=== PATIENT | female | born 1955 | race Caucasian/White ===

== ENCOUNTER 2016-03-06 04:24 | Emergency (ER) | payer MEDICARE, OTHER ==
[~2016-03-06] VITALS: Ht 154.9 cm; Wt 84.8 kg
[~2016-03-06 04:24] MED LIST: ALBU17AE23 IH; ASP81TEC PO; ATEN-155 PO; ATEN25TA PO; CHOL100011 PO; CYCL10TA9 PO; DICL75TA2 PO; FLT05NA16 NS; GABA300T PO; IBUP-15 PO; ISM30TCR PO; LISI1TAB10 PO; LOVA20TA2 PO; METF-380 PO; MNTL10T PO; RANI300T4 PO; TRM50T PO
[2016-03-06] MEDS ORDERED: METO-270 PO (04:52)
[2016-03-06] MEDS ORDERED: OMEP20CA12 PO (04:52)
[2016-03-06] MEDS ORDERED: CETI10TA17 PO (04:52)
--- NOTE | 2016-03-06 04:56 | ED Cardiac General ---
History of Present Illness General Chief Complaint: Cardiac/General Problems Stated Complaint: HIGH BLOOD PRESSURE Nursing Triage Note: Pt reports blood pressure running high throughout the night. Pt states she initially took BP after feeling sick to stomach around 2300 and BP was 164/84. Pt then took 1/2 of 25mg metoprolol ER and BP dropped to 155/71. 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 Pt denies KAMARA, dizziness, or CP. 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 AND WAS 176/84, SO CAME TO ER COMPLETELY ASYMPTOMATIC--NAUSEA GONE NO CHEST PAIN NO SHORTNESS OF BREATH NO PALPITATIONS NO DIZZINESS Allergies and Home Medications Allergies Coded Allergies: acetaminophen (Unverified Allergy, Mild, 05/05/09) codeine (Unverified Allergy, Mild, 05/05/09) propoxyphene (Unverified Allergy, Mild, 05/05/09) tramadol (Unverified Allergy, Mild, 05/12/09) Home Medications Albuterol 17 Gm Aerosol 1 GM IH 5 x DAILY (Reported) Aspirin 81 Mg Tabec 81 MG PO DAILY (Reported) Cetirizine HCl 10 Mg Tablet 10 MG PO DAILY (Reported) Fluticasone Propionate 16 Gm [place] 2 SPRAYS NS BID (Reported) Gabapentin 300 Mg Tablet 300 MG PO TID (Reported) Lisinopril/Hydrochlorothiazide 1 Each Tablet 0.5 TAB PO DAILY (Reported) Lovastatin 20 Mg Tablet 20 MG PO DAILY (Reported) Metformin Hcl 1,000 Mg Tablet 1,000 MG PO BID WITH MEALS (Reported) Metoprolol Succinate 25 Mg Tab.er.24h 25 MG PO DAILY (Reported) Omeprazole 20 Mg Capsule.dr 20 MG PO BID (Reported) Review of Systems Constitutional: no symptoms reported Respiratory: No Symptoms Reported Cardiovascular: See HPIDenies Chest Pain, Denies Edema, Denies Lightheadedness , Denies Palpitations, Denies Syncope Gastrointestinal: See HPIDenies Abdominal Pain, NauseaDenies Vomiting Genitourinary: No Symptoms Reported Musculoskeletal: no symptoms reported Skin: no symptoms reported Psychiatric/Neurological: Anxiety Past Icofivi-Auqtvf-Zmldep Hx Patient Social History Alcohol Use: Denies Use Recreational Drug Use: No Smoking Status: Never a Smoker Recent Foreign Travel: No Contact w/Someone Who Travel: No Recent Infectious Disease Expo: No Recent Hopitalizations: No Physical Abuse Screen: No Sexual Abuse: No Immunizations Up To Date Date of Pneumonia Vaccine: Feb 20, 2011 Date of Influenza Vaccine: Nov 15, 2011 Seasonal Allergies Seasonal Allergies: No Surgeries HX Surgeries: Yes (D&C; CARDIAC CATH--NO INTERVENTION) Surgeries: Cardiac, Orthopedic Respiratory Hx Respiratory Disorders: Yes (wears 2L @ night) Respiratory Disorders: Asthma Cardiovascular Hx Cardiac Disorders: Yes ("blood clot in heart" ) Cardiac Disorders: Chronic Edema/Swelling, Coronary Artery Disease, Deep Vein Thrombosis, High Cholesterol, Hypertension Neurological Hx Neurological Disorders: Yes (spina bifida) Neurological Disorders: Neuropathy Reproductive System Hx Reproductive Disorders: No DIRECTOR SUPPLY History: Menopausal Genitourinary Hx Genitourinary Disorders: No Gastrointestinal Hx Gastrointestinal Disorders: Yes Gastrointestinal Disorders: Gastroesophageal Reflux Musculoskeletal Hx Musculoskeletal Disorders: Yes (SPINA BIFIDA) Musculoskeletal Disorders: Arthritis, Fibromyalgia, Chronic Back Pain Endocrine Hx Endocrine Disorders: Yes Endocrine Disorders: Diabetes, Non-Insulin dep HEENT HX ENT Disorders: No Cancer Hx Cancer: No Psychosocial Hx Psychiatric Problems: No Physical Exam Vital Signs Vital Sign - Last 12Hours 03/06/16 04:39 Temp 96.6 Pulse 117 Resp 18 B/P 190/96 Pulse Ox 96 O2 Delivery Room Air Capillary Refill : Less Than 3 Seconds General Appearance: No Apparent Distress WD/WN Anxious Neck: Full Range of Motion Normal Inspection Non Tender SuppleNo Carotid Bruit , No JVD Respiratory: Normal Breath Sounds No Accessory Muscle Use No Respiratory Distress Cardiovascular: Regular Rate, Rhythm No JVD No Murmur Normal Peripheral Pulses Gastrointestinal: Normal Bowel Sounds No Organomegaly No Pulsatile Mass Non Tender Soft Extremity: Normal Capillary Refill Normal Inspection Normal Range of Motion Non Tender No Calf Tenderness Pedal Edema (TRACE BILATERALLY) Neurologic/Psychiatric: Alert Oriented x3 No Motor/Sensory Deficits 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 II- XII Norm as Tested Other (ANXIOUS) Skin: Normal Color Warm/Dry Progress/Results/Core Measures Results/Orders My Orders Orders-ELIEZER KELLEY DO Metoprolol Succinate (Xl) Tab (Toprol Xl (03/06/16 05:15) Medications Given in ED Current Medications Medications Dose Ordered Sig/Toney Route Start Time Stop Time Status Last Admin Dose Admin Metoprolol Succinate 25 mg ONCE ONCE PO 03/06/16 05:15 03/06/16 05:16 DC 03/06/16 05:15 25 MG Vital Signs/I&O Vital Sign - Last 12Hours 03/06/16 04:39 Temp 96.6 Pulse 117 Resp 18 B/P 190/96 Pulse Ox 96 O2 Delivery Room Air Blood Pressure Mean: 127 Progress Note : Progress Note BP DOWN TO 135/80 AT DISMISSAL AND PT STATES SHE FEELS GREAT AND HAS NO COMPLAINTS Departure Impression Impression: Primary Impression: HTN (hypertension) Additional Impression: Anxiety Disposition: 01 HOME, SELF-CARE Condition: Stable Departure-Patient Inst. Referrals: CAIO MARC DO (PCP) Primary Care Physician CLEMENTE CHASE (Family) Primary Care Physician Patient Instructions: Heart Disease in Diabetics (DC), Heart Healthy Diet, High Blood Pressure (DC) Add. Discharge Instructions: TAKE YOUR BLOOD PRESSURE MEDICATIONS PRESCRIBED FOLLOW UP WITH YOUR DR NEXT WEEK FOR FURTHER CARE All discharge instructions reviewed with patient and/or family. Voiced understanding. ELIEZER KELLEY DO Mar 06, 2016 04:55
[2016-03-06 05:54] VITALS: BP 135/80
== END 2016-03-06 05:54 | disposition home or self-care (01) ==
LOC: EDUNIT# 04:24 → ER 04:28
DX: I10 Essential (primary) hypertension (principal); F41.9 Anxiety disorder, unspecified; I25.10 Atherosclerotic heart disease of native coronary artery without angina pectoris; E11.9 Type 2 diabetes mellitus without complications; Z79.82 Long term (current) use of aspirin; Z79.899 Other long term (current) drug therapy; Z79.84 Long term (current) use of oral hypoglycemic drugs

== ENCOUNTER 2016-04-20 10:21 | Emergency (ER) | payer MEDICARE, OTHER ==
[~2016-04-20] VITALS: Ht 154.9 cm; Wt 83.9 kg
[~2016-04-20 10:21] MED LIST changes: +CETI10TA17 PO; +METO-270 PO; +OMEP20CA12 PO
--- NOTE | 2016-04-20 10:49 | ED Lower Extremity ---
General Stated Complaint: LEFT LEG PAIN Source: patient Exam Limitations: no limitations History of Present Illness Time seen by provider: 10:48 Initial Comments To ER with left leg pain for about a week. Chronic swelling in the left leg and the right leg but she states the left leg is a bit worse than usual. History of DVT in the left leg. No known injury. She feels as though the knee is swollen. Pain begins at the knee and is an "shooting pain" down to the ankle. Onset: just prior to arrival Severity: moderate Pain/Injury Location: left leg, left knee Method of Injury: unknown Modifying Factors: Improves With Movement Allergies and Home Medications Allergies Coded Allergies: acetaminophen (Unverified Allergy, Mild, 05/05/09) codeine (Unverified Allergy, Mild, 05/05/09) propoxyphene (Unverified Allergy, Mild, 05/05/09) tramadol (Unverified Allergy, Mild, 05/12/09) Home Medications Albuterol 17 Gm Aerosol 1 GM IH 5 x DAILY (Reported) Aspirin 81 Mg Tabec 81 MG PO DAILY (Reported) Cetirizine HCl 10 Mg Tablet 10 MG PO DAILY (Reported) Fluticasone Propionate 16 Gm [place] 2 SPRAYS NS BID (Reported) Gabapentin 300 Mg Tablet 300 MG PO TID (Reported) Lisinopril/Hydrochlorothiazide 1 Each Tablet 0.5 TAB PO DAILY (Reported) Lovastatin 20 Mg Tablet 20 MG PO DAILY (Reported) Meloxicam 7.5 Mg Tablet #30 7.5 MG PO BID Prescribed by: NEGRO HAAS on 04/20/16 1122 Metformin Hcl 1,000 Mg Tablet 1,000 MG PO BID WITH MEALS (Reported) Omeprazole 20 Mg Capsule.dr 20 MG PO BID (Reported) Pantoprazole Sodium 40 Mg Tablet.dr #20 40 MG PO DAILY Prescribed by: NEGRO HAAS on 04/20/16 1122 Constitutional: see HPI EENTM: see HPI Respiratory: no symptoms reported Cardiovascular: no symptoms reported Genitourinary: no symptoms reported Musculoskeletal: see HPI Skin: no symptoms reported Psychiatric/Neurological: No Symptoms Reported Past Trymumh-Dkrldb-Onnmud Hx Patient Social History Recent Foreign Travel: No Contact w/Someone Who Travel: No Recent Hopitalizations: No Immunizations Up To Date Date of Pneumonia Vaccine: Feb 20, 2011 Date of Influenza Vaccine: Nov 15, 2011 Seasonal Allergies Seasonal Allergies: No Surgeries HX Surgeries: Yes (D&C; CARDIAC CATH--NO INTERVENTION) Surgeries: Cardiac, Orthopedic Respiratory Hx Respiratory Disorders: Yes (wears 2L @ night) Respiratory Disorders: Asthma Cardiovascular Hx Cardiac Disorders: Yes ("blood clot in heart" ) Cardiac Disorders: Chronic Edema/Swelling, Coronary Artery Disease, Deep Vein Thrombosis, High Cholesterol, Hypertension Neurological Hx Neurological Disorders: Yes (spina bifida) Neurological Disorders: Neuropathy Reproductive System Hx Reproductive Disorders: No 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 Genitourinary Hx Genitourinary Disorders: No Gastrointestinal Hx Gastrointestinal Disorders: Yes Gastrointestinal Disorders: Gastroesophageal Reflux Musculoskeletal Hx Musculoskeletal Disorders: Yes (SPINA BIFIDA) Musculoskeletal Disorders: Arthritis, Fibromyalgia, Chronic Back Pain Endocrine Hx Endocrine Disorders: Yes Endocrine Disorders: Diabetes, Non-Insulin dep HEENT HX ENT Disorders: No Cancer Hx Cancer: No Psychosocial Hx Psychiatric Problems: No Physical Exam Vital Signs Vital Sign - Last 12Hours 04/20/16 10:45 Temp 98.0 Pulse 92 Resp 18 B/P 147/95 Pulse Ox 98 O2 Delivery Room Air Capillary Refill : General Appearance: WD/WN no apparent distress HEENT: PERRL/EOMI normal ENT inspection Neck: non-tender full range of motion Respiratory: no respiratory distress no accessory muscle use Gastrointestinal: non tender soft Hips: bilateral hip non-tender, bilateral hip normal inspection, bilateral hip normal range of motion Legs: bilateral leg non-tender, bilateral leg normal inspection, bilateral leg normal range of motion Knees: left knee pain, left knee soft tissue tenderness, left knee swelling Ankles: bilateral ankle non-tender, bilateral ankle normal inspection, bilateral ankle normal range of motion Feet: bilateral foot non-tender, bilateral foot normal inspection, bilateral foot normal range of motion Neurologic/Psychiatric: alert normal mood/affect oriented x 3 Skin: normal color warm/dry Progress/Results/Core Measures Results/Orders My Orders Orders-NEGRO HAAS APRN Knee, Left, 3 Views (04/20/16 10:48) Us Venous Lower Ext Lt (04/20/16 10:48) Vital Signs/I&O Vital Sign - Last 12Hours 04/20/16 10:45 Temp 98.0 Pulse 92 Resp 18 B/P 147/95 Pulse Ox 98 O2 Delivery Room Air Departure Impression Impression: Primary Impression: Arthritis of knee, left Disposition: 01 HOME, SELF-CARE Condition: Stable Departure-Patient Inst. Decision time for Depature: 11:20 Referrals: MARY KATE HERMOSILLO MD [place] - [facility] (PCP) Primary Care Physician TAMRA TUCKER MD,JORGE GIRALDO,CRISTÓBAL PURDY,DALJIT GRANGER,ELA Cee MD Patient Instructions: Knee Pain Add. Discharge Instructions: 1. Anti-inflammatories as directed 2. Follow-up with an orthopedic surgeon of your choosing 3. Return to ER for any concerns Scripts Pantoprazole Sodium (Protonix)40 Mg Tablet.dr40 Mg PO DAILY #20 TAB Prov:NEGRO HAAS HEMATOLOGY TECHNICIAN 04/20/16 Meloxicam 7.5 Mg Tablet7.5 Mg PO BID #30 TAB Prov:NEGRO HAAS HEMATOLOGY TECHNICIAN 04/20/16 NEGRO HAAS HEMATOLOGY TECHNICIAN Apr 20, 2016 10:49
--- NOTE | 2016-04-20 11:18 | Diagnostic Imaging Report ---
INDICATION: Pain and swelling to the left knee radiating down the leg, no known trauma. COMPARISON STUDY: Left knee dated 06/19/14. FINDINGS: 3 views of the left knee demonstrates stable small osteophytes in the patellofemoral joint space. No fracture is present. A small suprapatellar joint effusion has developed. IMPRESSION: Stable mild degenerative changes of patellofemoral joint with interval development of a small joint effusion. Dictated by: Dictated on workstation # [id number]
[2016-04-20] MEDS ORDERED: PANT40TA2 PO (11:22)
[2016-04-20] MEDS ORDERED: MELO7.5T46 PO (11:22)
[2016-04-20 11:31] VITALS: BP 147/95
--- NOTE | 2016-04-20 11:33 | Diagnostic Imaging Report ---
PROCEDURE: US left lower extremity venous. TECHNIQUE: Multiple real-time grayscale images were obtained over the left lower extremity in various projections. Additional duplex Doppler and color Doppler images were also obtained. INDICATION: Left leg pain and swelling. COMPARISON: 02/14/2012. TECHNIQUE: The left lower extremity deep venous system was interrogated from the common femoral vein through the popliteal vein. These images were assessed for grayscale appearance, color and spectral Doppler blood flow, compression, and augmentation. FINDINGS: There is no evidence of intraluminal filling defect. Normal compression and augmentation is noted throughout. Soft tissues are unremarkable. IMPRESSION: 1. No sonographic evidence of deep venous thrombosis in the left lower extremity. Dictated by: Dictated on workstation # [id number]
== END 2016-04-20 11:32 | disposition home or self-care (01) ==
LOC: EDUNIT# 10:21 → ER 10:23
DX: M17.12 Unilateral primary osteoarthritis, left knee (principal); M25.462 Effusion, left knee; I10 Essential (primary) hypertension; E11.9 Type 2 diabetes mellitus without complications; I25.10 Atherosclerotic heart disease of native coronary artery without angina pectoris; Z79.82 Long term (current) use of aspirin; Z79.84 Long term (current) use of oral hypoglycemic drugs; Z79.899 Other long term (current) drug therapy; Z86.718 Personal history of other venous thrombosis and embolism
CPT/HCPCS: 73562; 99283

== ENCOUNTER → 2016-05-07 | Outpatient (CLI) | payer MEDICARE ==
[~2016-05-07] MED LIST changes: +MELO7.5T46 PO; +PANT40TA2 PO
--- NOTE | 2016-05-10 09:14 | Diagnostic Imaging Report ---
EXAMINATION: Magnetic resonance imaging of the left knee without intravenous contrast DATE: May 07, 2016. COMPARISON: Left knee radiographs April 20, 2016. June 19, 2014. INDICATION: 60-year-old female, left knee pain for 3-4 weeks. No known recent injury. TECHNIQUE: Multiplanar, multisequence non contrast enhanced MR imaging was accomplished. FINDINGS: MENISCI: The medial meniscus is intact. There is a complex tear involving the anterior horn, body, and posterior horn of the lateral meniscus. LIGAMENTS AND TENDONS: The anterior and posterior cruciate ligaments are intact. The medial collateral ligament is intact. The iliotibial band, mid third lateral capsular ligament, fibular collateral ligament, biceps femoris tendon and conjoined tendon are intact. The quadriceps tendon and patella ligament are intact. JOINT: There is approximately 25-50% thickness cartilage loss with superficial irregularity and pitting of the cartilage of the median patellar ridge and medial aspect of the lateral femoral trochlear cartilage. There is superficial irregularity of the cartilage of the femoral trochlea. The medial and lateral compartment cartilage is intact. There is a trace knee joint effusion. There is no identified intra-articular body or prominent synovitis. BONE: There are tubular areas of fluid like signal in the proximal tibia underlying the attachment site of the cruciate ligaments and posterior root attachment of the medial meniscus which likely relates to intraosseous ganglion cyst formation. There is no acute fracture, bone contusion, or evidence of osteonecrosis. BURSAE AND SOFT TISSUES: There is a very small slitlike Pitts's cyst. There is a multiloculated ganglion cyst subjacent to the posterior joint capsule which measures roughly 1.9 x 1.7 x 1.1 cm in size. IMPRESSION: 1. Extensive complex tear involving the anterior horn, body, and posterior horn of the lateral meniscus. 2. Intact medial meniscus. 3. Intact anterior and posterior cruciate ligaments. 4. Mild to moderate patellofemoral compartment osteoarthritis. Trace knee joint effusion without identified intra-articular body or prominent synovitis. 5. Very small slitlike Pitts's cyst. 6. No acute fracture or bone contusion. Dictated by: Dictated on workstation # [id number]
== END ==
LOC: RAD 11:32
PROVIDERS: ATTEND Orthopaedic Surgery
DX: M23.8X2 Other internal derangements of left knee (principal)
CPT/HCPCS: 73721

== ENCOUNTER → 2016-07-13 | Outpatient (CLI) | payer MEDICARE, OTHER | LOC: RAD 10:48 | PROVIDERS: ATTEND Internal Medicine Cardiovascular Disease | DX: I73.9 Peripheral vascular disease, unspecified (principal); E11.9 Type 2 diabetes mellitus without complications; E78.4 Other hyperlipidemia; I10 Essential (primary) hypertension; R06.02 Shortness of breath | CPT/HCPCS: 93923 ==

== ENCOUNTER 2016-09-12 09:39 | Emergency (ER) | payer MEDICARE, OTHER ==
[~2016-09-12] VITALS: Ht 167.6 cm; Wt 81.6 kg
[~2016-09-12 09:39] MED LIST changes: -METO-270 PO; +METO-387 PO
--- NOTE | 2016-09-12 10:05 | ED EENT ---
History of Present Illness General Stated Complaint: THROAT DISCOMFORT History of Present Illness Time seen by provider: 09:58 Initial Comments Patient presents to ER by private conveyance with chief complaint of this morning waking up with a little difficulty swallowing or medicine and feeling no sore throat but definitely a lump in her throat at the back of her throat. She took some salt water gargle and this helped a little bit. She is able to get her meds down. She has had no fevers chills or malaise nausea or diarrhea. She has no known sick contacts. She has no other symptoms such as facial asymmetry or numbness or tingling. She is diabetic. She says she knows some white streaks on her right tonsil this morning in the mirror. She feels that it is worse on the right than left. She remarks about 1-2 weeks ago she had a tooth pulled on the right side on the back lower jaw. She was put on antibiotics for a week. She is not having any dental pain or discharge. Allergies and Home Medications Allergies Coded Allergies: acetaminophen (Unverified Allergy, Mild, 05/05/09) codeine (Unverified Allergy, Mild, 05/05/09) propoxyphene (Unverified Allergy, Mild, 05/05/09) tramadol (Unverified Allergy, Mild, 05/12/09) Home Medications Albuterol 17 Gm Aerosol, 1 GM IH 5 x DAILY, (Reported) Aspirin 81 Mg Tabec, 81 MG PO DAILY, (Reported) Cetirizine HCl 10 Mg Tablet, 10 MG PO DAILY, (Reported) Fluticasone Propionate 16 Gm [place], 2 SPRAYS NS BID, (Reported) Gabapentin 300 Mg Tablet, 300 MG PO TID, (Reported) Lisinopril/Hydrochlorothiazide 1 Each Tablet, 0.5 TAB PO DAILY, (Reported) Lovastatin 20 Mg Tablet, 20 MG PO DAILY, (Reported) Meloxicam 7.5 Mg Tablet, 7.5 MG PO BID, #30 Prescribed by: NEGRO HAAS on 04/20/161121 Metformin Hcl 1,000 Mg Tablet, 1,000 MG PO BID WITH MEALS, (Reported) Omeprazole 20 Mg Capsule., 20 MG PO BID, (Reported) Pantoprazole Sodium 40 Mg Tablet.dr, 40 MG PO DAILY, #20 Prescribed by: NEGRO HAAS on 3/7/17 1122 Review of Systems Constitutional: No chills, No diaphoresis, No dizziness, No fever, No malaise, No weakness, No weight gain, No weight loss Eyes: Denies Drainage, Denies Pain Ears: Denies Dizziness, Denies Pain, Denies Tinnitus Nose: denies congestion, denies clear discharge, denies purulent discharge Mouth: denies loose teeth Throat: see HPI, denies discharge, denies neck stiffness, denies hoarse, denies aphonia, denies muffled, painful swallowing, denies difficulty with fluids Respiratory: No cough, No short of breath Cardiovascular: No chest pain, No palpitations Gastrointestinal: No constipation, No diarrhea, No nausea, No vomiting Past Asxrcix-Plffmd-Cklxax Hx Patient Social History Recent Foreign Travel: No Contact w/Someone Who Travel: No Recent Hopitalizations: No Immunizations Up To Date Date of Pneumonia Vaccine: Feb 20, 2011 Date of Influenza Vaccine: Nov 15, 2011 Seasonal Allergies Seasonal Allergies: No Surgeries HX Surgeries: Yes (D&C; CARDIAC CATH--NO INTERVENTION) Surgeries: Cardiac, Orthopedic Respiratory Hx Respiratory Disorders: Yes (wears 2L @ night) Respiratory Disorders: Asthma Cardiovascular Hx Cardiac Disorders: Yes ("blood clot in heart" ) Cardiac Disorders: Chronic Edema/Swelling, Coronary Artery Disease, Deep Vein Thrombosis, High Cholesterol, Hypertension Neurological Hx Neurological Disorders: Yes (spina bifida) Neurological Disorders: Neuropathy Reproductive System Hx Reproductive Disorders: No 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 Genitourinary Hx Genitourinary Disorders: No Gastrointestinal Hx Gastrointestinal Disorders: Yes Gastrointestinal Disorders: Gastroesophageal Reflux Musculoskeletal Hx Musculoskeletal Disorders: Yes (SPINA BIFIDA) Musculoskeletal Disorders: Arthritis, Fibromyalgia, Chronic Back Pain Endocrine Hx Endocrine Disorders: Yes Endocrine Disorders: Diabetes, Non-Insulin dep HEENT HX ENT Disorders: No Cancer Hx Cancer: No Psychosocial Hx Psychiatric Problems: No Physical Exam Vital Signs Vital Sign - Last 12Hours 09/12/16 10:04 Temp 97.5 Pulse 70 Resp 16 B/P (MAP) 173/105 Pulse Ox 98 O2 Delivery Room Air General Appearance: WD/WN, no apparent distress Eyes: bilateral eye EOMI, bilateral eye PERRL, bilateral eye normal inspection Ears: bilateral ear TM normal, bilateral ear auricle normal, bilateral ear canal normal Nose: normal inspection, No discharge Mouth/Throat: No dental tenderness, tonsillar swelling, other (white flecks on bilateral tonsils) Neck: non-tender, full range of motion, supple, normal inspection, lymphadenopathy (R) (shotty), lymphadenopathy (L) (shotty), No thyromegaly Cardiovascular: normal peripheral pulses, regular rate, rhythm Respiratory: lungs clear, normal breath sounds Gastrointestinal: non tender, soft Neurologic/Psychiatric: alert, oriented x 3 Skin: normal color, warm/dry Progress/Results/Core Measures Results/Orders Lab Results Laboratory Tests Test 09/12/16 10:00 Range/Units Group A Streptococcus Screen NEGATIVE NEGATIVE My Orders Orders - RYANN ARGUETA Rapid Strep A Screen (09/12/16 10:05) Vital Signs/I&O Vital Sign - Last 12Hours 09/12/16 10:04 Temp 97.5 Pulse 70 Resp 16 B/P (MAP) 173/105 Pulse Ox 98 O2 Delivery Room Air Departure Impression Impression: Primary Impression: Pharyngitis Qualified Codes: J02.9 - Acute pharyngitis, unspecified Disposition: HOME, SELF-CARE Condition: Stable Departure-Patient Inst. Referrals: [facility] (PCP/Family) Primary Care Physician Patient Instructions: Viral Pharyngitis (DC) Add. Discharge Instructions: Drink plenty of fluids and use salt water gargles as often as necessary to control your symptoms. If you're swelling gets worse the point that she cannot swallow liquids you can return to the ER. If you cannot breathe he should return to the ER. Otherwise follow up with your primary care physician as needed. Use Tylenol or ibuprofen to control the discomfort her pain you may feel. Warm broth or chicken noodle soup. Mentholatum or Vicks vapor rub applied to the neck and chest area as well as York's cough drops. Copy Copies To 1: CAIO MARC TITUS J Sep 12, 2016 10:04
[2016-09-12 10:37] VITALS: BP 162/90
== END 2016-09-12 10:37 | disposition home or self-care (01) ==
LOC: EDUNIT# 09:39 → ER 09:41
DX: J02.9 Acute pharyngitis, unspecified (principal); E11.40 Type 2 diabetes mellitus with diabetic neuropathy, unspecified; M47.9 Spondylosis, unspecified; K21.9 Gastro-esophageal reflux disease without esophagitis; R60.9 Edema, unspecified; I25.10 Atherosclerotic heart disease of native coronary artery without angina pectoris; E78.00 Pure hypercholesterolemia, unspecified; I10 Essential (primary) hypertension; J45.909 Unspecified asthma, uncomplicated; Z99.81 Dependence on supplemental oxygen; Z98.890 Other specified postprocedural states; Z79.84 Long term (current) use of oral hypoglycemic drugs; Z79.82 Long term (current) use of aspirin; Z86.718 Personal history of other venous thrombosis and embolism
CPT/HCPCS: 87430; 99282

== ENCOUNTER → 2016-09-22 | Outpatient (CLI) | payer MEDICARE, OTHER ==
[~2016-09-22] MED LIST changes: +METO-270 PO; -METO-387 PO
--- NOTE | 2016-09-22 12:31 | Diagnostic Imaging Report ---
PROCEDURE: US Thyroid. TECHNIQUE: Multiple Real-time grayscale images were obtained of the thyroid in various projections. INDICATION: Difficulty swallowing. FINDINGS: The right lobe is 4.5 x 1.5 x 1.5 cm. The left lobe is 3.8 x 1.2 x 1 cm. There is a dominant nodule measuring 2.5 x 1.4 x 1.9 cm seen along the thyroid isthmus. It has some extension into the right side. There is also another nodule within the right thyroid lobe, mid aspect, measuring 1.4 x 1.3 x 1.2 cm. No nodule is seen in the left lobe. IMPRESSION: Nonspecific thyroid solid nodules in the right lobe and isthmus which could be related to a multinodular goiter. An ultrasound-guided biopsy of the dominant lesion in the isthmus is recommended. Report faxed to Timbo Vivar APRN at 12:31 p.m. 09/22/2016/[place] Dictated by: Dictated on workstation # [id number]
== END ==
LOC: RAD 10:16
PROVIDERS: ATTEND Nurse Practitioner Family
DX: E04.2 Nontoxic multinodular goiter (principal)
CPT/HCPCS: 76536

== ENCOUNTER 2017-01-10 20:40 | Emergency (ER) | payer MEDICARE ==
[~2017-01-10] VITALS: Ht 154.9 cm; Wt 90.3 kg
[~2017-01-10 20:40] MED LIST changes: -METO-270 PO; +METO-387 PO
--- OUTSIDE RECORDS SUMMARY | 2017-01-10 20:45 | XMS REPORT ---
Author Author LON SALAZAR Organization [employer] Address Unknown Phone Unavailable Care Team Providers Care Dough Maker Name Role Phone LON SALAZAR Unavailable Allergies No Known Allergies Problems Problem Type Condition Code Onset Dates Condition Status Problem Generalized osteoarthrosis, involving multiple sites 715.09 Active Problem Coronary atherosclerosis of unspecified type of vessel, [place] or graft 414.00 Active Problem Abnormality of gait 781.2 Active Problem Diabetes type 2, controlled 250.00 Active Problem Enthesopathy of hip region 726.5 Active Problem Other and unspecified hyperlipidemia 272.4 Active Problem Pain in joint, lower leg 719.46 Active Problem Unspecified essential hypertension 401.9 Active Problem Pain in joint, pelvic region and thigh 719.45 Active Problem Atherosclerosis of [place] arteries of the extremities, unspecified 440.20 Active Medications Medication Code System Code Instructions Start Date End Date Status Dosage Metformin HCl [facility] [address]-12 1000 MG Orally Twice a day Oct 14, 2014 1 tablet with meals Fluticasone Propionate [facility] [address]-87 50 MCG/ACT Nasally 2 times a day Feb 15, 2015 1 spray in each nostril Lovastatin [facility] [address]-05 20 MG Orally Once a day Nov 30, 2013 take 1 Tablet Results No Known Results Summary Purpose [employer] Submission
--- OUTSIDE RECORDS SUMMARY | 2017-01-10 20:46 | XMS REPORT ---
Author Author BRII ESTRADA Organization [facility] Address [address] [place] [address] Care Team Providers Care Scientist Immunology Name Role Phone BRII ESTRADA Unavailable PROBLEMS Type Condition ICD9-CM Code [id number] Code Onset Dates Condition Status SNOMED Code Problem Abnormality of gait R26.9 Active 96846839 Problem Other chronic pain G89.29 Active 59622780 Problem Arthritis of knee, left M19.90 Active 897454243 Problem Osteoarthritis, unspecified osteoarthritis type, unspecified site M19.90 Active 668758639 Problem Type 2 diabetes mellitus without complication, without long-term current use of insulin E11.9 Active 069039637 Problem Thyroid nodule E04.1 Active 292833242 Problem Thyroid enlarged E01.0 Active 83186343 Problem Essential hypertension I10 Active 27881364 Problem Mixed hyperlipidemia E78.2 Active 635159192 Problem Atherosclerotic heart disease of [place] coronary artery without angina pectoris I25.10 Active 900527788434801 Problem Mild intermittent asthma without complication J45.20 Active 200055714 ALLERGIES Substance Reaction Event Type Date Status Ibuprofen swelling of feet and legs Drug Allergy Feb, Active Darvocet-N 100 nausea and vomiting Drug Allergy Feb, Active Codeine Sulfate nausea and vomiting Drug Allergy Feb, Active SOCIAL HISTORY Never Assessed PLAN OF CARE Activity Details Follow Up 2 - 3 Days Reason:BP check-nurse visit VITAL SIGNS Height 61 in 2016-03-08 Weight 186.4 lbs 2016-03-08 Temperature 98.3 degrees Fahrenheit 2016-03-08 Heart Rate 92 bpm 2016-03-08 Respiratory Rate 16 2016-03-08 BMI 35.22 kg/m2 2016-03-08 Blood pressure systolic 164 mmHg 2016-03-08 Blood pressure diastolic 74 mmHg 2016-03-08 MEDICATIONS Medication Instructions Dosage Frequency Start Date End Date Duration Status Fish Oil 1000 MG Orally Once a day 1 capsule 24h Active Gabapentin 300 MG Orally Three times a day 1 tablet 8h 17 Nov, 2013 0 Active Aspirin Adult Low Strength 81 MG Orally Once a day 1 tablet 24h Active Vitamin D 1000 UNIT Orally Once a day 1 tablet 24h Active Lovastatin 20 mg Orally Once a day take 1 Tablet 24h 0 Active Lisinopril-Hydrochlorothiazide 20-25 MG Orally Once a day 1 tablet 24h 27 Mar, 2014 0 Active Ventolin HFA 90 mcg/actuation inhalation every 4 hours as needed inhale 2 puff by Inhalation route as needed every 4 hours Use prn shortness of breath May, 0 Active Nitrostat 0.4 MG Active Knee Brace/Hinged/Large ... as directed Jan, Active Metformin HCl 1000 MG Orally Twice a day 1 tablet with meals 12h Sep, 0 Active Compressor Nebulizer & Tubing as directed Jul, Active Albuterol Sulfate (2.5 MG/3ML) 0.083% Inhalation Three times a day PRN dx R06.2 3 ml Jul, 0 days Active Cane Aug, Active Metoprolol Succinate 25 mg orally once daily take 1 tablet 24h Mar, Active Prilosec 20 mg Orally twice a day 1 capsule 12h Mar, 0 Active Fluticasone Propionate 50 MCG/ACT Nasally 2 times a day 1 spray in each nostril 12h Feb, 0 Active RESULTS No Results PROCEDURES Procedure Date Ordered Result Body Site [facility] VISIT ESTABLISHED PATIENT Mar 08, 2016 IMMUNIZATIONS No Known Immunizations MEDICAL (GENERAL) HISTORY Type Description Date Medical History type II diabetes Medical History hyperlipidemia Medical History hypertension Medical History hearing loss Medical History depression Medical History deep vein thrombosis 2002 Medical History Arthritis Medical History fibromyalgia Medical History right hip trochanteric bursitis and sacroiliac dysfunction Medical History Echo 07/2012-mild diastolic dysfunction Medical History MRI L-spine 2008 mild lower lumbar and lower thoracic disc degenerative changes Medical History PPV 23 09/2010 Medical History Generalized osteoarthrosis, involving multiple sites Medical History 05/07/[address] David, extensive complex tear involving ant horn body and posterior horn of lateral meniscus. Mild to Mod patellofemoral compartment osteoarthritis. Surgical History polypectomy-endocervical, benign pathology Surgical History bone spurs and cyst removed from bilat feet Hospitalization History normal heart cath 06/2011 Hospitalization History blood clot behind left knee 2002 Hospitalization History ER with tooth pain 7/4/17
--- OUTSIDE RECORDS SUMMARY | 2017-01-10 20:46 | XMS REPORT ---
Author Author MOIZ RUBIO Organization [employer] Address Unknown Phone Unavailable Care Team Providers Care Crossing Gateman Name Role Phone MOIZ RUBIO CP Unavailable Allergies No Known Allergies Problems Problem Type Condition ICD-9 Code Onset Dates Condition Status Problem Generalized osteoarthrosis, involving multiple sites 715.09 Active Problem Coronary atherosclerosis of unspecified type of vessel, [place] or graft 414.00 Active Problem Abnormality of gait 781.2 Active Problem Diabetes type 2, controlled 250.00 Active Problem Enthesopathy of hip region 726.5 Active Problem Other and unspecified hyperlipidemia 272.4 Active Problem Pain in joint, lower leg 719.46 Active Problem Unspecified essential hypertension 401.9 Active Problem Pain in joint, pelvic region and thigh 719.45 Active Problem Atherosclerosis of [place] arteries of the extremities, unspecified 440.20 Active Medications No Known Medications Results No Known Results Summary Purpose [employer] Submission
--- OUTSIDE RECORDS SUMMARY | 2017-01-10 20:46 | XMS REPORT ---
Author Author CLEMENTE PAUL Organization [employer] Address Unknown Phone Unavailable Care Team Providers Care Real Estate Intern Name Role Phone CLEMENTE PAUL CP Unavailable Allergies No Known Allergies Problems Problem Type Condition Code Onset Dates Condition Status Problem Abnormality of gait 781.2 Active Problem Unspecified essential hypertension 401.9 Active Problem Coronary atherosclerosis of unspecified type of vessel, [place] or graft 414.00 Active Problem Generalized osteoarthrosis, involving multiple sites 715.09 Active Problem Osteoarthritis, unspecified osteoarthritis type, unspecified site M19.90 Active Problem Abnormality of gait R26.9 Active Problem Type 2 diabetes mellitus without complication, without long-term current use of insulin E11.9 Active Problem Enthesopathy of hip region 726.5 Active Problem Atherosclerosis of [place] arteries of the extremities, unspecified 440.20 Active Problem Type 2 diabetes mellitus without complications E11.9 Active Problem Other and unspecified hyperlipidemia 272.4 Active Medications Medication Code System Code Instructions Start Date End Date Status Dosage Metoprolol Succinate NDC 0 25 mg orally once daily Mar 21, 2014 take 1 [place] [address]-32 20-25 MG Orally Once a day Apr 12, 2014 take 0.5 tablet Results No Known Results Summary Purpose [employer] Submission
--- OUTSIDE RECORDS SUMMARY | 2017-01-10 20:46 | XMS REPORT ---
Author Author CLEMENTE PAUL Organization [employer] Address Unknown Phone Unavailable Care Team Providers Care Bike Assembler Name Role Phone CLEMENTE PAUL CP Unavailable Allergies No Known Allergies Problems Problem Type Condition Code Onset Dates Condition Status Problem Abnormality of gait 781.2 Active Problem Unspecified essential hypertension 401.9 Active Problem Coronary atherosclerosis of unspecified type of vessel, [place] or graft 414.00 Active Problem Generalized osteoarthrosis, involving multiple sites 715.09 Active Problem Osteoarthritis, unspecified osteoarthritis type, unspecified site M19.90 Active Problem Abnormality of gait R26.9 Active Problem Type 2 diabetes mellitus without complication, without long-term current use of insulin E11.9 Active Problem Enthesopathy of hip region 726.5 Active Problem Atherosclerosis of [place] arteries of the extremities, unspecified 440.20 Active Problem Type 2 diabetes mellitus without complications E11.9 Active Problem Other and unspecified hyperlipidemia 272.4 Active Medications Medication Code System Code Instructions Start Date End Date Status Dosage Prilosec [facility] [address]-03 20 mg Orally twice a day Apr 12, 2014 1 capsule Results No Known Results Summary Purpose [employer] Submission
--- OUTSIDE RECORDS SUMMARY | 2017-01-10 20:46 | XMS REPORT ---
Author Author BRII ESTRADA Organization [facility] Address [address] [place] [address] Care Team Providers Care Hospital Staff Pharmacist Name Role Phone BRII ESTRADA Unavailable PROBLEMS Type Condition ICD9-CM Code [id number] Code Onset Dates Condition Status SNOMED Code Problem Abnormality of gait R26.9 Active 01731654 Problem Other chronic pain G89.29 Active 17234985 Problem Arthritis of knee, left M19.90 Active 674508799 Problem Osteoarthritis, unspecified osteoarthritis type, unspecified site M19.90 Active 928025729 Problem Type 2 diabetes mellitus without complication, without long-term current use of insulin E11.9 Active 702226616 Problem Thyroid nodule E04.1 Active 672720821 Problem Thyroid enlarged E01.0 Active 93868135 Problem Essential hypertension I10 Active 17604051 Problem Mixed hyperlipidemia E78.2 Active 159395298 Problem Atherosclerotic heart disease of [place] coronary artery without angina pectoris I25.10 Active 571830994538083 Problem Mild intermittent asthma without complication J45.20 Active 849470974 ALLERGIES Unknown Allergies SOCIAL HISTORY No smoking Hx information available PLAN OF CARE VITAL SIGNS MEDICATIONS Medication Instructions Dosage Frequency Start Date End Date Duration Status Fluticasone Propionate 50 MCG/ACT Nasally 2 times a day 1 spray in each nostril 12h Feb, 0 Active RESULTS No Results PROCEDURES No Known procedures IMMUNIZATIONS No Known Immunizations
--- OUTSIDE RECORDS SUMMARY | 2017-01-10 20:46 | XMS REPORT ---
Author Author LON SALAZAR Organization [employer] Address Unknown Phone Unavailable Care Team Providers Care Rn Night Name Role Phone LON SALAZAR CP Unavailable Allergies No Known Allergies Problems Problem Type Condition Code Onset Dates Condition Status Problem Generalized osteoarthrosis, involving multiple sites 715.09 Active Problem Coronary atherosclerosis of unspecified type of vessel, [place] or graft 414.00 Active Problem Abnormality of gait 781.2 Active Assessment Encounter for immunization Z23 Active Problem Diabetes type 2, controlled 250.00 Active Problem Enthesopathy of hip region 726.5 Active Problem Other and unspecified hyperlipidemia 272.4 Active Problem Pain in joint, lower leg 719.46 Active Problem Unspecified essential hypertension 401.9 Active Problem Pain in joint, pelvic region and thigh 719.45 Active Problem Atherosclerosis of [place] arteries of the extremities, unspecified 440.20 Active Medications No Known Medications Procedures Procedure Coding System Code Date CPT-4 10025 Dec 12, 2014 SINGLE IMMUNIZATION ADMIN CPT-4 15628 Dec 12, 2014 FLUARIX QUAD (3 & UP)-GSK-2014 CPT-4 39858 Dec 12, 2014 IMMUNIZATION ADMIN, EACH ADD (please include units) CPT-4 58351 Dec 12, 2014 Results No Known Results Immunizations Vaccine Administration Date FLUARIX QUAD (3 & UP)-GSK-2014Dec 12, 2014 PCV 13 Dec 12, 2014 Summary Purpose [employer] Submission
--- OUTSIDE RECORDS SUMMARY | 2017-01-10 20:47 | XMS REPORT ---
Author Author LON SALAZAR [facility] [employer] Address Unknown Phone Unavailable Care Team Providers Care Material Inspector Name Role Phone LON SALAZAR Unavailable Allergies No Known Allergies Problems Problem Type Condition Code Onset Dates Condition Status Problem Abnormality of gait 781.2 Active Problem Generalized osteoarthrosis, involving multiple sites 715.09 Active Problem Other and unspecified hyperlipidemia 272.4 Active Problem Diabetes type 2, controlled 250.00 Active Problem Type 2 diabetes mellitus without complications E11.9 Active Problem Unspecified essential hypertension 401.9 Active Problem Coronary atherosclerosis of unspecified type of vessel, [place] or graft 414.00 Active Problem Enthesopathy of hip region 726.5 Active Problem Atherosclerosis of [place] arteries of the extremities, unspecified 440.20 Active Medications Medication Code System Code Instructions Start Date End Date Status Dosage Gabapentin [facility] [address]-09 300 MG Orally Three times a day Nov 30, 2013 1 tablet Results No Known Results Summary Purpose [employer] Submission
--- OUTSIDE RECORDS SUMMARY | 2017-01-10 20:47 | XMS REPORT ---
Author PRAMOD Vela [facility] [employer] Address Unknown Phone Unavailable Care Team Providers Care Lactation Specialist Name Role Phone PRAMOD GIORDANO Unavailable Allergies, Adverse Reactions, Alerts Substance Reaction Event Type Ibuprofen swelling of feet and legs Drug Allergy Darvocet-N 100 Info Not Available Drug Allergy Codeine Sulfate Info Not Available Drug Allergy Problems Problem Type Condition Code Onset Dates Condition Status Assessment Pain in left finger(s) M79.645 Active Problem Abnormality of gait 781.2 Active Problem Generalized osteoarthrosis, involving multiple sites 715.09 Active Problem Other and unspecified hyperlipidemia 272.4 Active Problem Diabetes type 2, controlled 250.00 Active Problem Type 2 diabetes mellitus without complications E11.9 Active Problem Unspecified essential hypertension 401.9 Active Problem Coronary atherosclerosis of unspecified type of vessel, [place] or graft 414.00 Active Problem Enthesopathy of hip region 726.5 Active Problem Atherosclerosis of [place] arteries of the extremities, unspecified 440.20 Active Assessment Hand pain, right M79.641 Active Assessment Hand pain, left M79.642 Active Assessment Pain of finger of right hand M79.644 Active Medications Medication Code System Code Instructions Start Date End Date Status Dosage Singulair [facility] [address]-83 10 mg Orally Once a day Jan 16, 2014 1 tablet Fish Oil [facility] [address]-70 1000 MG Orally Once a day 1 capsule Lisinopril-Hydrochlorothiazide [facility] [address]-70 20-25 MG Orally Once a day Apr 12, 2014 take 0.5 tablet Compressor Nebulizer ND 0 & Tubing July 31, 2015 as directed Prilosec [facility] [address]-76 20 MG Orally twice a day Apr 12, 2014 1 capsule Nitrostat [facility] [address]-37 0.4 MG Sublingual not defined Metformin HCl [facility] [address]-16 1000 MG Orally Twice a day Oct 14, 2014 1 tablet with meals Lovastatin [facility] [address]-23 20 mg Orally Once a day take 1 Tablet Gabapentin [facility] [address]-58 300 MG Orally Three times a day Nov 30, 2013 1 tablet Fluticasone Propionate [facility] [address]-26 50 MCG/ACT Nasally 2 times a day Feb 15, 2015 1 spray in each nostril Ventolin HFA [facility] [address]-08 90 mcg/actuation May 28, 2013 inhale 2 puff by Inhalation route as needed every 4 hours Use prn shortness of breath Aspirin Adult Low Strength [facility] [address]-02 81 MG Orally Once a day 1 tablet Albuterol Sulfate [facility] [address]-16 (2.5 MG/3ML) 0.083% Inhalation Three times a day PRN July 31, 2015 3 ml Cane ND 0 September 09, 2011 not defined Mevacor [facility] 64741110853 20 MG TAKE ONE (1) TABLET BY MOUTH DAILY... Metoprolol Succinate [facility] 0 25 mg orally once daily Mar 21, 2014 take 1 tablet Procedures Procedure Coding System Code Date Office Visit, Est Pt., Level 3 CPT-4 01894 September 12, 2015 [facility] VISIT ESTABLISHED PATIENT CPT-4 G0467 September 12, 2015 Vital Signs Date/Time: September 12, 2015 Cardiac Monitoring Heart Rate 64 bpm Weight 183.2 lbs Height 61 in BMI 34.61 Index Blood Pressure Diastolic 76 mmHg Blood Pressure Systolic 128 mmHg Results No Known Results Summary Purpose [employer] Submission
--- OUTSIDE RECORDS SUMMARY | 2017-01-10 20:47 | XMS REPORT ---
Author Author BRII ESTRADA Organization [facility] Address [address] [place] [address] Care Team Providers Care Tap And Die Maker Technician Name Role Phone BRII ESTRADA Unavailable PROBLEMS Type Condition ICD9-CM Code [id number] Code Onset Dates Condition Status SNOMED Code Problem Type 2 diabetes mellitus without complication, without long-term current use of insulin E11.9 Active 311510540 Problem Mixed hyperlipidemia E78.2 Active 016160487 Problem Essential hypertension I10 Active 87138931 Problem Abnormality of gait R26.9 Active 80493268 Problem Osteoarthritis, unspecified osteoarthritis type, unspecified site M19.90 Active 485535483 Problem Thyroid nodule E04.1 Active 844353967 Problem Thyroid enlarged E01.0 Active 89229114 Problem Other chronic pain G89.29 Active 97537705 Problem Arthritis of knee, left M19.90 Active 785469761 Problem Atherosclerotic heart disease of [place] coronary artery without angina pectoris I25.10 Active 336761522863158 Problem Mild intermittent asthma without complication J45.20 Active 668575617 ALLERGIES Substance Reaction Event Type Date Status Ibuprofen swelling of feet and legs Drug Allergy Dec, Active Darvocet-N 100 nausea and vomiting Drug Allergy Dec, Active Codeine Sulfate nausea and vomiting Drug Allergy Dec, Active SOCIAL HISTORY No smoking Hx information available PLAN OF CARE Activity Details Follow Up 2 Months Reason:CHM DM VITAL SIGNS Height 61 in 2016-01-02 Weight 184.8 lbs 2016-01-02 Temperature 97.9 degrees Fahrenheit 2016-01-02 Heart Rate 72 bpm 2016-01-02 Respiratory Rate 18 2016-01-02 BMI 34.91 kg/m2 2016-01-02 Blood pressure systolic 120 mmHg 2016-01-02 Blood pressure diastolic 68 mmHg 2016-01-02 MEDICATIONS Medication Instructions Dosage Frequency Start Date End Date Duration Status Albuterol Sulfate (2.5 MG/3ML) 0.083% Inhalation Three times a day PRN 3 ml 16 Jul, 2015 Active Metoprolol Succinate 25 mg orally once daily take 1 tablet 24h Mar, Active Fluticasone Propionate 50 MCG/ACT Nasally 2 times a day 1 spray in each nostril 12h Feb, Active Aspirin Adult Low Strength 81 MG Orally Once a day 1 tablet 24h Active Lisinopril-Hydrochlorothiazide 20-25 MG Orally Once a day take 0.5 tablet 24h Mar, Active Lovastatin 20 mg Orally Once a day take 1 Tablet 24h Active Metformin HCl 1000 MG Orally Twice a day 1 tablet with meals 12h Sep, Active Gabapentin 300 MG Orally Three times a day 1 tablet 8h 17 Nov, 2013 Active Ventolin HFA 90 mcg/actuation inhale 2 puff by Inhalation route as needed every 4 hours Use prn shortness of breath May, Active Prilosec 20 mg Orally twice a day 1 capsule 12h Mar, Active Compressor Nebulizer & Tubing as directed Jul, Active Cane Aug, Active Singulair 10 mg Orally Once a day 1 tablet 24h Jan, Active RESULTS No Results PROCEDURES Procedure Date Ordered Related Diagnosis Body Site [facility] VISIT ESTABLISHED PATIENT Jan 02, 2016 Office Visit, Est Pt., Level 4 Jan 02, 2016 IMMUNIZATIONS No Known Immunizations
--- OUTSIDE RECORDS SUMMARY | 2017-01-10 20:47 | XMS REPORT ---
Author Author BRII PARRA Organization [employer] Address Unknown Phone Unavailable Care Team Providers Care Pipe Inspector Name Role Phone BRII PARRA CP Unavailable Allergies No Known Allergies Problems Problem Type Condition Code Onset Dates Condition Status Problem Abnormality of gait 781.2 Active Problem Unspecified essential hypertension 401.9 Active Problem Coronary atherosclerosis of unspecified type of vessel, [place] or graft 414.00 Active Problem Generalized osteoarthrosis, involving multiple sites 715.09 Active Problem Osteoarthritis, unspecified osteoarthritis type, unspecified site M19.90 Active Problem Abnormality of gait R26.9 Active Problem Type 2 diabetes mellitus without complication, without long-term current use of insulin E11.9 Active Problem Enthesopathy of hip region 726.5 Active Problem Atherosclerosis of [place] arteries of the extremities, unspecified 440.20 Active Problem Type 2 diabetes mellitus without complications E11.9 Active Problem Other and unspecified hyperlipidemia 272.4 Active Medications No Known Medications Results No Known Results Summary Purpose [employer] Submission
--- OUTSIDE RECORDS SUMMARY | 2017-01-10 20:47 | XMS REPORT ---
Author Author CLEMENTE PAUL [facility] eClinicalWorks Address Unknown Phone Unavailable Care Team Providers Care Equipment Engineer Name Role Phone CLEMENTE PAUL CP Unavailable Allergies, Adverse Reactions, Alerts Substance Reaction Event Type Ibuprofen swelling of feet and legs Drug Allergy Darvocet-N 100 Info Not Available Drug Allergy Codeine Sulfate Info Not Available Drug Allergy Problems Problem Type Condition Code Onset Dates Condition Status Assessment Well woman exam with routine gynecological exam Z01.419 Active Problem Abnormality of gait 781.2 Active Problem Generalized osteoarthrosis, involving multiple sites 715.09 Active Assessment Breast cancer screening Z12.39 Active Problem Other and unspecified hyperlipidemia 272.4 Active Problem Diabetes type 2, controlled 250.00 Active Problem Type 2 diabetes mellitus without complications E11.9 Active Problem Unspecified essential hypertension 401.9 Active Problem Coronary atherosclerosis of unspecified type of vessel, [place] or graft 414.00 Active Problem Enthesopathy of hip region 726.5 Active Problem Atherosclerosis of [place] arteries of the extremities, unspecified 440.20 Active Medications Medication Code System Code Instructions Start Date End Date Status Dosage Aspirin Adult Low Strength [facility] [address]-24 81 MG Orally Once a day 1 tablet Compressor Nebulizer ND 0 & Tubing July 31, 2015 as directed Cane [facility] 0 September 09, 2011 not defined Lisinopril-Hydrochlorothiazide [facility] [address]-72 20-25 MG Orally Once a day Apr 12, 2014 take 0.5 tablet Gabapentin [facility] [address]-80 300 MG Orally Three times a day Nov 30, 2013 1 tablet Prilosec [facility] [address]-15 20 MG Orally twice a day Apr 12, 2014 1 capsule Mevacor [facility] 77506450797 20 MG TAKE ONE (1) TABLET BY MOUTH DAILY... Fish Oil [facility] [address]-19 1000 MG Orally Once a day 1 capsule Lovastatin [facility] [address]-86 20 mg Orally Once a day take 1 Tablet Metformin HCl [facility] [address]-02 1000 MG Orally Twice a day Oct 14, 2014 1 tablet with meals Singulair [facility] [address]-34 10 mg Orally Once a day Jan 16, 2014 1 tablet Ventolin HFA [facility] [address]-79 90 mcg/actuation May 28, 2013 inhale 2 puff by Inhalation route as needed every 4 hours Use prn shortness of breath Nitrostat [facility] [address]-10 0.4 MG Sublingual not defined Fluticasone Propionate [facility] [address]-26 50 MCG/ACT Nasally 2 times a day Feb 15, 2015 1 spray in each nostril Metoprolol Succinate [facility] 0 25 mg orally once daily Mar 21, 2014 take 1 tablet Albuterol Sulfate [facility] [address]-16 (2.5 MG/3ML) 0.083% Inhalation Three times a day PRN July 31, 2015 3 ml Procedures Procedure Coding System Code Date Preventive Care Est Pt. Age 40-64 CPT-4 16578 Sep 26, 2015 [facility]-4 NOBLL Sep 26, 2015 SPECIMEN HANDLING CPT-4 26405 Sep 26, 2015 Vital Signs Date/Time: Sep 26, 2015 Cardiac Monitoring Heart Rate 65 bpm Weight 189.6 lbs Height 61 in BMI 35.82 Index Blood Pressure Diastolic 80 mmHg Blood Pressure Systolic 130 mmHg Results No Known Results Summary Purpose eClinicalWorks Submission
--- OUTSIDE RECORDS SUMMARY | 2017-01-10 20:47 | XMS REPORT ---
Author Author BRII ESTRADA Organization [facility] Address [address] [place] [address] Care Team Providers Care Senior Shipping Clerk Name Role Phone BRII ESTRADA Unavailable PROBLEMS Type Condition ICD9-CM Code [id number] Code Onset Dates Condition Status SNOMED Code Problem Abnormality of gait R26.9 Active 85234158 Problem Other chronic pain G89.29 Active 00258195 Problem Arthritis of knee, left M19.90 Active 134276287 Problem Osteoarthritis, unspecified osteoarthritis type, unspecified site M19.90 Active 351065978 Problem Type 2 diabetes mellitus without complication, without long-term current use of insulin E11.9 Active 955357546 Problem Thyroid nodule E04.1 Active 698760901 Problem Thyroid enlarged E01.0 Active 87069276 Problem Essential hypertension I10 Active 05647346 Problem Mixed hyperlipidemia E78.2 Active 058109826 Problem Atherosclerotic heart disease of [place] coronary artery without angina pectoris I25.10 Active 613116525993416 Problem Mild intermittent asthma without complication J45.20 Active 234463520 ALLERGIES Substance Reaction Event Type Date Status Ibuprofen swelling of feet and legs Drug Allergy Feb, Active Darvocet-N 100 nausea and vomiting Drug Allergy Feb, Active Codeine Sulfate nausea and vomiting Drug Allergy Feb, Active SOCIAL HISTORY No smoking Hx information available PLAN OF CARE Activity Details Follow Up 3 Months Reason:CHM DM VITAL SIGNS Height 61 in 2016-03-01 Weight 187.8 lbs 2016-03-01 Temperature 97.8 degrees Fahrenheit 2016-03-01 Heart Rate 68 bpm 2016-03-01 Respiratory Rate 16 2016-03-01 BMI 35.48 kg/m2 2016-03-01 Blood pressure systolic 128 mmHg 2016-03-01 Blood pressure diastolic 60 mmHg 2016-03-01 MEDICATIONS Medication Instructions Dosage Frequency Start Date End Date Duration Status Albuterol Sulfate (2.5 MG/3ML) 0.083% Inhalation Three times a day PRN dx R06.2 3 ml Jul, 0 days Active Lovastatin 20 mg Orally Once a day take 1 Tablet 24h 0 Active Cetirizine HCl 10 mg Orally Once a day 1 tablet 24h Feb, Feb, 0 days Active Aspirin Adult Low Strength 81 MG Orally Once a day 1 tablet 24h Active Lisinopril-Hydrochlorothiazide 20-25 MG Orally Once a day take 0.5 tablet 24h Mar, 0 Active Prilosec 20 mg Orally twice a day 1 capsule 12h Mar, 0 Active Ventolin HFA 90 mcg/actuation inhalation every 4 hours as needed inhale 2 puff by Inhalation route as needed every 4 hours Use prn shortness of breath May, 0 Active Knee Brace/Hinged/Large ... as directed Jan, Active Metformin HCl 1000 MG Orally Twice a day 1 tablet with meals 12h Sep, 0 Active Metoprolol Succinate 25 mg orally once daily take 1 tablet 24h Mar, 0 Active Fluticasone Propionate 50 MCG/ACT Nasally 2 times a day 1 spray in each nostril 12h Feb, 0 Active Cane Aug, Active Gabapentin 300 MG Orally Three times a day 1 tablet 8h Nov, 0 Active Compressor Nebulizer & Tubing as directed Jul, Active RESULTS Name Result Date Reference Range A1C (IN HOUSE) 2016-03-01 A1C IN HOUSE 7.2 4.3 - 5.6 % Previous A1c 7.0 Lot [id number] Exp date 12/01 PROCEDURES Procedure Date Ordered Related Diagnosis Body Site GLYCATED HEMOGLOBIN TEST Mar 01, 2016 [facility] ESTABL[facility] PATIENT Mar 01, 2016 Office Visit, Est Pt., Level 3 Mar 01, 2016 IMMUNIZATIONS No Known Immunizations
--- OUTSIDE RECORDS SUMMARY | 2017-01-10 20:47 | XMS REPORT ---
Author Author BRII ESTRADA Organization [facility] Address [address] [place] [address] Care Team Providers Care Project Safety Manager Name Role Phone BRII ESTRADA Unavailable PROBLEMS Type Condition ICD9-CM Code [id number] Code Onset Dates Condition Status SNOMED Code Problem Abnormality of gait R26.9 Active 08953843 Problem Other chronic pain G89.29 Active 26461029 Problem Arthritis of knee, left M19.90 Active 728253724 Problem Osteoarthritis, unspecified osteoarthritis type, unspecified site M19.90 Active 340210366 Problem Type 2 diabetes mellitus without complication, without long-term current use of insulin E11.9 Active 892489227 Problem Thyroid nodule E04.1 Active 497596327 Problem Thyroid enlarged E01.0 Active 28848926 Problem Essential hypertension I10 Active 96000508 Problem Mixed hyperlipidemia E78.2 Active 034493415 Problem Atherosclerotic heart disease of [place] coronary artery without angina pectoris I25.10 Active 911772075880460 Problem Mild intermittent asthma without complication J45.20 Active 834951888 ALLERGIES Substance Reaction Event Type Date Status Ibuprofen swelling of feet and legs Drug Allergy Feb, Active Darvocet-N 100 nausea and vomiting Drug Allergy Feb, Active Codeine Sulfate nausea and vomiting Drug Allergy Feb, Active SOCIAL HISTORY No smoking Hx information available PLAN OF CARE Activity Details Follow Up 1 Week Reason:if s/s worsen VITAL SIGNS Height 61 in 2016-02-16 Weight 185.2 lbs 2016-02-16 Temperature 97.9 degrees Fahrenheit 2016-02-16 Heart Rate 80 bpm 2016-02-16 Respiratory Rate 18 2016-02-16 Oximetry 99 % 2016-02-16 BMI 34.99 kg/m2 2016-02-16 Blood pressure systolic 122 mmHg 2016-02-16 Blood pressure diastolic 62 mmHg 2016-02-16 MEDICATIONS Medication Instructions Dosage Frequency Start Date End Date Duration Status Metformin HCl 1000 MG Orally Twice a day 1 tablet with meals 12h Sep, Active Lisinopril-Hydrochlorothiazide 20-25 MG Orally Once a day take 0.5 tablet 24h Mar, Active Ventolin HFA 90 mcg/actuation inhale 2 puff by Inhalation route as needed every 4 hours Use prn shortness of breath May, Active Aspirin Adult Low Strength 81 MG Orally Once a day 1 tablet 24h Active Lovastatin 20 mg Orally Once a day take 1 Tablet 24h Active Knee Brace/Hinged/Large ... as directed Jan, Active Metoprolol Succinate 25 mg orally once daily take 1 tablet 24h 05 Mar, 2014 Active Tessalon Perles 100 MG Orally Three times a day 1 capsule as needed 8h Feb, Feb, 10 days Active Compressor Nebulizer & Tubing as directed Jul, Active Singulair 10 mg Orally Once a day 1 tablet 24h Jan, Active Fluticasone Propionate 50 MCG/ACT Nasally 2 times a day 1 spray in each nostril 12h Feb, Active Albuterol Sulfate (2.5 MG/3ML) 0.083% Inhalation Three times a day PRN 3 ml Jul, Active Cane Aug, Active Prilosec 20 mg Orally twice a day 1 capsule 12h Mar, Active Gabapentin 300 MG Orally Three times a day 1 tablet 8h 17 Nov, 2013 Active PredniSONE 10 mg Orally Once a day 4 tablets per day for 3 days, 3 tablets per day for 3 days, 2 tabs per day for 3 days and 1 tab per day for 3 days 24h Feb, Feb, 12 days Active RESULTS No Results PROCEDURES Procedure Date Ordered Related Diagnosis Body Site MEASURE BLOOD OXYGEN LEVEL Feb 16, 2016 [facility] VISIT ESTABLISHED PATIENT Feb 16, 2016 Office Visit, Est Pt., Level 3 Feb 16, 2016 IMMUNIZATIONS No Known Immunizations
--- OUTSIDE RECORDS SUMMARY | 2017-01-10 20:47 | XMS REPORT ---
Author Author BRII ESTRADA Organization [facility] Address [address] [place] [address] Care Team Providers Care Superintendent Logging Name Role Phone BRII ESTRADA Unavailable PROBLEMS Type Condition ICD9-CM Code [id number] Code Onset Dates Condition Status SNOMED Code Problem Type 2 diabetes mellitus without complication, without long-term current use of insulin E11.9 Active 356632033 Problem Mixed hyperlipidemia E78.2 Active 345623818 Problem Essential hypertension I10 Active 38359379 Problem Abnormality of gait R26.9 Active 63296377 Problem Osteoarthritis, unspecified osteoarthritis type, unspecified site M19.90 Active 325112916 Problem Thyroid nodule E04.1 Active 132658074 Problem Thyroid enlarged E01.0 Active 67533506 Problem Other chronic pain G89.29 Active 36631970 Problem Arthritis of knee, left M19.90 Active 594045317 Problem Atherosclerotic heart disease of [place] coronary artery without angina pectoris I25.10 Active 673357718897223 Problem Mild intermittent asthma without complication J45.20 Active 463324824 ALLERGIES Unknown Allergies SOCIAL HISTORY No smoking Hx information available PLAN OF CARE VITAL SIGNS MEDICATIONS Unknown Medications RESULTS No Results PROCEDURES No Known procedures IMMUNIZATIONS No Known Immunizations
--- OUTSIDE RECORDS SUMMARY | 2017-01-10 20:47 | XMS REPORT ---
Author Author LON SALAZAR Organization eClinicalWorks Address Unknown Phone Unavailable Care Team Providers Care Technical Services Rep Name Role Phone LON SALAZAR Unavailable Allergies No Known Allergies Problems Problem Type Condition Code Onset Dates Condition Status Problem Generalized osteoarthrosis, involving multiple sites 715.09 Active Problem Coronary atherosclerosis of unspecified type of vessel, [place] or graft 414.00 Active Problem Abnormality of gait 781.2 Active Problem Diabetes type 2, controlled 250.00 Active Problem Enthesopathy of hip region 726.5 Active Problem Other and unspecified hyperlipidemia 272.4 Active Problem Pain in joint, lower leg 719.46 Active Problem Unspecified essential hypertension 401.9 Active Problem Pain in joint, pelvic region and thigh 719.45 Active Problem Atherosclerosis of [place] arteries of the extremities, unspecified 440.20 Active Medications Medication Code System Code Instructions Start Date End Date Status Dosage Gabapentin [facility] [address]-65 300 MG Orally Three times a day Nov 30, 2013 1 tablet Singulair [facility] [address]-86 10 MG Orally Once a day Jan 16, 2014 1 tablet Results No Known Results Summary Purpose eClinicalWorks Submission
--- OUTSIDE RECORDS SUMMARY | 2017-01-10 20:48 | XMS REPORT ---
Author Author LON SALAZAR [facility] eClinicalWorks Address Unknown Phone Unavailable Care Team Providers Care Natural Resources Manager Name Role Phone LON SALAZAR CP Unavailable Allergies No Known Allergies Problems Problem Type Condition Code Onset Dates Condition Status Problem Generalized osteoarthrosis, involving multiple sites 715.09 Active Problem Diabetes type 2, controlled 250.00 Active Problem Enthesopathy of hip region 726.5 Active Problem Other and unspecified hyperlipidemia 272.4 Active Problem Coronary atherosclerosis of unspecified type of vessel, [place] or graft 414.00 Active Problem Abnormality of gait 781.2 Active Problem Atherosclerosis of [place] arteries of the extremities, unspecified 440.20 Active Problem Unspecified essential hypertension 401.9 Active Medications No Known Medications Results No Known Results Summary Purpose eClinicalWorks Submission
--- OUTSIDE RECORDS SUMMARY | 2017-01-10 20:48 | XMS REPORT ---
Author Author BRII ESTRADA Organization [facility] Address [address] [place] [address] Care Team Providers Care Segmental Paving Supervisor Name Role Phone BRII ESTRADA Unavailable PROBLEMS Type Condition ICD9-CM Code QPI12-LT Code Onset Dates Condition Status SNOMED Code Problem Abnormality of gait R26.9 Active 23963697 Problem Other chronic pain G89.29 Active 32501042 Problem Arthritis of knee, left M19.90 Active 019516373 Problem Osteoarthritis, unspecified osteoarthritis type, unspecified site M19.90 Active 263920416 Problem Type 2 diabetes mellitus without complication, without long-term current use of insulin E11.9 Active 897538820 Problem Thyroid nodule E04.1 Active 961047661 Problem Thyroid enlarged E01.0 Active 22850430 Problem Essential hypertension I10 Active 74179884 Problem Mixed hyperlipidemia E78.2 Active 300141017 Problem Atherosclerotic heart disease of [place] coronary artery without angina pectoris I25.10 Active 260009274148378 Problem Mild intermittent asthma without complication J45.20 Active 583640899 ALLERGIES Unknown Allergies SOCIAL HISTORY No smoking Hx information available PLAN OF CARE VITAL SIGNS MEDICATIONS Unknown Medications RESULTS Name Result Date Reference Range [facility] 2016-03-11 Glucose, Serum 105 65-99 BUN 8 6-24 Creatinine, Serum 0.59 0.57-1.00 eGFR If NonAfricn Am 101 >59 eGFR If Africn Am 116 >59 BUN/Creatinine Ratio 14 9-23 Sodium, Serum 139 134-144 Potassium, Serum 4.0 3.5-5.2 Chloride, Serum 95 96-106 Carbon Dioxide, Total 21 18-29 Calcium, Serum 10.0 8.7-10.2 PROCEDURES Procedure Date Ordered Related Diagnosis Body Site LAB NOT BILLED BY [facility] Mar 11, 2016 VENIPUNCT, ROUTINE* Mar 11, 2016 IMMUNIZATIONS No Known Immunizations
--- OUTSIDE RECORDS SUMMARY | 2017-01-10 20:48 | XMS REPORT ---
Author Author LON SALAZAR [facility] eClinicalWorks Address Unknown Phone Unavailable Care Team Providers Care Insurance Sales Supervisor Name Role Phone LON SALAZAR CP Unavailable Allergies, Adverse Reactions, Alerts Substance Reaction Event Type pain medications stomach upset Non Drug Allergy Problems Problem Type Condition Code Onset Dates Condition Status Assessment Right upper quadrant pain R10.11 Active Problem Generalized osteoarthrosis, involving multiple sites 715.09 Active Assessment Acute maxillary sinusitis, recurrence not specified J01.00 Active Problem Diabetes type 2, controlled 250.00 Active Problem Enthesopathy of hip region 726.5 Active Problem Other and unspecified hyperlipidemia 272.4 Active Problem Coronary atherosclerosis of unspecified type of vessel, [place] or graft 414.00 Active Problem Abnormality of gait 781.2 Active Problem Atherosclerosis of [place] arteries of the extremities, unspecified 440.20 Active Problem Unspecified essential hypertension 401.9 Active Medications Medication Code System Code Instructions Start Date End Date Status Dosage Singulair [facility] [address]-13 10 MG Orally Once a day Jan 16, 2014 1 tablet Metformin HCl [facility] [address]-51 1000 MG Orally Twice a day Oct 14, 2014 1 tablet with meals Ventolin HFA [facility] [address]-17 90 mcg/actuation May 28, 2013 inhale 2 puff by Inhalation route as needed every 4 hours Use prn shortness of breath Fish Oil [facility] [address]-63 1000 MG Orally Once a day 1 capsule [address]ap[address] [facility] [address]-96 300 MG Orally Three times a day Nov 30, 2013 1 tablet Lisinopril-Hydrochlorothiazide [facility] [address]-22 20-25 MG Orally Once a day Apr 12, 2014 take 0.5 tablet Doxycycline Hyclate [facility] [address]-55 100 MG Orally every 12 hrs Feb 24, 2015 Mar 03, 2015 1 capsule Aspirin Adult Low Strength [facility] [address]-93 81 MG Orally Once a day 1 tablet Metoprolol Succinate ND 0 25 mg orally once daily Mar 21, 2014 take 1 tablet Cane ND 0 September 09, 2011 not defined Prilosec [facility] [address]-98 20 MG Orally twice a day Apr 12, 2014 1 capsule Fluticasone Propionate [facility] [address]-87 50 MCG/ACT Nasally 2 times a day Feb 15, 2015 1 spray in each nostril Lovastatin [facility] [address]-71 20 MG Orally Once a day Nov 30, 2013 take 1 Tablet Vital Signs Date/Time: Feb 24, 2015 Temperature 98.0 F Weight 186.4 lbs Height 61 in BMI 35.22 Index Blood Pressure Diastolic 78 mmHg Blood Pressure Systolic 140 mmHg Cardiac Monitoring Heart Rate 76 bpm Results No Known Results Summary Purpose eClinicalWorks Submission
--- OUTSIDE RECORDS SUMMARY | 2017-01-10 20:48 | XMS REPORT ---
Author Author CLEMENTE PAUL Organization eClinicalWorks Address Unknown Phone Unavailable Care Team Providers Care Slurry Tank Operator Name Role Phone CLEMENTE PAUL CP Unavailable Allergies No Known Allergies Problems Problem Type Condition Code Onset Dates Condition Status Problem Abnormality of gait 781.2 Active Problem Unspecified essential hypertension 401.9 Active Problem Coronary atherosclerosis of unspecified type of vessel, [place] or graft 414.00 Active Problem Generalized osteoarthrosis, involving multiple sites 715.09 Active Problem Osteoarthritis, unspecified osteoarthritis type, unspecified site M19.90 Active Problem Abnormality of gait R26.9 Active Problem Type 2 diabetes mellitus without complication, without long-term current use of insulin E11.9 Active Problem Enthesopathy of hip region 726.5 Active Problem Atherosclerosis of [place] arteries of the extremities, unspecified 440.20 Active Problem Type 2 diabetes mellitus without complications E11.9 Active Problem Other and unspecified hyperlipidemia 272.4 Active Medications Medication Code System Code Instructions Start Date End Date Status Dosage Singulair [facility] [address]-36 10 mg Orally Once a day Jan 16, 2014 1 tablet Results No Known Results Summary Purpose eClinicalWorks Submission
--- OUTSIDE RECORDS SUMMARY | 2017-01-10 20:48 | XMS REPORT ---
Author Author BRII PARRA Organization [employer]Clinical[employer] Address Unknown Phone Unavailable Care Team Providers Care Merchandise Execution Leader Name Role Phone BRII PARRA CP Unavailable Allergies No Known Allergies Problems Problem Type Condition Code Onset Dates Condition Status Problem Abnormality of gait 781.2 Active Problem Unspecified essential hypertension 401.9 Active Problem Coronary atherosclerosis of unspecified type of vessel, [place] or graft 414.00 Active Problem Generalized osteoarthrosis, involving multiple sites 715.09 Active Problem Osteoarthritis, unspecified osteoarthritis type, unspecified site M19.90 Active Problem Abnormality of gait R26.9 Active Problem Type 2 diabetes mellitus without complication, without long-term current use of insulin E11.9 Active Problem Enthesopathy of hip region 726.5 Active Problem Atherosclerosis of [place] arteries of the extremities, unspecified 440.20 Active Problem Type 2 diabetes mellitus without complications E11.9 Active Problem Other and unspecified hyperlipidemia 272.4 Active Medications No Known Medications Results No Known Results Summary Purpose eClinicalWorks Submission
--- OUTSIDE RECORDS SUMMARY | 2017-01-10 20:48 | XMS REPORT ---
Author Author BRII ESTRADA Organization [facility] Address [address] [place] [address] Care Team Providers Care Registered Pharmacist Name Role Phone BRII ESTRADA Unavailable PROBLEMS Type Condition ICD9-CM Code EOZ64-CC Code Onset Dates Condition Status SNOMED Code Problem Abnormality of gait R26.9 Active 03474816 Problem Other chronic pain G89.29 Active 78264176 Problem Arthritis of knee, left M19.90 Active 327266066 Problem Osteoarthritis, unspecified osteoarthritis type, unspecified site M19.90 Active 438583795 Problem Type 2 diabetes mellitus without complication, without long-term current use of insulin E11.9 Active 312603800 Problem Thyroid nodule E04.1 Active 386222339 Problem Thyroid enlarged E01.0 Active 80404971 Problem Essential hypertension I10 Active 83668374 Problem Mixed hyperlipidemia E78.2 Active 343931617 Problem Atherosclerotic heart disease of [place] coronary artery without angina pectoris I25.10 Active 412960514835655 Problem Mild intermittent asthma without complication J45.20 Active 279588853 ALLERGIES Unknown Allergies SOCIAL HISTORY No smoking Hx information available PLAN OF CARE VITAL SIGNS MEDICATIONS Medication Instructions Dosage Frequency Start Date End Date Duration Status Albuterol Sulfate (2.5 MG/3ML) 0.083% Inhalation Three times a day PRN dx R06.2 3 ml Jul, 0 days Active RESULTS No Results PROCEDURES No Known procedures IMMUNIZATIONS No Known Immunizations
--- OUTSIDE RECORDS SUMMARY | 2017-01-10 20:48 | XMS REPORT ---
Author Author BRII ESTRADA Organization [facility] Address [address] [place] [address] Care Team Providers Care An/Syq 13 Nav/C2 Operator Name Role Phone BRII ESTRADA Unavailable PROBLEMS Type Condition ICD9-CM Code [id number] Code Onset Dates Condition Status SNOMED Code Problem Abnormality of gait R26.9 Active 62021878 Problem Other chronic pain G89.29 Active 09350206 Problem Arthritis of knee, left M19.90 Active 337140053 Problem Osteoarthritis, unspecified osteoarthritis type, unspecified site M19.90 Active 718921955 Problem Type 2 diabetes mellitus without complication, without long-term current use of insulin E11.9 Active 533767994 Problem Thyroid nodule E04.1 Active 451192354 Problem Thyroid enlarged E01.0 Active 72679332 Problem Essential hypertension I10 Active 03081689 Problem Mixed hyperlipidemia E78.2 Active 995248958 Problem Atherosclerotic heart disease of [place] coronary artery without angina pectoris I25.10 Active 128178006378081 Problem Mild intermittent asthma without complication J45.20 Active 586735538 ALLERGIES Unknown Allergies SOCIAL HISTORY No smoking Hx information available PLAN OF CARE VITAL SIGNS MEDICATIONS Unknown Medications RESULTS Name Result Date Reference Range Mammogram, Bilateral Screening PROCEDURES No Known procedures IMMUNIZATIONS No Known Immunizations
--- OUTSIDE RECORDS SUMMARY | 2017-01-10 20:48 | XMS REPORT ---
Author Author LON SALAZAR [facility] eClinicalWorks Address Unknown Phone Unavailable Care Team Providers Care Help Desk Engineer Name Role Phone LON SALAZAR Unavailable Allergies No Known Allergies Problems Problem Type Condition Code Onset Dates Condition Status Problem Generalized osteoarthrosis, involving multiple sites 715.09 Active Problem Diabetes type 2, controlled 250.00 Active Problem Enthesopathy of hip region 726.5 Active Problem Other and unspecified hyperlipidemia 272.4 Active Problem Coronary atherosclerosis of unspecified type of vessel, [place] or graft 414.00 Active Problem Abnormality of gait 781.2 Active Problem Atherosclerosis of [place] arteries of the extremities, unspecified 440.20 Active Problem Unspecified essential hypertension 401.9 Active Medications Medication Code System Code Instructions Start Date End Date Status Dosage Doxycycline Monohydrate [facility] [address]-90 100 MG Orally every 12 hrs FebMar 05, 2015 1 capsule Results No Known Results Summary Purpose eClinicalWorks Submission
--- OUTSIDE RECORDS SUMMARY | 2017-01-10 20:48 | XMS REPORT ---
Author Author BRII PARRA Organization [facility] Address [address] [place] [address] Care Team Providers Care Sql Bi Developer Name Role Phone BRII PARRA Unavailable PROBLEMS Type Condition ICD9-CM Code [id number] Code Onset Dates Condition Status SNOMED Code Problem Other and unspecified hyperlipidemia 272.4 Active 60203935 Problem Abnormality of gait R26.9 Active 64774075 Problem Type 2 diabetes mellitus without complications E11.9 Active 798945014 Problem Other chronic pain G89.29 Active 66616712 Problem Arthritis of knee, left M19.90 Active 272568695 Problem Type 2 diabetes mellitus without complication, without long-term current use of insulin E11.9 Active 024521711 Problem Osteoarthritis, unspecified osteoarthritis type, unspecified site M19.90 Active 265121894 Problem Mixed hyperlipidemia E78.2 Active 909331377 Problem Essential hypertension I10 Active 30017753 Problem Coronary atherosclerosis of unspecified type of vessel, [place] or graft 414.00 Active 01210464 Problem Unspecified essential hypertension 401.9 Active 92363287 Problem Generalized osteoarthrosis, involving multiple sites 715.09 Active 12878569 Problem Atherosclerosis of [place] arteries of the extremities, unspecified 440.20 Active 459425243813280 Problem Abnormality of gait 781.2 Active 95113597 Problem Enthesopathy of hip region 726.5 Active 65446856 ALLERGIES Unknown Allergies SOCIAL HISTORY No smoking Hx information available PLAN OF CARE VITAL SIGNS MEDICATIONS Medication Instructions Dosage Frequency Start Date End Date Duration Status Knee Brace/Hinged/Large ... as directed Jan, Active RESULTS No Results PROCEDURES No Known procedures IMMUNIZATIONS No Known Immunizations
--- OUTSIDE RECORDS SUMMARY | 2017-01-10 20:48 | XMS REPORT ---
Author Author LON SALAZAR [facility] eClinicalWorks Address Unknown Phone Unavailable Care Team Providers Care Mortarman Name Role Phone LON SALAZAR CP Unavailable Allergies No Known Allergies Problems Problem Type Condition Code Onset Dates Condition Status Problem Abnormality of gait 781.2 Active Problem Unspecified essential hypertension 401.9 Active Problem Coronary atherosclerosis of unspecified type of vessel, [place] or graft 414.00 Active Problem Generalized osteoarthrosis, involving multiple sites 715.09 Active Problem Osteoarthritis, unspecified osteoarthritis type, unspecified site M19.90 Active Problem Abnormality of gait R26.9 Active Problem Type 2 diabetes mellitus without complication, without long-term current use of insulin E11.9 Active Problem Enthesopathy of hip region 726.5 Active Problem Atherosclerosis of [place] arteries of the extremities, unspecified 440.20 Active Problem Type 2 diabetes mellitus without complications E11.9 Active Problem Other and unspecified hyperlipidemia 272.4 Active Medications No Known Medications Results No Known Results Summary Purpose eClinicalWorks Submission
--- OUTSIDE RECORDS SUMMARY | 2017-01-10 20:48 | XMS REPORT ---
Author Author MIO WYATT eClinicalWorks Address Unknown Phone Unavailable Care Team Providers Care Ring Conductor Name Role Phone MIO WYATT CP Unavailable Allergies, Adverse Reactions, Alerts Substance Reaction Event Type Darvocet-N 100 Info Not Available Drug Allergy Codeine Sulfate Info Not Available Drug Allergy pain medications stomach upset Non Drug Allergy Problems Problem Type Condition Code Onset Dates Condition Status Assessment Dental caries K02.9 Active Problem Abnormality of gait 781.2 Active Problem Generalized osteoarthrosis, involving multiple sites 715.09 Active Problem Other and unspecified hyperlipidemia 272.4 Active Problem Diabetes type 2, controlled 250.00 Active Problem Type 2 diabetes mellitus without complications E11.9 Active Problem Unspecified essential hypertension 401.9 Active Problem Coronary atherosclerosis of unspecified type of vessel, [place] or graft 414.00 Active Problem Enthesopathy of hip region 726.5 Active Problem Atherosclerosis of [place] arteries of the extremities, unspecified 440.20 Active Medications Medication Code System Code Instructions Start Date End Date Status Dosage Lisinopril-Hydrochlorothiazide [facility] [address]-88 20-25 MG Orally Once a day Apr 12, 2014 take 0.5 tablet Metformin HCl [facility] [address]-09 1000 MG Orally Twice a day Oct 14, 2014 1 tablet with meals Gabapentin [facility] [address]-44 300 MG Orally Three times a day Nov 30, 2013 1 tablet Singulair [facility] [address]-95 10 mg Orally Once a day Jan 16, 2014 1 tablet Prilosec [facility] [address]-24 20 MG Orally twice a day Apr 12, 2014 1 capsule Metoprolol Succinate [facility] 0 25 mg orally once daily Mar 21, 2014 take 1 tablet Lovastatin [facility] [address]-18 20 mg Orally Once a day take 1 Tablet Albuterol Sulfate [facility] [address]-71 (2.5 MG/3ML) 0.083% Inhalation Three times a day PRN July 31, 2015 3 ml Aspirin Adult Low Strength [facility] [address]-64 81 MG Orally Once a day 1 tablet Fluticasone Propionate [facility] [address]-52 50 MCG/ACT Nasally 2 times a day Feb 15, 2015 1 spray in each nostril Compressor Nebulizer NDC 0 & Tubing July 31, 2015 as directed Procedures Procedure Coding System Code Date EXTRAC ERUPTED TOOTH/EXPOSED ROOT CPT-4 D7140 September 11, 2015 Vital Signs Date/Time: September 11, 2015 Blood Pressure Diastolic 83 mmHg Blood Pressure Systolic 140 mmHg Results No Known Results Summary Purpose eClinicalWorks Submission
--- OUTSIDE RECORDS SUMMARY | 2017-01-10 20:48 | XMS REPORT ---
Author Author BRII ESTRADA Organization [facility] Address [address] [place] [address] Care Team Providers Care Fire Boss Name Role Phone BRII ESTRADA Unavailable PROBLEMS Type Condition ICD9-CM Code [id number] Code Onset Dates Condition Status SNOMED Code Problem Abnormality of gait R26.9 Active 10766774 Problem Other chronic pain G89.29 Active 66700354 Problem Arthritis of knee, left M19.90 Active 275396719 Problem Osteoarthritis, unspecified osteoarthritis type, unspecified site M19.90 Active 324434374 Problem Type 2 diabetes mellitus without complication, without long-term current use of insulin E11.9 Active 129104919 Problem Thyroid nodule E04.1 Active 324345824 Problem Thyroid enlarged E01.0 Active 24101345 Problem Essential hypertension I10 Active 82214019 Problem Mixed hyperlipidemia E78.2 Active 494555000 Problem Atherosclerotic heart disease of [place] coronary artery without angina pectoris I25.10 Active 032417840805934 Problem Mild intermittent asthma without complication J45.20 Active 868998923 ALLERGIES Unknown Allergies SOCIAL HISTORY No smoking Hx information available PLAN OF CARE VITAL SIGNS MEDICATIONS Medication Instructions Dosage Frequency Start Date End Date Duration Status Singulair 10 mg Orally Once a day 1 tablet 24h Jan, 0 days Active RESULTS No Results PROCEDURES No Known procedures IMMUNIZATIONS No Known Immunizations
--- OUTSIDE RECORDS SUMMARY | 2017-01-10 20:48 | XMS REPORT ---
Author Author BRII ESTRADA Organization [facility] Address [address] [place] [address] Care Team Providers Care Filler Operator Name Role Phone BRII ESTRADA Unavailable PROBLEMS Type Condition ICD9-CM Code SXK43-SO Code Onset Dates Condition Status SNOMED Code Problem Type 2 diabetes mellitus without complication, without long-term current use of insulin E11.9 Active 409233717 Problem Mixed hyperlipidemia E78.2 Active 201906513 Problem Essential hypertension I10 Active 52281559 Problem Abnormality of gait R26.9 Active 94524711 Problem Osteoarthritis, unspecified osteoarthritis type, unspecified site M19.90 Active 390823143 Problem Thyroid nodule E04.1 Active 445158772 Problem Thyroid enlarged E01.0 Active 34688397 Problem Other chronic pain G89.29 Active 31993165 Problem Arthritis of knee, left M19.90 Active 205791188 Problem Atherosclerotic heart disease of [place] coronary artery without angina pectoris I25.10 Active 177008905418027 Problem Mild intermittent asthma without complication J45.20 Active 868669104 ALLERGIES Unknown Allergies SOCIAL HISTORY No smoking Hx information available PLAN OF CARE VITAL SIGNS MEDICATIONS Unknown Medications RESULTS No Results PROCEDURES No Known procedures IMMUNIZATIONS No Known Immunizations
--- OUTSIDE RECORDS SUMMARY | 2017-01-10 20:49 | XMS REPORT ---
Author Author LON SALAZAR [facility] eClinicalWorks Address Unknown Phone Unavailable Care Team Providers Care General Administrator Name Role Phone LON SALAZAR CP Unavailable Allergies, Adverse Reactions, Alerts Substance Reaction Event Type pain medications stomach upset Non Drug Allergy Problems Problem Type Condition ICD-9 Code Onset Dates Condition Status Problem Generalized osteoarthrosis, involving multiple sites 715.09 Active Problem Coronary atherosclerosis of unspecified type of vessel, [place] or graft 414.00 Active Problem Abnormality of gait 781.2 Active Problem Diabetes type 2, controlled 250.00 Active Problem Enthesopathy of hip region 726.5 Active Problem Other and unspecified hyperlipidemia 272.4 Active Problem Pain in joint, lower leg 719.46 Active Problem Unspecified essential hypertension 401.9 Active Problem Pain in joint, pelvic region and thigh 719.45 Active Problem Atherosclerosis of [place] arteries of the extremities, unspecified 440.20 Active Assessment Left knee pain 719.46 Active Assessment Lumbago 724.2 Active Assessment Diabetes type 2, controlled 250.00 Active Medications Medication Code System Code Instructions Start Date End Date Status Dosage metformin [facility] [address]-58 1,000 mg orally twice daily with morning and evening meals Mar 20, 2014 take 1 tablet Lovastatin [facility] [address]-70 20 MG Orally Once a day Nov 30, 2013 take 1 Tablet Aspirin Adult Low Strength [facility] [address]-71 81 MG Orally Once a day 1 tablet Nitrostat [facility] [address]-41 0.4 MG Sublingual not defined Singulair [facility] [address]-17 10 MG Orally Once a day Jan 16, 2014 1 tablet Metoprolol Succinate [facility] 0 25 mg orally once daily Mar 21, 2014 take 1 tablet Prilosec [facility] [address]-11 20 MG Orally twice a day Apr 12, 2014 1 capsule Lisinopril-Hydrochlorothiazide [facility] [address]-40 20-25 MG Orally Once a day Apr 12, 2014 take 0.5 tablet Cane NDC 0 September 09, 2011 not defined Ventolin HFA [facility] [address]-14 90 mcg/actuation May 28, 2013 inhale 2 puff by Inhalation route as needed every 4 hours Use prn shortness of breath fluticasone nasal NDC 0 50 mcg/actuation Jan 08, 2014 inhale 1 sprays by Nasal route 2 times per day Gabapentin [facility] [address]-07 300 MG Orally Three times a day Nov 30, 2013 1 tablet Procedures Procedure Coding System Code Date [facility] VISIT ESTABLISHED PATIENT CPT-4 G0467 Oct 03, 2014 Office Visit, Est Pt., Level 3 CPT-4 96382 Oct 03, 2014 GLYCATED HEMOGLOBIN TEST CPT-4 23473 Oct 03, 2014 Vital Signs Date/Time: Oct 03, 2014 Temperature 98.9 F Weight 189.8 lbs Height 61 in BMI 35.86 Index Blood Pressure Diastolic 70 mmHg Blood Pressure Systolic 140 mmHg Cardiac Monitoring Heart Rate 80 bpm Results Name Result Date Reference Range Unit Abnormality Flag A1C (IN HOUSE) Xray : Spine, Lumbar 2-3 views Summary Purpose eClinicalWorks Submission
--- OUTSIDE RECORDS SUMMARY | 2017-01-10 20:49 | XMS REPORT ---
Author Author BRII PARRA Organization [employer]Clinical[employer] Address Unknown Phone Unavailable Care Team Providers Care Door Frame Assembler Machine Name Role Phone BRII PARRA CP Unavailable Allergies, Adverse Reactions, Alerts Substance Reaction Event Type Ibuprofen swelling of feet and legs Drug Allergy Darvocet-N 100 Info Not Available Drug Allergy Codeine Sulfate Info Not Available Drug Allergy Problems Problem Type Condition Code Onset Dates Condition Status Problem Abnormality of gait 781.2 Active Problem Unspecified essential hypertension 401.9 Active Problem Coronary atherosclerosis of unspecified type of vessel, [place] or graft 414.00 Active Problem Osteoarthritis, unspecified osteoarthritis type, unspecified site M19.90 Active Problem Abnormality of gait R26.9 Active Problem Type 2 diabetes mellitus without complication, without long-term current use of insulin E11.9 Active Problem Enthesopathy of hip region 726.5 Active Problem Atherosclerosis of [place] arteries of the extremities, unspecified 440.20 Active Problem Type 2 diabetes mellitus without complications E11.9 Active Problem Other and unspecified hyperlipidemia 272.4 Active Assessment History of abdominal pain Z87.898 Active Assessment History of fever Z87.898 Active Assessment Type 2 diabetes mellitus without complication, without long-term current use of insulin E11.9 Active Problem Generalized osteoarthrosis, involving multiple sites 715.09 Active Medications Medication Code System Code Instructions Start Date End Date Status Dosage Aspirin Adult Low Strength [facility] [address]-82 81 MG Orally Once a day [address] [facility] [address]-05 20 MG Orally twice a day Apr 12, [address] [facility] [address]-32 10 mg Orally Once a day Jan 16, 2014 1 tablet Lisinopril-Hydrochlorothiazide [facility] [address]-83 20-25 MG Orally Once a day Apr 12, 2014 take 0.5 tablet Vitamin D [facility] [address]-75 1000 UNIT Orally Once a day 1 tablet Compressor Nebulizer [facility] 0 & Tubing July 31, 2015 as directed Gabapentin [facility] [address]-60 300 MG Orally Three times a day Nov 30, 2013 1 tablet Albuterol Sulfate [facility] [address]-86 (2.5 MG/3ML) 0.083% Inhalation Three times a day PRN July 31, [address] [facility] [address]-84 20 mg Orally Once a day take 1 Tablet Fluticasone Propionate [facility] [address]-26 50 MCG/ACT Nasally 2 times a day Feb 15, 2015 1 spray in each nostril Fish Oil [facility] [address]-66 1000 MG Orally Once a day [address] [facility] 0 September 09, 2011 not defined Metformin HCl [facility] [address]-55 1000 MG Orally Twice a day Oct 14, 2014 1 tablet with meals Metoprolol Succinate [facility] 0 25 mg orally once daily Mar 21, 2014 take 1 tablet Ventolin HFA [facility] [address]-04 90 mcg/actuation May 28, 2013 inhale 2 puff by Inhalation route as needed every 4 hours Use prn shortness of breath Procedures Procedure Coding System Code Date Office Visit, Est Pt., Level 3 CPT-4 65448 Dec 12, 2015 [facility] VISIT ESTABLISHED PATIENT CPT-4 G0467 Dec 12, 2015 Vital Signs Date/Time: Dec 12, 2015 Cardiac Monitoring Heart Rate 64 bpm Weight 183 lbs Height 61 in BMI 34.57 Index Blood Pressure Diastolic 72 mmHg Blood Pressure Systolic 126 mmHg Results No Known Results Summary Purpose eClinicalWorks Submission
--- OUTSIDE RECORDS SUMMARY | 2017-01-10 20:49 | XMS REPORT ---
Author Author BRII ESTRADA Organization [facility] Address [address] [place] [address] Care Team Providers Care Rn Heart Name Role Phone BRII ESTRADA Unavailable PROBLEMS Type Condition ICD9-CM Code OQL06-UX Code Onset Dates Condition Status SNOMED Code Problem Type 2 diabetes mellitus without complication, without long-term current use of insulin E11.9 Active 002239607 Problem Mixed hyperlipidemia E78.2 Active 601839034 Problem Essential hypertension I10 Active 68251221 Problem Abnormality of gait R26.9 Active 74051797 Problem Osteoarthritis, unspecified osteoarthritis type, unspecified site M19.90 Active 735887389 Problem Thyroid nodule E04.1 Active 190332387 Problem Thyroid enlarged E01.0 Active 21998810 Problem Other chronic pain G89.29 Active 08820275 Problem Arthritis of knee, left M19.90 Active 963817941 Problem Atherosclerotic heart disease of [place] coronary artery without angina pectoris I25.10 Active 037149402412285 Problem Mild intermittent asthma without complication J45.20 Active 765332537 ALLERGIES Unknown Allergies SOCIAL HISTORY No smoking Hx information available PLAN OF CARE VITAL SIGNS MEDICATIONS Medication Instructions Dosage Frequency Start Date End Date Duration Status Metformin HCl 1000 MG Orally Twice a day 1 tablet with meals 12h Sep, Active Albuterol Sulfate (2.5 MG/3ML) 0.083% Inhalation Three times a day PRN 3 ml Jul, 0 days Active RESULTS No Results PROCEDURES No Known procedures IMMUNIZATIONS No Known Immunizations
--- OUTSIDE RECORDS SUMMARY | 2017-01-10 20:49 | XMS REPORT ---
Author Author CLEMENTE PAUL [facility] eClinicalWorks Address Unknown Phone Unavailable Care Team Providers Care Planner Chief Name Role Phone CLEMENTE PAUL CP Unavailable [...] [place] or graft 414.00 Active Problem Osteoarthritis, unspecified [...] Other and unspecified hyperlipidemia 272.4 Active Assessment Enthesopathy of hip region, unspecified laterality M76.899 Active Assessment Osteoarthritis, unspecified osteoarthritis type, unspecified site M19.90 Active Assessment Type 2 diabetes mellitus without complication, without long-term current use of insulin E11.9 Active Assessment Abnormality of gait R26.9 Active Problem Generalized osteoarthrosis, involving multiple sites 715.09 Active Medications Medication Code System Code Instructions Start Date End Date Status Dosage Metoprolol Succinate NDC 0 25 mg orally once daily Mar 21, 2014 take 1 tablet Compressor Nebulizer NDC 0 & Tubing July 31, 2015 as directed Gabapentin [facility] [address]-13 300 MG Orally Three times a day Nov 30, 2013 1 tablet Lovastatin [facility] [address]-66 20 mg Orally Once a day take 1 Tablet Cane NDC 0 September 09, 2011 not defined Metformin HCl [facility] [address]-81 1000 MG Orally Twice a day Oct 14, 2014 1 tablet with meals Singulair [facility] [address]-04 10 mg Orally Once a day Jan 16, 2014 1 tablet Vitamin D [facility] [address]-15 1000 UNIT Orally Once a day 1 tablet Ventolin HFA [facility] [address]-73 90 mcg/actuation May 28, 2013 inhale 2 puff by Inhalation route as needed every 4 hours Use prn shortness of breath Fish Oil [facility] [address]-78 1000 MG Orally Once a day 1 capsule Fluticasone Propionate [facility] [address]-38 50 MCG/ACT Nasally 2 times a day Feb 15, 2015 1 spray in each nostril Albuterol Sulfate [facility] [address]-49 (2.5 MG/3ML) 0.083% Inhalation Three times a day PRN July 31, 2015 3 ml Nitrostat [facility] [address]-26 0.4 MG Sublingual not defined Prilosec [facility] [address]-25 20 MG Orally twice a day Apr 12, 2014 1 capsule Aspirin Adult Low Strength [facility] [address]-82 81 MG Orally Once a day 1 tablet Lisinopril-Hydrochlorothiazide [facility] [address]-47 20-25 MG Orally Once a day Apr 12, 2014 take 0.5 tablet Procedures Procedure Coding System Code Date Office Visit, Est Pt., Level 3 CPT-4 30592 Nov 26, 2015 [facility] Nov 26, 2015 [facility] VISIT ESTABLISHED PATIENT CPT-4 G0467 Nov 26, 2015 VENIPUNCT, ROUTINE* CPT-4 05799 Nov 26, 2015 GLYCATED HEMOGLOBIN TEST CPT-4 55107 Nov 26, 2015 Vital Signs Date/Time: Nov 26, 2015 Cardiac Monitoring Heart Rate 81 bpm Weight 186 lbs Height 61 in BMI 35.14 Index Blood Pressure Diastolic 70 mmHg Blood Pressure Systolic 120 mmHg Results Name Result Date Reference Range Unit Abnormality Flag CMP ----Calcium, Serum 9.8 [id number] 8.7-10.2 mg/dL ----Carbon Dioxide, Total 29 20151126 18-29 mmol/L ----ALT (SGPT) 16 [id number] 0-32 IU/L ----Creatinine, Serum 0.61 20151126 0.57-1.00 mg/dL ----AST (SGOT) 18 [id number] 0-40 IU/L ----eGFR If NonAfricn Am 100 [id number] >59 mL/min/1.73 ----Alkaline Phosphatase, S 73 [id number] 39-117 IU/L ----eGFR If Africn Am 115 [id number] >59 mL/min/1.73 ----Bilirubin, Total 0.3 45777907 0.0-1.2 mg/dL ----BUN/Creatinine Ratio 20 [id number] 9-23 ----A/G Ratio 1.6 [id number] 1.1-2.5 ----Sodium, Serum 142 86898469 134-144 mmol/L ----Globulin, Total 2.8 88013688 1.5-4.5 g/dL ----Potassium, Serum 4.3 30417238 3.5-5.2 mmol/L ----Glucose, Serum 102 77301362 65-99 mg/dL H ----Chloride, Serum 99 55862327 97-108 mmol/L ----Albumin, Serum 4.5 57396988 3.5-5.5 g/dL ----BUN 12 [id number] 6-24 mg/dL ----Protein, Total, Serum 7.3 49662575 6.0-8.5 g/dL TSH ----TSH 1.580 [id number] 0.450-4.500 uIU/mL LIPID PANEL ----VLDL Cholesterol Marcus 18 [id number] 5-40 mg/dL ----LDL Cholesterol Calc 90 [id number] 0-99 mg/dL ----Triglycerides 88 29484812 0-149 mg/dL ----HDL Cholesterol 77 43039828 >39 mg/dL ----Cholesterol, Total 185 58422392 100-199 mg/dL Summary Purpose eClinicalWorks Submission
--- OUTSIDE RECORDS SUMMARY | 2017-01-10 20:49 | XMS REPORT ---
Author Author LON SALAZAR Organization [employer] Address Unknown Phone Unavailable Care Team Providers Care Jai Alai Player Name Role Phone LON SALAZAR Unavailable Allergies No Known Allergies Problems Problem Type Condition Code Onset Dates Condition Status Problem Generalized osteoarthrosis, involving multiple sites 715.09 Active Assessment Abnormal gallbladder ultrasound R93.2 Active Problem Diabetes type 2, controlled 250.00 Active Problem Enthesopathy of hip region 726.5 Active Problem Other and unspecified hyperlipidemia 272.4 Active Problem Coronary atherosclerosis of unspecified type of vessel, [place] or graft 414.00 Active Problem Abnormality of gait 781.2 Active Problem Atherosclerosis of [place] arteries of the extremities, unspecified 440.20 Active Problem Unspecified essential hypertension 401.9 Active Medications No Known Medications Results No Known Results Summary Purpose [employer] Submission
--- OUTSIDE RECORDS SUMMARY | 2017-01-10 20:49 | XMS REPORT ---
Author Author LON SALAZAR Organization [employer] Address Unknown Phone Unavailable Care Team Providers Care Industrial Specialist Name Role Phone LON SALAZAR Unavailable Allergies No Known Allergies Problems Problem Type Condition ICD-9 Code Onset Dates Condition Status Problem Generalized osteoarthrosis, involving multiple sites 715.09 Active Problem Coronary atherosclerosis of unspecified type of vessel, [place] or graft 414.00 Active Problem Abnormality of gait 781.2 Active Problem Diabetes type 2, controlled 250.00 Active Problem Enthesopathy of hip region 726.5 Active Problem Other and unspecified hyperlipidemia 272.4 Active Problem Pain in joint, lower leg 719.46 Active Problem Unspecified essential hypertension 401.9 Active Problem Pain in joint, pelvic region and thigh 719.45 Active Problem Atherosclerosis of [place] arteries of the extremities, unspecified 440.20 Active Medications Medication Code System Code Instructions Start Date End Date Status Dosage Metformin HCl [facility] [place] [address]-26 1000 MG Orally Twice a day Oct 14, 2014 1 tablet with meals Results No Known Results Summary Purpose [employer] Submission
--- OUTSIDE RECORDS SUMMARY | 2017-01-10 20:49 | XMS REPORT ---
Author Author LON SALAZAR Organization [employer] Address Unknown Phone Unavailable Care Team Providers Care Phlebotomist Supervisor/Instructor Name Role Phone LON SALAZAR Unavailable Allergies No Known Allergies Problems Problem Type Condition Code Onset Dates Condition Status Problem Generalized osteoarthrosis, involving multiple sites 715.09 Active Problem Coronary atherosclerosis of unspecified type of vessel, [place] or graft 414.00 Active Problem Abnormality of gait 781.2 Active Problem Diabetes type 2, controlled 250.00 Active Problem Enthesopathy of hip region 726.5 Active Problem Other and unspecified hyperlipidemia 272.4 Active Problem Pain in joint, lower leg 719.46 Active Problem Unspecified essential hypertension 401.9 Active Problem Pain in joint, pelvic region and thigh 719.45 Active Problem Atherosclerosis of [place] arteries of the extremities, unspecified 440.20 Active Medications Medication Code System Code Instructions Start Date End Date Status Dosage Lisinopril-Hydrochlorothiazide [facility] [address]-50 20-25 MG Orally Once a day Apr 12, 2014 take 0.5 tablet Prilosec [facility] [address]-02 20 MG Orally twice a day Apr 12, 2014 1 capsule Metoprolol Succinate [facility] 0 25 mg orally once daily Mar 21, 2014 take 1 tablet Results No Known Results Summary Purpose [employer] Submission
[2017-01-10] MEDS ORDERED: meTOprolol TARTRATE 25 MG (LOPRESSOR) TABLET PO ONE ×2 (21:00)
--- NOTE | 2017-01-10 21:06 | ED Lower Extremity ---
General Chief Complaint: Lower Extremity Stated Complaint: L KNEE PAIN Nursing Triage Note: PT TO ED 10 W/ C/O LT KNEE PAIN, CHRONIC, WORSE OVER PAST 2-3 DAYS. REPORTS WAS SUPPOSED TO HAVE KNEE REPAIR BUT FOUND A THYROID NODULE AND SURGERY WAS POSTPONED. Nursing Sepsis Screen: No Definite Risk Source: patient Exam Limitations: no limitations History of Present Illness Time seen by provider: 21:04 Initial Comments To ER with left knee pain for the past 2-3 days. Unknown injury. She reports that she has a history of arthritis of the knee and is supposed to have his knee replacement but she has thyroid nodules so the orthopedic surgeon won't operate, she states. She has a history of DVT this leg in the past. She has taken Tylenol at home without relief. She cannot take ibuprofen. She cannot take any pain medication she states. Onset: just prior to arrival Severity: moderate Pain/Injury Location: left knee Method of Injury: twisted Modifying Factors: Worse With Movement Allergies and Home Medications Allergies Coded Allergies: acetaminophen (Unverified Allergy, Mild, 05/05/09) codeine (Unverified Allergy, Mild, 05/05/09) propoxyphene (Unverified Allergy, Mild, 05/05/09) tramadol (Unverified Allergy, Mild, 05/12/09) Home Medications Albuterol 17 Gm Aerosol, 1 GM IH 5 x DAILY, (Reported) Aspirin 81 Mg Tabec, 81 MG PO DAILY, (Reported) Cetirizine HCl 10 Mg Tablet, 10 MG PO DAILY, (Reported) Fluticasone Propionate 16 Gm [place], 2 SPRAYS NS BID, (Reported) Gabapentin 300 Mg Tablet, 300 MG PO TID, (Reported) Lisinopril/Hydrochlorothiazide 1 Each Tablet, 0.5 TAB PO DAILY, (Reported) Lovastatin 20 Mg Tablet, 20 MG PO DAILY, (Reported) Meloxicam 7.5 Mg Tablet, 7.5 MG PO BID, #30 Prescribed by: NEGRO HAAS on 04/20/161121 Metformin Hcl 1,000 Mg Tablet, 1,000 MG PO BID WITH MEALS, (Reported) Omeprazole 20 Mg Capsule.dr, 20 MG PO BID, (Reported) Pantoprazole Sodium 40 Mg Tablet.dr, 40 MG PO DAILY, #20 Prescribed by: NEGRO HAAS on 04/20/161121 Constitutional: see HPI EENTM: see HPI Respiratory: no symptoms reported Cardiovascular: no symptoms reported Genitourinary: no symptoms reported Musculoskeletal: see HPI, joint pain Skin: no symptoms reported Psychiatric/Neurological: No Symptoms Reported Past Stzgidb-Npycow-Kuzbln Hx Patient Social History Alcohol Use: Denies Use Recreational Drug Use: No Smoking Status: Never a Smoker Recent Foreign Travel: No Contact w/Someone Who Travel: No Recent Infectious Disease Expo: No Recent Hopitalizations: No Physical Abuse: No Sexual Abuse: No Mistreated: No Fear: No Immunizations Up To Date Date of Pneumonia Vaccine: Feb 20, 2011 Date of Influenza Vaccine: Nov 15, 2011 Seasonal Allergies Seasonal Allergies: No Surgeries History of Surgeries: Yes (D&C; CARDIAC CATH--NO INTERVENTION) Surgeries: Cardiac, Orthopedic Respiratory History of Respiratory Disorde: Yes (wears 2L @ night) Respiratory Disorders: Asthma Cardiovascular History of Cardiac Disorders: Yes ("blood clot in heart" ) Cardiac Disorders: Chronic Edema/Swelling, Coronary Artery Disease, Deep Vein Thrombosis, High Cholesterol, Hypertension Neurological History of Neurological Disord: Yes (spina bifida) Neurological Disorders: Neuropathy Reproductive System Hx 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 Gastrointestinal History of Gastrointestinal Di: Yes Gastrointestinal Disorders: Gastroesophageal Reflux Musculoskeletal History of Musculoskeletal Dis: Yes (SPINA BIFIDA) Musculoskeletal Disorders: Arthritis, Fibromyalgia, Chronic Back Pain Endocrine History of Endocrine Disorders: Yes Endocrine Disorders: Diabetes, Non-Insulin dep Cancer History of Cancer: No Psychosocial History of Psychiatric Problem: No Suicide Risk Score: 0 Physical Exam Vital Signs Vital Sign - Last 12Hours 01/10/17 20:48 Temp 97.4 Pulse 97 Resp 20 B/P (MAP) 211/125 Pulse Ox 98 O2 Delivery Room Air Capillary Refill : Less Than 3 Seconds General Appearance: WD/WN, no apparent distress HEENT: PERRL/EOMI, normal ENT inspection Neck: non-tender, full range of motion Respiratory: no respiratory distress, no accessory muscle use Gastrointestinal: non tender, soft Hips: bilateral hip non-tender, bilateral hip normal inspection, bilateral hip normal range of motion Legs: bilateral leg non-tender, bilateral leg normal inspection, bilateral leg normal range of motion Knees: bilateral knee non-tender, bilateral knee normal inspection, bilateral knee normal range of motion Ankles: bilateral ankle non-tender, bilateral ankle normal inspection, bilateral ankle normal range of motion Feet: bilateral foot non-tender, bilateral foot normal inspection, bilateral foot normal range of motion Neurologic/Psychiatric: alert, normal mood/affect, oriented x 3 Skin: normal color, warm/dry Progress/Results/Core Measures Results/Orders My Orders Orders - NEGRO HAAS APRN Metoprolol Tartrate (Ir) Tab (Lopressor (01/10/17 21:00) Knee, Left, 3 Views (01/10/17 20:57) Us Venous Lower Ext Lt (01/10/17 20:57) Metoprolol Tartrate (Ir) Tab (Lopressor (01/10/17 21:00) Medications Given in ED Current Medications Medications Dose Ordered Sig/Toney Route Start Time Stop Time Status Last Admin Dose Admin Metoprolol Tartrate 50 mg ONCE ONCE PO 01/10/17 21:00 01/10/17 21:01 DC 01/10/17 21:05 50 MG Vital Signs/I&O Vital Sign - Last 12Hours 01/10/17 20:48 Temp 97.4 Pulse 97 Resp 20 B/P (MAP) 211/125 Pulse Ox 98 O2 Delivery Room Air Blood Pressure Mean: 153 Departure Communication (Admissions) Progress Notes 2210-BP 189/103 but asymptomatic. Impression Impression: Primary Impression: Arthritis of knee, left Additional Impression: HTN (hypertension) Disposition: HOME, SELF-CARE Condition: Stable Departure-Patient Inst. Decision time for Depature: 22:01 Referrals: [facility] (PCP/Family) Primary Care Physician Patient Instructions: NO INSTRUCTIONS GIVEN Add. Discharge Instructions: 1. Follow-up with your regular doctor this week in regards to your high blood pressure. This needs better controlled. Also, follow up with your orthopedic surgeon in regards to the knee pain. NEGRO HAAS APRN Jan 10, 2017 21:06
--- NOTE | 2017-01-10 21:56 | Diagnostic Imaging Report ---
INDICATION: Chronic left knee pain with recent exacerbation. COMPARISON: 04/20/2016. FINDINGS: Three views of the left knee joint demonstrate no acute fracture or dislocation. No focal osseous lesions are seen. There may be small suprapatellar joint effusion. The surrounding soft tissue structures are unremarkable. There are no radiopaque foreign bodies. IMPRESSION: 1. No acute fractures or dislocations of the left knee joint. 2. Possible small suprapatellar joint effusion. Dictated by: Dictated on workstation # [id number]
[2017-01-10] MEDS ORDERED: cloNIDine 0.1 MG (CATAPRES) TAB PO ONE (22:15)
[2017-01-10 22:16] VITALS: BP 189/103
--- NOTE | 2017-01-11 06:08 | Diagnostic Imaging Report ---
EXAM: US VENOUS LOWER EXT LT INDICATION: Left knee pain. COMPARISON: None. TECHNIQUE: Duplex, howard-scale and color-flow imaging of the left lower extremity venous system was performed FINDINGS: The left common femoral vein, superficial femoral vein, profunda femoris, and popliteal veins are normal. These vessels show normal compressibility, color flow, and Doppler augmentation. The deep calf veins demonstrate no distinct intraluminal thrombus where seen. IMPRESSION: Negative venous Doppler of the left lower extremity. Dictated by: Dictated on workstation # [id number]
== END 2017-01-10 22:16 | disposition home or self-care (01) ==
LOC: EDUNIT# 20:40 → ER 20:42
DX: M17.12 Unilateral primary osteoarthritis, left knee (principal); I10 Essential (primary) hypertension; K21.9 Gastro-esophageal reflux disease without esophagitis; E78.00 Pure hypercholesterolemia, unspecified; E11.40 Type 2 diabetes mellitus with diabetic neuropathy, unspecified; I25.10 Atherosclerotic heart disease of native coronary artery without angina pectoris; Z79.82 Long term (current) use of aspirin; Z79.84 Long term (current) use of oral hypoglycemic drugs; Z86.718 Personal history of other venous thrombosis and embolism
CPT/HCPCS: 73562; 99283

== ENCOUNTER 2017-03-13 03:20 | Emergency (ER) | payer MEDICARE ==
[~2017-03-13] VITALS: Ht 154.9 cm; Wt 90.4 kg
--- NOTE | 2017-03-13 03:42 | ED Cardiac General ---
History of Present Illness General Stated Complaint: ELEVATED BP Source: patient, old records Exam Limitations: no limitations History of Present Illness Date Seen by Provider: Mar 13, 2017 Time Seen by Provider: 03:33 Initial Comments Patient went to bed last night around midnight and was doing fine but woke up feeling heart palpitations and feeling a little bit short of breath and she figured her blood pressure must be elevated is what happened in the past so she went checked her blood pressure and on her right arm and was 240/113 in her left arm was similar blood pressure. She's not having chest pain just little shortness of breath no nausea, chills. She's got a wearable heart monitor placed by Dr. Winters, cardiology due to some history of syncope that he's working up with her. She has not passed out tonight. She is on metoprolol 25 mg twice a day as well as a daily aspirin, statin, gabapentin and metformin. She does not take insulin or any other blood pressure medicines. She says she been taking her medicines routinely as prescribed. She denies any cough, chills, fever, diarrhea or constipation. Allergies and Home Medications Allergies Coded Allergies: acetaminophen (Unverified Allergy, Mild, 05/05/09) codeine (Unverified Allergy, Mild, 05/05/09) propoxyphene (Unverified Allergy, Mild, 05/05/09) tramadol (Unverified Allergy, Mild, 05/12/09) Home Medications Albuterol 17 Gm Aerosol, 1 GM IH 5 x DAILY, (Reported) Aspirin 81 Mg Tabec, 81 MG PO DAILY, (Reported) Cetirizine HCl 10 Mg Tablet, 10 MG PO DAILY, (Reported) Fluticasone Propionate 16 Gm [place], 2 SPRAYS NS BID, (Reported) Gabapentin 300 Mg Tablet, 300 MG PO TID, (Reported) Lisinopril/Hydrochlorothiazide 1 Each Tablet, 0.5 TAB PO DAILY, (Reported) Lovastatin 20 Mg Tablet, 20 MG PO DAILY, (Reported) Meloxicam 7.5 Mg Tablet, 7.5 MG PO BID, #30 Prescribed by: NEGRO HAAS on 04/20/16 1122 Metformin Hcl 1,000 Mg Tablet, 1,000 MG PO BID WITH MEALS, (Reported) Omeprazole 20 Mg Capsule.dr, 20 MG PO BID, (Reported) Pantoprazole Sodium 40 Mg Tablet.dr, 40 MG PO DAILY, #20 Prescribed by: NEGRO HAAS on 04/20/16 1122 Review of Systems Constitutional: No chills, No diaphoresis EENTM: No Blurred Vision, No Double Vision Respiratory: Denies Cough, Shortness of Air Cardiovascular: Denies Chest Pain, Denies Edema, Palpitations, Denies Syncope Gastrointestinal: Denies Abdomen Distended, Denies Abdominal Pain Genitourinary: Denies Burning, Denies Discharge Past Gbussuw-Jtppff-Abeggw Hx Patient Social History Alcohol Use: Denies Use Recreational Drug Use: No Smoking Status: Never a Smoker 2nd Hand Smoke Exposure: Yes Recent Foreign Travel: No Contact w/Someone Who Travel: No Recent Hopitalizations: No Immunizations Up To Date Date of Pneumonia Vaccine: Feb 20, 2011 Date of Influenza Vaccine: Nov 15, 2011 Seasonal Allergies Seasonal Allergies: No Surgeries History of Surgeries: Yes (D&C; CARDIAC CATH--NO INTERVENTION) Surgeries: Cardiac, Orthopedic Respiratory History of Respiratory Disorde: Yes (wears 2L @ night) Respiratory Disorders: Asthma Cardiovascular History of Cardiac Disorders: Yes ("blood clot in heart" ) Cardiac Disorders: Chronic Edema/Swelling, Coronary Artery Disease, Deep Vein Thrombosis, High Cholesterol, Hypertension Neurological History of Neurological Disord: Yes (spina bifida) Neurological Disorders: Neuropathy Reproductive System Hx Reproductive Disorders: 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 Gastrointestinal History of Gastrointestinal Di: Yes Gastrointestinal Disorders: Gastroesophageal Reflux Musculoskeletal History of Musculoskeletal Dis: Yes (SPINA BIFIDA) Musculoskeletal Disorders: Arthritis, Fibromyalgia, Chronic Back Pain Endocrine History of Endocrine Disorders: Yes Endocrine Disorders: Diabetes, Non-Insulin dep Cancer History of Cancer: No Psychosocial History of Psychiatric Problem: No Physical Exam Vital Signs Vital Sign - Last 12Hours 03/13/17 03:30 Temp 98.2 Pulse 121 Resp 19 B/P (MAP) 229/133 (165) Pulse Ox 97 O2 Delivery Room Air Capillary Refill : General Appearance: No Apparent Distress, WD/WN HEENT: PERRL/EOMI, Normal ENT Inspection, Pharynx Normal Neck: Full Range of Motion, Normal Inspection, Non Tender, Supple Respiratory: Chest Non Tender, Lungs Clear, Normal Breath Sounds, No Accessory Muscle Use, No Respiratory Distress Cardiovascular: Regular Rate, Rhythm, No Edema, Tachycardia (130) Gastrointestinal: Non Tender, Soft Extremity: Normal Capillary Refill, No Pedal Edema Neurologic/Psychiatric: Alert, Oriented x3, No Motor/Sensory Deficits, Normal 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/Affect, 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 Norm as Tested Skin: Normal Color, Warm/Dry Progress/Results/Core Measures Results/Orders Lab Results Laboratory Tests Test 03/13/17 04:07 Range/Units White Blood Count 7.8 4.3-11.0 10^3/uL Red Blood Count 4.11 L 4.35-5.85 10^6/uL Hemoglobin 11.3 L 11.5-16.0 G/DL Hematocrit 34 L 35-52 % Mean Corpuscular Volume 84 80-99 FL Mean Corpuscular Hemoglobin 28 25-34 PG Mean Corpuscular Hemoglobin Concent 33 32-36 G/DL Red Cell Distribution Width 13.8 10.0-14.5 % Platelet Count 327 130-400 10^3/uL Mean Platelet Volume 11.1 H 7.4-10.4 FL Neutrophils (%) (Auto) 53 42-75 % Lymphocytes (%) (Auto) 37 12-44 % Monocytes (%) (Auto) 8 0-12 % Eosinophils (%) (Auto) 3 0-10 % Basophils (%) (Auto) 0 0-10 % Neutrophils # (Auto) 4.1 1.8-7.8 X 10^3 Lymphocytes # (Auto) 2.8 1.0-4.0 X 10^3 Monocytes # (Auto) 0.6 0.0-1.0 X 10^3 Eosinophils # (Auto) 0.2 0.0-0.3 10^3/uL Basophils # (Auto) 0.0 0.0-0.1 10^3/uL Sodium Level 141 135-145 MMOL/L Potassium Level 3.8 3.6-5.0 MMOL/L Chloride Level 102 98-107 MMOL/L Carbon Dioxide Level 22 21-32 MMOL/L Anion Gap 17 H 5-14 MMOL/L Blood Urea Nitrogen 10 7-18 MG/DL Creatinine 0.68 0.60-1.30 MG/DL Estimat Glomerular Filtration Rate > 60 BUN/Creatinine Ratio 15 Glucose Level 122 H 70-105 MG/DL Calcium Level 9.9 8.5-10.1 MG/DL Total Bilirubin 0.2 0.1-1.0 MG/DL Aspartate Amino Transf (AST/SGOT) 17 5-34 U/L Alanine Aminotransferase (ALT/SGPT) 24 0-55 U/L Alkaline Phosphatase 65 40-136 U/L Troponin I < 0.30 <0.30 NG/ML Total Protein 7.3 6.4-8.2 GM/DL Albumin 4.1 3.2-4.5 GM/DL My Orders Orders - RYANN ARGUETA Troponin I (03/13/17 03:35) Chest 1 View, Ap/Pa Only (03/13/17 03:35) Ekg Tracing (03/13/17 03:35) Saline Lock/Iv-Start (03/13/17 03:35) Monitor-Rhythm Ecg Trace Only (03/13/17 03:35) Cbc With Automated Diff (03/13/17 03:35) Comprehensive Metabolic Panel (03/13/17 03:35) Labetalol Injection (Normodyne Injection (03/13/17 04:00) Medications Given in ED Current Medications Medications Dose Ordered Sig/Toney Route Start Time Stop Time Status Last Admin Dose Admin Labetalol HCl 20 mg ONCE ONCE IV 03/13/17 04:00 03/13/17 04:01 DC 03/13/17 03:58 20 MG Vital Signs/I&O Vital Sign - Last 12Hours 03/13/17 03:30 Temp 98.2 Pulse 121 Resp 19 B/P (MAP) 229/133 (165) Pulse Ox 97 O2 Delivery Room Air Progress Note #1: Time: 03:[address] Winters echocardiography 2013: Normal global systolic function with an EF of 60%. No valvular regurgitation or stenosis seen. Mild diastolic dysfunction of left ventricle. Progress Note #2: Time: 04:26 Progress Note With just rest her blood pressure came down to 190/106 which is still above a reasonable goal so we gave her 20 mg of labetalol and her blood pressure down to 178/91 with a heart rate 79. ECG Initial ECG Impression Date: Mar 13, 2017 Initial ECG Impression Time: 03:38 Initial ECG Rate: 116 Initial ECG Rhythm: S.Tach Initial ECG Intervals: QT (467) Initial ECG Impression: Normal, Nonspecific Changes (sinus tachycardia) Initial ECG Comparisson: Changed (No more AV block.), Unchanged Comment Sinus tachycardia with no T-wave elevation or depression. Diagnostic Imaging Diagonstic Imaging: Xray Plain Films/CT/US/NM/MRI: chest (1v) Comments No acute cardiopulmonary processes noted. Reviewed: Reviewed by Me Consults Consults : Consulting Physician: Inge VEGA MD Consults Notes Discussed case EKG and findings and since the patient seems to be asymptomatic except for some mild breathlessness with hypertensive urgency we will try labetalol 20 mg and if we can get her under control and her labs are otherwise unremarkable possible she could follow up outpatient with Dr. Winters Tuesday. He would definitely increase her metoprolol at least 50 mg twice a day but if we need to keep her for observation is okay with that too. Departure Impression Impression: Primary Impression: Asymptomatic hypertensive urgency Disposition: HOME, SELF-CARE Condition: Improved Departure-Patient Inst. Decision time for Depature: 04:51 Referrals: [facility] (PCP/Family) Primary Care Physician Patient Instructions: High Blood Pressure Emergencies Add. Discharge Instructions: Get some rest. Go ahead and double your metoprolol to 50 mg twice a day until you talk to your primary doctor or heart doctor Tuesday. Return to the ER if you experience chest pain, shortness of breath or other worrisome symptoms. Take your blood pressure cuff into the next doctor's appointment to have it checked against their wall blood pressure cuffs. Every other day when you first get up in the morning check a blood pressure before you've done anything and write this down in a blood pressure log and take this with you to your next appointment. Copy Copies To 1: CAIO MARC DO Copies To 2: PEDRO WINTERS MD FACP FAC CCDS RYANN ARGUETA Mar 13, 2017 03:42
[2017-03-13] MEDS ORDERED: LABETALOL HCL 20 MG/4 ML VIAL IV ONE (04:00)
[2017-03-13 04:12] LABS: BASOPHILS % (AUTO) 0 % (0-10); EOSINOPHILS # (AUTO) 0.2 10^3/uL (0.0-0.3); EOSINOPHILS % (AUTO) 3 % (0-10); HEMATOCRIT 34 % (35-52); HEMOGLOBIN 11.3 G/DL (11.5-16.0); LYMPHOCYTES # (AUTO) 2.8 X 10^3 (1.0-4.0); LYMPHOCYTES % (AUTO) 37 % (12-44); MEAN CORPUSCULAR HEMOGLOBIN 28 PG (25-34); MEAN CORPUSCULAR HGB CONC 33 G/DL (32-36); MEAN CORPUSCULAR VOLUME 84 FL (80-99); MEAN PLATELET VOLUME 11.1 FL (7.4-10.4); MONOCYTES # (AUTO) 0.6 X 10^3 (0.0-1.0); MONOCYTES % (AUTO) 8 % (0-12); NEUTROPHILS # (AUTO) 4.1 X 10^3 (1.8-7.8); NEUTROPHILS % (AUTO) 53 % (42-75); PLATELET COUNT 327 10^3/uL (130-400); RED BLOOD COUNT 4.11 10^6/uL (4.35-5.85); RED CELL DISTRIBUTION WIDTH 13.8 % (10.0-14.5); WHITE BLOOD COUNT 7.8 10^3/uL (4.3-11.0)
[2017-03-13 04:38] LABS: ALANINE AMINOTRANSFERASE 24 U/L (0-55); ALBUMIN 4.1 GM/DL (3.2-4.5); ALKALINE PHOSPHATASE 65 U/L (40-136); BILIRUBIN,TOTAL 0.2 MG/DL (0.1-1.0); BUN/CREATININE RATIO 15; CALCIUM 9.9 MG/DL (8.5-10.1); CARBON DIOXIDE 22 MMOL/L (21-32); CHLORIDE 102 MMOL/L (98-107); CREATININE SERUM 0.68 MG/DL (0.60-1.30); GFR ESTIMATED > 60; GLUCOSE 122 MG/DL (70-105); POTASSIUM 3.8 MMOL/L (3.6-5.0); SODIUM 141 MMOL/L (135-145); TOTAL PROTEIN 7.3 GM/DL (6.4-8.2)
[2017-03-13 05:02] VITALS: BP 189/88
--- NOTE | 2017-03-13 06:45 | Diagnostic Imaging Report ---
Clinical indication: Patient with elevated blood pressure. Exam: Portable chest x-ray upright view. Comparisons: Chest x-ray dated 06/21/2011. Findings: Lungs/pleura: Lungs are clear. There is no pneumothorax. There is no pleural effusion. Mediastinum: Unremarkable. Pulmonary vasculature: Unremarkable. Heart: Heart size is within normal limits. There is interval placement of an electronic device seen overlying the left chest. Bones/extrathoracic soft tissue: There are hypertrophic degenerative spurs involving the thoracic spine. Impression: There is no radiographic evidence of acute cardiopulmonary process. Dictated by: Dictated on workstation # [id number]
--- OUTSIDE RECORDS SUMMARY | 2017-03-13 11:44 | XMS REPORT | Continuity of Care Document ---
Author Author [facility] Address Unknown Phone Unavailable Allergies Active Description Code Type Severity Reaction Onset Reported/Identified Relationship to Patient Clinical Status Yes codeine Drug Allergy N/A N/A 03/06/2008 Yes Percocet Drug Allergy N/A N/A 03/06/2008 Yes Ultracet Drug Allergy N/A N/A 03/06/2008 Yes codeine Drug Allergy 03/06/2008 Yes Percocet Drug Allergy 03/06/2008 Yes Ultracet Drug Allergy 03/06/2008 Yes acetaminophen [id number] Drug Allergy Mild N/A 05/05/2009 Yes codeine [id number] Drug Allergy Mild N/A 05/05/2009 Yes propoxyphene [id number] Drug Allergy Mild N/A 05/05/2009 Yes tramadol [id number] Drug Allergy Mild N/A 05/12/2009 Medications There is no data. Problems Date Dx Coded Attending Type Code Diagnosis Diagnosed By 08/24/2007 YOVANI MONTERO MD 278.01 OBESITY MORBID BMI >40 08/24/2007 YOVANI MONTERO MD 356.9 UNSPECIFIED IDIOPATHIC PERIPHERAL NEUROPATHY 08/24/2007 YOVANI MONTERO MD 401.1 HYPERTENSION, BENIGN ESSENTIAL 08/24/2007 YOVANI MONTERO MD 477.9 RHINITIS ALLERGIC 08/24/2007 YOVANI MONTERO MD 530.81 GERD 08/24/2007 278.01 OBESITY MORBID BMI >40 08/24/2007 356.9 UNSPECIFIED IDIOPATHIC PERIPHERAL NEUROPATHY 08/24/2007 401.1 HYPERTENSION, BENIGN ESSENTIAL 08/24/2007 477.9 RHINITIS ALLERGIC 08/24/2007 530.81 GERD 08/24/2007 YOVANI MONTERO MD 278.01 OBESITY MORBID BMI >40 08/24/2007 YOVANI MONTERO MD 356.9 UNSPECIFIED IDIOPATHIC PERIPHERAL NEUROPATHY 08/24/2007 YOVANI MONTERO MD 401.1 HYPERTENSION, BENIGN ESSENTIAL 08/24/2007 YOVANI MONTERO MD 477.9 RHINITIS ALLERGIC 08/24/2007 YOVANI MONTERO MD 530.81 GERD 08/24/2007 YOVANI MONTERO MD 278.01 OBESITY MORBID BMI >40 08/24/2007 YOVANI MONTERO MD 356.9 UNSPECIFIED IDIOPATHIC PERIPHERAL NEUROPATHY 08/24/2007 YOVANI MONTERO MD 401.1 HYPERTENSION, BENIGN ESSENTIAL 08/24/2007 YOVANI MONTERO MD 477.9 RHINITIS ALLERGIC 08/24/2007 YOVANI MONTERO MD 530.81 GERD 08/24/2007 YOVANI MNOTERO MD 278.01 OBESITY MORBID BMI >40 08/24/2007 YOVANI MONTERO MD 356.9 UNSPECIFIED IDIOPATHIC PERIPHERAL NEUROPATHY 08/24/2007 YOVANI MONTERO MD 401.1 HYPERTENSION, BENIGN ESSENTIAL 08/24/2007 YOVANI MONTERO MD 477.9 RHINITIS ALLERGIC 08/24/2007 YOVANI MONTERO MD 530.81 GERD 08/24/2007 278.01 OBESITY MORBID BMI >40 08/24/2007 356.9 UNSPECIFIED IDIOPATHIC PERIPHERAL NEUROPATHY 08/24/2007 401.1 HYPERTENSION, BENIGN ESSENTIAL 08/24/2007 477.9 RHINITIS ALLERGIC 08/24/2007 530.81 GERD 08/24/2007 YOVANI MONTERO MD 278.01 OBESITY MORBID BMI >40 08/24/2007 YOVANI MONTERO MD 356.9 UNSPECIFIED IDIOPATHIC PERIPHERAL NEUROPATHY 08/24/2007 YOVANI MONTERO MD 401.1 HYPERTENSION, BENIGN ESSENTIAL 08/24/2007 YOVANI MONTERO MD 477.9 RHINITIS ALLERGIC 08/24/2007 YOVANI MONTERO MD 530.81 GERD 08/24/2007 278.01 OBESITY MORBID BMI >40 08/24/2007 356.9 UNSPECIFIED IDIOPATHIC PERIPHERAL NEUROPATHY 08/24/2007 401.1 HYPERTENSION, BENIGN ESSENTIAL 08/24/2007 477.9 RHINITIS ALLERGIC 08/24/2007 530.81 GERD 08/24/2007 278.01 OBESITY MORBID BMI >40 08/24/2007 356.9 UNSPECIFIED IDIOPATHIC PERIPHERAL NEUROPATHY 08/24/2007 401.1 HYPERTENSION, BENIGN ESSENTIAL 08/24/2007 477.9 RHINITIS ALLERGIC 08/24/2007 530.81 GERD 08/24/2007 278.01 OBESITY MORBID BMI >40 08/24/2007 356.9 UNSPECIFIED IDIOPATHIC PERIPHERAL NEUROPATHY 08/24/2007 401.1 HYPERTENSION, BENIGN ESSENTIAL 08/24/2007 477.9 RHINITIS ALLERGIC 08/24/2007 530.81 GERD 08/24/2007 278.01 OBESITY MORBID BMI >40 08/24/2007 356.9 UNSPECIFIED IDIOPATHIC PERIPHERAL NEUROPATHY 08/24/2007 401.1 HYPERTENSION, BENIGN ESSENTIAL 08/24/2007 477.9 RHINITIS ALLERGIC 08/24/2007 530.81 GERD 08/24/2007 278.01 OBESITY MORBID BMI >40 08/24/2007 356.9 UNSPECIFIED IDIOPATHIC PERIPHERAL NEUROPATHY 08/24/2007 401.1 HYPERTENSION, BENIGN ESSENTIAL 08/24/2007 477.9 RHINITIS ALLERGIC 08/24/2007 530.81 GERD 08/24/2007 MARC DO, CAIO K 278.01 OBESITY MORBID BMI >40 08/24/2007 MARC DO, CAIO K 356.9 UNSPECIFIED IDIOPATHIC PERIPHERAL NEUROPATHY 08/24/2007 MARC DO, CAIO K 401.1 HYPERTENSION, BENIGN ESSENTIAL 08/24/2007 MARC DO, CAIO K 477.9 RHINITIS ALLERGIC 08/24/2007 MARC DO, CAIO K 530.81 GERD 08/24/2007 WHITE DDS, DONTE J 278.01 OBESITY MORBID BMI >40 08/24/2007 WHITE DDS, DONTE J 356.9 UNSPECIFIED IDIOPATHIC PERIPHERAL NEUROPATHY 08/24/2007 WHITE DDS, DONTE J 401.1 HYPERTENSION, BENIGN ESSENTIAL 08/24/2007 WHITE DDS, DONTE J 477.9 RHINITIS ALLERGIC 08/24/2007 WHITE DDS, DONTE J 530.81 GERD 08/24/2007 MARC DO, CAIO K 278.01 OBESITY MORBID BMI >40 08/24/2007 MARC DO, CAIO K 356.9 UNSPECIFIED IDIOPATHIC PERIPHERAL NEUROPATHY 08/24/2007 MARC DO, CAIO K 401.1 HYPERTENSION, BENIGN ESSENTIAL 08/24/2007 MARC DO, CAIO K 477.9 RHINITIS ALLERGIC 08/24/2007 MARC DO, CAIO K 530.81 GERD 08/24/2007 MARC DO, CAIO K 278.01 OBESITY MORBID BMI >40 08/24/2007 MARC DO, CAIO K 356.9 UNSPECIFIED IDIOPATHIC PERIPHERAL NEUROPATHY 08/24/2007 MARC DO, CAIO K 401.1 HYPERTENSION, BENIGN ESSENTIAL 08/24/2007 MARC DO, CAIO K 477.9 RHINITIS ALLERGIC 08/24/2007 MARC DO, CAIO K 530.81 GERD 08/24/2007 MARC DO, CAIO K 278.01 OBESITY MORBID BMI >40 08/24/2007 MARC DO, CAIO K 356.9 UNSPECIFIED IDIOPATHIC PERIPHERAL NEUROPATHY 08/24/2007 MARC DO, CAIO K 401.1 HYPERTENSION, BENIGN ESSENTIAL 08/24/2007 MARC DO, CAIO K 477.9 RHINITIS ALLERGIC 08/24/2007 MARC DO, CAIO K 530.81 GERD 08/24/2007 MARC DO, CAIO K 278.01 OBESITY MORBID BMI >40 08/24/2007 MARC DO, CAIO K 356.9 UNSPECIFIED IDIOPATHIC PERIPHERAL NEUROPATHY 08/24/2007 MARC DO, CAIO K 401.1 HYPERTENSION, BENIGN ESSENTIAL 08/24/2007 MARC DO, CAIO K 477.9 RHINITIS ALLERGIC 08/24/2007 MARC DO, CAIO K 530.81 GERD 08/24/2007 MARC DO, CAIO K 278.01 OBESITY MORBID BMI >40 08/24/2007 MARC DO, CAIO K 356.9 UNSPECIFIED IDIOPATHIC PERIPHERAL NEUROPATHY 08/24/2007 MARC DO, CAIO K 401.1 HYPERTENSION, BENIGN ESSENTIAL 08/24/2007 MARC DO, CAIO K 477.9 RHINITIS ALLERGIC 08/24/2007 MARC DO, CAIO K 530.81 GERD 08/24/2007 HELLWIG TOWBOAT OPERATOR, LON E 278.01 OBESITY MORBID BMI >40 08/24/2007 HELLWIG TOWBOAT OPERATOR, LON E 356.9 UNSPECIFIED IDIOPATHIC PERIPHERAL NEUROPATHY 08/24/2007 HELLWIG TOWBOAT OPERATOR, LON E 401.1 HYPERTENSION, BENIGN ESSENTIAL 08/24/2007 HELLWIG TOWBOAT OPERATOR, LON E 477.9 RHINITIS ALLERGIC 08/24/2007 HELLWIG TOWBOAT OPERATOR, LON E 530.81 GERD 08/24/2007 MARC DO, CAIO K 278.01 OBESITY MORBID BMI >40 08/24/2007 MARC DO, CAIO K 356.9 UNSPECIFIED IDIOPATHIC PERIPHERAL NEUROPATHY 08/24/2007 MARC DO, CAIO K 401.1 HYPERTENSION, BENIGN ESSENTIAL 08/24/2007 MARC DO, CAIO K 477.9 RHINITIS ALLERGIC 08/24/2007 MARC DO, CAIO K 530.81 GERD 08/24/2007 HELLWIG TOWBOAT OPERATOR, LON E 278.01 OBESITY MORBID BMI >40 08/24/2007 HELLWIG TOWBOAT OPERATOR, LON E 356.9 UNSPECIFIED IDIOPATHIC PERIPHERAL NEUROPATHY 08/24/2007 HELLWIG TOWBOAT OPERATOR, LON E 401.1 HYPERTENSION, BENIGN ESSENTIAL 08/24/2007 HELLWIG TOWBOAT OPERATOR, LON E 477.9 RHINITIS ALLERGIC 08/24/2007 HELLWIG TOWBOAT OPERATOR, LON E 530.81 GERD 08/24/2007 MARC DO, CAIO K 278.01 OBESITY MORBID BMI >40 08/24/2007 MARC DO, CAIO K 356.9 UNSPECIFIED IDIOPATHIC PERIPHERAL NEUROPATHY 08/24/2007 MARC DO, CAIO K 401.1 HYPERTENSION, BENIGN ESSENTIAL 08/24/2007 MARC DO, CAIO K 477.9 RHINITIS ALLERGIC 08/24/2007 MARC DO, CAIO K 530.81 GERD 08/24/2007 MARC DO, CAIO K 278.01 OBESITY MORBID BMI >40 08/24/2007 MARC DO, CAIO K 356.9 UNSPECIFIED IDIOPATHIC PERIPHERAL NEUROPATHY 08/24/2007 MARC DO, CAIO K 401.1 HYPERTENSION, BENIGN ESSENTIAL 08/24/2007 MARC DO, CAIO K 477.9 RHINITIS ALLERGIC 08/24/2007 MARC DO, CAIO K 530.81 GERD 08/24/2007 MARC DO, CAIO K 278.01 OBESITY MORBID BMI >40 08/24/2007 MARC DO, CAIO K 356.9 UNSPECIFIED IDIOPATHIC PERIPHERAL NEUROPATHY 08/24/2007 MARC DO, CAIO K 401.1 HYPERTENSION, BENIGN ESSENTIAL 08/24/2007 MARC DO, CAIO K 477.9 RHINITIS ALLERGIC 08/24/2007 MARC DO, CAIO K 530.81 GERD 08/24/2007 MARC DO, CAIO K 278.01 OBESITY MORBID BMI >40 08/24/2007 MARC DO, CAIO K 356.9 UNSPECIFIED IDIOPATHIC PERIPHERAL NEUROPATHY 08/24/2007 MARC DO, CAIO K 401.1 HYPERTENSION, BENIGN ESSENTIAL 08/24/2007 MARC DO, CAIO K 477.9 RHINITIS ALLERGIC 08/24/2007 MARC DO, CAIO K 530.81 GERD 08/24/2007 HELLWIG TOWBOAT OPERATOR, LON E 278.01 OBESITY MORBID BMI >40 08/24/2007 HELLWIG TOWBOAT OPERATOR, LON E 356.9 UNSPECIFIED IDIOPATHIC PERIPHERAL NEUROPATHY 08/24/2007 HELLWIG TOWBOAT OPERATOR, LON E 401.1 HYPERTENSION, BENIGN ESSENTIAL 08/24/2007 HELLWIG TOWBOAT OPERATOR, LON E 477.9 RHINITIS ALLERGIC 08/24/2007 HELLWIG TOWBOAT OPERATOR, LON E 530.81 GERD 08/24/2007 MARC DO, CAIO K 278.01 OBESITY MORBID BMI >40 08/24/2007 MARC DO, CAIO K 356.9 UNSPECIFIED IDIOPATHIC PERIPHERAL NEUROPATHY 08/24/2007 MARC DO, CAIO K 401.1 HYPERTENSION, BENIGN ESSENTIAL 08/24/2007 MARC DO, CAIO K 477.9 RHINITIS ALLERGIC 08/24/2007 MARC DO, CAIO K 530.81 GERD 08/24/2007 MARC DO, CAIO K 278.01 OBESITY MORBID BMI >40 08/24/2007 MARC DO, CAIO K 356.9 UNSPECIFIED IDIOPATHIC PERIPHERAL NEUROPATHY 08/24/2007 MARC DO, CAIO K 401.1 HYPERTENSION, BENIGN ESSENTIAL 08/24/2007 MARC DO, CAIO K 477.9 RHINITIS ALLERGIC 08/24/2007 MARC DO, CAIO K 530.81 GERD 08/24/2007 HELLWIG TOWBOAT OPERATOR LON E 278.01 OBESITY MORBID BMI >40 08/24/2007 HELLWIG TOWBOAT OPERATOR LON E 356.9 UNSPECIFIED IDIOPATHIC PERIPHERAL NEUROPATHY 08/24/2007 HELLWIG TOWBOAT OPERATOR LON E 401.1 HYPERTENSION, BENIGN ESSENTIAL 08/24/2007 HELLWIG TOWBOAT OPERATOR LON E 477.9 RHINITIS ALLERGIC 08/24/2007 HELLWIG TOWBOAT OPERATOR LON E 530.81 GERD 08/24/2007 MARC DO, CAIO K 278.01 OBESITY MORBID BMI >40 08/24/2007 MARC DO, CAIO K 356.9 UNSPECIFIED IDIOPATHIC PERIPHERAL NEUROPATHY 08/24/2007 MARC DO, CAIO K 401.1 HYPERTENSION, BENIGN ESSENTIAL 08/24/2007 MARC DO, CAIO K 477.9 RHINITIS ALLERGIC 08/24/2007 MARC DO, CAIO K 530.81 GERD 08/24/2007 MARC DO, CAIO K 278.01 OBESITY MORBID BMI >40 08/24/2007 MARC DO, CAIO K 356.9 UNSPECIFIED IDIOPATHIC PERIPHERAL NEUROPATHY 08/24/2007 MARC DO, CAIO K 401.1 HYPERTENSION, BENIGN ESSENTIAL 08/24/2007 MARC DO, CAIO K 477.9 RHINITIS ALLERGIC 08/24/2007 MARC DO, CAIO K 530.81 GERD 08/24/2007 HELLWIG TOWBOAT OPERATOR, LON E 278.01 OBESITY MORBID BMI >40 08/24/2007 HELLWIG TOWBOAT OPERATOR LON E 356.9 UNSPECIFIED IDIOPATHIC PERIPHERAL NEUROPATHY 08/24/2007 LON SALAZAR APRN 401.1 HYPERTENSION, BENIGN ESSENTIAL 08/24/2007 LON SALAZAR APRN E 477.9 RHINITIS ALLERGIC 08/24/2007 LON SALAZAR APRN E 530.81 GERD 11/24/2007 YOVANI MONTERO MD 357.9 POLYNEUROPATHY INFLAMMATORY 11/24/2007 357.9 POLYNEUROPATHY INFLAMMATORY 11/24/2007 YVOANI MONTERO MD 357.9 POLYNEUROPATHY INFLAMMATORY 11/24/2007 YOVANI MONTERO MD 357.9 POLYNEUROPATHY INFLAMMATORY 11/24/2007 YOVANI MONTERO MD 357.9 POLYNEUROPATHY INFLAMMATORY 11/24/2007 357.9 POLYNEUROPATHY INFLAMMATORY 11/24/2007 YOVANI MONTERO MD 357.9 POLYNEUROPATHY INFLAMMATORY 11/24/2007 357.9 POLYNEUROPATHY INFLAMMATORY 11/24/2007 357.9 POLYNEUROPATHY INFLAMMATORY 11/24/2007 357.9 POLYNEUROPATHY INFLAMMATORY 11/24/2007 357.9 POLYNEUROPATHY INFLAMMATORY 11/24/2007 357.9 POLYNEUROPATHY INFLAMMATORY 11/24/2007 MARC DO, CAIO K 357.9 POLYNEUROPATHY INFLAMMATORY 11/24/2007 DONTE SHELL DDS 357.9 POLYNEUROPATHY INFLAMMATORY 11/24/2007 MARC DO, CAIO K 357.9 POLYNEUROPATHY INFLAMMATORY 11/24/2007 MARC DO, CAIO K 357.9 POLYNEUROPATHY INFLAMMATORY 11/24/2007 MARC DO, CAIO K 357.9 POLYNEUROPATHY INFLAMMATORY 11/24/2007 MARC DO, CAIO K 357.9 POLYNEUROPATHY INFLAMMATORY 11/24/2007 MARC DO, CAIO K 357.9 POLYNEUROPATHY INFLAMMATORY 11/24/2007 LON SALAZAR APRN E 357.9 POLYNEUROPATHY INFLAMMATORY 11/24/2007 MARC DO, CAIO K 357.9 POLYNEUROPATHY INFLAMMATORY 11/24/2007 LON SALAZAR APRN E 357.9 POLYNEUROPATHY INFLAMMATORY 11/24/2007 MARC DO, CAIO K 357.9 POLYNEUROPATHY INFLAMMATORY 11/24/2007 MARC DO, CAIO K 357.9 POLYNEUROPATHY INFLAMMATORY 11/24/2007 MARC DO, CAIO K 357.9 POLYNEUROPATHY INFLAMMATORY 11/24/2007 MARC DO, CAIO K 357.9 POLYNEUROPATHY INFLAMMATORY 11/24/2007 LON SALAZAR APRN E 357.9 POLYNEUROPATHY INFLAMMATORY 11/24/2007 MARC DO, CAIO K 357.9 POLYNEUROPATHY INFLAMMATORY 11/24/2007 [facility] DO, CAIO K 357.9 POLYNEUROPATHY INFLAMMATORY 11/24/2007 LON SALAZAR APRN E 357.9 POLYNEUROPATHY INFLAMMATORY 11/24/2007 MARC DO CAIO K 357.9 POLYNEUROPATHY INFLAMMATORY 11/24/2007 MARC DO CAIO K 357.9 POLYNEUROPATHY INFLAMMATORY 11/24/2007 LON SALAZAR APRN E 357.9 POLYNEUROPATHY INFLAMMATORY 12/01/2007 YOVANI MONTERO MD 250.00 DIABETES MELLITUS TYPE 2 - UNCOMPLICATED, CONTROLLED 12/01/2007 250.00 DIABETES MELLITUS TYPE 2 - UNCOMPLICATED, CONTROLLED 12/01/2007 YOVANI MONTERO MD 250.00 DIABETES MELLITUS TYPE 2 - UNCOMPLICATED, CONTROLLED 12/01/2007 YOVANI MONTERO MD 250.00 DIABETES MELLITUS TYPE 2 - UNCOMPLICATED, CONTROLLED 12/01/2007 YOVANI MONTERO MD 250.00 DIABETES MELLITUS TYPE 2 - UNCOMPLICATED, CONTROLLED 12/01/2007 250.00 DIABETES MELLITUS TYPE 2 - UNCOMPLICATED, CONTROLLED 12/01/2007 YOVANI MONTERO MD 250.00 DIABETES MELLITUS TYPE 2 - UNCOMPLICATED, CONTROLLED 12/01/2007 250.00 DIABETES MELLITUS TYPE 2 - UNCOMPLICATED, CONTROLLED 12/01/2007 250.00 DIABETES MELLITUS TYPE 2 - UNCOMPLICATED, CONTROLLED 12/01/2007 250.00 DIABETES MELLITUS TYPE 2 - UNCOMPLICATED, CONTROLLED 12/01/2007 250.00 DIABETES MELLITUS TYPE 2 - UNCOMPLICATED, CONTROLLED 12/01/2007 250.00 DIABETES MELLITUS TYPE 2 - UNCOMPLICATED, CONTROLLED 12/01/2007 MONICO DO CAIO K 250.00 DIABETES MELLITUS TYPE 2 - UNCOMPLICATED, CONTROLLED 12/01/2007 SULEMAN FLOYDS, DONTE Fay 250.00 DIABETES MELLITUS TYPE 2 - UNCOMPLICATED, CONTROLLED 12/01/2007 MARC DO, CAIO K 250.00 DIABETES MELLITUS TYPE 2 - UNCOMPLICATED, CONTROLLED 12/01/2007 MARC DO CAIO K 250.00 DIABETES MELLITUS TYPE 2 - UNCOMPLICATED, CONTROLLED 12/01/2007 MARC DO, CAIO K 250.00 DIABETES MELLITUS TYPE 2 - UNCOMPLICATED, CONTROLLED 12/01/2007 MARC DO, CAIO K 250.00 DIABETES MELLITUS TYPE 2 - UNCOMPLICATED, CONTROLLED 12/01/2007 MARC DO, CAIO K 250.00 DIABETES MELLITUS TYPE 2 - UNCOMPLICATED, CONTROLLED 12/01/2007 RASHAUN SALAZAR APRNSIE E 250.00 DIABETES MELLITUS TYPE 2 - UNCOMPLICATED, CONTROLLED 12/01/2007 MARC DO, CAIO K 250.00 DIABETES MELLITUS TYPE 2 - UNCOMPLICATED, CONTROLLED 12/01/2007 JACLYNMARTIN REBOLLAR LON E 250.00 DIABETES MELLITUS TYPE 2 - UNCOMPLICATED, CONTROLLED 12/01/2007 MARC DO, CAIO K 250.00 DIABETES MELLITUS TYPE 2 - UNCOMPLICATED, CONTROLLED 12/01/2007 MARC DO, CAIO K 250.00 DIABETES MELLITUS TYPE 2 - UNCOMPLICATED, CONTROLLED 12/01/2007 MARC DO, CAIO K 250.00 DIABETES MELLITUS TYPE 2 - UNCOMPLICATED, CONTROLLED 12/01/2007 MARC DO, CAIO K 250.00 DIABETES MELLITUS TYPE 2 - UNCOMPLICATED, CONTROLLED 12/01/2007 MARIE REBOLLAR LON E 250.00 DIABETES MELLITUS TYPE 2 - UNCOMPLICATED, CONTROLLED 12/01/2007 MARC DO, CAIO K 250.00 DIABETES MELLITUS TYPE 2 - UNCOMPLICATED, CONTROLLED 12/01/2007 MARC DO, CAIO K 250.00 DIABETES MELLITUS TYPE 2 - UNCOMPLICATED, CONTROLLED 12/01/2007 RASHAUN SALAZAR APRNSIE E 250.00 DIABETES MELLITUS TYPE 2 - UNCOMPLICATED, CONTROLLED 12/01/2007 MARC DO, CAIO K 250.00 DIABETES MELLITUS TYPE 2 - UNCOMPLICATED, CONTROLLED 12/01/2007 MARC DO, CAIO K 250.00 DIABETES MELLITUS TYPE 2 - UNCOMPLICATED, CONTROLLED 12/01/2007 MARIE REBOLLAR LON E 250.00 DIABETES MELLITUS TYPE 2 - UNCOMPLICATED, CONTROLLED 01/03/2008 YOVANI MONTERO MD 250.02 DIABETES MELLITUS POORLY CONTROLLED 01/03/2008 YOVANI MONTERO MD 786.2 COUGH 01/03/2008 250.02 DIABETES MELLITUS POORLY CONTROLLED 01/03/2008 786.2 COUGH 01/03/2008 YOVANI MONTERO MD 250.02 DIABETES MELLITUS POORLY CONTROLLED 01/03/2008 YOVANI MONTERO MD 786.2 COUGH 01/03/2008 YOVANI MONTERO MD 250.02 DIABETES MELLITUS POORLY CONTROLLED 01/03/2008 YOVANI MONTERO MD 786.2 COUGH 01/03/2008 YOVANI MONTERO MD 250.02 DIABETES MELLITUS POORLY CONTROLLED 01/03/2008 YOVANI MONTERO MD 786.2 COUGH 01/03/2008 250.02 DIABETES MELLITUS POORLY CONTROLLED 01/03/2008 786.2 COUGH 01/03/2008 YOVANI MONTERO MD 250.02 DIABETES MELLITUS POORLY CONTROLLED 01/03/2008 YOVANI MONTERO MD 786.2 COUGH 01/03/2008 250.02 DIABETES MELLITUS POORLY CONTROLLED 01/03/2008 786.2 COUGH 01/03/2008 250.02 DIABETES MELLITUS POORLY CONTROLLED 01/03/2008 786.2 COUGH 01/03/2008 250.02 DIABETES MELLITUS POORLY CONTROLLED 01/03/2008 786.2 COUGH 01/03/2008 250.02 DIABETES MELLITUS POORLY CONTROLLED 01/03/2008 786.2 COUGH 01/03/2008 250.02 DIABETES MELLITUS POORLY CONTROLLED 01/03/2008 786.2 COUGH 01/03/2008 MARC DO, CAIO K 250.02 DIABETES MELLITUS POORLY CONTROLLED 01/03/2008 MARC DO, CAIO K 786.2 COUGH 01/03/2008 WHITE DDS, DONTE J 250.02 DIABETES MELLITUS POORLY CONTROLLED 01/03/2008 WHITE DDS, DONTE J 786.2 COUGH 01/03/2008 MARC DO, CAIO K 250.02 DIABETES MELLITUS POORLY CONTROLLED 01/03/2008 MARC DO, CAIO K 786.2 COUGH 01/03/2008 MARC DO, CAIO K 250.02 DIABETES MELLITUS POORLY CONTROLLED 01/03/2008 MARC DO, CAIO K 786.2 COUGH 01/03/2008 MARC DO, CAIO K 250.02 DIABETES MELLITUS POORLY CONTROLLED 01/03/2008 MARC DO, CAIO K 786.2 COUGH 01/03/2008 MARC DO, CAIO K 250.02 DIABETES MELLITUS POORLY CONTROLLED 01/03/2008 MARC DO, CAIO K 786.2 COUGH 01/03/2008 MARC DO, CAIO K 250.02 DIABETES MELLITUS POORLY CONTROLLED 01/03/2008 MARC DO, CAIO K 786.2 COUGH 01/03/2008 HELCARSON TOWBOAT OPERATOR, LON E 250.02 DIABETES MELLITUS POORLY CONTROLLED 01/03/2008 HELLMARTIN TOWBOAT OPERATOR, LON E 786.2 COUGH 01/03/2008 MARC DO, CAIO K 250.02 DIABETES MELLITUS POORLY CONTROLLED 01/03/2008 MARC DO, CAIO K 786.2 COUGH 01/03/2008 HELLMARTIN TOWBOAT OPERATOR, LON E 250.02 DIABETES MELLITUS POORLY CONTROLLED 01/03/2008 HELLMARTIN TOWBOAT OPERATOR, LON E 786.2 COUGH 01/03/2008 MARC DO, CAIO K 250.02 DIABETES MELLITUS POORLY CONTROLLED 01/03/2008 MARC DO, CAIO K 786.2 COUGH 01/03/2008 MARC DO, CAIO K 250.02 DIABETES MELLITUS POORLY CONTROLLED 01/03/2008 MARC DO, CAIO K 786.2 COUGH 01/03/2008 MARC DO, CAIO K 250.02 DIABETES MELLITUS POORLY CONTROLLED 01/03/2008 MARC DO, CAIO K 786.2 COUGH 01/03/2008 MARC DO, CAIO K 250.02 DIABETES MELLITUS POORLY CONTROLLED 01/03/2008 MARC DO, CAIO K 786.2 COUGH 01/03/2008 JACLYNLMARTIN REBOLLAR LON E 250.02 DIABETES MELLITUS POORLY CONTROLLED 01/03/2008 JACLYNLMARTIN REBOLLAR LON E 786.2 COUGH 01/03/2008 MARC DO, CAIO K 250.02 DIABETES MELLITUS POORLY CONTROLLED 01/03/2008 MARC DO, CAIO K 786.2 COUGH 01/03/2008 MARC DO, CAIO K 250.02 DIABETES MELLITUS POORLY CONTROLLED 01/03/2008 MARC DO, CAIO K 786.2 COUGH 01/03/2008 MARIE REBOLLAR LON E 250.02 DIABETES MELLITUS POORLY CONTROLLED 01/03/2008 JACLYNMARTIN TOWBOAT OPERATOR, LON E 786.2 COUGH 01/03/2008 MARC DO, CAIO K 250.02 DIABETES MELLITUS POORLY CONTROLLED 01/03/2008 MARC DO, CAIO K 786.2 COUGH 01/03/2008 MARC DO, CAIO K 250.02 DIABETES MELLITUS POORLY CONTROLLED 01/03/2008 MARC DO, CAIO K 786.2 COUGH 01/03/2008 MARIE REBOLLAR, LON E 250.02 DIABETES MELLITUS POORLY CONTROLLED 01/03/2008 [facility]BO[facility] LON E 786.2 COUGH 03/06/2008 YOVANI MONTERO MD 250.6 NEUROPATHY DIABETIC 03/06/2008 250.6 NEUROPATHY DIABETIC 03/06/2008 YOVANI MONTERO MD 250.6 NEUROPATHY DIABETIC 03/06/2008 YOVANI MONTERO MD 250.6 NEUROPATHY DIABETIC 03/06/2008 YOVANI MONTERO MD 250.6 NEUROPATHY DIABETIC 03/06/2008 250.6 NEUROPATHY DIABETIC 03/06/2008 YOVANI MONTERO MD 250.6 NEUROPATHY DIABETIC 03/06/2008 250.6 NEUROPATHY DIABETIC 03/06/2008 250.6 NEUROPATHY DIABETIC 03/06/2008 250.6 NEUROPATHY DIABETIC 03/06/2008 250.6 NEUROPATHY DIABETIC 03/06/2008 250.6 NEUROPATHY DIABETIC 03/06/2008 MARC DO, CAIO K 250.6 NEUROPATHY DIABETIC 03/06/2008 WHITE DDS, DONTE J 250.6 NEUROPATHY DIABETIC 03/06/2008 MARC DO, CAIO K 250.6 NEUROPATHY DIABETIC 03/06/2008 MARC DO, CAIO K 250.6 NEUROPATHY DIABETIC 03/06/2008 MARC DO, CAIO K 250.6 NEUROPATHY DIABETIC 03/06/2008 MARC DO, CAIO K 250.6 NEUROPATHY DIABETIC 03/06/2008 MARC DO, CAIO K 250.6 NEUROPATHY DIABETIC 03/06/2008 MARIE REBOLLAR LON E 250.6 NEUROPATHY DIABETIC 03/06/2008 MARC DO, CAIO K 250.6 NEUROPATHY DIABETIC 03/06/2008 MARIE REBOLLAR LON E 250.6 NEUROPATHY DIABETIC 03/06/2008 MARC DO, CAIO K 250.6 NEUROPATHY DIABETIC 03/06/2008 MARC DO, CAIO K 250.6 NEUROPATHY DIABETIC 03/06/2008 MARC DO, CAIO K 250.6 NEUROPATHY DIABETIC 03/06/2008 MARC DO, CAIO K 250.6 NEUROPATHY DIABETIC 03/06/2008 MARIE REBOLLAR LON E 250.6 NEUROPATHY DIABETIC 03/06/2008 MARC DO, CAIO K 250.6 NEUROPATHY DIABETIC 03/06/2008 MARC DO, CAIO K 250.6 NEUROPATHY DIABETIC 03/06/2008 MARIE REBOLLAR LON E 250.6 NEUROPATHY DIABETIC 03/06/2008 MARC DO, CAIO K 250.6 NEUROPATHY DIABETIC 03/06/2008 MARC DO, CAIO K 250.6 NEUROPATHY DIABETIC 03/06/2008 MARIE REBOLLAR LON E 250.6 NEUROPATHY DIABETIC 06/04/2008 YOVANI MONTERO MD 272.4 HYPERLIPIDEMIA HYPERLIPOPROTEINEMIAS (Old Classification) 06/04/2008 272.4 HYPERLIPIDEMIA HYPERLIPOPROTEINEMIAS (Old Classification) 06/04/2008 YOVANI MONTERO MD 272.4 HYPERLIPIDEMIA HYPERLIPOPROTEINEMIAS (Old Classification) 06/04/2008 YOVANI MONTERO MD 272.4 HYPERLIPIDEMIA HYPERLIPOPROTEINEMIAS (Old Classification) 06/04/2008 YOVANI MONTERO MD 272.4 HYPERLIPIDEMIA HYPERLIPOPROTEINEMIAS (Old Classification) 06/04/2008 272.4 HYPERLIPIDEMIA HYPERLIPOPROTEINEMIAS (Old Classification) 06/04/2008 YOVANI MONTERO MD 272.4 HYPERLIPIDEMIA HYPERLIPOPROTEINEMIAS (Old Classification) 06/04/2008 272.4 HYPERLIPIDEMIA HYPERLIPOPROTEINEMIAS (Old Classification) 06/04/2008 272.4 HYPERLIPIDEMIA HYPERLIPOPROTEINEMIAS (Old Classification) 06/04/2008 272.4 HYPERLIPIDEMIA HYPERLIPOPROTEINEMIAS (Old Classification) 06/04/2008 272.4 HYPERLIPIDEMIA HYPERLIPOPROTEINEMIAS (Old Classification) 06/04/2008 272.4 HYPERLIPIDEMIA HYPERLIPOPROTEINEMIAS (Old Classification) 06/04/2008 MARC DO, CAIO K 272.4 HYPERLIPIDEMIA HYPERLIPOPROTEINEMIAS (Old Classification) 06/04/2008 [place], DONTE Fay 272.4 HYPERLIPIDEMIA HYPERLIPOPROTEINEMIAS (Old Classification) 06/04/2008 MARC DO, CAIO K 272.4 HYPERLIPIDEMIA HYPERLIPOPROTEINEMIAS (Old Classification) 06/04/2008 MARC DO, CAIO K 272.4 HYPERLIPIDEMIA HYPERLIPOPROTEINEMIAS (Old Classification) 06/04/2008 MARC DO, CAIO K 272.4 HYPERLIPIDEMIA HYPERLIPOPROTEINEMIAS (Old Classification) 06/04/2008 MARC DO, CAIO K 272.4 HYPERLIPIDEMIA HYPERLIPOPROTEINEMIAS (Old Classification) 06/04/2008 MARC DO, CAIO K 272.4 HYPERLIPIDEMIA HYPERLIPOPROTEINEMIAS (Old Classification) 06/04/2008 RASHAUN SALAZAR APRNSIE E 272.4 HYPERLIPIDEMIA HYPERLIPOPROTEINEMIAS (Old Classification) 06/04/2008 MARC DO, CAIO K 272.4 HYPERLIPIDEMIA HYPERLIPOPROTEINEMIAS (Old Classification) 06/04/2008 MARIE REBOLLAR LON E 272.4 HYPERLIPIDEMIA HYPERLIPOPROTEINEMIAS (Old Classification) 06/04/2008 MARC DO, CAIO K 272.4 HYPERLIPIDEMIA HYPERLIPOPROTEINEMIAS (Old Classification) 06/04/2008 MARC DO, CAIO K 272.4 HYPERLIPIDEMIA HYPERLIPOPROTEINEMIAS (Old Classification) 06/04/2008 MARC DO, CAIO K 272.4 HYPERLIPIDEMIA HYPERLIPOPROTEINEMIAS (Old Classification) 06/04/2008 MARC DO, CAIO K 272.4 HYPERLIPIDEMIA HYPERLIPOPROTEINEMIAS (Old Classification) 06/04/2008 MARIE REBOLLAR LON E 272.4 HYPERLIPIDEMIA HYPERLIPOPROTEINEMIAS (Old Classification) 06/04/2008 MARC DO, CAIO K 272.4 HYPERLIPIDEMIA HYPERLIPOPROTEINEMIAS (Old Classification) 06/04/2008 MARC DO, CAIO K 272.4 HYPERLIPIDEMIA HYPERLIPOPROTEINEMIAS (Old Classification) 06/04/2008 LON SALAZAR APRN E 272.4 HYPERLIPIDEMIA HYPERLIPOPROTEINEMIAS (Old Classification) 06/04/2008 MARC DO, CAIO K 272.4 HYPERLIPIDEMIA HYPERLIPOPROTEINEMIAS (Old Classification) 06/04/2008 MARC DO, CAIO K 272.4 HYPERLIPIDEMIA HYPERLIPOPROTEINEMIAS (Old Classification) 06/04/2008 LON SALAZAR APRN E 272.4 HYPERLIPIDEMIA HYPERLIPOPROTEINEMIAS (Old Classification) 09/09/2008 KYLAH CALI, YOVANI 724.5 BACKACHE 09/09/2008 724.5 BACKACHE 09/09/2008 KYLAH CALI, YOVANI 724.5 BACKACHE 09/09/2008 KYLAH CALI, YOVANI 724.5 BACKACHE 09/09/2008 KYLAH CALI, YOVANI 724.5 BACKACHE 09/09/2008 724.5 BACKACHE 09/09/2008 KYLAH CALI, YOVANI 724.5 BACKACHE 09/09/2008 724.5 BACKACHE 09/09/2008 724.5 BACKACHE 09/09/2008 724.5 BACKACHE 09/09/2008 724.5 BACKACHE 09/09/2008 724.5 BACKACHE 09/09/2008 MARC DO, CAIO K 724.5 BACKACHE 09/09/2008 DONTE SHELL DDS 724.5 BACKACHE 09/09/2008 MARC DO, CAIO K 724.5 BACKACHE 09/09/2008 MARC DO, CAIO K 724.5 BACKACHE 09/09/2008 MARC DO, CAIO K 724.5 BACKACHE 09/09/2008 MARC DO, CAIO K 724.5 BACKACHE 09/09/2008 MARC DO, CAIO K 724.5 BACKACHE 09/09/2008 LON SALAZAR APRN E 724.5 BACKACHE 09/09/2008 MARC DO, CAIO K 724.5 BACKACHE 09/09/2008 LON SALAZAR APRN E 724.5 BACKACHE 09/09/2008 MARC DO, CAIO K 724.5 BACKACHE 09/09/2008 MARC DO, CAIO K 724.5 BACKACHE 09/09/2008 MARC DO, CAIO K 724.5 BACKACHE 09/09/2008 MARC DO, CAIO K 724.5 BACKACHE 09/09/2008 LON SALAZAR APRN E 724.5 BACKACHE 09/09/2008 MARC DO, CAIO K 724.5 BACKACHE 09/09/2008 MARC DO, CAIO K 724.5 BACKACHE 09/09/2008 LON SALAZAR APRN E 724.5 BACKACHE 09/09/2008 MARC DO, CAIO K 724.5 BACKACHE 09/09/2008 MARC DO, CAIO K 724.5 BACKACHE 09/09/2008 LON SALAZAR APRN 724.5 BACKACHE 10/04/2008 YOVANI MONTERO MD 840.4 ROTATOR CUFF (CAPSULE) SPRAIN 10/04/2008 840.4 ROTATOR CUFF ( CAPSULE) SPRAIN 10/04/2008 YOVANI MONTERO MD 840.4 ROTATOR CUFF (CAPSULE) SPRAIN 10/04/2008 YOVANI MONTERO MD 840.4 ROTATOR CUFF (CAPSULE) SPRAIN 10/04/2008 YOVANI MONTERO MD 840.4 ROTATOR CUFF (CAPSULE) SPRAIN 10/04/2008 840.4 ROTATOR CUFF ( CAPSULE) SPRAIN 10/04/2008 YOVANI MONTERO MD 840.4 ROTATOR CUFF (CAPSULE) SPRAIN 10/04/2008 840.4 ROTATOR CUFF ( CAPSULE) SPRAIN 10/04/2008 840.4 ROTATOR CUFF ( CAPSULE) SPRAIN 10/04/2008 840.4 ROTATOR CUFF ( CAPSULE) SPRAIN 10/04/2008 840.4 ROTATOR CUFF ( CAPSULE) SPRAIN 10/04/2008 840.4 ROTATOR CUFF ( CAPSULE) SPRAIN 10/04/2008 MARC DO, CAIO K 840.4 ROTATOR CUFF (CAPSULE) SPRAIN 10/04/2008 DONTE SHELL DDS 840.4 ROTATOR CUFF (CAPSULE) SPRAIN 10/04/2008 MARC DO, CAIO K 840.4 ROTATOR CUFF (CAPSULE) SPRAIN 10/04/2008 MARC DO, CAIO K 840.4 ROTATOR CUFF (CAPSULE) SPRAIN 10/04/2008 MARC DO, CAIO K 840.4 ROTATOR CUFF (CAPSULE) SPRAIN 10/04/2008 MARC DO, CAIO K 840.4 ROTATOR CUFF (CAPSULE) SPRAIN 10/04/2008 MARC DO, CAIO K 840.4 ROTATOR CUFF (CAPSULE) SPRAIN 10/04/2008 LON SALAZAR APRN E 840.4 ROTATOR CUFF (CAPSULE) SPRAIN 10/04/2008 MARC DO, CAIO K 840.4 ROTATOR CUFF (CAPSULE) SPRAIN 10/04/2008 LON SALAZAR APRN E 840.4 ROTATOR CUFF (CAPSULE) SPRAIN 10/04/2008 MARC DO, CAIO K 840.4 ROTATOR CUFF (CAPSULE) SPRAIN 10/04/2008 MARC DO, CAIO K 840.4 ROTATOR CUFF (CAPSULE) SPRAIN 10/04/2008 MARC DO, CAIO K 840.4 ROTATOR CUFF (CAPSULE) SPRAIN 10/04/2008 MARC DO, CAIO K 840.4 ROTATOR CUFF (CAPSULE) SPRAIN 10/04/2008 LON SALAZAR APRN E 840.4 ROTATOR CUFF (CAPSULE) SPRAIN 10/04/2008 MARC DO, CAIO K 840.4 ROTATOR CUFF (CAPSULE) SPRAIN 10/04/2008 MARC DO, CAIO K 840.4 ROTATOR CUFF (CAPSULE) SPRAIN 10/04/2008 LON SALAZAR APRN E 840.4 ROTATOR CUFF (CAPSULE) SPRAIN 10/04/2008 MARC DO, CAIO K 840.4 ROTATOR CUFF (CAPSULE) SPRAIN 10/04/2008 MARC DO, CAIO K 840.4 ROTATOR CUFF (CAPSULE) SPRAIN 10/04/2008 LON SALAZAR APRN E 840.4 ROTATOR CUFF (CAPSULE) SPRAIN 11/07/2008 YOVANI MONTERO MD 535.50 GASTRITIS UNSPEC 11/07/2008 YOVANI MONTERO MD 780.79 MALAISE AND FATIGUE 11/07/2008 YOVANI MONTERO MD 787.02 NAUSEA ALONE 11/07/2008 535.50 GASTRITIS UNSPEC 11/07/2008 780.79 MALAISE AND FATIGUE 11/07/2008 787.02 NAUSEA ALONE 11/07/2008 YOVANI MONTERO MD 535.50 GASTRITIS UNSPEC 11/07/2008 YOVANI MONTERO MD 780.79 MALAISE AND FATIGUE 11/07/2008 YOVANI MONTERO MD 787.02 NAUSEA ALONE 11/07/2008 YOVANI MONTERO MD 535.50 GASTRITIS UNSPEC 11/07/2008 YOVANI MONTERO MD 780.79 MALAISE AND FATIGUE 11/07/2008 YOVANI MONTERO MD 787.02 NAUSEA ALONE 11/07/2008 YOVANI MONTERO MD 535.50 GASTRITIS UNSPEC 11/07/2008 YOVANI MONTERO MD 780.79 MALAISE AND FATIGUE 11/07/2008 YOVANI MONTERO MD 787.02 NAUSEA ALONE 11/07/2008 535.50 GASTRITIS UNSPEC 11/07/2008 780.79 MALAISE AND FATIGUE 11/07/2008 787.02 NAUSEA ALONE 11/07/2008 YOVANI MONTERO MD 535.50 GASTRITIS UNSPEC 11/07/2008 YOVANI MONTERO MD 780.79 MALAISE AND FATIGUE 11/07/2008 YOVANI MONTERO MD 787.02 NAUSEA ALONE 11/07/2008 535.50 GASTRITIS UNSPEC 11/07/2008 780.79 MALAISE AND FATIGUE 11/07/2008 787.02 NAUSEA ALONE 11/07/2008 535.50 GASTRITIS UNSPEC 11/07/2008 780.79 MALAISE AND FATIGUE 11/07/2008 787.02 NAUSEA ALONE 11/07/2008 535.50 GASTRITIS UNSPEC 11/07/2008 780.79 MALAISE AND FATIGUE 11/07/2008 787.02 NAUSEA ALONE 11/07/2008 535.50 GASTRITIS UNSPEC 11/07/2008 780.79 MALAISE AND FATIGUE 11/07/2008 787.02 NAUSEA ALONE 11/07/2008 535.50 GASTRITIS UNSPEC 11/07/2008 780.79 MALAISE AND FATIGUE 11/07/2008 787.02 NAUSEA ALONE 11/07/2008 CAIO MARC DO 535.50 GASTRITIS UNSPEC 11/07/2008 CAIO MARC DO 780.79 MALAISE AND FATIGUE 11/07/2008 CAIO MARC DO 787.02 NAUSEA ALONE 11/07/2008 [place] 535.50 GASTRITIS UNSPEC 11/07/2008 WHITE MAR[place] 780.79 MALAISE AND FATIGUE 11/07/2008 [place] 787.02 NAUSEA ALONE 11/07/2008 RASHAUN MARC DOA Radha 535.50 GASTRITIS UNSPEC 11/07/2008 CAIO MARC DO 780.79 MALAISE AND FATIGUE 11/07/2008 MARC DO, CAIO K 787.02 NAUSEA ALONE 11/07/2008 MARC DO, CAIO K 535.50 GASTRITIS UNSPEC 11/07/2008 MARC DO, CAIO K 780.79 MALAISE AND FATIGUE 11/07/2008 MARC DO, CAIO K 787.02 NAUSEA ALONE 11/07/2008 MARC DO, CAIO K 535.50 GASTRITIS UNSPEC 11/07/2008 MARC DO, CAIO K 780.79 MALAISE AND FATIGUE 11/07/2008 MARC DO, CAIO K 787.02 NAUSEA ALONE 11/07/2008 MARC DO, CAIO K 535.50 GASTRITIS UNSPEC 11/07/2008 MARC DO, CAIO K 780.79 MALAISE AND FATIGUE 11/07/2008 MARC DO, CAIO K 787.02 NAUSEA ALONE 11/07/2008 MARC DO, CAIO K 535.50 GASTRITIS UNSPEC 11/07/2008 MARC DO, CAIO K 780.79 MALAISE AND FATIGUE 11/07/2008 MARC DO, CAIO K 787.02 NAUSEA ALONE 11/07/2008 LON SALAZAR APRN E 535.50 GASTRITIS UNSPEC 11/07/2008 JACLYNLMARTIN TOWBOAT OPERATORRASHAUN BarajasSIE E 780.79 MALAISE AND FATIGUE 11/07/2008 JACLYNLWIG TOWBOAT OPERATOR, LON E 787.02 NAUSEA ALONE 11/07/2008 MARC DO, CAIO K 535.50 GASTRITIS UNSPEC 11/07/2008 MARC DO, CAIO K 780.79 MALAISE AND FATIGUE 11/07/2008 MARC DO, CAIO K 787.02 NAUSEA ALONE 11/07/2008 JACLYNLRASHAUN SALAZAR APRNSIE E 535.50 GASTRITIS UNSPEC 11/07/2008 SWEETIE SALAZAR APRNE E 780.79 MALAISE AND FATIGUE 11/07/2008 JACLYNLRASHAUN SALAZAR APRNSIE E 787.02 NAUSEA ALONE 11/07/2008 MARC DO, CAIO K 535.50 GASTRITIS UNSPEC 11/07/2008 MARC DO, CAIO K 780.79 MALAISE AND FATIGUE 11/07/2008 MARC DO, CAIO K 787.02 NAUSEA ALONE 11/07/2008 MARC DO, CAIO K 535.50 GASTRITIS UNSPEC 11/07/2008 MARC DO, CAIO K 780.79 MALAISE AND FATIGUE 11/07/2008 MARC DO, CAIO K 787.02 NAUSEA ALONE 11/07/2008 MARC DO, CAIO K 535.50 GASTRITIS UNSPEC 11/07/2008 MARC DO, CAIO K 780.79 MALAISE AND FATIGUE 11/07/2008 MARC DO, CAIO K 787.02 NAUSEA ALONE 11/07/2008 MARC DO, CAIO K 535.50 GASTRITIS UNSPEC 11/07/2008 MARC DO, CAIO K 780.79 MALAISE AND FATIGUE 11/07/2008 MARC DO, CAIO K 787.02 NAUSEA ALONE 11/07/2008 HELLMARTIN TOWBOAT OPERATORLON Barajas E 535.50 GASTRITIS UNSPEC 11/07/2008 HELLWIG TOWBOAT OPERATORLON Barajas E 780.79 MALAISE AND FATIGUE 11/07/2008 JACLYNWIG LON REBOLLAR E 787.02 NAUSEA ALONE 11/07/2008 MARC DO, CAIO K 535.50 GASTRITIS UNSPEC 11/07/2008 MARC DO, CAIO K 780.79 MALAISE AND FATIGUE 11/07/2008 MARC DO, CAIO K 787.02 NAUSEA ALONE 11/07/2008 MARC DO, CAIO K 535.50 GASTRITIS UNSPEC 11/07/2008 MARC DO, CAIO K 780.79 MALAISE AND FATIGUE 11/07/2008 MARC DO, CAIO K 787.02 NAUSEA ALONE 11/07/2008 HELLLON SALAZAR APRN E 535.50 GASTRITIS UNSPEC 11/07/2008 JACLYNLON SALAZAR APRN E 780.79 MALAISE AND FATIGUE 11/07/2008 JACLYNLON SALAZAR APRN E 787.02 NAUSEA ALONE 11/07/2008 MARC DO, CAIO K 535.50 GASTRITIS UNSPEC 11/07/2008 MACR DO, CAIO K 780.79 MALAISE AND FATIGUE 11/07/2008 MARC DO, CAIO K 787.02 NAUSEA ALONE 11/07/2008 MARC DO, CAIO K 535.50 GASTRITIS UNSPEC 11/07/2008 MARC DO, CAIO K 780.79 MALAISE AND FATIGUE 11/07/2008 MARC DO, CAIO K 787.02 NAUSEA ALONE 11/07/2008 HELLLON SALAZAR APRN E 535.50 GASTRITIS UNSPEC 11/07/2008 JACLYNLMARTIN TOWBOAT OPERATORLON Barajas E 780.79 MALAISE AND FATIGUE 11/07/2008 JACLYNLLON SALAZAR APRN E 787.02 NAUSEA ALONE 12/12/2008 YOVANI MONTERO MD 721.90 SPONDYLOSIS 12/12/2008 YOVANI MONTERO MD 724.2 LUMBAGO 12/12/2008 721.90 SPONDYLOSIS 12/12/2008 724.2 LUMBAGO 12/12/2008 YOVANI MONTERO MD 721.90 SPONDYLOSIS 12/12/2008 YOVANI MONTERO MD 724.2 LUMBAGO 12/12/2008 YOVANI MONTERO MD 721.90 SPONDYLOSIS 12/12/2008 YOVANI MONTERO MD 724.2 LUMBAGO 12/12/2008 YOVANI MONTERO MD 721.90 SPONDYLOSIS 12/12/2008 YOVANI MONTERO MD 724.2 LUMBAGO 12/12/2008 721.90 SPONDYLOSIS 12/12/2008 724.2 LUMBAGO 12/12/2008 YOVANI MONTERO MD 721.90 SPONDYLOSIS 12/12/2008 YOVANI MONTERO MD 724.2 LUMBAGO 12/12/2008 721.90 SPONDYLOSIS 12/12/2008 724.2 LUMBAGO 12/12/2008 721.90 SPONDYLOSIS 12/12/2008 724.2 LUMBAGO 12/12/2008 721.90 SPONDYLOSIS 12/12/2008 724.2 LUMBAGO 12/12/2008 721.90 SPONDYLOSIS 12/12/2008 724.2 LUMBAGO 12/12/2008 721.90 SPONDYLOSIS 12/12/2008 724.2 LUMBAGO 12/12/2008 CAIO MARC DO K 721.90 SPONDYLOSIS 12/12/2008 RASAHUN MARC DOA K 724.2 LUMBAGO 12/12/2008 WHITE [place] 721.90 SPONDYLOSIS 12/12/2008 WHITE MARIELS, DONTE J 724.2 LUMBAGO 12/12/2008 MARC RASHAUN JIMA K 721.90 SPONDYLOSIS 12/12/2008 MARC RASHAUN JIMA K 724.2 LUMBAGO 12/12/2008 MARC RASHAUN JIMA K 721.90 SPONDYLOSIS 12/12/2008 MARC RASHAUN JIMA K 724.2 LUMBAGO 12/12/2008 MARC RASHAUN JIMA K 721.90 SPONDYLOSIS 12/12/2008 MARC DO, CAIO K 724.2 LUMBAGO 12/12/2008 MARC DO, CAIO K 721.90 SPONDYLOSIS 12/12/2008 MARC DO, CAIO K 724.2 LUMBAGO 12/12/2008 MARC DO, CAIO K 721.90 SPONDYLOSIS 12/12/2008 MARC DO, CAIO K 724.2 LUMBAGO 12/12/2008 [facility] REBOLLAR LON E 721.90 SPONDYLOSIS 12/12/2008 [facility]ART[facility] REBOLLAR LON E 724.2 LUMBAGO 12/12/2008 MARC DO, CAIO K 721.90 SPONDYLOSIS 12/12/2008 MARC DO, CAIO K 724.2 LUMBAGO 12/12/2008 [facility] REBOLLAR LON E 721.90 SPONDYLOSIS 12/12/2008 [facility]ARTIN REBOLLAR LON E 724.2 LUMBAGO 12/12/2008 MARC DO, CAIO K 721.90 SPONDYLOSIS 12/12/2008 MARC DO, CAIO K 724.2 LUMBAGO 12/12/2008 MARC DO, CAIO K 721.90 SPONDYLOSIS 12/12/2008 MARC DO, CAIO K 724.2 LUMBAGO 12/12/2008 MARC DO, CAIO K 721.90 SPONDYLOSIS 12/12/2008 MARC DO, CAIO K 724.2 LUMBAGO 12/12/2008 MARC DO, CAIO K 721.90 SPONDYLOSIS 12/12/2008 MARC DO, CAIO K 724.2 LUMBAGO 12/12/2008 [facility] REBOLLAR LON E 721.90 SPONDYLOSIS 12/12/2008 [facility] REBOLLAR LON E 724.2 LUMBAGO 12/12/2008 MARC DO, CAIO K 721.90 SPONDYLOSIS 12/12/2008 MARC DO, CAIO K 724.2 LUMBAGO 12/12/2008 MARC DO, CAIO K 721.90 SPONDYLOSIS 12/12/2008 MARC DO, CAIO K 724.2 LUMBAGO 12/12/2008 JACLYNMARTIN REBOLLAR LON E 721.90 SPONDYLOSIS 12/12/2008 [facility] REBOLLAR LON E 724.2 LUMBAGO 12/12/2008 MARC DO, CAIO K 721.90 SPONDYLOSIS 12/12/2008 MARC DO, CAIO K 724.2 LUMBAGO 12/12/2008 MARC DO, CAIO K 721.90 SPONDYLOSIS 12/12/2008 MARC DO, CAIO K 724.2 LUMBAGO 12/12/2008 [facility] MEDICINELON SALAZAR APRN 721.90 SPONDYLOSIS 12/12/2008 [facility] MEDICINELON SALAZAR APRN 724.2 LUMBAGO 03/18/2009 YOVANI MONTERO MD 278.02 Overweight 03/18/2009 YOVANI MONTERO MD 338.4 CHRONIC PAIN SYNDROME 03/18/2009 YOVANI MONTERO MD 716.90 ARTHROPATHY 03/18/2009 278.02 Overweight 03/18/2009 338.4 CHRONIC PAIN SYNDROME 03/18/2009 716.90 ARTHROPATHY 03/18/2009 YOVANI MONTERO MD 278.02 Overweight 03/18/2009 YOVANI MONTERO MD 338.4 CHRONIC PAIN SYNDROME 03/18/2009 YOVANI MONTERO MD 716.90 ARTHROPATHY 03/18/2009 YOVANI MONTERO MD 278.02 Overweight 03/18/2009 YOVANI MONTERO MD 338.4 CHRONIC PAIN SYNDROME 03/18/2009 YOVANI MONTERO MD 716.90 ARTHROPATHY 03/18/2009 YOVANI MONTERO MD 278.02 Overweight 03/18/2009 YOVANI MONTERO MD 338.4 CHRONIC PAIN SYNDROME 03/18/2009 YOVANI MONTERO MD 716.90 ARTHROPATHY 03/18/2009 278.02 Overweight 03/18/2009 338.4 CHRONIC PAIN SYNDROME 03/18/2009 716.90 ARTHROPATHY 03/18/2009 YOVANI MONTERO MD 278.02 Overweight 03/18/2009 YOVANI MONTERO MD 338.4 CHRONIC PAIN SYNDROME 03/18/2009 YOVANI MONTERO MD 716.90 ARTHROPATHY 03/18/2009 278.02 Overweight 03/18/2009 338.4 CHRONIC PAIN SYNDROME 03/18/2009 716.90 ARTHROPATHY 03/18/2009 278.02 Overweight 03/18/2009 338.4 CHRONIC PAIN SYNDROME 03/18/2009 716.90 ARTHROPATHY 03/18/2009 278.02 Overweight 03/18/2009 338.4 CHRONIC PAIN SYNDROME 03/18/2009 716.90 ARTHROPATHY 03/18/2009 278.02 Overweight 03/18/2009 338.4 CHRONIC PAIN SYNDROME 03/18/2009 716.90 ARTHROPATHY 03/18/2009 278.02 Overweight 03/18/2009 338.4 CHRONIC PAIN SYNDROME 03/18/2009 716.90 ARTHROPATHY 03/18/2009 MARC DO, CAIO K 278.02 Overweight 03/18/2009 MARC DO, CAIO K 338.4 CHRONIC PAIN SYNDROME 03/18/2009 MARC DO, CAIO K 716.90 ARTHROPATHY 03/18/2009 WHITE DDS, DONTE J 278.02 Overweight 03/18/2009 WHITE DDS, DONTE J 338.4 CHRONIC PAIN SYNDROME 03/18/2009 WHITE DDS, DONTE J 716.90 ARTHROPATHY 03/18/2009 MARC DO, CAIO K 278.02 Overweight 03/18/2009 MARC DO, CAIO K 338.4 CHRONIC PAIN SYNDROME 03/18/2009 MARC DO, CAIO K 716.90 ARTHROPATHY 03/18/2009 MARC DO, CAIO K 278.02 Overweight 03/18/2009 MARC DO, CAIO K 338.4 CHRONIC PAIN SYNDROME 03/18/2009 MARC DO, CAIO K 716.90 ARTHROPATHY 03/18/2009 MARC DO, CAIO K 278.02 Overweight 03/18/2009 MARC DO, CAIO K 338.4 CHRONIC PAIN SYNDROME 03/18/2009 MARC DO, CAIO K 716.90 ARTHROPATHY 03/18/2009 MARC DO, CAIO K 278.02 Overweight 03/18/2009 MARC DO, CAIO K 338.4 CHRONIC PAIN SYNDROME 03/18/2009 MARC DO, CAIO K 716.90 ARTHROPATHY 03/18/2009 MARC DO, CAIO K 278.02 Overweight 03/18/2009 MARC DO, CAIO K 338.4 CHRONIC PAIN SYNDROME 03/18/2009 MARC DO, CAIO K 716.90 ARTHROPATHY 03/18/2009 LON SALAZAR APRN E 278.02 Overweight 03/18/2009 LON SALAZAR APRN E 338.4 CHRONIC PAIN SYNDROME 03/18/2009 RASHAUN SALAZAR APRNSIE E 716.90 ARTHROPATHY 03/18/2009 MARC DO, CAIO K 278.02 Overweight 03/18/2009 MARC DO, CAIO K 338.4 CHRONIC PAIN SYNDROME 03/18/2009 MARC DO, CAIO K 716.90 ARTHROPATHY 03/18/2009 SWEETIE SALAZAR APRNE E 278.02 Overweight 03/18/2009 LON SALAZAR APRN E 338.4 CHRONIC PAIN SYNDROME 03/18/2009 RASHAUN SALAZAR APRNSIE E 716.90 ARTHROPATHY 03/18/2009 MARC DO, CAIO K 278.02 Overweight 03/18/2009 MARC DO, CAIO K 338.4 CHRONIC PAIN SYNDROME 03/18/2009 MARC DO, CAIO K 716.90 ARTHROPATHY 03/18/2009 MARC DO, CAIO K 278.02 Overweight 03/18/2009 MARC DO, CAIO K 338.4 CHRONIC PAIN SYNDROME 03/18/2009 MARC DO, CAIO K 716.90 ARTHROPATHY 03/18/2009 MARC DO, CAIO K 278.02 Overweight 03/18/2009 MARC DO, CAIO K 338.4 CHRONIC PAIN SYNDROME 03/18/2009 MARC DO, CAIO K 716.90 ARTHROPATHY 03/18/2009 MARC DO, CAIO K 278.02 Overweight 03/18/2009 MARC DO, CAIO K 338.4 CHRONIC PAIN SYNDROME 03/18/2009 MARC DO, CAIO K 716.90 ARTHROPATHY 03/18/2009 SWEETIE SALAZAR APRNE E 278.02 Overweight 03/18/2009 LON SALAZAR APRN E 338.4 CHRONIC PAIN SYNDROME 03/18/2009 SWEETIE SALAZAR APRNE E 716.90 ARTHROPATHY 03/18/2009 MARC DO, CAIO K 278.02 Overweight 03/18/2009 MARC DO, CAIO K 338.4 CHRONIC PAIN SYNDROME 03/18/2009 MARC DO, CAIO K 716.90 ARTHROPATHY 03/18/2009 MARC DO, CAIO K 278.02 Overweight 03/18/2009 MARC DO, CAIO K 338.4 CHRONIC PAIN SYNDROME 03/18/2009 MARC DO, CAIO K 716.90 ARTHROPATHY 03/18/2009 RASHAUN SALAZAR APRNSIE E 278.02 Overweight 03/18/2009 RASHAUN SALAZAR APRNSIE E 338.4 CHRONIC PAIN SYNDROME 03/18/2009 SWEETIE SALAZAR APRNE E 716.90 ARTHROPATHY 03/18/2009 MARC DO, CAIO K 278.02 Overweight 03/18/2009 MARC DO, CAIO K 338.4 CHRONIC PAIN SYNDROME 03/18/2009 MARC DO, CAIO K 716.90 ARTHROPATHY 03/18/2009 MARC DO, CAIO K 278.02 Overweight 03/18/2009 MARC DO, CAIO K 338.4 CHRONIC PAIN SYNDROME 03/18/2009 MARC DO, CAIO K 716.90 ARTHROPATHY 03/18/2009 [facility] MEDICINEMARTIN TOWBOAT OPERATORLON Barajas E 278.02 Overweight 03/18/2009 [facility] MEDICINEWIG TOWBOAT OPERATORLON E 338.4 CHRONIC PAIN SYNDROME 03/18/2009 HELWIG TOWBOAT OPERATORSWEETIE BarajasE E 716.90 ARTHROPATHY 04/21/2009 YOVANI MONTERO MD 465.9 ACUTE UPPER RESPIRATORY INFECTIONS OF UNSPECIFIED SITE 04/21/2009 465.9 ACUTE UPPER RESPIRATORY INFECTIONS OF UNSPECIFIED SITE 04/21/2009 YOVANI MONTERO MD 465.9 ACUTE UPPER RESPIRATORY INFECTIONS OF UNSPECIFIED SITE 04/21/2009 YOVANI MONTERO MD 465.9 ACUTE UPPER RESPIRATORY INFECTIONS OF UNSPECIFIED SITE 04/21/2009 YOVANI MONTERO MD 465.9 ACUTE UPPER RESPIRATORY INFECTIONS OF UNSPECIFIED SITE 04/21/2009 465.9 ACUTE UPPER RESPIRATORY INFECTIONS OF UNSPECIFIED SITE 04/21/2009 YOVANI MONTERO MD 465.9 ACUTE UPPER RESPIRATORY INFECTIONS OF UNSPECIFIED SITE 04/21/2009 465.9 ACUTE UPPER RESPIRATORY INFECTIONS OF UNSPECIFIED SITE 04/21/2009 465.9 ACUTE UPPER RESPIRATORY INFECTIONS OF UNSPECIFIED SITE 04/21/2009 465.9 ACUTE UPPER RESPIRATORY INFECTIONS OF UNSPECIFIED SITE 04/21/2009 465.9 ACUTE UPPER RESPIRATORY INFECTIONS OF UNSPECIFIED SITE 04/21/2009 465.9 ACUTE UPPER RESPIRATORY INFECTIONS OF UNSPECIFIED SITE 04/21/2009 MONICO JIM CAIO K 465.9 ACUTE UPPER RESPIRATORY INFECTIONS OF UNSPECIFIED SITE 04/21/2009 SULEMAN FLOYDS, DONTE Fay 465.9 ACUTE UPPER RESPIRATORY INFECTIONS OF UNSPECIFIED SITE 04/21/2009 MARC DO, CAIO K 465.9 ACUTE UPPER RESPIRATORY INFECTIONS OF UNSPECIFIED SITE 04/21/2009 MARC DO, CAIO K 465.9 ACUTE UPPER RESPIRATORY INFECTIONS OF UNSPECIFIED SITE 04/21/2009 MARC DO, CAIO K 465.9 ACUTE UPPER RESPIRATORY INFECTIONS OF UNSPECIFIED SITE 04/21/2009 MARC DO CAIO K 465.9 ACUTE UPPER RESPIRATORY INFECTIONS OF UNSPECIFIED SITE 04/21/2009 MARC DO, CAIO K 465.9 ACUTE UPPER RESPIRATORY INFECTIONS OF UNSPECIFIED SITE 04/21/2009 HELLWIG TOWBOAT OPERATOR, LON E 465.9 ACUTE UPPER RESPIRATORY INFECTIONS OF UNSPECIFIED SITE 04/21/2009 MARC DO, CAIO K 465.9 ACUTE UPPER RESPIRATORY INFECTIONS OF UNSPECIFIED SITE 04/21/2009 HELLWIG TOWBOAT OPERATOR, LON E 465.9 ACUTE UPPER RESPIRATORY INFECTIONS OF UNSPECIFIED SITE 04/21/2009 MARC DO, CAIO K 465.9 ACUTE UPPER RESPIRATORY INFECTIONS OF UNSPECIFIED SITE 04/21/2009 MARC DO, CAIO K 465.9 ACUTE UPPER RESPIRATORY INFECTIONS OF UNSPECIFIED SITE 04/21/2009 MARC DO, CAIO K 465.9 ACUTE UPPER RESPIRATORY INFECTIONS OF UNSPECIFIED SITE 04/21/2009 MARC DO, CAIO K 465.9 ACUTE UPPER RESPIRATORY INFECTIONS OF UNSPECIFIED SITE 04/21/2009 HELLWIG TOWBOAT OPERATOR, LON E 465.9 ACUTE UPPER RESPIRATORY INFECTIONS OF UNSPECIFIED SITE 04/21/2009 MARC DO, CAIO K 465.9 ACUTE UPPER RESPIRATORY INFECTIONS OF UNSPECIFIED SITE 04/21/2009 MARC DO, CAIO K 465.9 ACUTE UPPER RESPIRATORY INFECTIONS OF UNSPECIFIED SITE 04/21/2009 HELLWIG TOWBOAT OPERATOR, LON E 465.9 ACUTE UPPER RESPIRATORY INFECTIONS OF UNSPECIFIED SITE 04/21/2009 MARC DO, CAIO K 465.9 ACUTE UPPER RESPIRATORY INFECTIONS OF UNSPECIFIED SITE 04/21/2009 MARC DO, CAIO K 465.9 ACUTE UPPER RESPIRATORY INFECTIONS OF UNSPECIFIED SITE 04/21/2009 HELLWIG TOWBOAT OPERATOR, LON E 465.9 ACUTE UPPER RESPIRATORY INFECTIONS OF UNSPECIFIED SITE 06/17/2009 YOVANI MONTERO MD 414.01 CORONARY ARTERY STENOSIS MULTI-VESSEL 06/17/2009 414.01 CORONARY ARTERY STENOSIS MULTI-VESSEL 06/17/2009 YOVANI MONTERO MD 414.01 CORONARY ARTERY STENOSIS MULTI-VESSEL 06/17/2009 YOVANI MONTERO MD 414.01 CORONARY ARTERY STENOSIS MULTI-VESSEL 06/17/2009 YOVANI MONTERO MD 414.01 CORONARY ARTERY STENOSIS MULTI-VESSEL 06/17/2009 414.01 CORONARY ARTERY STENOSIS MULTI-VESSEL 06/17/2009 YOVANI MONTERO MD 414.01 CORONARY ARTERY STENOSIS MULTI-VESSEL 06/17/2009 414.01 CORONARY ARTERY STENOSIS MULTI-VESSEL 06/17/2009 414.01 CORONARY ARTERY STENOSIS MULTI-VESSEL 06/17/2009 414.01 CORONARY ARTERY STENOSIS MULTI-VESSEL 06/17/2009 414.01 CORONARY ARTERY STENOSIS MULTI-VESSEL 06/17/2009 414.01 CORONARY ARTERY STENOSIS MULTI-VESSEL 06/17/2009 MARC DO, CAIO K 414.01 CORONARY ARTERY STENOSIS MULTI-VESSEL 06/17/2009 WHITE DDS, DONTE J 414.01 CORONARY ARTERY STENOSIS MULTI-VESSEL 06/17/2009 MARC DO, CAIO K 414.01 CORONARY ARTERY STENOSIS MULTI-VESSEL 06/17/2009 MARC DO, CAOI K 414.01 CORONARY ARTERY STENOSIS MULTI-VESSEL 06/17/2009 MARC DO, CAIO K 414.01 CORONARY ARTERY STENOSIS MULTI-VESSEL 06/17/2009 MARC DO, CAIO K 414.01 CORONARY ARTERY STENOSIS MULTI-VESSEL 06/17/2009 MARC DO, CAIO K 414.01 CORONARY ARTERY STENOSIS MULTI-VESSEL 06/17/2009 MARIE REBOLLAR LON E 414.01 CORONARY ARTERY STENOSIS MULTI-VESSEL 06/17/2009 MARC DO, CAIO K 414.01 CORONARY ARTERY STENOSIS MULTI-VESSEL 06/17/2009 MARIE REBOLLAR LON E 414.01 CORONARY ARTERY STENOSIS MULTI-VESSEL 06/17/2009 MARC DO, CAIO K 414.01 CORONARY ARTERY STENOSIS MULTI-VESSEL 06/17/2009 MARC DO, CAIO K 414.01 CORONARY ARTERY STENOSIS MULTI-VESSEL 06/17/2009 MARC DO, CAIO K 414.01 CORONARY ARTERY STENOSIS MULTI-VESSEL 06/17/2009 MARC DO, CAIO K 414.01 CORONARY ARTERY STENOSIS MULTI-VESSEL 06/17/2009 MARIE REBOLLAR LON E 414.01 CORONARY ARTERY STENOSIS MULTI-VESSEL 06/17/2009 MARC DO, CAIO K 414.01 CORONARY ARTERY STENOSIS MULTI-VESSEL 06/17/2009 MARC DO, CAIO K 414.01 CORONARY ARTERY STENOSIS MULTI-VESSEL 06/17/2009 MARIE REBOLLAR LON E 414.01 CORONARY ARTERY STENOSIS MULTI-VESSEL 06/17/2009 MARC DO, CAIO K 414.01 CORONARY ARTERY STENOSIS MULTI-VESSEL 06/17/2009 MARC DO, CAIO K 414.01 CORONARY ARTERY STENOSIS MULTI-VESSEL 06/17/2009 RASHAUN SALAZAR APRNSIE E 414.01 CORONARY ARTERY STENOSIS MULTI-VESSEL 07/07/2009 KYLAH CALI, YOVANI 461.9 SINUSITIS ACUTE 07/07/2009 YOVANI MONTERO MD V15.05 multiple environmental allergies 07/07/2009 461.9 SINUSITIS ACUTE 07/07/2009 V15.05 multiple environmental allergies 07/07/2009 YOVANI MONTERO MD 461.9 SINUSITIS ACUTE 07/07/2009 YOVANI MONTERO MD V15.05 multiple environmental allergies 07/07/2009 YOVANI MONTERO MD 461.9 SINUSITIS ACUTE 07/07/2009 YOVANI MONTERO MD V15.05 multiple environmental allergies 07/07/2009 YOVANI MONTERO MD 461.9 SINUSITIS ACUTE 07/07/2009 YOVANI MONTERO MD V15.05 multiple environmental allergies 07/07/2009 461.9 SINUSITIS ACUTE 07/07/2009 V15.05 multiple environmental allergies 07/07/2009 YOVANI MONTERO MD 461.9 SINUSITIS ACUTE 07/07/2009 YOVANI MONTERO MD V15.05 multiple environmental allergies 07/07/2009 461.9 SINUSITIS ACUTE 07/07/2009 V15.05 multiple environmental allergies 07/07/2009 461.9 SINUSITIS ACUTE 07/07/2009 V15.05 multiple environmental allergies 07/07/2009 461.9 SINUSITIS ACUTE 07/07/2009 V15.05 multiple environmental allergies 07/07/2009 461.9 SINUSITIS ACUTE 07/07/2009 V15.05 multiple environmental allergies 07/07/2009 461.9 SINUSITIS ACUTE 07/07/2009 V15.05 multiple environmental allergies 07/07/2009 MARC DO, CAIO K 461.9 SINUSITIS ACUTE 07/07/2009 MARC DO, CAIO K V15.05 multiple environmental allergies 07/07/2009 WHITE DDS, DONTE J 461.9 SINUSITIS ACUTE 07/07/2009 WHITE DDS, DONTE J V15.05 multiple environmental allergies 07/07/2009 MARC DO, CAIO K 461.9 SINUSITIS ACUTE 07/07/2009 MARC DO, CAIO K V15.05 multiple environmental allergies 07/07/2009 MARC DO, CAIO K 461.9 SINUSITIS ACUTE 07/07/2009 MARC DO, CAIO K V15.05 multiple environmental allergies 07/07/2009 MARC DO, CAIO K 461.9 SINUSITIS ACUTE 07/07/2009 MARC DO, CAIO K V15.05 multiple environmental allergies 07/07/2009 MARC DO, CAIO K 461.9 SINUSITIS ACUTE 07/07/2009 MARC DO, CAIO K V15.05 multiple environmental allergies 07/07/2009 MARC DO, CAIO K 461.9 SINUSITIS ACUTE 07/07/2009 MARC DO, CAIO K V15.05 multiple environmental allergies 07/07/2009 HELLWIG TOWBOAT OPERATOR, LON E 461.9 SINUSITIS ACUTE 07/07/2009 HELLWIG TOWBOAT OPERATOR, LON E V15.05 multiple environmental allergies 07/07/2009 MARC DO, CAIO K 461.9 SINUSITIS ACUTE 07/07/2009 MARC DO, CAIO K V15.05 multiple environmental allergies 07/07/2009 HELLWIG TOWBOAT OPERATOR, LON E 461.9 SINUSITIS ACUTE 07/07/2009 HELLWIG TOWBOAT OPERATOR, LON E V15.05 multiple environmental allergies 07/07/2009 MARC DO, CAIO K 461.9 SINUSITIS ACUTE 07/07/2009 MARC DO, CAIO K V15.05 multiple environmental allergies 07/07/2009 MARC DO, CAIO K 461.9 SINUSITIS ACUTE 07/07/2009 MARC DO, CAIO K V15.05 multiple environmental allergies 07/07/2009 MARC DO, CAIO K 461.9 SINUSITIS ACUTE 07/07/2009 MARC DO, CAIO K V15.05 multiple environmental allergies 07/07/2009 MARC DO, CAIO K 461.9 SINUSITIS ACUTE 07/07/2009 MARC DO, CIAO K V15.05 multiple environmental allergies 07/07/2009 HELLWIG TOWBOAT OPERATOR, LON E 461.9 SINUSITIS ACUTE 07/07/2009 HELLWIG TOWBOAT OPERATOR, LON E V15.05 multiple environmental allergies 07/07/2009 MARC DO, CAIO K 461.9 SINUSITIS ACUTE 07/07/2009 MARC DO, CAIO K V15.05 multiple environmental allergies 07/07/2009 MARC DO, CAIO K 461.9 SINUSITIS ACUTE 07/07/2009 MARC DO, CAIO K V15.05 multiple environmental allergies 07/07/2009 HELLWIG TOWBOAT OPERATOR, LON E 461.9 SINUSITIS ACUTE 07/07/2009 HELLWIG TOWBOAT OPERATOR, LON E V15.05 multiple environmental allergies 07/07/2009 MARC DO, CAIO K 461.9 SINUSITIS ACUTE 07/07/2009 MARC DO, CAIO K V15.05 multiple environmental allergies 07/07/2009 MARC DO, CAIO K 461.9 SINUSITIS ACUTE 07/07/2009 MARC DO, CAIO K V15.05 MULTIPLE ENVIRONMENTAL ALLERGIES 07/07/2009 LON SALAZAR APRN E 461.9 SINUSITIS ACUTE 07/07/2009 LON SALAZAR APRN E V15.05 MULTIPLE ENVIRONMENTAL ALLERGIES 09/18/2009 YOVANI MONTERO MD 427.89 SINUS BRADYCARDIA 09/18/2009 427.89 SINUS BRADYCARDIA 09/18/2009 YOVANI MONTERO MD 427.89 SINUS BRADYCARDIA 09/18/2009 YOVANI MONTERO MD 427.89 SINUS BRADYCARDIA 09/18/2009 YOVANI MONTERO MD 427.89 SINUS BRADYCARDIA 09/18/2009 427.89 SINUS BRADYCARDIA 09/18/2009 YOVANI MONTERO MD 427.89 SINUS BRADYCARDIA 09/18/2009 427.89 SINUS BRADYCARDIA 09/18/2009 427.89 SINUS BRADYCARDIA 09/18/2009 427.89 SINUS BRADYCARDIA 09/18/2009 427.89 SINUS BRADYCARDIA 09/18/2009 427.89 SINUS BRADYCARDIA 09/18/2009 MARC DO, CAIO K 427.89 SINUS BRADYCARDIA 09/18/2009 DONTE SHELL DDS 427.89 SINUS BRADYCARDIA 09/18/2009 MARC DO, CAIO K 427.89 SINUS BRADYCARDIA 09/18/2009 MARC DO, CAIO K 427.89 SINUS BRADYCARDIA 09/18/2009 MARC DO, CAIO K 427.89 SINUS BRADYCARDIA 09/18/2009 MARC DO, CAIO K 427.89 SINUS BRADYCARDIA 09/18/2009 MARC DO, CAIO K 427.89 SINUS BRADYCARDIA 09/18/2009 LON SALAZAR APRN E 427.89 SINUS BRADYCARDIA 09/18/2009 MARC DO, CAIO K 427.89 SINUS BRADYCARDIA 09/18/2009 LON SALAZAR APRN E 427.89 SINUS BRADYCARDIA 09/18/2009 MARC DO, CAIO K 427.89 SINUS BRADYCARDIA 09/18/2009 MARC DO, CAIO K 427.89 SINUS BRADYCARDIA 09/18/2009 MARC DO, CAIO K 427.89 SINUS BRADYCARDIA 09/18/2009 MARC DO, CAIO K 427.89 SINUS BRADYCARDIA 09/18/2009 HELLWIG TOWBOAT OPERATOR, LON E 427.89 SINUS BRADYCARDIA 09/18/2009 MARC DO, CAIO K 427.89 SINUS BRADYCARDIA 09/18/2009 MARC DO, CAIO K 427.89 SINUS BRADYCARDIA 09/18/2009 HELLWIG TOWBOAT OPERATOR, LON E 427.89 SINUS BRADYCARDIA 09/18/2009 MARC DO, CAIO K 427.89 SINUS BRADYCARDIA 09/18/2009 MARC DO, CAIO K 427.89 SINUS BRADYCARDIA 09/18/2009 [facility] OPER[facility], LON E 427.89 SINUS BRADYCARDIA 10/15/2009 KYLAH CALI, YOVANI 511.0 PLEURISY 10/15/2009 511.0 PLEURISY 10/15/2009 KYLAH CALI, YOVANI 511.0 PLEURISY 10/15/2009 KYLAH CALI, YOVANI 511.0 PLEURISY 10/15/2009 KYLAH CALI, YOVANI 511.0 PLEURISY 10/15/2009 511.0 PLEURISY 10/15/2009 KYLAH CALI, YOVANI 511.0 PLEURISY 10/15/2009 511.0 PLEURISY 10/15/2009 511.0 PLEURISY 10/15/2009 511.0 PLEURISY 10/15/2009 511.0 PLEURISY 10/15/2009 511.0 PLEURISY 10/15/2009 MARC DO, CAIO K 511.0 PLEURISY 10/15/2009 SULEMAN FLOYDS, DONTE Fay 511.0 PLEURISY 10/15/2009 MARC DO, CAIO K 511.0 PLEURISY 10/15/2009 MARC DO, CAIO K 511.0 PLEURISY 10/15/2009 MARC DO, CAIO K 511.0 PLEURISY 10/15/2009 MARC DO, CAIO K 511.0 PLEURISY 10/15/2009 MARC DO, CAIO K 511.0 PLEURISY 10/15/2009 [facility] LON E 511.0 PLEURISY 10/15/2009 MARC DO, CAIO K 511.0 PLEURISY 10/15/2009 HELWIG TOWBOAT OPERATOR, LON E 511.0 PLEURISY 10/15/2009 MARC DO, CAIO K 511.0 PLEURISY 10/15/2009 MARC DO, CAIO K 511.0 PLEURISY 10/15/2009 MARC DO, CAIO K 511.0 PLEURISY 10/15/2009 MARC DO, CAIO K 511.0 PLEURISY 10/15/2009 HELLWIG TOWBOAT OPERATOR, LON E 511.0 PLEURISY 10/15/2009 MARC DO, CAIO K 511.0 PLEURISY 10/15/2009 MARC DO, CAIO K 511.0 PLEURISY 10/15/2009 HELLWIG TOWBOAT OPERATOR, LON E 511.0 PLEURISY 10/15/2009 MARC DO, CAIO K 511.0 PLEURISY 10/15/2009 MARC DO, CAIO K 511.0 PLEURISY 10/15/2009 HELMARTIN TOWBOAT OPERATOR, LON E 511.0 PLEURISY 11/30/2009 Ot 729.5 12/19/2009 YOVANI MONTERO MD 786.50 CHEST PAIN 12/19/2009 786.50 CHEST PAIN 12/19/2009 YOVANI MONTERO MD 786.50 CHEST PAIN 12/19/2009 YOVANI MONTERO MD 786.50 CHEST PAIN 12/19/2009 YOVANI MONTERO MD 786.50 CHEST PAIN 12/19/2009 786.50 CHEST PAIN 12/19/2009 YOVANI MONTERO MD 786.50 CHEST PAIN 12/19/2009 786.50 CHEST PAIN 12/19/2009 786.50 CHEST PAIN 12/19/2009 786.50 CHEST PAIN 12/19/2009 786.50 CHEST PAIN 12/19/2009 786.50 CHEST PAIN 12/19/2009 MARC DO, CAIO K 786.50 CHEST PAIN 12/19/2009 WHITE DDS, DONTE J 786.50 CHEST PAIN 12/19/2009 MARC DO, CAIO K 786.50 CHEST PAIN 12/19/2009 MARC DO, CAIO K 786.50 CHEST PAIN 12/19/2009 MARC DO, CAIO K 786.50 CHEST PAIN 12/19/2009 MARC DO, CAIO K 786.50 CHEST PAIN 12/19/2009 MARC DO, CAIO K 786.50 CHEST PAIN 12/19/2009 [facility] TOWBOAT OPERATOR LON E 786.50 CHEST PAIN 12/19/2009 MARC DO, CAIO K 786.50 CHEST PAIN 12/19/2009 HELMARTIN TOWBOAT OPERATOR LON E 786.50 CHEST PAIN 12/19/2009 MARC DO, CAIO K 786.50 CHEST PAIN 12/19/2009 MARC DO, CAIO K 786.50 CHEST PAIN 12/19/2009 MARC DO, CAIO K 786.50 CHEST PAIN 12/19/2009 MARC DO, CAIO K 786.50 CHEST PAIN 12/19/2009 LON SALAZAR APRN E 786.50 CHEST PAIN 12/19/2009 MARC DO, CAIO K 786.50 CHEST PAIN 12/19/2009 MARC DO, CAIO K 786.50 CHEST PAIN 12/19/2009 LON SALAZAR APRN E 786.50 CHEST PAIN 12/19/2009 MARC DO, CAIO K 786.50 CHEST PAIN 12/19/2009 MARC DO, CAIO K 786.50 CHEST PAIN 12/19/2009 LON SALAZAR APRN 786.50 CHEST PAIN 03/23/2010 KYLAH CALI, YOVANI 782.3 EDEMA 03/23/2010 782.3 EDEMA 03/23/2010 KYLAH CALI, YOVANI 782.3 EDEMA 03/23/2010 YOVANI MONTERO MD 782.3 EDEMA 03/23/2010 YOVANI MONTERO MD 782.3 EDEMA 03/23/2010 782.3 EDEMA 03/23/2010 YOVANI MONTERO MD 782.3 EDEMA 03/23/2010 782.3 EDEMA 03/23/2010 782.3 EDEMA 03/23/2010 782.3 EDEMA 03/23/2010 782.3 EDEMA 03/23/2010 782.3 EDEMA 03/23/2010 MARC DO, CAIO K 782.3 EDEMA 03/23/2010 WHITE DDS, DONTE Fay 782.3 EDEMA 03/23/2010 MARC DO, CAIO K 782.3 EDEMA 03/23/2010 MARC DO, CAIO K 782.3 EDEMA 03/23/2010 MARC DO, CAIO K 782.3 EDEMA 03/23/2010 MARC DO, CAIO K 782.3 EDEMA 03/23/2010 MARC DO, CAIO K 782.3 EDEMA 03/23/2010 LON SALAZAR APRN E 782.3 EDEMA 03/23/2010 MARC DO, CAIO K 782.3 EDEMA 03/23/2010 LON SALAZAR APRN E 782.3 EDEMA 03/23/2010 MARC DO, CAIO K 782.3 EDEMA 03/23/2010 MARC DO, CAIO K 782.3 EDEMA 03/23/2010 MARC DO, CAIO K 782.3 EDEMA 03/23/2010 MARC DO, CAIO K 782.3 EDEMA 03/23/2010 LON SALAZAR APRN 782.3 EDEMA 03/23/2010 MARC DO, CAIO K 782.3 EDEMA 03/23/2010 MARC DO, CAIO K 782.3 EDEMA 03/23/2010 LON SALAZAR APRN 782.3 EDEMA 03/23/2010 MARC DO, CAIO K 782.3 EDEMA 03/23/2010 MARC DO, CAIO K 782.3 EDEMA 03/23/2010 LON SALAZAR APRN 782.3 EDEMA 05/12/2010 KYLAH CALI, YOVANI V72.31 POOL COORDINATOR EXAM, ROUTINE 05/12/2010 V72.31 POOL COORDINATOR EXAM, ROUTINE 05/12/2010 YOVANI MONTERO MD V72.31 POOL COORDINATOR EXAM, ROUTINE 05/12/2010 YOVANI MONTERO MD V72.31 POOL COORDINATOR EXAM, ROUTINE 05/12/2010 YOVANI MONTERO MD V72.31 POOL COORDINATOR EXAM, ROUTINE 05/12/2010 V72.31 POOL COORDINATOR EXAM, ROUTINE 05/12/2010 YOVANI MONTERO MD V72.31 POOL COORDINATOR EXAM, ROUTINE 05/12/2010 V72.31 POOL COORDINATOR EXAM, ROUTINE 05/12/2010 V72.31 POOL COORDINATOR EXAM, ROUTINE 05/12/2010 V72.31 POOL COORDINATOR EXAM, ROUTINE 05/12/2010 V72.31 POOL COORDINATOR EXAM, ROUTINE 05/12/2010 V72.31 POOL COORDINATOR EXAM, ROUTINE 05/12/2010 MARC DO, CAIO K V72.31 POOL COORDINATOR EXAM, ROUTINE 05/12/2010 SULEMAN FLOYDSDONTE V72.31 POOL COORDINATOR EXAM, ROUTINE 05/12/2010 MARC DO, CAIO K V72.31 POOL COORDINATOR EXAM, ROUTINE 05/12/2010 MARC DO, CAIO K V72.31 POOL COORDINATOR EXAM, ROUTINE 05/12/2010 MARC DO, CAIO K V72.31 POOL COORDINATOR EXAM, ROUTINE 05/12/2010 MARC DO, CAIO K V72.31 POOL COORDINATOR EXAM, ROUTINE 05/12/2010 MARC DO, CAIO K V72.31 POOL COORDINATOR EXAM, ROUTINE 05/12/2010 LON SALAZAR APRN V72.31 POOL COORDINATOR EXAM, ROUTINE 05/12/2010 MARC DO, CAIO K V72.31 POOL COORDINATOR EXAM, ROUTINE 05/12/2010 LON SALAZAR APRN V72.31 POOL COORDINATOR EXAM, ROUTINE 05/12/2010 MARC DO, CAIO K V72.31 POOL COORDINATOR EXAM, ROUTINE 05/12/2010 MARC DO, CAIO K V72.31 POOL COORDINATOR EXAM, ROUTINE 05/12/2010 MARC DO, CIAO K V72.31 POOL COORDINATOR EXAM, ROUTINE 05/12/2010 MARC DO, CAIO K V72.31 POOL COORDINATOR EXAM, ROUTINE 05/12/2010 LON SALAZAR APRN V72.31 POOL COORDINATOR EXAM, ROUTINE 05/12/2010 MARC DO, CAIO K V72.31 POOL COORDINATOR EXAM, ROUTINE 05/12/2010 MARC DO, CAIO K V72.31 POOL COORDINATOR EXAM, ROUTINE 05/12/2010 LON SALAZAR APRN V72.31 POOL COORDINATOR EXAM, ROUTINE 05/12/2010 MARC DO, CAIO K V72.31 POOL COORDINATOR EXAM, ROUTINE 05/12/2010 MARC DO, CAIO K V72.31 POOL COORDINATOR EXAM, ROUTINE 05/12/2010 LON SALAZAR APRN V72.31 POOL COORDINATOR EXAM, ROUTINE 07/10/2010 Ot 250.00 07/10/2010 Ot 401.9 07/10/2010 Ot 414.00 07/10/2010 Ot V58.66 07/10/2010 Ot V58.69 09/21/2010 YOVANI MONTERO MD V03.82 PPV23 (PNEUMOVAX) DX 09/21/2010 V03.82 PPV23 ( PNEUMOVAX) DX 09/21/2010 YOVANI MONTERO MD V03.82 PPV23 (PNEUMOVAX) DX 09/21/2010 YOVANI MONTERO MD V03.82 PPV23 (PNEUMOVAX) DX 09/21/2010 YOVANI MONTERO MD V03.82 PPV23 (PNEUMOVAX) DX 09/21/2010 V03.82 PPV23 ( PNEUMOVAX) DX 09/21/2010 YOVANI MONTERO MD V03.82 PPV23 (PNEUMOVAX) DX 09/21/2010 V03.82 PPV23 ( PNEUMOVAX) DX 09/21/2010 V03.82 PPV23 ( PNEUMOVAX) DX 09/21/2010 V03.82 PPV23 ( PNEUMOVAX) DX 09/21/2010 V03.82 PPV23 ( PNEUMOVAX) DX 09/21/2010 V03.82 PPV23 ( PNEUMOVAX) DX 09/21/2010 MARC DO, CAIO K V03.82 PPV23 (PNEUMOVAX) DX 09/21/2010 WHITE DDS, DONTE J V03.82 PPV23 (PNEUMOVAX) DX 09/21/2010 MARC DO, CAIO K V03.82 PPV23 (PNEUMOVAX) DX 09/21/2010 MARC DO, CAIO K V03.82 PPV23 (PNEUMOVAX) DX 09/21/2010 MARC DO, CAIO K V03.82 PPV23 (PNEUMOVAX) DX 09/21/2010 MARC DO, CAIO K V03.82 PPV23 (PNEUMOVAX) DX 09/21/2010 MARC DO, CAIO K V03.82 PPV23 (PNEUMOVAX) DX 09/21/2010 LON SALAZAR APRN V03.82 PPV23 (PNEUMOVAX) DX 09/21/2010 MARC DO, CAIO K V03.82 PPV23 (PNEUMOVAX) DX 09/21/2010 JACLYNLON SALAZAR APRN E V03.82 PPV23 (PNEUMOVAX) DX 09/21/2010 MARC DO, CAIO K V03.82 PPV23 (PNEUMOVAX) DX 09/21/2010 MARC DO, CAIO K V03.82 PPV23 (PNEUMOVAX) DX 09/21/2010 MARC DO, CAIO K V03.82 PPV23 (PNEUMOVAX) DX 09/21/2010 MARC DO, CAIO K V03.82 PPV23 (PNEUMOVAX) DX 09/21/2010 LON SALAZAR APRN V03.82 PPV23 (PNEUMOVAX) DX 09/21/2010 MARC DO, CAIO K V03.82 PPV23 (PNEUMOVAX) DX 09/21/2010 MARC DO, CAIO K V03.82 PPV23 (PNEUMOVAX) DX 09/21/2010 LON SALAZAR APRN V03.82 PPV23 (PNEUMOVAX) DX 09/21/2010 MARC DO, CAIO K V03.82 PPV23 (PNEUMOVAX) DX 09/21/2010 MARC DO, CAIO K V03.82 PPV23 (PNEUMOVAX) DX 09/21/2010 LON SALAZAR APRN V03.82 PPV23 (PNEUMOVAX) DX 11/13/2010 YOVANI MONTERO MD V04.81 FLU DX (MEDICARE ONLY) 11/13/2010 V04.81 FLU DX ( MEDICARE ONLY) 11/13/2010 YOVANI MONTERO MD V04.81 FLU DX (MEDICARE ONLY) 11/13/2010 YOVANI MONTERO MD V04.81 FLU DX (MEDICARE ONLY) 11/13/2010 YOVANI MONTERO MD V04.81 FLU DX (MEDICARE ONLY) 11/13/2010 V04.81 FLU DX ( MEDICARE ONLY) 11/13/2010 YOVANI MONTERO MD V04.81 FLU DX (MEDICARE ONLY) 11/13/2010 V04.81 FLU DX ( MEDICARE ONLY) 11/13/2010 V04.81 FLU DX ( MEDICARE ONLY) 11/13/2010 V04.81 FLU DX ( MEDICARE ONLY) 11/13/2010 V04.81 FLU DX ( MEDICARE ONLY) 11/13/2010 V04.81 FLU DX ( MEDICARE ONLY) 11/13/2010 MARC DO, CAIO K V04.81 FLU DX (MEDICARE ONLY) 11/13/2010 DONTE SHELL DDS V04.81 FLU DX (MEDICARE ONLY) 11/13/2010 MARC DO, CAIO K V04.81 FLU DX (MEDICARE ONLY) 11/13/2010 MARC DO, CAIO K V04.81 FLU DX (MEDICARE ONLY) 11/13/2010 MARC DO, CAIO K V04.81 FLU DX (MEDICARE ONLY) 11/13/2010 MARC DO, CAIO K V04.81 FLU DX (MEDICARE ONLY) 11/13/2010 MARC DO, CAIO K V04.81 FLU DX (MEDICARE ONLY) 11/13/2010 LON SALAZAR APRN V04.81 FLU DX (MEDICARE ONLY) 11/13/2010 MARC DO, CAIO K V04.81 FLU DX (MEDICARE ONLY) 11/13/2010 LON SALAZAR APRN V04.81 FLU DX (MEDICARE ONLY) 11/13/2010 MARC DO, CAIO K V04.81 FLU DX (MEDICARE ONLY) 11/13/2010 MARC DO, CAIO K V04.81 FLU DX (MEDICARE ONLY) 11/13/2010 MARC DO, CAIO K V04.81 FLU DX (MEDICARE ONLY) 11/13/2010 MARC DO, CAIO K V04.81 FLU DX (MEDICARE ONLY) 11/13/2010 LON SALAZAR APRN V04.81 FLU DX (MEDICARE ONLY) 11/13/2010 MARC DO, CAIO K V04.81 FLU DX (MEDICARE ONLY) 11/13/2010 MARC DO, CAIO K V04.81 FLU DX (MEDICARE ONLY) 11/13/2010 LON SALAZAR APRN V04.81 FLU DX (MEDICARE ONLY) 11/13/2010 MARC DO, CAIO K V04.81 FLU DX (MEDICARE ONLY) 11/13/2010 MARC DO, CAIO K V04.81 FLU DX (MEDICARE ONLY) 11/13/2010 LON SALAZAR APRN V04.81 FLU DX (MEDICARE ONLY) 11/23/2010 YOVANI MONTERO MD 784.42 DYSPHONIA 11/23/2010 784.42 DYSPHONIA 11/23/2010 YOVANI MONTERO MD 784.42 DYSPHONIA 11/23/2010 YOVANI MONTERO MD 784.42 DYSPHONIA 11/23/2010 YOVANI MONTERO MD 784.42 DYSPHONIA 11/23/2010 784.42 DYSPHONIA 11/23/2010 YOVANI MONTERO MD 784.42 DYSPHONIA 11/23/2010 784.42 DYSPHONIA 11/23/2010 784.42 DYSPHONIA 11/23/2010 784.42 DYSPHONIA 11/23/2010 784.42 DYSPHONIA 11/23/2010 784.42 DYSPHONIA 11/23/2010 MARC DO, CAIO K 784.42 DYSPHONIA 11/23/2010 DONTE SHELL DDS 784.42 DYSPHONIA 11/23/2010 MARC DO, CAIO K 784.42 DYSPHONIA 11/23/2010 MARC DO, CAIO K 784.42 DYSPHONIA 11/23/2010 MARC DO, CAIO K 784.42 DYSPHONIA 11/23/2010 MARC DO, CAIO K 784.42 DYSPHONIA 11/23/2010 MARC DO, CAIO K 784.42 DYSPHONIA 11/23/2010 HELLWIG TOWBOAT OPERATOR, LON E 784.42 DYSPHONIA 11/23/2010 MARC DO, CAIO K 784.42 DYSPHONIA 11/23/2010 MARIE REBOLLAR LON E 784.42 DYSPHONIA 11/23/2010 MARC DO, CAIO K 784.42 DYSPHONIA 11/23/2010 MARC DO, CAIO K 784.42 DYSPHONIA 11/23/2010 MARC DO, CAIO K 784.42 DYSPHONIA 11/23/2010 MARC DO, CAIO K 784.42 DYSPHONIA 11/23/2010 RASHAUN SALAZAR APRNSIE E 784.42 DYSPHONIA 11/23/2010 MARC DO, CAIO K 784.42 DYSPHONIA 11/23/2010 MARC DO, CAIO K 784.42 DYSPHONIA 11/23/2010 MARIE REBOLLAR LON E 784.42 DYSPHONIA 11/23/2010 MARC DO, CAIO K 784.42 DYSPHONIA 11/23/2010 MARC DO, CAIO K 784.42 DYSPHONIA 11/23/2010 RASHAUN SALAZAR APRNSIE E 784.42 DYSPHONIA 06/02/2011 YOVANI MONTERO MD 112.3 CANDIDIASIS OF THE SKIN 06/02/2011 YOVANI MONTERO MD 401.9 ESSENTIAL HYPERTENSION 06/02/2011 YOVANI MONTERO MD 414.00 CORONARY ARTERY DISEASE 06/02/2011 112.3 CANDIDIASIS OF THE SKIN 06/02/2011 401.9 ESSENTIAL HYPERTENSION 06/02/2011 414.00 CORONARY ARTERY DISEASE 06/02/2011 YOVANI MONTERO MD 112.3 CANDIDIASIS OF THE SKIN 06/02/2011 YOVANI MONTERO MD 401.9 ESSENTIAL HYPERTENSION 06/02/2011 YOVANI MONTERO MD 414.00 CORONARY ARTERY DISEASE 06/02/2011 YOVANI MONTERO MD 112.3 CANDIDIASIS OF THE SKIN 06/02/2011 YOVANI MONTERO MD 401.9 ESSENTIAL HYPERTENSION 06/02/2011 YOVANI MONTERO MD 414.00 CORONARY ARTERY DISEASE 06/02/2011 YOVANI MONTERO MD 112.3 CANDIDIASIS OF THE SKIN 06/02/2011 YOVANI MONTERO MD 401.9 ESSENTIAL HYPERTENSION 06/02/2011 YOVANI MONTERO MD 414.00 CORONARY ARTERY DISEASE 06/02/2011 112.3 CANDIDIASIS OF THE SKIN 06/02/2011 401.9 ESSENTIAL HYPERTENSION 06/02/2011 414.00 CORONARY ARTERY DISEASE 06/02/2011 YOVANI MONTERO MD 112.3 CANDIDIASIS OF THE SKIN 06/02/2011 YOVANI MONTERO MD 401.9 ESSENTIAL HYPERTENSION 06/02/2011 YOVANI MONTERO MD 414.00 CORONARY ARTERY DISEASE 06/02/2011 112.3 CANDIDIASIS OF THE SKIN 06/02/2011 401.9 ESSENTIAL HYPERTENSION 06/02/2011 414.00 CORONARY ARTERY DISEASE 06/02/2011 112.3 CANDIDIASIS OF THE SKIN 06/02/2011 401.9 ESSENTIAL HYPERTENSION 06/02/2011 414.00 CORONARY ARTERY DISEASE 06/02/2011 112.3 CANDIDIASIS OF THE SKIN 06/02/2011 401.9 ESSENTIAL HYPERTENSION 06/02/2011 414.00 CORONARY ARTERY DISEASE 06/02/2011 112.3 CANDIDIASIS OF THE SKIN 06/02/2011 401.9 ESSENTIAL HYPERTENSION 06/02/2011 414.00 CORONARY ARTERY DISEASE 06/02/2011 112.3 CANDIDIASIS OF THE SKIN 06/02/2011 401.9 ESSENTIAL HYPERTENSION 06/02/2011 414.00 CORONARY ARTERY DISEASE 06/02/2011 MARC DO, CAIO K 112.3 CANDIDIASIS OF THE SKIN 06/02/2011 MARC DO, CAIO K 401.9 ESSENTIAL HYPERTENSION 06/02/2011 MARC DO, CAIO K 414.00 CORONARY ARTERY DISEASE 06/02/2011 WHITE DDS, DONTE J 112.3 CANDIDIASIS OF THE SKIN 06/02/2011 WHITE DDS, DONTE J 401.9 ESSENTIAL HYPERTENSION 06/02/2011 WHITE DDS, DONTE J 414.00 CORONARY ARTERY DISEASE 06/02/2011 MARC DO, CAIO K 112.3 CANDIDIASIS OF THE SKIN 06/02/2011 MARC DO, CAIO K 401.9 ESSENTIAL HYPERTENSION 06/02/2011 MARC DO, CAIO K 414.00 CORONARY ARTERY DISEASE 06/02/2011 MARC DO, CAIO K 112.3 CANDIDIASIS OF THE SKIN 06/02/2011 MARC DO, CAIO K 401.9 ESSENTIAL HYPERTENSION 06/02/2011 MARC DO, CAIO K 414.00 CORONARY ARTERY DISEASE 06/02/2011 MARC DO, CAIO K 112.3 CANDIDIASIS OF THE SKIN 06/02/2011 MARC DO, CAIO K 401.9 ESSENTIAL HYPERTENSION 06/02/2011 MARC DO, CAIO K 414.00 CORONARY ARTERY DISEASE 06/02/2011 MARC DO, CAIO K 112.3 CANDIDIASIS OF THE SKIN 06/02/2011 MARC DO, CAIO K 401.9 ESSENTIAL HYPERTENSION 06/02/2011 MARC DO, CAIO K 414.00 CORONARY ARTERY DISEASE 06/02/2011 MARC DO, CAIO K 112.3 CANDIDIASIS OF THE SKIN 06/02/2011 MARC DO, CAIO K 401.9 ESSENTIAL HYPERTENSION 06/02/2011 MARC DO, CAIO K 414.00 CORONARY ARTERY DISEASE 06/02/2011 SWEETIE SALAZAR APRNE E 112.3 CANDIDIASIS OF THE SKIN 06/02/2011 MARIE TOWBOAT OPERATOR, LON E 401.9 ESSENTIAL HYPERTENSION 06/02/2011 MARIE TOWBOAT OPERATORRASHAUN BarajasSIE E 414.00 CORONARY ARTERY DISEASE 06/02/2011 MARC DO, CAIO K 112.3 CANDIDIASIS OF THE SKIN 06/02/2011 MARC DO, CAIO K 401.9 ESSENTIAL HYPERTENSION 06/02/2011 MARC DO, CAIO K 414.00 CORONARY ARTERY DISEASE 06/02/2011 SWEETIE SALAZAR APRNE E 112.3 CANDIDIASIS OF THE SKIN 06/02/2011 SWEETIE SALAZAR APRNE E 401.9 ESSENTIAL HYPERTENSION 06/02/2011 RASHAUN SALAZAR APRNSIE E 414.00 CORONARY ARTERY DISEASE 06/02/2011 MARC DO, CAIO K 112.3 CANDIDIASIS OF THE SKIN 06/02/2011 MARC DO, CAIO K 401.9 ESSENTIAL HYPERTENSION 06/02/2011 MARC DO, CAIO K 414.00 CORONARY ARTERY DISEASE 06/02/2011 MARC DO, CAIO K 112.3 CANDIDIASIS OF THE SKIN 06/02/2011 MARC DO, CAIO K 401.9 ESSENTIAL HYPERTENSION 06/02/2011 MARC DO, CAIO K 414.00 CORONARY ARTERY DISEASE 06/02/2011 MARC DO, CAIO K 112.3 CANDIDIASIS OF THE SKIN 06/02/2011 MARC DO, CAIO K 401.9 ESSENTIAL HYPERTENSION 06/02/2011 MARC DO, CAIO K 414.00 CORONARY ARTERY DISEASE 06/02/2011 MARC DO, CAIO K 112.3 CANDIDIASIS OF THE SKIN 06/02/2011 MARC DO, CAIO K 401.9 ESSENTIAL HYPERTENSION 06/02/2011 MARC DO, CAIO K 414.00 CORONARY ARTERY DISEASE 06/02/2011 MARIE REBOLLAR LON E 112.3 CANDIDIASIS OF THE SKIN 06/02/2011 SWEETIE SALAZAR APRNE E 401.9 ESSENTIAL HYPERTENSION 06/02/2011 LON SALAZAR APRN E 414.00 CORONARY ARTERY DISEASE 06/02/2011 MARC DO, CAIO K 112.3 CANDIDIASIS OF THE SKIN 06/02/2011 MARC DO, CAIO K 401.9 ESSENTIAL HYPERTENSION 06/02/2011 MARC DO, CAIO K 414.00 CORONARY ARTERY DISEASE 06/02/2011 MARC DO, CAIO K 112.3 CANDIDIASIS OF THE SKIN 06/02/2011 MARC DO, CAIO K 401.9 ESSENTIAL HYPERTENSION 06/02/2011 MARC DO, CAIO K 414.00 CORONARY ARTERY DISEASE 06/02/2011 LON SALAZAR APRN E 112.3 CANDIDIASIS OF THE SKIN 06/02/2011 LON SALAZAR APRN E 401.9 ESSENTIAL HYPERTENSION 06/02/2011 SWEETIE SALAZAR APRNE E 414.00 CORONARY ARTERY DISEASE 06/02/2011 MARC DO, CAIO K 112.3 CANDIDIASIS OF THE SKIN 06/02/2011 MARC DO, CAIO K 401.9 ESSENTIAL HYPERTENSION 06/02/2011 MARC DO, CAIO K 414.00 CORONARY ARTERY DISEASE 06/02/2011 MARC DO, CAIO K 112.3 CANDIDIASIS OF THE SKIN 06/02/2011 MARC DO, CAIO K 401.9 ESSENTIAL HYPERTENSION 06/02/2011 MARC DO, CAIO K 414.00 CORONARY ARTERY DISEASE 06/02/2011 LON SALAZAR APRN E 112.3 CANDIDIASIS OF THE SKIN 06/02/2011 LON SALAZAR APRN E 401.9 ESSENTIAL HYPERTENSION 06/02/2011 LON SALAZAR APRN E 414.00 CORONARY ARTERY DISEASE 06/22/2011 Ot 250.00 DIAB MARISSA WO COMPL, TYPE II OR UNSPEC TY 06/22/2011 Ot 272.4 HYPERLIPIDEMIA NEC/NOS 06/22/2011 Ot 401.9 HYPERTENSION NOS 06/22/2011 Ot 414.01 CORONARY ATHEROSCLEROSIS OF [place] CORON 06/22/2011 Ot 729.1 MYALGIA AND MYOSITIS NOS 06/22/2011 Ot 786.50 CHEST PAIN NOS 06/22/2011 Ot V58.66 LONG-TERM ( CURRENT) USE OF ASPIRIN 06/22/2011 Ot V58.69 OTH MED,LT, CURRENT USE 07/02/2011 KYLAH CALI, YOVANI V76.10 visit for: screening exam malignant neoplasm breast 07/02/2011 YOVANI MONTERO MD V76.2 Cervical Pap Smear 07/02/2011 V76.10 visit for: screening exam malignant neoplasm breast 07/02/2011 V76.2 Cervical Pap Smear 07/02/2011 YOVANI MONTERO MD V76.10 visit for: screening exam malignant neoplasm breast 07/02/2011 YOVANI MONTERO MD V76.2 Cervical Pap Smear 07/02/2011 YOVANI MONTERO MD V76.10 visit for: screening exam malignant neoplasm breast 07/02/2011 YOVANI MONTERO MD V76.2 Cervical Pap Smear 07/02/2011 YOVANI MONTERO MD V76.10 visit for: screening exam malignant neoplasm breast 07/02/2011 YOVANI MONTERO MD V76.2 Cervical Pap Smear 07/02/2011 V76.10 visit for: screening exam malignant neoplasm breast 07/02/2011 V76.2 Cervical Pap Smear 07/02/2011 YOVANI MONTERO MD V76.10 visit for: screening exam malignant neoplasm breast 07/02/2011 YOVANI MONTERO MD V76.2 Cervical Pap Smear 07/02/2011 V76.10 visit for: screening exam malignant neoplasm breast 07/02/2011 V76.2 Cervical Pap Smear 07/02/2011 V76.10 visit for: screening exam malignant neoplasm breast 07/02/2011 V76.2 Cervical Pap Smear 07/02/2011 V76.10 visit for: screening exam malignant neoplasm breast 07/02/2011 V76.2 Cervical Pap Smear 07/02/2011 V76.10 visit for: screening exam malignant neoplasm breast 07/02/2011 V76.2 Cervical Pap Smear 07/02/2011 V76.10 visit for: screening exam malignant neoplasm breast 07/02/2011 V76.2 Cervical Pap Smear 07/02/2011 CAIO MARC DO V76.10 visit for: screening exam malignant neoplasm breast 07/02/2011 CAIO MARC DO V76.2 Cervical Pap Smear 07/02/2011 DONTE SHELL DDS V76.10 visit for: screening exam malignant neoplasm breast 07/02/2011 DONTE SHELL DDS V76.2 Cervical Pap Smear 07/02/2011 CAIO MARC DO V76.10 visit for: screening exam malignant neoplasm breast 07/02/2011 CAIO MARC DO V76.2 Cervical Pap Smear 07/02/2011 MARC DO CAIO K V76.10 visit for: screening exam malignant neoplasm breast 07/02/2011 MARC DO, CAIO K V76.2 Cervical Pap Smear 07/02/2011 MARC DO, CAIO K V76.10 visit for: screening exam malignant neoplasm breast 07/02/2011 MARC DO, CAIO K V76.2 Cervical Pap Smear 07/02/2011 MARC DO CAIO K V76.10 visit for: screening exam malignant neoplasm breast 07/02/2011 MARC DO CAIO K V76.2 Cervical Pap Smear 07/02/2011 MARC DO, CAIO K V76.10 visit for: screening exam malignant neoplasm breast 07/02/2011 MARC DO, CAIO K V76.2 Cervical Pap Smear 07/02/2011 LON SALAZAR APRN E V76.10 visit for: screening exam malignant neoplasm breast 07/02/2011 LON SALAZAR APRN E V76.2 Cervical Pap Smear 07/02/2011 MARC DO CAIO K V76.10 visit for: screening exam malignant neoplasm breast 07/02/2011 MARC DO, CAIO K V76.2 Cervical Pap Smear 07/02/2011 MARIE TOWBOAT OPERATORSWEETIE BarajasE E V76.10 visit for: screening exam malignant neoplasm breast 07/02/2011 LON SALAZAR APRN V76.2 Cervical Pap Smear 07/02/2011 MARC DO CAIO K V76.10 visit for: screening exam malignant neoplasm breast 07/02/2011 MARC DO CAIO K V76.2 Cervical Pap Smear 07/02/2011 [facility] DO CAIO K V76.10 visit for: screening exam malignant neoplasm breast 07/02/2011 MARC DO, CAIO K V76.2 Cervical Pap Smear 07/02/2011 MARC DO, CAIO K V76.10 visit for: screening exam malignant neoplasm breast 07/02/2011 MARC DO, CAIO K V76.2 Cervical Pap Smear 07/02/2011 MARC DO, CAIO K V76.10 visit for: screening exam malignant neoplasm breast 07/02/2011 MARC DO, CAIO K V76.2 Cervical Pap Smear 07/02/2011 JACLYNLMARTIN TOWBOAT OPERATORRASHAUN BarajasSIE E V76.10 visit for: screening exam malignant neoplasm breast 07/02/2011 SWEETIE SALAZAR APRNE E V76.2 Cervical Pap Smear 07/02/2011 MARC DO CAIO K V76.10 visit for: screening exam malignant neoplasm breast 07/02/2011 MARC DO CAIO K V76.2 Cervical Pap Smear 07/02/2011 MARC DO CAIO K V76.10 visit for: screening exam malignant neoplasm breast 07/02/2011 MONICO JIM CAIO K V76.2 Cervical Pap Smear 07/02/2011 [facility] SALAZAR APRNE E V76.10 visit for: screening exam malignant neoplasm breast 07/02/2011 JACLYNRASHAUN SALAZAR APRNSIE E V76.2 Cervical Pap Smear 07/02/2011 MARC DO CAIO K V76.10 visit for: screening exam malignant neoplasm breast 07/02/2011 MARC DO CAIO K V76.2 Cervical Pap Smear 07/02/2011 RASHAUN MARC DOA K V76.10 VISIT FOR: SCREENING EXAM MALIGNANT NEOPLASM BREAST 07/02/2011 RASHAUN MARC DOA K V76.2 CERVICAL PAP SMEAR 07/02/2011 [facility] MEDICINELON SALAZAR APRN E V76.10 VISIT FOR: SCREENING EXAM MALIGNANT NEOPLASM BREAST 07/02/2011 SWEETIE SALAZAR APRNE E V76.2 CERVICAL PAP SMEAR 09/07/2011 YOVANI MONTERO MD 357.2 POLYNEUROPATHY DIABETIC 09/07/2011 357.2 POLYNEUROPATHY DIABETIC 09/07/2011 YOVANI MONTERO MD 357.2 POLYNEUROPATHY DIABETIC 09/07/2011 YOVANI MONTERO MD 357.2 POLYNEUROPATHY DIABETIC 09/07/2011 YOVANI MONTERO MD 357.2 POLYNEUROPATHY DIABETIC 09/07/2011 357.2 POLYNEUROPATHY DIABETIC 09/07/2011 YOVANI MONTERO MD 357.2 POLYNEUROPATHY DIABETIC 09/07/2011 357.2 POLYNEUROPATHY DIABETIC 09/07/2011 357.2 POLYNEUROPATHY DIABETIC 09/07/2011 357.2 POLYNEUROPATHY DIABETIC 09/07/2011 357.2 POLYNEUROPATHY DIABETIC 09/07/2011 357.2 POLYNEUROPATHY DIABETIC 09/07/2011 CAIO MARC DO 357.2 POLYNEUROPATHY DIABETIC 09/07/2011 SULEMAN FLOYDS, DONTE Fay 357.2 POLYNEUROPATHY DIABETIC 09/07/2011 CAIO MARC DO 357.2 POLYNEUROPATHY DIABETIC 09/07/2011 MARC DO, CAIO K 357.2 POLYNEUROPATHY DIABETIC 09/07/2011 MARC DO, CAIO K 357.2 POLYNEUROPATHY DIABETIC 09/07/2011 MARC DO, CAIO K 357.2 POLYNEUROPATHY DIABETIC 09/07/2011 MARC DO, CAIO K 357.2 POLYNEUROPATHY DIABETIC 09/07/2011 SWEETIE SALAZAR APRNE E 357.2 POLYNEUROPATHY DIABETIC 09/07/2011 MARC DO, CAIO K 357.2 POLYNEUROPATHY DIABETIC 09/07/2011 SWEETIE SALAZAR APRNE E 357.2 POLYNEUROPATHY DIABETIC 09/07/2011 MARC DO, CAIO K 357.2 POLYNEUROPATHY DIABETIC 09/07/2011 MARC DO, CAIO K 357.2 POLYNEUROPATHY DIABETIC 09/07/2011 MARC DO, CAIO K 357.2 POLYNEUROPATHY DIABETIC 09/07/2011 MARC DO, CAIO K 357.2 POLYNEUROPATHY DIABETIC 09/07/2011 LON SALAZAR APRN E 357.2 POLYNEUROPATHY DIABETIC 09/07/2011 MARC DO, CAIO K 357.2 POLYNEUROPATHY DIABETIC 09/07/2011 MARC DO, CAIO K 357.2 POLYNEUROPATHY DIABETIC 09/07/2011 LON SALAZAR APRN E 357.2 POLYNEUROPATHY DIABETIC 09/07/2011 MARC DO, CAIO K 357.2 POLYNEUROPATHY DIABETIC 09/07/2011 MARC DO, CAIO K 357.2 POLYNEUROPATHY DIABETIC 09/07/2011 LON SALAZAR APRN E 357.2 POLYNEUROPATHY DIABETIC 12/16/2011 YOVANI MONTERO MD6.5 ENTHESOPATHY OF HIP REGION 12/16/2011 726.5 ENTHESOPATHY OF HIP REGION 12/16/2011 YOVANI MONTERO MD6.5 ENTHESOPATHY OF HIP REGION 12/16/2011 YOVANI MONTERO MD 726.5 ENTHESOPATHY OF HIP REGION 12/16/2011 YOVANI MONTERO MD6.5 ENTHESOPATHY OF HIP REGION 12/16/2011 726.5 ENTHESOPATHY OF HIP REGION 12/16/2011 YOVANI MONTERO MD 726.5 ENTHESOPATHY OF HIP REGION 12/16/2011 726.5 ENTHESOPATHY OF HIP REGION 12/16/2011 726.5 ENTHESOPATHY OF HIP REGION 12/16/2011 726.5 ENTHESOPATHY OF HIP REGION 12/16/2011 726.5 ENTHESOPATHY OF HIP REGION 12/16/2011 726.5 ENTHESOPATHY OF HIP REGION 12/16/2011 MARC DO, CAIO K 726.5 ENTHESOPATHY OF HIP REGION 12/16/2011 WHITE DDS, DONTE J 726.5 ENTHESOPATHY OF HIP REGION 12/16/2011 MARC DO, CAIO K 726.5 ENTHESOPATHY OF HIP REGION 12/16/2011 MARC DO, CAIO K 726.5 ENTHESOPATHY OF HIP REGION 12/16/2011 MARC DO, CAIO K 726.5 ENTHESOPATHY OF HIP REGION 12/16/2011 MARC DO, CAIO K 726.5 ENTHESOPATHY OF HIP REGION 12/16/2011 MARC DO, CAIO K 726.5 ENTHESOPATHY OF HIP REGION 12/16/2011 SWEETIE SALAZAR APRNE E 726.5 ENTHESOPATHY OF HIP REGION 12/16/2011 MARC DO, CAIO K 726.5 ENTHESOPATHY OF HIP REGION 12/16/2011 RASHAUN SALAZAR APRNSIE E 726.5 ENTHESOPATHY OF HIP REGION 12/16/2011 MARC DO, CAIO K 726.5 ENTHESOPATHY OF HIP REGION 12/16/2011 MARC DO, CAIO K 726.5 ENTHESOPATHY OF HIP REGION 12/16/2011 MARC DO, CAIO K 726.5 ENTHESOPATHY OF HIP REGION 12/16/2011 MARC DO, CAIO K 726.5 ENTHESOPATHY OF HIP REGION 12/16/2011 SWEETIE SALAZAR APRNE E 726.5 ENTHESOPATHY OF HIP REGION 12/16/2011 MARC DO, CAIO K 726.5 ENTHESOPATHY OF HIP REGION 12/16/2011 MARC DO, CAIO K 726.5 ENTHESOPATHY OF HIP REGION 12/16/2011 MARIE REBOLLAR LON E 726.5 ENTHESOPATHY OF HIP REGION 12/16/2011 MARC DO, CAIO K 726.5 ENTHESOPATHY OF HIP REGION 12/16/2011 MARC DO, CAIO K 726.5 ENTHESOPATHY OF HIP REGION 12/16/2011 RASHAUN SALAZAR APRNSIE E 726.5 ENTHESOPATHY OF HIP REGION 02/14/2012 Ot 729.5 PAIN IN LIMB 03/02/2012 YOVANI MONTERO MD 719.46 joint pain in the left knee 03/02/2012 YOVANI MONTERO MD 719.46 joint pain in the left knee 03/02/2012 719.46 joint pain in the left knee 03/02/2012 YOVANI MONTERO MD 719.46 joint pain in the left knee 03/02/2012 719.46 joint pain in the left knee 03/02/2012 719.46 joint pain in the left knee 03/02/2012 719.46 joint pain in the left knee 03/02/2012 719.46 joint pain in the left knee 03/02/2012 719.46 joint pain in the left knee 03/02/2012 MARC DO, CAIO K 719.46 joint pain in the left knee 03/02/2012 DONTE SHELL DDS 719.46 joint pain in the left knee 03/02/2012 MARC DO, CAIO K 719.46 joint pain in the left knee 03/02/2012 MARC DO, CAIO K 719.46 joint pain in the left knee 03/02/2012 MARC DO, CAIO K 719.46 joint pain in the left knee 03/02/2012 MARC DO, CAIO K 719.46 joint pain in the left knee 03/02/2012 MARC DO, CAIO K 719.46 joint pain in the left knee 03/02/2012 LON SALAZAR APRN E 719.46 joint pain in the left knee 03/02/2012 MARC DO, CAIO K 719.46 joint pain in the left knee 03/02/2012 LON SALAZAR APRN 719.46 joint pain in the left knee 03/02/2012 MARC DO, CAIO K 719.46 joint pain in the left knee 03/02/2012 MARC DO, CAIO K 719.46 joint pain in the left knee 03/02/2012 MARC DO, CAIO K 719.46 joint pain in the left knee 03/02/2012 MARC DO, CAIO K 719.46 joint pain in the left knee 03/02/2012 LON SALAZAR APRN 719.46 joint pain in the left knee 03/02/2012 MARC DO, CAIO K 719.46 joint pain in the left knee 03/02/2012 MARC DO, CAIO K 719.46 joint pain in the left knee 03/02/2012 LON SALAZAR APRN 719.46 joint pain in the left knee 03/02/2012 MARC DO, CAIO K 719.46 joint pain in the left knee 03/02/2012 MARC DO, CAIO K 719.46 joint pain in the left knee 03/02/2012 LON SALAZAR APRN 719.46 joint pain in the left knee 03/17/2012 YOVANI MONTERO MD 782.1 skin: a rash [as Sx] 03/17/2012 782.1 skin: a rash [as Sx] 03/17/2012 YOVANI MONTERO MD 782.1 skin: a rash [as Sx] 03/17/2012 782.1 skin: a rash [as Sx] 03/17/2012 782.1 skin: a rash [as Sx] 03/17/2012 782.1 skin: a rash [as Sx] 03/17/2012 782.1 skin: a rash [as Sx] 03/17/2012 782.1 skin: a rash [as Sx] 03/17/2012 CAIO MRAC DO 782.1 skin: a rash [as Sx] 03/17/2012 WHITE DDS, DONTE Fay 782.1 skin: a rash [as Sx] 03/17/2012 CAIO MARC DO 782.1 skin: a rash [as Sx] 03/17/2012 CAIO MARC DO 782.1 skin: a rash [as Sx] 03/17/2012 CAIO MARC DO 782.1 skin: a rash [as Sx] 03/17/2012 CAIO MARC DO 782.1 skin: a rash [as Sx] 03/17/2012 CAIO MARC DO 782.1 skin: a rash [as Sx] 03/17/2012 LON SALAZAR APRN 782.1 skin: a rash [as Sx] 03/17/2012 MARC DO, CAIO K 782.1 skin: a rash [as Sx] 03/17/2012 LON SALAZAR APRN 782.1 skin: a rash [as Sx] 03/17/2012 MONICO DO CAIO K 782.1 skin: a rash [as Sx] 03/17/2012 MARC DO CAIO K 782.1 skin: a rash [as Sx] 03/17/2012 MONICO DO CAIO K 782.1 skin: a rash [as Sx] 03/17/2012 MONICO DO CAIO K 782.1 skin: a rash [as Sx] 03/17/2012 LON SALAZAR APRN 782.1 skin: a rash [as Sx] 03/17/2012 RASHAUN MARC DOA K 782.1 skin: a rash [as Sx] 03/17/2012 MONICO DORASHAUNA K 782.1 skin: a rash [as Sx] 03/17/2012 LON SALAZAR APRN 782.1 skin: a rash [as Sx] 03/17/2012 MONICO JIM CAIO K 782.1 skin: a rash [as Sx] 03/17/2012 RASHAUN MARC DOA K 782.1 SKIN: A RASH [ SX] 03/17/2012 LON SALAZAR APRN 782.1 SKIN: A RASH [ SX] 06/05/2012 877.0 OPEN WOUND OF BUTTOCK WITHOUT COMPLICATION 06/05/2012 877.0 OPEN WOUND OF BUTTOCK WITHOUT COMPLICATION 06/05/2012 877.0 OPEN WOUND OF BUTTOCK WITHOUT COMPLICATION 06/05/2012 877.0 OPEN WOUND OF BUTTOCK WITHOUT COMPLICATION 06/05/2012 877.0 OPEN WOUND OF BUTTOCK WITHOUT COMPLICATION 06/05/2012 RASHAUN MARC DOA K 877.0 OPEN WOUND OF BUTTOCK WITHOUT COMPLICATION 06/05/2012 DONTE SHELL DDS 877.0 OPEN WOUND OF BUTTOCK WITHOUT COMPLICATION 06/05/2012 MONICO DO CAIO K 877.0 OPEN WOUND OF BUTTOCK WITHOUT COMPLICATION 06/05/2012 MONICO JIM CAIO K 877.0 OPEN WOUND OF BUTTOCK WITHOUT COMPLICATION 06/05/2012 MONICO JIM CAIO K 877.0 OPEN WOUND OF BUTTOCK WITHOUT COMPLICATION 06/05/2012 MARC DO, CAIO K 877.0 OPEN WOUND OF BUTTOCK WITHOUT COMPLICATION 06/05/2012 MARC DO, CAIO K 877.0 OPEN WOUND OF BUTTOCK WITHOUT COMPLICATION 06/05/2012 HELLWIG TOWBOAT OPERATOR, LON E 877.0 OPEN WOUND OF BUTTOCK WITHOUT COMPLICATION 06/05/2012 MARC DO, CAIO K 877.0 OPEN WOUND OF BUTTOCK WITHOUT COMPLICATION 06/05/2012 JACLYNLWIG TOWBOAT OPERATOR, LON E 877.0 OPEN WOUND OF BUTTOCK WITHOUT COMPLICATION 06/05/2012 MARC DO, CAIO K 877.0 OPEN WOUND OF BUTTOCK WITHOUT COMPLICATION 06/05/2012 MARC DO, CAIO K 877.0 OPEN WOUND OF BUTTOCK WITHOUT COMPLICATION 06/05/2012 MARC DO, CAIO K 877.0 OPEN WOUND OF BUTTOCK WITHOUT COMPLICATION 06/05/2012 MARC DO, CAIO K 877.0 OPEN WOUND OF BUTTOCK WITHOUT COMPLICATION 06/05/2012 MARIE TOWBOAT OPERATOR LON E 877.0 OPEN WOUND OF BUTTOCK WITHOUT COMPLICATION 06/05/2012 MARC DO, CAIO K 877.0 OPEN WOUND OF BUTTOCK WITHOUT COMPLICATION 06/05/2012 MARC DO, CAIO K 877.0 OPEN WOUND OF BUTTOCK WITHOUT COMPLICATION 06/05/2012 JACLYNLWIG TOWBOAT OPERATOR LON E 877.0 OPEN WOUND OF BUTTOCK WITHOUT COMPLICATION 06/05/2012 MARC DO, CAIO K 877.0 OPEN WOUND OF BUTTOCK WITHOUT COMPLICATION 06/05/2012 MARC DO, CAIO K 877.0 OPEN WOUND OF BUTTOCK WITHOUT COMPLICATION 06/05/2012 JACLYNLWIG TOWBOAT OPERATOR LON E 877.0 OPEN WOUND OF BUTTOCK WITHOUT COMPLICATION 06/20/2012 799.81 changed sexual interest (libido): decreased 06/20/2012 799.81 changed sexual interest (libido): decreased 06/20/2012 799.81 changed sexual interest (libido): decreased 06/20/2012 799.81 changed sexual interest (libido): decreased 06/20/2012 799.81 changed sexual interest (libido): decreased 06/20/2012 MARC DO, CAIO K 799.81 changed sexual interest (libido): decreased 06/20/2012 DONTE SHELL DDS J 799.81 changed sexual interest (libido): decreased 06/20/2012 MARC DO, CAIO K 799.81 changed sexual interest (libido): decreased 06/20/2012 MARC DO, CAIO K 799.81 changed sexual interest (libido): decreased 06/20/2012 MARC DO, CAIO K 799.81 changed sexual interest (libido): decreased 06/20/2012 MARC DO, CAIO K 799.81 changed sexual interest (libido): decreased 06/20/2012 MARC DO, CAIO K 799.81 changed sexual interest (libido): decreased 06/20/2012 JACLYNLWIG TOWBOAT OPERATOR LON E 799.81 changed sexual interest (libido): decreased 06/20/2012 MARC DO, CAIO K 799.81 changed sexual interest (libido): decreased 06/20/2012 HELLWIG TOWBOAT OPERATOR LON E 799.81 changed sexual interest (libido): decreased 06/20/2012 MARC DO, CAIO K 799.81 changed sexual interest (libido): decreased 06/20/2012 MARC DO, CAIO K 799.81 changed sexual interest (libido): decreased 06/20/2012 MARC DO, CAIO K 799.81 changed sexual interest (libido): decreased 06/20/2012 MARC DO, CAIO K 799.81 changed sexual interest (libido): decreased 06/20/2012 HELLWIG TOWBOAT OPERATOR LON E 799.81 changed sexual interest (libido): decreased 06/20/2012 MARC DO, CAIO K 799.81 changed sexual interest (libido): decreased 06/20/2012 MARC DO, CAIO K 799.81 changed sexual interest (libido): decreased 06/20/2012 HELLWIG TOWBOAT OPERATOR LON E 799.81 changed sexual interest (libido): decreased 06/20/2012 MARC DO, CAIO K 799.81 changed sexual interest (libido): decreased 06/20/2012 MARC DO, CAIO K 799.81 CHANGED SEXUAL INTEREST (LIBIDO): DECREASED 06/20/2012 HELLMARTIN TOWBOAT OPERATOR LON E 799.81 CHANGED SEXUAL INTEREST (LIBIDO): DECREASED 07/25/2012 627.2 SYMPTOMATIC MENOPAUSAL OR FEMALE CLIMACTERIC STATES 07/25/2012 V65.49 OTHER SPECIFIED COUNSELING 07/25/2012 627.2 SYMPTOMATIC MENOPAUSAL OR FEMALE CLIMACTERIC STATES 07/25/2012 V65.49 OTHER SPECIFIED COUNSELING 07/25/2012 MARC DO, CAIO K 627.2 SYMPTOMATIC MENOPAUSAL OR FEMALE CLIMACTERIC STATES 07/25/2012 MARC DO, CAIO K V65.49 OTHER SPECIFIED COUNSELING 07/25/2012 WHITE DDS, DONTE J 627.2 SYMPTOMATIC MENOPAUSAL OR FEMALE CLIMACTERIC STATES 07/25/2012 WHITE DDS, DONTE J V65.49 OTHER SPECIFIED COUNSELING 07/25/2012 MARC DO, CAIO K 627.2 SYMPTOMATIC MENOPAUSAL OR FEMALE CLIMACTERIC STATES 07/25/2012 MARC DO, CAIO K V65.49 OTHER SPECIFIED COUNSELING 07/25/2012 MARC DO, CAIO K 627.2 SYMPTOMATIC MENOPAUSAL OR FEMALE CLIMACTERIC STATES 07/25/2012 MARC DO, CAIO K V65.49 OTHER SPECIFIED COUNSELING 07/25/2012 MARC DO, CAIO K 627.2 SYMPTOMATIC MENOPAUSAL OR FEMALE CLIMACTERIC STATES 07/25/2012 MARC DO, CAIO K V65.49 OTHER SPECIFIED COUNSELING 07/25/2012 MARC DO, CAIO K 627.2 SYMPTOMATIC MENOPAUSAL OR FEMALE CLIMACTERIC STATES 07/25/2012 MARC DO, CAIO K V65.49 OTHER SPECIFIED COUNSELING 07/25/2012 MARC DO, CAIO K 627.2 SYMPTOMATIC MENOPAUSAL OR FEMALE CLIMACTERIC STATES 07/25/2012 MARC DO, CAIO K V65.49 OTHER SPECIFIED COUNSELING 07/25/2012 JACLYNLWIG TOWBOAT OPERATOR LON E 627.2 SYMPTOMATIC MENOPAUSAL OR FEMALE CLIMACTERIC STATES 07/25/2012 HELLWIG TOWBOAT OPERATOR LON E V65.49 OTHER SPECIFIED COUNSELING 07/25/2012 MARC DO, CAIO K 627.2 SYMPTOMATIC MENOPAUSAL OR FEMALE CLIMACTERIC STATES 07/25/2012 MARC DO, CAIO K V65.49 OTHER SPECIFIED COUNSELING 07/25/2012 HELLWIG TOWBOAT OPERATOR, LON E 627.2 SYMPTOMATIC MENOPAUSAL OR FEMALE CLIMACTERIC STATES 07/25/2012 HELLWIG TOWBOAT OPERATOR, LON E V65.49 OTHER SPECIFIED COUNSELING 07/25/2012 MARC DO, CAIO K 627.2 SYMPTOMATIC MENOPAUSAL OR FEMALE CLIMACTERIC STATES 07/25/2012 MARC DO, CAIO K V65.49 OTHER SPECIFIED COUNSELING 07/25/2012 MARC DO, CAIO K 627.2 SYMPTOMATIC MENOPAUSAL OR FEMALE CLIMACTERIC STATES 07/25/2012 MARC DO, CAIO K V65.49 OTHER SPECIFIED COUNSELING 07/25/2012 MARC DO, CAIO K 627.2 SYMPTOMATIC MENOPAUSAL OR FEMALE CLIMACTERIC STATES 07/25/2012 MARC DO, CAIO K V65.49 OTHER SPECIFIED COUNSELING 07/25/2012 MARC DO, CAIO K 627.2 SYMPTOMATIC MENOPAUSAL OR FEMALE CLIMACTERIC STATES 07/25/2012 MARC DO, CAIO K V65.49 OTHER SPECIFIED COUNSELING 07/25/2012 HELLWIG TOWBOAT OPERATOR LON E 627.2 SYMPTOMATIC MENOPAUSAL OR FEMALE CLIMACTERIC STATES 07/25/2012 HELLWIG TOWBOAT OPERATOR, LON E V65.49 OTHER SPECIFIED COUNSELING 07/25/2012 MARC DO, CAIO K 627.2 SYMPTOMATIC MENOPAUSAL OR FEMALE CLIMACTERIC STATES 07/25/2012 MARC DO, CAIO K V65.49 OTHER SPECIFIED COUNSELING 07/25/2012 MARC DO, CAIO K 627.2 SYMPTOMATIC MENOPAUSAL OR FEMALE CLIMACTERIC STATES 07/25/2012 MARC DO, CAIO K V65.49 OTHER SPECIFIED COUNSELING 07/25/2012 HELLWIG TOWBOAT OPERATOR LON E 627.2 SYMPTOMATIC MENOPAUSAL OR FEMALE CLIMACTERIC STATES 07/25/2012 HELLWIG TOWBOAT OPERATOR, LON E V65.49 OTHER SPECIFIED COUNSELING 07/25/2012 MARC DO, CAIO K 627.2 SYMPTOMATIC MENOPAUSAL OR FEMALE CLIMACTERIC STATES 07/25/2012 MARC DO, CAIO K V65.49 OTHER SPECIFIED COUNSELING 07/25/2012 MARC DO, CAIO K 627.2 SYMPTOMATIC MENOPAUSAL OR FEMALE CLIMACTERIC STATES 07/25/2012 MARC DO, CAIO K V65.49 OTHER SPECIFIED COUNSELING 07/25/2012 HELLWIG TOWBOAT OPERATOR, LON E 627.2 SYMPTOMATIC MENOPAUSAL OR FEMALE CLIMACTERIC STATES 07/25/2012 HELLWIG TOWBOAT OPERATOR, LON E V65.49 OTHER SPECIFIED COUNSELING 01/16/2013 MARC DO, CAIO K 440.20 ATHEROSCLEROSIS OF [place] ARTERIES OF THE EXTREMITIES UNSPECIFIED 01/16/2013 MARC DO, CAIO K 440.20 ATHEROSCLEROSIS OF [place] ARTERIES OF THE EXTREMITIES UNSPECIFIED 01/16/2013 MARC DO, CAIO K 440.20 ATHEROSCLEROSIS OF [place] ARTERIES OF THE EXTREMITIES UNSPECIFIED 01/16/2013 MARC DO, CAIO K 440.20 ATHEROSCLEROSIS OF [place] ARTERIES OF THE EXTREMITIES UNSPECIFIED 01/16/2013 MARC DO, CAIO K 440.20 ATHEROSCLEROSIS OF [place] ARTERIES OF THE EXTREMITIES UNSPECIFIED 01/16/2013 HELLWIG TOWBOAT OPERATOR, LON E 440.20 ATHEROSCLEROSIS OF [place] ARTERIES OF THE EXTREMITIES UNSPECIFIED 01/16/2013 MARC DO, CAIO K 440.20 ATHEROSCLEROSIS OF [place] ARTERIES OF THE EXTREMITIES UNSPECIFIED 01/16/2013 HELLWIG TOWBOAT OPERATOR, LON E 440.20 ATHEROSCLEROSIS OF [place] ARTERIES OF THE EXTREMITIES UNSPECIFIED 01/16/2013 MARC DO, CAIO K 440.20 ATHEROSCLEROSIS OF [place] ARTERIES OF THE EXTREMITIES UNSPECIFIED 01/16/2013 MARC DO, CAIO K 440.20 ATHEROSCLEROSIS OF [place] ARTERIES OF THE EXTREMITIES UNSPECIFIED 01/16/2013 MARC DO, CAIO K 440.20 ATHEROSCLEROSIS OF [place] ARTERIES OF THE EXTREMITIES UNSPECIFIED 01/16/2013 MARC DO, CAIO K 440.20 ATHEROSCLEROSIS OF [place] ARTERIES OF THE EXTREMITIES UNSPECIFIED 01/16/2013 HELLWIG TOWBOAT OPERATOR, LON E 440.20 ATHEROSCLEROSIS OF [place] ARTERIES OF THE EXTREMITIES UNSPECIFIED 01/16/2013 MARC DO, CAIO K 440.20 ATHEROSCLEROSIS OF [place] ARTERIES OF THE EXTREMITIES UNSPECIFIED 01/16/2013 MARC DO, CAIO K 440.20 ATHEROSCLEROSIS OF [place] ARTERIES OF THE EXTREMITIES UNSPECIFIED 01/16/2013 HELLWIG TOWBOAT OPERATOR, LON E 440.20 ATHEROSCLEROSIS OF [place] ARTERIES OF THE EXTREMITIES UNSPECIFIED 01/16/2013 MARC DO, CAIO K 440.20 ATHEROSCLEROSIS OF [place] ARTERIES OF THE EXTREMITIES UNSPECIFIED 01/16/2013 MARC DO, CAIO K 440.20 ATHEROSCLEROSIS OF [place] ARTERIES OF THE EXTREMITIES UNSPECIFIED 01/16/2013 HELLWIG TOWBOAT OPERATOR, LON E 440.20 ATHEROSCLEROSIS OF [place] ARTERIES OF THE EXTREMITIES UNSPECIFIED 01/25/2013 MARC DO, CAIO K 461.0 ACUTE MAXILLARY SINUSITIS 01/25/2013 MARC DO, CAIO K 461.0 ACUTE MAXILLARY SINUSITIS 01/25/2013 MARC DO, CAIO K 461.0 ACUTE MAXILLARY SINUSITIS 01/25/2013 MARC DO, CAIO K 461.0 ACUTE MAXILLARY SINUSITIS 01/25/2013 HELLWIG TOWBOAT OPERATOR, LON E 461.0 ACUTE MAXILLARY SINUSITIS 01/25/2013 MARC DO, CAIO K 461.0 ACUTE MAXILLARY SINUSITIS 01/25/2013 HELLWIG TOWBOAT OPERATOR, LON E 461.0 ACUTE MAXILLARY SINUSITIS 01/25/2013 MARC DO, CAIO K 461.0 ACUTE MAXILLARY SINUSITIS 01/25/2013 MARC DO, CAIO K 461.0 ACUTE MAXILLARY SINUSITIS 01/25/2013 MARC DO, CAIO K 461.0 ACUTE MAXILLARY SINUSITIS 01/25/2013 MARC DO, CAIO K 461.0 ACUTE MAXILLARY SINUSITIS 01/25/2013 HELLWIG TOWBOAT OPERATOR, LON E 461.0 ACUTE MAXILLARY SINUSITIS 01/25/2013 MARC DO, CAIO K 461.0 ACUTE MAXILLARY SINUSITIS 01/25/2013 MARC DO, CAIO K 461.0 ACUTE MAXILLARY SINUSITIS 01/25/2013 HELLWIG TOWBOAT OPERATOR, LON E 461.0 ACUTE MAXILLARY SINUSITIS 01/25/2013 MARC DO, CAIO K 461.0 ACUTE MAXILLARY SINUSITIS 01/25/2013 MARC DO, CAIO K 461.0 ACUTE MAXILLARY SINUSITIS 01/25/2013 HELLWIG TOWBOAT OPERATOR, LON E 461.0 ACUTE MAXILLARY SINUSITIS 02/15/2013 MARC DO, CAIO K 719.45 PAIN IN JOINT INVOLVING PELVIC REGION AND THIGH 02/15/2013 MARC DO, CAIO K 719.45 PAIN IN JOINT INVOLVING PELVIC REGION AND THIGH 02/15/2013 MARC DO, CAIO K 719.45 PAIN IN JOINT INVOLVING PELVIC REGION AND THIGH 02/15/2013 RASHAUN SALAZAR APRNSIE E 719.45 PAIN IN JOINT INVOLVING PELVIC REGION AND THIGH 02/15/2013 MARC DO, CAIO K 719.45 PAIN IN JOINT INVOLVING PELVIC REGION AND THIGH 02/15/2013 JABARIWIG TOWBOAT OPERATORRASHAUNLON E 719.45 PAIN IN JOINT INVOLVING PELVIC REGION AND THIGH 02/15/2013 MARC DO, CAIO K 719.45 PAIN IN JOINT INVOLVING PELVIC REGION AND THIGH 02/15/2013 MARC DO, CAIO K 719.45 PAIN IN JOINT INVOLVING PELVIC REGION AND THIGH 02/15/2013 MARC DO, CAIO K 719.45 PAIN IN JOINT INVOLVING PELVIC REGION AND THIGH 02/15/2013 MARC DO, CAIO K 719.45 PAIN IN JOINT INVOLVING PELVIC REGION AND THIGH 02/15/2013 HELLWIG TOWBOAT OPERATORSWEETIEE E 719.45 PAIN IN JOINT INVOLVING PELVIC REGION AND THIGH 02/15/2013 MACR DO, CAIO K 719.45 PAIN IN JOINT INVOLVING PELVIC REGION AND THIGH 02/15/2013 MARC DO, CAIO K 719.45 PAIN IN JOINT INVOLVING PELVIC REGION AND THIGH 02/15/2013 HELLWIG TOWBOAT OPERATORSWEETIEE E 719.45 PAIN IN JOINT INVOLVING PELVIC REGION AND THIGH 02/15/2013 MARC DO, CAIO K 719.45 PAIN IN JOINT INVOLVING PELVIC REGION AND THIGH 02/15/2013 MARC DO, CAIO K 719.45 PAIN IN JOINT INVOLVING PELVIC REGION AND THIGH 02/15/2013 HELLWIG TOWBOAT OPERATORSWEETIEE E 719.45 PAIN IN JOINT INVOLVING PELVIC REGION AND THIGH 03/12/2013 MARC DO, CAIO K 274.00 GOUTY ARTHROPATHY UNSPECIFIED 03/12/2013 HELLWIG TOWBOAT OPERATORRASHAUN BarajasSIE E 274.00 GOUTY ARTHROPATHY UNSPECIFIED 03/12/2013 MARC DO, CAIO K 274.00 GOUTY ARTHROPATHY UNSPECIFIED 03/12/2013 HELLWIG TOWBOAT OPERATOR, LON E 274.00 GOUTY ARTHROPATHY UNSPECIFIED 03/12/2013 MARC DO, CAIO K 274.00 GOUTY ARTHROPATHY UNSPECIFIED 03/12/2013 MARC DO, CAIO K 274.00 GOUTY ARTHROPATHY UNSPECIFIED 03/12/2013 MARC DO, CAIO K 274.00 GOUTY ARTHROPATHY UNSPECIFIED 03/12/2013 MARC DO, CAIO K 274.00 GOUTY ARTHROPATHY UNSPECIFIED 03/12/2013 HELLWIG TOWBOAT OPERATOR LON E 274.00 GOUTY ARTHROPATHY UNSPECIFIED 03/12/2013 MARC DO, CAIO K 274.00 GOUTY ARTHROPATHY UNSPECIFIED 03/12/2013 MARC DO, CAIO K 274.00 GOUTY ARTHROPATHY UNSPECIFIED 03/12/2013 HELLWIG TOWBOAT OPERATOR LON E 274.00 GOUTY ARTHROPATHY UNSPECIFIED 03/12/2013 MARC DO, CAIO K 274.00 GOUTY ARTHROPATHY UNSPECIFIED 03/12/2013 MARC DO, CAIO K 274.00 GOUTY ARTHROPATHY UNSPECIFIED 03/12/2013 HELLWIG TOWBOAT OPERATOR LON E 274.00 GOUTY ARTHROPATHY UNSPECIFIED 05/02/2013 MARIO MOORE TOE LASTER Ot 785.1 PALPITATIONS 05/02/2013 MARIO MOORE TOE LASTER Ot 786.09 RESPIRATORY ABNORM NEC 07/31/2013 MARC DO, CAIO K 466.0 BRONCHITIS, ACUTE 07/31/2013 MARC DO, CAIO K 787.91 DIARRHEA 07/31/2013 MARC DO, CAIO K 466.0 BRONCHITIS, ACUTE 07/31/2013 MARC DO, CAIO K 787.91 DIARRHEA 07/31/2013 MARC DO, CAIO K 466.0 BRONCHITIS, ACUTE 07/31/2013 MARC DO, CAIO K 787.91 DIARRHEA 07/31/2013 MARC DO, CAIO K 466.0 BRONCHITIS, ACUTE 07/31/2013 MARC DO, CAIO K 787.91 DIARRHEA 07/31/2013 HELLWIG TOWBOAT OPERATOR, LON E 466.0 BRONCHITIS, ACUTE 07/31/2013 HELLWIG TOWBOAT OPERATOR LON E 787.91 DIARRHEA 07/31/2013 MARC DO, CAIO K 466.0 BRONCHITIS, ACUTE 07/31/2013 MARC DO, CAIO K 787.91 DIARRHEA 07/31/2013 MARC DO, CAIO K 466.0 BRONCHITIS, ACUTE 07/31/2013 MARC DO, CAIO K 787.91 DIARRHEA 07/31/2013 HELLWIG TOWBOAT OPERATOR LON E 466.0 BRONCHITIS, ACUTE 07/31/2013 HELLWIG TOWBOAT OPERATOR, LON E 787.91 DIARRHEA 07/31/2013 MARC DO, CAIO K 466.0 BRONCHITIS, ACUTE 07/31/2013 MARC DO, CAIO K 787.91 DIARRHEA 07/31/2013 MARC DO, CAIO K 466.0 BRONCHITIS, ACUTE 07/31/2013 MARC DO, CAIO K 787.91 DIARRHEA 07/31/2013 HELLWIG TOWBOAT OPERATOR, LON E 466.0 BRONCHITIS, ACUTE 07/31/2013 HELLWIG TOWBOAT OPERATOR, LON E 787.91 DIARRHEA 08/14/2013 MARC DO, CAIO K 788.1 DYSURIA 08/14/2013 MARC DO, CAIO K 788.1 DYSURIA 08/14/2013 HELLWIG TOWBOAT OPERATOR, LON E 788.1 DYSURIA 08/14/2013 MARC DO, CAIO K 788.1 DYSURIA 08/14/2013 MARC DO, CAIO K 788.1 DYSURIA 08/14/2013 LON SALAZAR APRN E 788.1 DYSURIA 08/14/2013 MARC DO, CAIO K 788.1 DYSURIA 08/14/2013 MARC DO, CAIO K 788.1 DYSURIA 08/14/2013 LON SALAZAR APRN E 788.1 DYSURIA 08/29/2013 MARC DO, CAIO K 110.1 DERMATOPHYTOSIS OF NAIL 08/29/2013 LON SALAZAR APRN E 110.1 DERMATOPHYTOSIS OF NAIL 08/29/2013 MARC DO, CAIO K 110.1 DERMATOPHYTOSIS OF NAIL 08/29/2013 MARC DO, CAIO K 110.1 DERMATOPHYTOSIS OF NAIL 08/29/2013 LON SALAZAR APRN E 110.1 DERMATOPHYTOSIS OF NAIL 08/29/2013 MARC DO, CAIO K 110.1 DERMATOPHYTOSIS OF NAIL 08/29/2013 MARC DO, CAIO K 110.1 DERMATOPHYTOSIS OF NAIL 08/29/2013 LON SALAZAR APRN E 110.1 DERMATOPHYTOSIS OF NAIL 11/01/2013 MARC DO, CAIO K 781.2 ABNORMALITY OF GAIT 11/01/2013 MARC DO, CAIO K 781.2 ABNORMALITY OF GAIT 11/01/2013 LON SAALZAR APRN E 715.09 OSTEOARTHROSIS GENERALIZED INVOLVING MULTIPLE SITES 11/01/2013 LON SALAZAR APRN E 781.2 ABNORMALITY OF GAIT 11/01/2013 MARC DO, CAIO K 715.09 OSTEOARTHROSIS GENERALIZED INVOLVING MULTIPLE SITES 11/01/2013 MARC DO, CAIO K 781.2 ABNORMALITY OF GAIT 11/01/2013 MARC DO, CAIO K 715.09 OSTEOARTHROSIS GENERALIZED INVOLVING MULTIPLE SITES 11/01/2013 MARC DO, CAIO K 781.2 ABNORMALITY OF GAIT 11/01/2013 LON SALAZAR APRN E 715.09 OSTEOARTHROSIS GENERALIZED INVOLVING MULTIPLE SITES 11/01/2013 LON SALAZAR APRN E 781.2 ABNORMALITY OF GAIT 01/30/2014 MARC DO, CAIO K 381.01 ACUTE SEROUS OTITIS MEDIA 01/30/2014 CAIO MARC DO 381.01 ACUTE SEROUS OTITIS MEDIA 01/30/2014 LON SALAZAR APRN 381.01 ACUTE SEROUS OTITIS MEDIA 04/10/2014 MAXIMO CALI FACC, ALI FACP CCDS Ot 250.00 04/10/2014 MAXIMO CALI FACC, ALI FACP CCDS Ot 272.4 04/10/2014 MAXIMO CALI FACC, ALI FACP CCDS Ot 278.00 04/10/2014 MAXIMO CALI FACC, ALI FACP CCDS Ot 401.9 04/10/2014 MAXIMO MD FACC, ALI FACP CCDS Ot 427.0 04/10/2014 MAXIMO MD FAC, ALI FACP CCDS Ot 729.81 04/10/2014 MAXIMO CALI FAC, ALI FACP CCDS Ot 785.1 04/10/2014 MAXIMO CALI FACC, ALI FACP CCDS Ot 786.05 04/10/2014 MAXIMO CALI FACC, ALI FACP CCDS Ot 786.59 04/10/2014 MAXIMO CALI FAC, ALI FACP CCDS Ot V85.36 05/06/2014 MAXIMO CALI FAC, ALI FACP CCDS Ot 250.00 05/06/2014 MAXIMO CALI FAC, ALI FACP CCDS Ot 272.4 05/06/2014 MAXIMO CALI FAC, ALI FACP CCDS Ot 278.00 05/06/2014 MAXIMO MD FACC, ALI FACP CCDS Ot 401.9 05/06/2014 MAXIMO CALI FACC, ALI FACP CCDS Ot 427.0 05/06/2014 MAXIMO CALI FAC, ALI FACP CCDS Ot 729.81 05/06/2014 MAXIMO MD FAC, ALI FACP CCDS Ot 785.1 05/06/2014 MAXIMO CALI FAC, ALI FACP CCDS Ot 786.05 05/06/2014 MAXIMO CALI FAC, ALI FACP CCDS Ot 786.59 05/06/2014 MAXIMO MD FAC, ALI FACP CCDS Ot V85.36 06/24/2014 LON SALAZAR APRN Ot 719.46 07/15/2014 LON SALAZAR APRN Ot 719.46 03/11/2015 Ot 338.4 03/11/2015 Ot 357.9 03/11/2015 Ot 716.90 03/11/2015 Ot 729.81 03/11/2015 Ot 782.3 03/11/2015 Ot 721.2 03/11/2015 Ot 721.3 03/11/2015 BREA MUÑIZ TOE LASTER Ot 786.05 03/11/2015 MAXIMO CALI FACC, ALI FACP CCDS Ot 250.00 03/11/2015 MAXIMO CALI FACC, ALI FACP CCDS Ot 272.4 03/11/2015 MAXIMO CALI FACC, ALI FACP CCDS Ot 278.00 03/11/2015 MAXIMO CALI FACC, ALI FACP CCDS Ot 786.05 03/11/2015 Ot 785.1 03/11/2015 Ot 786.09 03/11/2015 MAXIMO CALI FACC, ALI FACP CCDS Ot 250.00 03/11/2015 MAXIMO CALI FACC, ALI FACP CCDS Ot 272.4 03/11/2015 MAXIMO CALI FACC, ALI FACP CCDS Ot 278.00 03/11/2015 MAXIMO CALI FACC, ALI FACP CCDS Ot 401.9 03/11/2015 MAXIMO CALI FACC, ALI FACP CCDS Ot 427.0 03/11/2015 MAXIMO CALI FACC, ALI FACP CCDS Ot 729.81 03/11/2015 MAXIMO CALI FACC, ALI FACP CCDS Ot 785.1 03/11/2015 MAXIMO CALI FACC, ALI FACP CCDS Ot 786.05 03/11/2015 MAXIMO CALI FACC, ALI FACP CCDS Ot 786.59 03/11/2015 MAXIMO CALI FACC, ALI FACP CCDS Ot V85.36 03/11/2015 LON SALAZAR APRN Ot 719.46 04/02/2015 LON SALAZAR APRN Ot K82.4 04/02/2015 LON SALAZAR TOWBOAT OPERATOR Ot R10.11 04/03/2015 Ot 338.4 04/03/2015 Ot 357.9 04/03/2015 Ot 716.90 04/03/2015 Ot 729.81 04/03/2015 Ot 782.3 04/03/2015 Ot 721.2 04/03/2015 Ot 721.3 04/03/2015 BREA MUÑIZ TOE LASTER Ot 786.05 04/03/2015 MAXIMO MD FACC, ALI FACP CCDS Ot 250.00 04/03/2015 MAXIMO MD FACC, ALI FACP CCDS Ot 272.4 04/03/2015 MAXIMO MD FACC, ALI FACP CCDS Ot 278.00 04/03/2015 MAXIMO MD FACC, ALI FACP CCDS Ot 786.05 04/03/2015 Ot 785.1 04/03/2015 Ot 786.09 04/03/2015 MAXIMO MD FACC, ALI FACP CCDS Ot 250.00 04/03/2015 MAXIMO MD FACC, ALI FACP CCDS Ot 272.4 04/03/2015 MAXIMO MD FACC, ALI FACP CCDS Ot 278.00 04/03/2015 MAXIMO FACC, ALI FACP CCDS Ot 401.9 04/03/2015 MAXIMO FACC, ALI FACP CCDS Ot 427.0 04/03/2015 MAXIMO MD FAC, ALI FACP CCDS Ot 729.81 04/03/2015 MAXIMO MD FAC, ALI FACP CCDS Ot 785.1 04/03/2015 MAXIMO MD FAC, ALI FACP CCDS Ot 786.05 04/03/2015 MAXIMO MD FAC, ALI FACP CCDS Ot 786.59 04/03/2015 MAXIMO FAC, ALI FACP CCDS Ot V85.36 04/03/2015 LON SALAZAR TOWBOAT OPERATOR Ot 719.46 04/03/2015 LON SALAZAR TOWBOAT OPERATOR Ot K82.4 04/03/2015 RASHAUN SALAZARSIE E TOWBOAT OPERATOR Ot R10.11 04/03/2015 RASHAUN SALAZARSIE E TOWBOAT OPERATOR Ot K82.4 04/03/2015 LON SALAZAR TOWBOAT OPERATOR Ot R10.11 04/18/2015 LON SALAZAR TOWBOAT OPERATOR Ot R93.2 04/24/2015 RASHAUN SALAZARSIE E TOWBOAT OPERATOR Ot R93.2 04/27/2015 LUCIAN FERRER DO Ot G47.33 OBSTRUCTIVE SLEEP APNEA (ADULT) (PEDIATR 04/27/2015 LUCIAN FERRER DO Ot I10 ESSENTIAL (PRIMARY) HYPERTENSION 04/27/2015 LUCIAN FERRER DO Ot I47.1 SUPRAVENTRICULAR TACHYCARDIA 04/27/2015 LUCIAN FERRER DO Ot R00.2 PALPITATIONS 04/27/2015 LUCIAN FERRER DO Ot R06.02 SHORTNESS OF BREATH 04/27/2015 LUCIAN FERRER DO Ot R06.83 SNORING 04/28/2015 LUCIAN FERRER DO Ot E66.09 04/28/2015 LUCIAN FERRER DO Ot I10 04/28/2015 LUCIAN FERRER DO Ot I47.1 04/28/2015 LUCIAN FERRER DO Ot R00.2 04/28/2015 LUCIAN FERRER DO Ot R06.02 07/17/2015 HELLON BYRD TOWBOAT OPERATOR Ot R93.2 ABNORMAL FINDINGS ON DX IMAGING OF LIVER 07/17/2015 LUCIAN FERRER DO Ot E66.09 OTHER OBESITY DUE TO EXCESS CALORIES 07/17/2015 LUCIAN FERRER DO Ot I10 ESSENTIAL (PRIMARY) HYPERTENSION 07/17/2015 LUCIAN FERRER DO Ot I47.1 SUPRAVENTRICULAR TACHYCARDIA 07/17/2015 LUCIAN FERRER DO Ot R00.2 PALPITATIONS 07/17/2015 LUCIAN FERRER DO Ot R06.02 SHORTNESS OF BREATH 07/17/2015 HELLMARTIN, LON E TOWBOAT OPERATOR Ot K82.4 CHOLESTEROLOSIS OF GALLBLADDER 07/17/2015 HELLMARTIN, LON E TOWBOAT OPERATOR Ot R10.11 RIGHT UPPER QUADRANT PAIN 08/14/2015 HELLMARTIN, LON E TOWBOAT OPERATOR Ot K82.4 CHOLESTEROLOSIS OF GALLBLADDER 08/14/2015 HELLWIG, LON E TOWBOAT OPERATOR Ot R10.11 RIGHT UPPER QUADRANT PAIN 08/14/2015 LUCIAN FERRER DO Ot E66.09 OTHER OBESITY DUE TO EXCESS CALORIES 08/14/2015 LUCIAN FERRER DO Ot I10 ESSENTIAL (PRIMARY) HYPERTENSION 08/14/2015 LUCIAN FERRER DO Ot I47.1 SUPRAVENTRICULAR TACHYCARDIA 08/14/2015 LUCIAN FERRER DO Ot R00.2 PALPITATIONS 08/14/2015 LUCIAN FERRER DO Ot R06.02 SHORTNESS OF BREATH 08/14/2015 LON SALAZAR APRN Ot R93.2 ABNORMAL FINDINGS ON DX IMAGING OF LIVER 03/06/2016 Ot 721.2 THORACIC SPONDYLOSIS 03/06/2016 Ot 721.3 LUMBOSACRAL SPONDYLOSIS 03/06/2016 BREA MUÑIZ TOE LASTER Ot 786.05 SHORTNESS OF BREATH 03/06/2016 MAXIMO CALI FACC, ALI FACP CCDS Ot 250.00 DIAB MARISSA WO COMPL, TYPE II OR UNSPEC TY 03/06/2016 MAXIMO CALI FACC, ALI FACP CCDS Ot 272.4 HYPERLIPIDEMIA NEC/NOS 03/06/2016 MAXIMO CALI FACC, ALI FACP CCDS Ot 278.00 OBESITY, NOS 03/06/2016 MAXIMO CALI FACC, ALI FACP CCDS Ot 786.05 SHORTNESS OF BREATH 03/06/2016 Ot 785.1 PALPITATIONS 03/06/2016 Ot 786.09 RESPIRATORY ABNORM NEC 03/06/2016 MAXIMO CALI FACC, ALI FACP CCDS Ot 250.00 DIAB MARISSA WO COMPL, TYPE II OR UNSPEC TY 03/06/2016 MAXIMO CALI FACNate, ALI FACP CCDS Ot 272.4 HYPERLIPIDEMIA NEC/NOS 03/06/2016 MAXIMO CALI FACC, ALI FACP CCDS Ot 278.00 OBESITY, NOS 03/06/2016 MAXIMO CALI FACC, ALI FACP CCDS Ot 401.9 HYPERTENSION NOS 03/06/2016 MAXIMO CALI FACC, ALI FACP CCDS Ot 427.0 PAROX ATRIAL TACHYCARDIA 03/06/2016 MAXIMO CALI FACC, ALI FACP CCDS Ot 729.81 SWELLING OF LIMB 03/06/2016 AMXIMO CALI FACC, ALI FACP CCDS Ot 785.1 PALPITATIONS 03/06/2016 MAXIMO CALI FACC, ALI FACP CCDS Ot 786.05 SHORTNESS OF BREATH 03/06/2016 MAXIMO CALI FACC, ALI FACP CCDS Ot 786.59 CHEST PAIN NEC 03/06/2016 MAXIMO CALI FACC, ALI FACP CCDS Ot V85.36 BODY MASS INDEX 36.0-36.9, ADULT 03/06/2016 LON SALAZAR APRN Ot 719.46 JOINT PAIN-L/LEG 03/06/2016 LON SALAZAR APRN Ot K82.4 CHOLESTEROLOSIS OF GALLBLADDER 03/06/2016 HELLWIG, LON E TOWBOAT OPERATOR Ot R10.11 RIGHT UPPER QUADRANT PAIN 03/06/2016 CARISSA JIM LUCIAN Alcazar Ot E66.09 OTHER OBESITY DUE TO EXCESS CALORIES 03/06/2016 CARISSA LUCIAN Ot I10 ESSENTIAL (PRIMARY) HYPERTENSION 03/06/2016 CARISSA JIM LUCIAN M Ot I47.1 SUPRAVENTRICULAR TACHYCARDIA 03/06/2016 LUCIAN FERRER DO Ot R00.2 PALPITATIONS 03/06/2016 LUCIAN FERRER DO Ot R06.02 SHORTNESS OF BREATH 03/06/2016 LON SALAZAR TOWBOAT OPERATOR Ot R93.2 ABNORMAL FINDINGS ON DX IMAGING OF LIVER 03/06/2016 WARREN DO, ELIEZER K Ot E11.9 TYPE 2 DIABETES MELLITUS WITHOUT COMPLIC 03/06/2016 WARREN DO, ELIEZER K Ot F41.9 ANXIETY DISORDER, UNSPECIFIED 03/06/2016 WARREN DO, ELIEZER K Ot I10 ESSENTIAL (PRIMARY) HYPERTENSION 03/06/2016 WARREN DO, ELIEZER K Ot I25.10 ATHSCL HEART DISEASE OF [place] CORONARY 03/06/2016 WARREN DO, ELIEZER K Ot Z79.82 OUTSIDE PHYSICAL DAMAGE APPRAISER (CURRENT) USE OF ASPIRIN 03/06/2016 WARREN DO, ELIEZER K Ot Z79.84 CARE HOME (CURRENT) USE OF ORAL HYPOGLYC 03/06/2016 WARREN DO, ELIEZER K Ot Z79.899 OTHER OUTSIDE PHYSICAL DAMAGE APPRAISER (CURRENT) DRUG THERAPY 03/09/2016 WARREN DO, ELIEZER K Ot E11.9 TYPE 2 DIABETES MELLITUS WITHOUT COMPLIC 03/09/2016 WARREN DO, ELIEZER K Ot F41.9 ANXIETY DISORDER, UNSPECIFIED 03/09/2016 WARREN DO, ELIEZER K Ot I10 ESSENTIAL (PRIMARY) HYPERTENSION 03/09/2016 WARREN DO, ELIEZER K Ot I25.10 ATHSCL HEART DISEASE OF [place] CORONARY 03/09/2016 WARREN DO, ELIEZER K Ot Z79.82 CARE HOME (CURRENT) USE OF ASPIRIN 03/09/2016 WARREN DO, ELIEZER K Ot Z79.84 CARE HOME (CURRENT) USE OF ORAL HYPOGLYC 03/09/2016 WARREN DO, ELIEZER K Ot Z79.899 OTHER OUTSIDE PHYSICAL DAMAGE APPRAISER (CURRENT) DRUG THERAPY 04/20/2016 NEGRO HAAS TOWBOAT OPERATOR Ot E11.9 TYPE 2 DIABETES MELLITUS WITHOUT COMPLIC 04/20/2016 NEGRO HAAS APRN Ot I10 ESSENTIAL (PRIMARY) HYPERTENSION 04/20/2016 NEGRO HAAS APRN Ot I25.10 ATHSCL HEART DISEASE OF [place] CORONARY 04/20/2016 NEGRO HAAS APRN Ot M17.12 UNILATERAL PRIMARY OSTEOARTHRITIS, LEFT 04/20/2016 NEGRO HAAS APRN Ot M25.462 EFFUSION, LEFT KNEE 04/20/2016 NEGRO HAAS APRN Ot M79.662 PAIN IN LEFT LOWER LEG 04/20/2016 NEGRO HAAS APRN Ot Z79.82 CARE HOME (CURRENT) USE OF ASPIRIN 04/20/2016 NEGRO HAAS APRN Ot Z79.84 CARE HOME (CURRENT) USE OF ORAL HYPOGLYC 04/20/2016 NEGRO HAAS APRN Ot Z79.899 OTHER OUTSIDE PHYSICAL DAMAGE APPRAISER (CURRENT) DRUG THERAPY 04/20/2016 NEGRO HAAS APRN Ot Z86.718 PERSONAL HISTORY OF OTHER VENOUS THROMBO 04/21/2016 NEGRO HAAS APRN Ot E11.9 TYPE 2 DIABETES MELLITUS WITHOUT COMPLIC 04/21/2016 NEGRO HAAS APRN Ot I10 ESSENTIAL (PRIMARY) HYPERTENSION 04/21/2016 NEGRO HAAS APRN Ot I25.10 ATHSCL HEART DISEASE OF [place] CORONARY 04/21/2016 NEGRO HAAS APRN Ot M17.12 UNILATERAL PRIMARY OSTEOARTHRITIS, LEFT 04/21/2016 NEGRO HAAS APRN Ot M25.462 EFFUSION, LEFT KNEE 04/21/2016 NEGRO HAAS APRN Ot M79.662 PAIN IN LEFT LOWER LEG 04/21/2016 NEGRO HAAS APRN Ot Z79.82 OUTSIDE PHYSICAL DAMAGE APPRAISER (CURRENT) USE OF ASPIRIN 04/21/2016 NEGRO HAAS APRN Ot Z79.84 OUTSIDE PHYSICAL DAMAGE APPRAISER (CURRENT) USE OF ORAL HYPOGLYC 04/21/2016 NEGRO HAAS APRN Ot Z79.899 OTHER OUTSIDE PHYSICAL DAMAGE APPRAISER (CURRENT) DRUG THERAPY 04/21/2016 NEGRO HAAS APRN Ot Z86.718 PERSONAL HISTORY OF OTHER VENOUS THROMBO 04/26/2016 NEGRO HAAS APRN Ot E11.9 TYPE 2 DIABETES MELLITUS WITHOUT COMPLIC 04/26/2016 NEGRO HAAS APRN Ot I10 ESSENTIAL (PRIMARY) HYPERTENSION 04/26/2016 NEGRO HAAS APRN Ot I25.10 ATHSCL HEART DISEASE OF [place] CORONARY 04/26/2016 NEGRO HAAS APRN Ot M17.12 UNILATERAL PRIMARY OSTEOARTHRITIS, LEFT 04/26/2016 NEGRO HAAS APRN Ot M25.462 EFFUSION, LEFT KNEE 04/26/2016 NEGRO HAAS APRN Ot M79.662 PAIN IN LEFT LOWER LEG 04/26/2016 NEGRO HAAS APRN Ot Z79.82 OUTSIDE PHYSICAL DAMAGE APPRAISER (CURRENT) USE OF ASPIRIN 04/26/2016 NEGRO HAAS TOWBOAT OPERATOR Ot Z79.84 OUTSIDE PHYSICAL DAMAGE APPRAISER (CURRENT) USE OF ORAL HYPOGLYC 04/26/2016 NEGRO HAAS APRN Ot Z79.899 OTHER OUTSIDE PHYSICAL DAMAGE APPRAISER (CURRENT) DRUG THERAPY 04/26/2016 NEGRO HAAS APRN Ot Z86.718 PERSONAL HISTORY OF OTHER VENOUS THROMBO 04/29/2016 Ot 721.2 THORACIC SPONDYLOSIS 04/29/2016 Ot 721.3 LUMBOSACRAL SPONDYLOSIS 04/29/2016 BREA MUÑIZ TOE LASTER Ot 786.05 SHORTNESS OF BREATH 04/29/2016 MAXIMO CALI FACC, ALI FACP CCDS Ot 250.00 DIAB MARISSA WO COMPL, TYPE II OR UNSPEC TY 04/29/2016 MAXIMO CALI FACC, ALI FACP CCDS Ot 272.4 HYPERLIPIDEMIA NEC/NOS 04/29/2016 MAXIMO CALI FACC, ALI FACP CCDS Ot 278.00 OBESITY, NOS 04/29/2016 MAXIMO CALI FACC, ALI FACP CCDS Ot 786.05 SHORTNESS OF BREATH 04/29/2016 Ot 785.1 PALPITATIONS 04/29/2016 Ot 786.09 RESPIRATORY ABNORM NEC 04/29/2016 MAXIMO SCHNEIDERC, ALI FACP CCDS Ot 250.00 DIAB MARISSA WO COMPL, TYPE II OR UNSPEC TY 04/29/2016 MAXIMO CALI FACC, ALI FACP CCDS Ot 272.4 HYPERLIPIDEMIA NEC/NOS 04/29/2016 MAXIMO CALI FACC, ALI FACP CCDS Ot 278.00 OBESITY, NOS 04/29/2016 MAXIMO CALI FACC, ALI FACP CCDS Ot 401.9 HYPERTENSION NOS 04/29/2016 MAXIMO CALI FACC, ALI FACP CCDS Ot 427.0 PAROX ATRIAL TACHYCARDIA 04/29/2016 MAXIMO CALI FACC, ALI FACP CCDS Ot 729.81 SWELLING OF LIMB 04/29/2016 MAXIMO CALI FACC, PEDRO FACP CCDS Ot 785.1 PALPITATIONS 04/29/2016 MAXIMO CALI FACC, PEDRO FACP CCDS Ot 786.05 SHORTNESS OF BREATH 04/29/2016 MAXIMO CALI FACC, PEDRO FACP CCDS Ot 786.59 CHEST PAIN NEC 04/29/2016 MAXIMO CALI FACC, PEDRO FACP CCDS Ot V85.36 BODY MASS INDEX 36.0-36.9, ADULT 04/29/2016 LON SALAZAR TOWBOAT OPERATOR Ot 719.46 JOINT PAIN-L/LEG 04/29/2016 LON SALAZAR TOWBOAT OPERATOR Ot K82.4 CHOLESTEROLOSIS OF GALLBLADDER 04/29/2016 LON SALAZAR TOWBOAT OPERATOR Ot R10.11 RIGHT UPPER QUADRANT PAIN 04/29/2016 LUCIAN FERRER DO Ot E66.09 OTHER OBESITY DUE TO EXCESS CALORIES 04/29/2016 LUCIAN FERRER DO Ot I10 ESSENTIAL (PRIMARY) HYPERTENSION 04/29/2016 LUCIAN FERRER DO Ot I47.1 SUPRAVENTRICULAR TACHYCARDIA 04/29/2016 LUCIAN FERRER DO Ot R00.2 PALPITATIONS 04/29/2016 LUICAN FERRER DO Ot R06.02 SHORTNESS OF BREATH 04/29/2016 LON SALAZAR TOWBOAT OPERATOR Ot R93.2 ABNORMAL FINDINGS ON DX IMAGING OF LIVER 05/07/2016 NAHUN PEREZ DO Ot M23.8X2 OTHER INTERNAL DERANGEMENTS OF LEFT KNEE 05/10/2016 NAHUN PEREZ DO Ot M23.8X2 OTHER INTERNAL DERANGEMENTS OF LEFT KNEE 05/10/2016 NAHUN PEREZ DO Ot M23.8X2 OTHER INTERNAL DERANGEMENTS OF LEFT KNEE 05/28/2016 NAHUN PEREZ DO Ot M23.8X2 OTHER INTERNAL DERANGEMENTS OF LEFT KNEE 07/09/2016 MAXIMO CALI FACC, PEDRO FACP CCDS Ot I73.9 PERIPHERAL VASCULAR DISEASE, UNSPECIFIED 07/13/2016 Ot 721.2 THORACIC SPONDYLOSIS 07/13/2016 Ot 721.3 LUMBOSACRAL SPONDYLOSIS 07/13/2016 BREA MUÑIZ TOE LASTER Ot 786.05 SHORTNESS OF BREATH 07/13/2016 MAXIMO MD FACC, ALI FACP CCDS Ot 250.00 DIAB MARISSA WO COMPL, TYPE II OR UNSPEC TY 07/13/2016 MAXIMO CALI FACC, ALI FACP CCDS Ot 272.4 HYPERLIPIDEMIA NEC/NOS 07/13/2016 MAXIMO CALI FACC, ALI FACP CCDS Ot 278.00 OBESITY, NOS 07/13/2016 MAXIMO CALI FACC, ALI FACP CCDS Ot 786.05 SHORTNESS OF BREATH 07/13/2016 Ot 785.1 PALPITATIONS 07/13/2016 Ot 786.09 RESPIRATORY ABNORM NEC 07/13/2016 MAXIMO CALI FACC, ALI FACP CCDS Ot 250.00 DIAB MARISSA WO COMPL, TYPE II OR UNSPEC TY 07/13/2016 MAXIMO CALI FACC, ALI FACP CCDS Ot 272.4 HYPERLIPIDEMIA NEC/NOS 07/13/2016 MAXIMO CALI FACC, ALI FACP CCDS Ot 278.00 OBESITY, NOS 07/13/2016 MAXIMO SCHNEIDERC, ALI FACP CCDS Ot 401.9 HYPERTENSION NOS 07/13/2016 MAXIMO CALI FACC, ALI FACP CCDS Ot 427.0 PAROX ATRIAL TACHYCARDIA 07/13/2016 MAXMIO CALI FACC, ALI FACP CCDS Ot 729.81 SWELLING OF LIMB 07/13/2016 MAXIMO CALI FACC, ALI FACP CCDS Ot 785.1 PALPITATIONS 07/13/2016 MAXIMO CALI FACC, ALI FACP CCDS Ot 786.05 SHORTNESS OF BREATH 07/13/2016 MAXIMO CALI FACC, ALI FACP CCDS Ot 786.59 CHEST PAIN NEC 07/13/2016 MAXIMO CALI FACC, ALI FACP CCDS Ot V85.36 BODY MASS INDEX 36.0-36.9, ADULT 07/13/2016 LON SALAZAR APRN Ot 719.46 JOINT PAIN-L/LEG 07/13/2016 LON SALAZAR APRN Ot K82.4 CHOLESTEROLOSIS OF GALLBLADDER 07/13/2016 LON SALAZAR APRN Ot R10.11 RIGHT UPPER QUADRANT PAIN 07/13/2016 LUCIAN FERRER DO Ot E66.09 OTHER OBESITY DUE TO EXCESS CALORIES 07/13/2016 LUCIAN FERRER DO Ot I10 ESSENTIAL (PRIMARY) HYPERTENSION 07/13/2016 LUCIAN FERRER DO Ot I47.1 SUPRAVENTRICULAR TACHYCARDIA 07/13/2016 CARISSA LUCIAN JIM Ot R00.2 PALPITATIONS 07/13/2016 CARISSA LUCIAN JIM Ot R06.02 SHORTNESS OF BREATH 07/13/2016 LON SALAZAR APRN Ot R93.2 ABNORMAL FINDINGS ON DX IMAGING OF LIVER 07/13/2016 NAHUN PEREZ DO Ot M23.8X2 OTHER INTERNAL DERANGEMENTS OF LEFT KNEE 07/13/2016 MAXIMO CALI FACC, ALI FACP CCDS Ot I73.9 PERIPHERAL VASCULAR DISEASE, UNSPECIFIED 07/13/2016 MAXIMO CALI FACC, ALI FACP CCDS Ot I73.9 PERIPHERAL VASCULAR DISEASE, UNSPECIFIED 07/14/2016 MAXIMO CALI FACC, ALI FACP CCDS Ot E11.9 TYPE 2 DIABETES MELLITUS WITHOUT COMPLIC 07/14/2016 MAXIMO CALI FACC, ALI FACP CCDS Ot E78.4 OTHER HYPERLIPIDEMIA 07/14/2016 MAXIMO CALI FACC, ALI FACP CCDS Ot I10 ESSENTIAL (PRIMARY) HYPERTENSION 07/14/2016 MAXIMO CALI FACC, PEDRO FACP CCDS Ot I73.9 PERIPHERAL VASCULAR DISEASE, UNSPECIFIED 07/14/2016 MAXIMO CALI FACC, PEDRO FACP CCDS Ot R06.02 SHORTNESS OF BREATH 07/16/2016 MAXIMO CALI FACC, PEDRO FACP CCDS Ot E11.9 TYPE 2 DIABETES MELLITUS WITHOUT COMPLIC 07/16/2016 MAXIMO CALI FACC, ALI FACP CCDS Ot E78.4 OTHER HYPERLIPIDEMIA 07/16/2016 MAXIMO CALI FACC, ALI FACP CCDS Ot I10 ESSENTIAL (PRIMARY) HYPERTENSION 07/16/2016 MAXIMO CALI FACC, PEDRO FACP CCDS Ot I73.9 PERIPHERAL VASCULAR DISEASE, UNSPECIFIED 07/16/2016 PEDRO MARSH MD, FACC FACP CCDS Ot R06.02 SHORTNESS OF BREATH 07/16/2016 MAXIMO CALI FACC, PEDRO FACP CCDS Ot E11.9 TYPE 2 DIABETES MELLITUS WITHOUT COMPLIC 07/16/2016 MAXIMO CALI FACC, ALI FACP CCDS Ot E78.4 OTHER HYPERLIPIDEMIA 07/16/2016 MAXIMO CALI FACC, ALI FACP CCDS Ot I10 ESSENTIAL (PRIMARY) HYPERTENSION 07/16/2016 MAXIMO CALI FACC, ALI FACP CCDS Ot I73.9 PERIPHERAL VASCULAR DISEASE, UNSPECIFIED 07/16/2016 MAXIMO SCHNEIDER, ALI FACP CCDS Ot R06.02 SHORTNESS OF BREATH 07/16/2016 MAXIMO CALI FACC, ALI FACP CCDS Ot E11.9 TYPE 2 DIABETES MELLITUS WITHOUT COMPLIC 07/16/2016 MAXIMO SCHNEIDERC, ALI FACP CCDS Ot E78.4 OTHER HYPERLIPIDEMIA 07/16/2016 MAXIMO SCHNEIDERC, ALI FACP CCDS Ot I10 ESSENTIAL (PRIMARY) HYPERTENSION 07/16/2016 MAXIMO SCHNEIDERC, ALI FACP CCDS Ot I73.9 PERIPHERAL VASCULAR DISEASE, UNSPECIFIED 07/16/2016 MAXIMO SCHNEIDERC, ALI FACP CCDS Ot R06.02 SHORTNESS OF BREATH 08/03/2016 MAXIMO CALI FACC, ALI FACP CCDS Ot E11.9 TYPE 2 DIABETES MELLITUS WITHOUT COMPLIC 08/03/2016 MAXIMO CALI FACC, ALI FACP CCDS Ot E78.4 OTHER HYPERLIPIDEMIA 08/03/2016 MAXIMO CALI FACC, ALI FACP CCDS Ot I10 ESSENTIAL (PRIMARY) HYPERTENSION 08/03/2016 MAXIMO SCHNEIDER, ALI FACP CCDS Ot I73.9 PERIPHERAL VASCULAR DISEASE, UNSPECIFIED 08/03/2016 MAXIMO SCHNEIDER, ALI FACP CCDS Ot R06.02 SHORTNESS OF BREATH 08/10/2016 MAXIMO CALI FACC, ALI FACP CCDS Ot E11.9 TYPE 2 DIABETES MELLITUS WITHOUT COMPLIC 08/10/2016 MAXIMO SCHNEIDER, ALI FACP CCDS Ot E78.4 OTHER HYPERLIPIDEMIA 08/10/2016 MAXIMO CALI FACC, ALI FACP CCDS Ot I10 ESSENTIAL (PRIMARY) HYPERTENSION 08/10/2016 MAXIMO SCHNEIDER, ALI FACP CCDS Ot I73.9 PERIPHERAL VASCULAR DISEASE, UNSPECIFIED 08/10/2016 MAXIMO CALI FACC, ALI FACP CCDS Ot R06.02 SHORTNESS OF BREATH 09/12/2016 RYANN ARGUETA MD Ot E11.40 TYPE 2 DIABETES MELLITUS WITH DIABETIC N 09/12/2016 RYANN ARGUETA MD Ot E78.00 PURE HYPERCHOLESTEROLEMIA, UNSPECIFIED 09/12/2016 RYANN ARGUETA MD Ot I10 ESSENTIAL (PRIMARY) HYPERTENSION 09/12/2016 RYANN ARGUETA MD Ot I25.10 ATHSCL HEART DISEASE OF [place] CORONARY 09/12/2016 RYANN ARGUETA MD, Ot02.9 ACUTE PHARYNGITIS, UNSPECIFIED 09/12/2016 RYANN ARGUETA MD Ot J45.909 UNSPECIFIED ASTHMA, UNCOMPLICATED 09/12/2016 RYANN ARGUETA MD Ot K21.9 GASTRO-ESOPHAGEAL REFLUX DISEASE WITHOUT 09/12/2016 RYANN ARGUETA MD Ot M47.9 SPONDYLOSIS, UNSPECIFIED 09/12/2016 RYANN ARGUETA MD Ot R07.0 PAIN IN THROAT 09/12/2016 RYANN ARGUETA MD Ot R60.9 EDEMA, UNSPECIFIED 09/12/2016 RYANN ARGUETA MD Ot Z79.82 CARE HOME (CURRENT) USE OF ASPIRIN 09/12/2016 RYANN ARGUETA MD Ot Z79.84 CARE HOME (CURRENT) USE OF ORAL HYPOGLYC 09/12/2016 RYANN ARGUETA MD Ot Z86.718 PERSONAL HISTORY OF OTHER VENOUS THROMBO 09/12/2016 RYANN ARGUETA MD Ot Z98.890 OTHER SPECIFIED POSTPROCEDURAL STATES 09/12/2016 RYANN ARGUETA MD Ot Z99.81 DEPENDENCE ON SUPPLEMENTAL OXYGEN 09/14/2016 RYANN ARGUETA MD Ot E11.40 TYPE 2 DIABETES MELLITUS WITH DIABETIC N 09/14/2016 RYANN ARGUETA MD Ot E78.00 PURE HYPERCHOLESTEROLEMIA, UNSPECIFIED 09/14/2016 RYANN ARGUETA MD Ot I10 ESSENTIAL (PRIMARY) HYPERTENSION 09/14/2016 RYANN ARGUETA MD Ot I25.10 ATHSCL HEART DISEASE OF [place] CORONARY 09/14/2016 RYANN ARGUETA MD Ot J02.9 ACUTE PHARYNGITIS, UNSPECIFIED 09/14/2016 RYANN ARGUETA MD Ot J45.909 UNSPECIFIED ASTHMA, UNCOMPLICATED 09/14/2016 RYANN ARGUETA MD Ot K21.9 GASTRO-ESOPHAGEAL REFLUX DISEASE WITHOUT 09/14/2016 RYANN ARGUETA MD Ot M47.9 SPONDYLOSIS, UNSPECIFIED 09/14/2016 RYANN ARGUETA MD Ot R07.0 PAIN IN THROAT 09/14/2016 RYANN ARGUETA MD Ot R60.9 EDEMA, UNSPECIFIED 09/14/2016 RYANN ARGUETA MD Ot Z79.82 CARE HOME (CURRENT) USE OF ASPIRIN 09/14/2016 RYANN ARGUETA MD Ot Z79.84 OUTSIDE PHYSICAL DAMAGE APPRAISER (CURRENT) USE OF ORAL HYPOGLYC 09/14/2016 RYANN ARGUETA MD Ot Z86.718 PERSONAL HISTORY OF OTHER VENOUS THROMBO 09/14/2016 RYANN ARGUETA MD Ot Z98.890 OTHER SPECIFIED POSTPROCEDURAL STATES 09/14/2016 RYANN ARGUETA MD Ot Z99.81 DEPENDENCE ON SUPPLEMENTAL OXYGEN 09/22/2016 Ot 721.2 THORACIC SPONDYLOSIS 09/22/2016 Ot 721.3 LUMBOSACRAL SPONDYLOSIS 09/22/2016 BREA MUÑIZ TOE LASTER Ot 786.05 SHORTNESS OF BREATH 09/22/2016 MAXIMO CALI FACC, ALI FACP CCDS Ot 250.00 DIAB MARISSA WO COMPL, TYPE II OR UNSPEC TY 09/22/2016 MAXIMO CALI FACC, ALI FACP CCDS Ot 272.4 HYPERLIPIDEMIA NEC/NOS 09/22/2016 MAXIMO CALI FACC, ALI FACP CCDS Ot 278.00 OBESITY, NOS 09/22/2016 MAXIMO CALI FACC, ALI FACP CCDS Ot 786.05 SHORTNESS OF BREATH 09/22/2016 Ot 785.1 PALPITATIONS 09/22/2016 Ot 786.09 RESPIRATORY ABNORM NEC 09/22/2016 MAXIMO CALI FACC, ALI FACP CCDS Ot 250.00 DIAB MARISSA WO COMPL, TYPE II OR UNSPEC TY 09/22/2016 MAXIMO CALI FACC, ALI FACP CCDS Ot 272.4 HYPERLIPIDEMIA NEC/NOS 09/22/2016 MAXIMO CALI FACC, ALI FACP CCDS Ot 278.00 OBESITY, NOS 09/22/2016 MAXIMO CALI FACC, ALI FACP CCDS Ot 401.9 HYPERTENSION NOS 09/22/2016 MAXIMO CALI FACC, ALI FACP CCDS Ot 427.0 PAROX ATRIAL TACHYCARDIA 09/22/2016 MAXIMO CALI FACC, ALI FACP CCDS Ot 729.81 SWELLING OF LIMB 09/22/2016 MAXIMO CALI FACC, ALI FACP CCDS Ot 785.1 PALPITATIONS 09/22/2016 MAXIMO CALI FACC, ALI FACP CCDS Ot 786.05 SHORTNESS OF BREATH 09/22/2016 MAXIMO CALI FACC, ALI FACP CCDS Ot 786.59 CHEST PAIN NEC 09/22/2016 MAXIMO CALI FACC, ALI FACP CCDS Ot V85.36 BODY MASS INDEX 36.0-36.9, ADULT 09/22/2016 LON SALAZAR APRN Ot 719.46 JOINT PAIN-L/LEG 09/22/2016 LON SALAZAR APRN Ot K82.4 CHOLESTEROLOSIS OF GALLBLADDER 09/22/2016 LON SALAZAR APRN Ot R10.11 RIGHT UPPER QUADRANT PAIN 09/22/2016 LUCIAN FERRER DO Ot E66.09 OTHER OBESITY DUE TO EXCESS CALORIES 09/22/2016 LUCIAN FERRER DO Ot I10 ESSENTIAL (PRIMARY) HYPERTENSION 09/22/2016 LUCIAN FERRER DO Ot I47.1 SUPRAVENTRICULAR TACHYCARDIA 09/22/2016 LUCIAN FERRER DO Ot R00.2 PALPITATIONS 09/22/2016 LUCIAN FERRER DO Ot R06.02 SHORTNESS OF BREATH 09/22/2016 LON SALAZAR APRN Ot R93.2 ABNORMAL FINDINGS ON DX IMAGING OF LIVER 09/22/2016 NAHUN PEREZ DO Ot M23.8X2 OTHER INTERNAL DERANGEMENTS OF LEFT KNEE 09/22/[address] [facility], ALI FACP CCDS Ot E11.9 TYPE 2 DIABETES MELLITUS WITHOUT COMPLIC 09/22/2016 MAXIMO SCHNEIDER, ALI FACP CCDS Ot E78.4 OTHER HYPERLIPIDEMIA 09/22/[address] [facility], ALI FACP CCDS Ot I10 ESSENTIAL (PRIMARY) HYPERTENSION 09/22/2016 MAXIMO SCHNEIDER, ALI FACP CCDS Ot I73.9 PERIPHERAL VASCULAR DISEASE, UNSPECIFIED 09/22/[address] [facility], ALI FACP CCDS Ot R06.02 SHORTNESS OF BREATH 09/23/2016 DEGRAFFENREID-TALAVERA, BRII L Ot E04.2 NONTOXIC MULTINODULAR GOITER 10/13/2016 DEGRAFFENREID-TALAVERA, BRII L Ot E04.2 NONTOXIC MULTINODULAR GOITER 10/28/2016 DEGRAFFENREID-TALAVERA, BRII L Ot E04.2 NONTOXIC MULTINODULAR GOITER 11/08/2016 Ot 721.2 THORACIC SPONDYLOSIS 11/08/2016 Ot 721.3 LUMBOSACRAL SPONDYLOSIS 11/08/2016 BREA MUÑIZ TOE LASTER Ot 786.05 SHORTNESS OF BREATH 11/08/2016 MAXIMO CALI FACC, ALI FACP CCDS Ot 250.00 DIAB MARISSA WO COMPL, TYPE II OR UNSPEC TY 11/08/2016 MAXIMO CALI FACC, ALI FACP CCDS Ot 272.4 HYPERLIPIDEMIA NEC/NOS 11/08/2016 MAXIMO CALI FACC, ALI FACP CCDS Ot 278.00 OBESITY, NOS 11/08/2016 MAXIMO CALI FACC, ALI FACP CCDS Ot 786.05 SHORTNESS OF BREATH 11/08/2016 Ot 785.1 PALPITATIONS 11/08/2016 Ot 786.09 RESPIRATORY ABNORM NEC 11/08/2016 MAXIMO CALI FACC, ALI FACP CCDS Ot 250.00 DIAB MARISSA WO COMPL, TYPE II OR UNSPEC TY 11/08/2016 MAXIMO CALI FACC, ALI FACP CCDS Ot 272.4 HYPERLIPIDEMIA NEC/NOS 11/08/2016 MAXIMO CALI FACC, ALI FACP CCDS Ot 278.00 OBESITY, NOS 11/08/2016 MAXIMO CALI FACC, ALI FACP CCDS Ot 401.9 HYPERTENSION NOS 11/08/2016 MAXIMO CALI FACC, ALI FACP CCDS Ot 427.0 PAROX ATRIAL TACHYCARDIA 11/08/2016 MAXIMO CALI FACC, ALI FACP CCDS Ot 729.81 SWELLING OF LIMB 11/08/2016 MAXIMO CLAI FACC, ALI FACP CCDS Ot 785.1 PALPITATIONS 11/08/2016 MAXIMO CALI FAC, ALI FACP CCDS Ot 786.05 SHORTNESS OF BREATH 11/08/2016 MAXIMO SCHNEIDER, ALI FACP CCDS Ot 786.59 CHEST PAIN NEC 11/08/2016 MAXIMO SCHNEIDER, ALI FACP CCDS Ot V85.36 BODY MASS INDEX 36.0-36.9, ADULT 11/08/2016 LON SALAZAR TOWBOAT OPERATOR Ot 719.46 JOINT PAIN-L/LEG 11/08/2016 LON SALAZAR TOWBOAT OPERATOR Ot K82.4 CHOLESTEROLOSIS OF GALLBLADDER 11/08/2016 LON SALAZAR TOWBOAT OPERATOR Ot R10.11 RIGHT UPPER QUADRANT PAIN 11/08/2016 LUCIAN FERRER DO Ot E66.09 OTHER OBESITY DUE TO EXCESS CALORIES 11/08/2016 LUCIAN FERRER DO Ot I10 ESSENTIAL (PRIMARY) HYPERTENSION 11/08/2016 LUCIAN FERRER DO Ot I47.1 SUPRAVENTRICULAR TACHYCARDIA 11/08/2016 LUCIAN FERRER DO Ot R00.2 PALPITATIONS 11/08/2016 LUCIAN FERRER DO Ot R06.02 SHORTNESS OF BREATH 11/08/2016 MARIE LONScottie Rubin APRN Ot R93.2 ABNORMAL FINDINGS ON DX IMAGING OF LIVER 11/08/2016 ANA DO NAHUN Maximiliano Ot M23.8X2 OTHER INTERNAL DERANGEMENTS OF LEFT KNEE 11/08/2016 MAXIMO CALI FAC, ALI FACP CCDS Ot E11.9 TYPE 2 DIABETES MELLITUS WITHOUT COMPLIC 11/08/2016 MAXIMO CALI FAC, ALI FACP CCDS Ot E78.4 OTHER HYPERLIPIDEMIA 11/08/2016 MAXIMO CALI FACC, ALI FACP CCDS Ot I10 ESSENTIAL (PRIMARY) HYPERTENSION 11/08/2016 MAXIMO CALI FACC, ALI FACP CCDS Ot I73.9 PERIPHERAL VASCULAR DISEASE, UNSPECIFIED 11/08/2016 MAXIMO CALI FAC, ALI FACP CCDS Ot R06.02 SHORTNESS OF BREATH 11/08/2016 BRII PARRA Ot E04.2 NONTOXIC MULTINODULAR GOITER 01/10/2017 NEGRO HAAS APRN Ot E11.40 TYPE 2 DIABETES MELLITUS WITH DIABETIC N 01/10/2017 NEGRO HAAS APRN Ot E78.00 PURE HYPERCHOLESTEROLEMIA, UNSPECIFIED 01/10/2017 NEGRO HAAS APRN Ot I10 ESSENTIAL (PRIMARY) HYPERTENSION 01/10/2017 NEGRO HAAS APRN Ot I25.10 ATHSCL HEART DISEASE OF [place] CORONARY 01/10/2017 NEGRO HAAS APRN Ot K21.9 GASTRO-ESOPHAGEAL REFLUX DISEASE WITHOUT 01/10/2017 NEGRO HAAS APRN Ot M17.12 UNILATERAL PRIMARY OSTEOARTHRITIS, LEFT 01/10/2017 NEGRO HAAS APRN Ot M25.562 PAIN IN LEFT KNEE 01/10/2017 NEGRO HAAS APRN Ot Z79.82 CARE HOME (CURRENT) USE OF ASPIRIN 01/10/2017 NEGRO HAAS APRN Ot Z79.84 CARE HOME (CURRENT) USE OF ORAL HYPOGLYC 01/10/2017 NEGRO HAAS APRN Ot Z86.718 PERSONAL HISTORY OF OTHER VENOUS THROMBO Procedures Code Description Performed By Performed On Cardiolog López Cardenas 05/27/2011 69222 ROUTINE VENIPUNCTURE 02/09/2012 54659 CBC 02/09/2012 49488 CMP 02/09/2012 71329 LIPID PANEL 02/09/2012 [id number] GFR CALC (RESULT ONLY) 02/09/2012 67979 XRAY LUMBAR SPINE MIN 4 VIEWS 03/02/2012 19355 A1C (IN-HOUSE) 03/17/2012 86950 BIOPSY SKIN (EACH ADD'L) 04/13/2012 58892 A1C (IN-HOUSE) 06/20/2012 82925 MICRO ALBUMIN-IN HOUSE 06/20/2012 84504 ROUTINE VENIPUNCTURE 07/20/2012 60516 LIPID PANEL 07/20/2012 44351 CMP 07/20/2012 [id number] GFR CALC (RESULT ONLY) 07/20/2012 10434 MAMMOGRAM, SCREENING 07/25/2012 78559 ROUTINE VENIPUNCTURE 01/16/2013 [id number] GFR CALC (RESULT ONLY) 01/16/2013 21353 CMP 01/16/2013 45560 LIPID PANEL 01/16/2013 93584 TRIGGER POINT INJ/1-2 MUS 02/15/2013 06771 A1C (IN-HOUSE) 02/26/2013 73822 ROUTINE VENIPUNCTURE 03/12/2013 57528 CBC 03/12/2013 39772 URIC ACID 03/12/2013 35544 ESR/SED RATE 03/12/2013 58754 A1C (IN-HOUSE) 05/28/2013 77115 ROUTINE VENIPUNCTURE 07/31/2013 70226 MYCOPLASMA ANTIBODY 07/31/2013 [id number] STOOL FOR BACTERIAL PATHOGENS 08/03/2013 93762 MAMMOGRAM, SCREENING 08/06/2013 92193 ROUTINE VENIPUNCTURE 08/14/2013 37450 CMP 08/14/2013 50162 LIPID PANEL 08/14/2013 61067 A1C (IN-HOUSE) 08/29/2013 28422 A1C (IN-HOUSE) 11/30/2013 79298 MICRO ALBUMIN-IN HOUSE 11/30/2013 02607 ROUTINE VENIPUNCTURE 02/22/2014 [id number] GFR CALC (RESULT ONLY) 02/22/2014 01240 CMP 02/22/2014 70366 LIPID PANEL 02/22/2014 Results Test Result Range Streptococcus pyogenes antigen detection - 09/12/16 10:00 Streptococcus pyogenes antigen detection NEGATIVE NEGATIVE Bacterial throat culture - 09/12/16 10:00 Bacterial throat culture NBS NRG Complete blood count (CBC) with automated white blood cell (WBC) differential - 03/13/17 04:07 Blood leukocytes automated count (number/volume) 7.8 10*3/uL 4.3-11.0 Blood erythrocytes automated count (number/volume) 4.11 10*6/uL 4.35-5.85 Venous blood hemoglobin measurement (mass/volume) 11.3 g/dL 11.5-16.0 Blood hematocrit (volume fraction) 34 % 35-52 Automated erythrocyte mean corpuscular volume 84 [foz_us] 80-99 Automated erythrocyte mean corpuscular hemoglobin (mass per erythrocyte) 28 pg 25-34 Automated erythrocyte mean corpuscular hemoglobin concentration measurement ( mass/volume) 33 g/dL 32-36 Automated erythrocyte distribution width ratio 13.8 % 10.0-14.5 Automated blood platelet count (count/volume) 327 10*3/uL 130-400 Automated blood platelet mean volume measurement 11.1 [foz_us] 7.4-10.4 Automated blood neutrophils/100 leukocytes 53 % 42-75 Automated blood lymphocytes/100 leukocytes 37 % 12-44 Blood monocytes/100 leukocytes 8 % 0-12 Automated blood eosinophils/100 leukocytes 3 % 0-10 Automated blood basophils/100 leukocytes 0 % 0-10 Blood neutrophils automated count (number/volume) 4.1 10*3 1.8-7.8 Blood lymphocytes automated count (number/volume) 2.8 10*3 1.0-4.0 Blood monocytes automated count (number/volume) 0.6 10*3 0.0-1.0 Automated eosinophil count 0.2 10*3/uL 0.0-0.3 Automated blood basophil count (count/volume) 0.0 10*3/uL 0.0-0.1 Comprehensive metabolic panel - 03/13/17 04:07 Serum or plasma sodium measurement (moles/volume) 141 mmol/L 135-145 Serum or plasma potassium measurement (moles/volume) 3.8 mmol/L 3.6-5.0 Serum or plasma chloride measurement (moles/volume) 102 mmol/L 98-107 Carbon dioxide 22 mmol/L 21-32 Serum or plasma anion gap determination (moles/volume) 17 mmol/L 5-14 Serum or plasma urea nitrogen measurement (mass/volume) 10 mg/dL 7-18 Serum or plasma creatinine measurement (mass/volume) 0.68 mg/dL 0.60-1.30 Serum or plasma urea nitrogen/creatinine mass ratio 15 NRG Serum or plasma creatinine measurement with calculation of estimated glomerular filtration rate > NRG Serum or plasma glucose measurement (mass/volume) 122 mg/dL 70-105 Serum or plasma calcium measurement (mass/volume) 9.9 mg/dL 8.5-10.1 Serum or plasma total bilirubin measurement (mass/volume) 0.2 mg/dL 0.1-1.0 Serum or plasma alkaline phosphatase measurement (enzymatic activity/volume) 65 U/L 40-136 Serum or plasma aspartate aminotransferase measurement (enzymatic activity/ volume) 17 U/L 5-34 Serum or plasma alanine aminotransferase measurement (enzymatic activity/volume ) 24 U/L 0-55 Serum or plasma protein measurement (mass/volume) 7.3 g/dL 6.4-8.2 Serum or plasma albumin measurement (mass/volume) 4.1 g/dL 3.2-4.5 Serum or plasma troponin i.cardiac measurement (mass/volume) - 03/13/17 04:07 Serum or plasma troponin i.cardiac measurement (mass/volume) < ng/ mL <0.30 Encounters ACCT No. Visit Date/Time Discharge Status Pt. Type Provider Facility Loc./Unit Complaint [id number] 03/07/2014 08:59:00 03/07/2014 23:59:59 [facility] Outpatient CAIO MARC DO [id number] 03/07/2014 08:59:00 03/07/2014 23:59:59 [facility] Outpatient LON SALAZAR APRN [id number] 01/30/2014 09:59:00 01/30/2014 23:59:59 [facility] Outpatient CAIO MARC DO [id number] 11/30/2013 09:08:00 11/30/2013 23:59:59 [facility] Outpatient LON SALAZAR APRN [id number] 11/30/2013 09:08:00 11/30/2013 23:59:59 [facility] Outpatient CAIO MARC DO [id number] 11/01/2013 09:47:00 11/01/2013 23:59:59 [facility] Outpatient CAIO MARC DO [id number] 08/29/2013 08:21:00 08/29/2013 23:59:59 [facility] Outpatient MARC DOCAIO [id number] 08/14/2013 08:09:00 08/14/2013 23:59:59 [facility] Outpatient MARC DO, CAIO Garcia [id number] 08/01/2013 11:52:00 08/01/2013 23:59:59 [facility] Outpatient MARC DOCAIO [id number] 07/31/2013 08:45:00 07/31/2013 23:59:59 [facility] Outpatient MARC DOCAIO [id number] 05/28/2013 08:03:00 05/28/2013 23:59:59 [facility] Outpatient HELLMARTIN TOWBOAT OPERATORLON [id number] 05/28/2013 08:03:00 05/28/2013 23:59:59 [facility] Outpatient MARC DO, CAIO Garcia [id number] 03/12/2013 14:52:00 03/12/2013 23:59:59 [facility] Outpatient HELLMARTIN TOWBOAT OPERATORLON [id number] 03/12/2013 08:03:00 03/12/2013 23:59:59 [facility] Outpatient MARC DOCAIO [id number] 02/26/2013 08:22:00 02/26/2013 23:59:59 [facility] Outpatient HELLWIG TOWBOAT OPERATORLON [id number] 02/26/2013 08:22:00 02/26/2013 23:59:59 [facility] Outpatient MARC DOCAIO [id number] 02/15/2013 09:10:00 02/15/2013 23:59:59 [facility] Outpatient MARC DOCAIO [id number] 01/25/2013 08:21:00 01/25/2013 23:59:59 [facility] Outpatient MARC DO, CAIO Garcia [id number] 01/16/2013 09:41:00 01/16/2013 23:59:59 [facility] Outpatient MARC DOCAIO [id number] 01/01/2013 17:10:00 01/01/2013 23:59:59 [facility] Outpatient DONTE SHELL DDS [id number] 11/24/2012 08:44:00 11/24/2012 23:59:59 [facility] Outpatient MARC DOCAIO [id number] 04/13/2012 10:49:00 04/13/2012 23:59:59 C[facility] Outpatient YOVANI MONTERO MD [id number] 03/17/2012 08:36:00 03/17/2012 23:59:59 C[facility] Outpatient [id number] 03/17/2012 08:36:00 03/17/2012 23:59:59 CLS Outpatient YOVANI MONTERO MD [id number] 03/02/2012 15:38:00 03/02/2012 23:59:59 CLS Outpatient YOVANI MONTERO MD [id number] 02/09/2012 08:57:00 02/09/2012 23:59:59 [place] [id number] 12/08/2011 08:45:00 12/08/2011 23:59:59 CLS Outpatient YOVANI MONTERO MD [id number] 12/08/2011 08:45:00 12/08/2011 23:59:59 [facility] Outpatient [id number] 09/22/2012 09:27:00 Document Registration [id number] 07/25/2012 09:05:00 Document Registration [id number] 07/20/2012 08:21:00 Document Registration [id number] 06/20/2012 10:48:00 Document Registration [id number] 06/20/2012 10:48:00 Document Registration [id number] 01/10/2017 20:42:00 01/10/2017 22:16:00 DIS Emergency NEGRO HAAS TOWBOAT OPERATOR [facility] ER L KNEE PAIN [id number] 10/28/2016 10:32:00 10/28/2016 23:59:59 CLS Preadmit IGNACIO DONNELLY DO [facility] RAD THYROID NODULE E04.1 [id number] 09/22/2016 10:16:00 09/22/2016 23:59:59 CLS Outpatient DEGRAFFEBRII MEDINA L [facility] RAD THYROID ENLARGED [id number] 09/12/2016 09:41:00 09/12/2016 10:37:00 DIS Emergency RYANN ARGUETA MD [facility] ER THROAT DISCOMFORT [id number] 07/13/2016 10:48:00 07/13/2016 23:59:59 CLS Outpatient MAXIMO CALI FACC, PEDRO GARCIA CCDS [facility] RAD E11.9 DIABETES MELLITUS TYPE 2 [id number] 05/07/2016 11:32:00 05/07/2016 23:59:59 CLS Outpatient ANAJoycelyn JIM NAHUN Maximiliano [facility] RAD MEDIAL MENISCUS TEAR L KNEE [id number] 04/20/2016 10:23:00 04/20/2016 11:32:00 DIS Emergency NEGRO HAAS Sumeet TOWBOAT OPERATOR [facility] ER LEFT LEG PAIN [id number] 03/06/2016 04:28:00 03/06/2016 05:54:00 DIS Emergency ELIEZER KELLEY DO [facility] ER HIGH BLOOD PRESSURE [id number] 04/26/2015 20:00:00 04/27/2015 07:10:00 DIS Outpatient LUCIAN FERRER DO [facility] SLEEP SNORING EXCESSIVE DAYTIME SLEEPINESS [id number] 04/03/2015 09:27:00 04/03/2015 23:59:59 CLS Outpatient LON SALAZAR TOWBOAT OPERATOR [facility] RAD ABNORMAL GB ULTRASOUND [id number] 04/02/2015 08:19:00 04/02/2015 23:59:59 CLS Outpatient LUCIAN FERRER DO [facility] RT HTN,OBESITY,PALPITATIONS, SOB [id number] 03/11/2015 09:07:00 03/11/2015 23:59:59 CLS Outpatient LON SALAZAR TOWBOAT OPERATOR [facility] RAD RIGHT UPPER QUAD PAIN [id number] 06/19/2014 13:30:00 06/19/2014 23:59:59 CLS Outpatient LON SALAZAR TOWBOAT OPERATOR [facility] RAD L KNEE PAIN [id number] 03/12/2014 07:26:00 03/12/2014 23:59:59 CLS Outpatient PEDRO MARSH MD, FACC, FACP CCDS [facility] CARD CHEST DISCOMFORT,PALPITATIONS, [id number] 03/01/2013 07:22:00 05/02/2013 00:01:00 DIS Outpatient MARIO MOORE [facility] CARD PALPITATIONS, DYSPNEA [id number] 03/06/2013 07:22:00 03/06/2013 23:59:59 CLS Outpatient PEDRO MARSH MD, FACC, FACP CCDS [facility] LAB SOB, HYPERTENSION,DM [id number] 07/19/2012 06:56:00 07/19/2012 23:59:59 CLS Outpatient BREA MUÑIZ [facility] RT SOB [id number] 03/13/2017 04:14:00 Document Registration [id number] 03/11/2015 09:06:00 Document Registration [id number] 05/03/2013 11:00:00 Document Registration [id number] 03/09/2012 10:31:00 Document Registration [id number] 02/14/2012 12:37:00 Document Registration [id number] 11/12/2011 09:12:00 Document Registration [id number] 06/21/2011 10:56:00 Document Registration [id number] 07/09/2010 22:00:00 Document Registration [id number] 03/23/2010 12:19:00 Document Registration [id number] 11/30/2009 10:47:00 Document Registration
== END 2017-03-13 05:03 | disposition home or self-care (01) ==
LOC: EDUNIT# 03:20 → ER 03:21
DX: I16.0 Hypertensive urgency (principal); J45.909 Unspecified asthma, uncomplicated; I25.10 Atherosclerotic heart disease of native coronary artery without angina pectoris; E78.00 Pure hypercholesterolemia, unspecified; I10 Essential (primary) hypertension; K21.9 Gastro-esophageal reflux disease without esophagitis; Q05.9 Spina bifida, unspecified; E11.40 Type 2 diabetes mellitus with diabetic neuropathy, unspecified; Z79.82 Long term (current) use of aspirin; Z79.84 Long term (current) use of oral hypoglycemic drugs; Z77.22 Contact with and (suspected) exposure to environmental tobacco smoke (acute) (chronic)
CPT/HCPCS: 36415; 71045; 80053; 84484; 85025; 93005; 93041

== ENCOUNTER 2017-03-29 18:02 | Emergency (ER) | payer MEDICARE ==
[~2017-03-29] VITALS: Ht 154.9 cm; Wt 82.6 kg
[2017-03-29 18:55] LABS: BASOPHILS % (AUTO) 0 % (0-10); EOSINOPHILS # (AUTO) 0.2 10^3/uL (0.0-0.3); EOSINOPHILS % (AUTO) 2 % (0-10); HEMATOCRIT 38 % (35-52); HEMOGLOBIN 12.5 G/DL (11.5-16.0); LYMPHOCYTES # (AUTO) 2.6 X 10^3 (1.0-4.0); LYMPHOCYTES % (AUTO) 30 % (12-44); MEAN CORPUSCULAR HEMOGLOBIN 27 PG (25-34); MEAN CORPUSCULAR HGB CONC 33 G/DL (32-36); MEAN CORPUSCULAR VOLUME 82 FL (80-99); MEAN PLATELET VOLUME 11.1 FL (7.4-10.4); MONOCYTES # (AUTO) 0.6 X 10^3 (0.0-1.0); MONOCYTES % (AUTO) 7 % (0-12); NEUTROPHILS # (AUTO) 5.2 X 10^3 (1.8-7.8); NEUTROPHILS % (AUTO) 61 % (42-75); PLATELET COUNT 349 10^3/uL (130-400); RED BLOOD COUNT 4.59 10^6/uL (4.35-5.85); RED CELL DISTRIBUTION WIDTH 13.9 % (10.0-14.5); WHITE BLOOD COUNT 8.5 10^3/uL (4.3-11.0)
[2017-03-29 19:13] LABS: BUN/CREATININE RATIO 13; CALCIUM 9.9 MG/DL (8.5-10.1); CARBON DIOXIDE 26 MMOL/L (21-32); CHLORIDE 98 MMOL/L (98-107); CREATININE SERUM 0.75 MG/DL (0.60-1.30); GFR ESTIMATED > 60; GLUCOSE 217 MG/DL (70-105); POTASSIUM 4.1 MMOL/L (3.6-5.0); SODIUM 139 MMOL/L (135-145)
--- NOTE | 2017-03-29 19:15 | ED Cardiac General ---
History of Present Illness General Chief Complaint: Cardiac/General Problems Stated Complaint: HIGH BP Nursing Triage Note: PT REPORTS SHE STARTED TO FEEL FLUSHED/ LIGHTHEADED, AND SOME PALPITATIONS AROUND 1500. PT TOOK HER BP AT HOME AND IT WAS HIGH SO SHE CAME TO ED. Source: patient Exam Limitations: no limitations History of Present Illness Date Seen by Provider: Mar 29, 2017 Time Seen by Provider: 18:40 Initial Comments This 61-year-old woman presents to the emergency room with complaints of hypertension. She reports recently increasing her metoprolol from 25 mg twice a day to 50 mg twice a day. She does have a history of hypertension and she monitors her blood pressures at home. She is notably hypertensive with systolic blood pressures in the 190-200 range. She denies any associated symptoms such as headache, changes in vision, or neurologic deficits. She does remark a headache yesterday. She also has a mild pain under the right costal margin which she feels is due to indigestion. Chart was reviewed. Patient had a negative heart catheter in 2011. Echocardiogram showed mild diastolic dysfunction in 2012. She had a negative stress test in 2014. She denies any chest pain today. Patient states a history of coronary artery disease, but cardiac catheter report does not seem to confirm this. Allergies and Home Medications Allergies Coded Allergies: acetaminophen (Unverified Allergy, Mild, 05/05/09) codeine (Unverified Allergy, Mild, 05/05/09) propoxyphene (Unverified Allergy, Mild, 05/05/09) tramadol (Unverified Allergy, Mild, 05/12/09) Home Medications Albuterol 17 Gm Aerosol, 1 GM IH 5 x DAILY, (Reported) Aspirin 81 Mg Tabec, 81 MG PO DAILY, (Reported) Cetirizine HCl 10 Mg Tablet, 10 MG PO DAILY, (Reported) Fluticasone Propionate 16 Gm [place], 2 SPRAYS NS BID, (Reported) Gabapentin 300 Mg Tablet, 300 MG PO TID, (Reported) Lisinopril/Hydrochlorothiazide 1 Each Tablet, 0.5 TAB PO DAILY, (Reported) Lisinopril/Hydrochlorothiazide 1 Each Tablet, 1 EACH PO DAILY, #30 Prescribed by: SIERRA BOURGEOIS on 03/29/172003 Lovastatin 20 Mg Tablet, 20 MG PO DAILY, (Reported) Meloxicam 7.5 Mg Tablet, 7.5 MG PO BID, #30 Prescribed by: NEGRO HAAS on 04/20/16 1122 Metformin Hcl 1,000 Mg Tablet, 1,000 MG PO BID WITH MEALS, (Reported) Omeprazole 20 Mg Capsule.dr, 20 MG PO BID, (Reported) Pantoprazole Sodium 40 Mg Tablet.dr, 40 MG PO DAILY, #20 Prescribed by: NEGRO HAAS on 04/20/16 1122 Review of Systems Constitutional: no symptoms reported EENTM: No Symptoms Reported Respiratory: No Symptoms Reported Cardiovascular: See HPI Gastrointestinal: No Symptoms Reported Genitourinary: No Symptoms Reported Musculoskeletal: no symptoms reported Skin: no symptoms reported Psychiatric/Neurological: No Symptoms Reported Endocrine: No Symptoms Reported Hematologic/Lymphatic: No Symptoms Reported Past Rvjfhge-Gzubzy-Hplqrl Hx Patient Social History Alcohol Use: Denies Use Recreational Drug Use: No Smoking Status: Never a Smoker 2nd Hand Smoke Exposure: Yes Recent Foreign Travel: No Contact w/Someone Who Travel: No Recent Infectious Disease Expo: No Recent Hopitalizations: No Physical Abuse: No Sexual Abuse: No Mistreated: No Fear: No Immunizations Up To Date Date of Pneumonia Vaccine: Feb 20, 2011 Date of Influenza Vaccine: Nov 15, 2011 Seasonal Allergies Seasonal Allergies: No Surgeries History of Surgeries: Yes (D&C; CARDIAC CATH--NO INTERVENTION) Surgeries: Cardiac, Orthopedic Respiratory History of Respiratory Disorde: Yes (wears 2L @ night) Respiratory Disorders: Asthma Cardiovascular History of Cardiac Disorders: Yes ("blood clot in heart" ) Cardiac Disorders: Chronic Edema/Swelling, Coronary Artery Disease, Deep Vein Thrombosis, High Cholesterol, Hypertension Neurological History of Neurological Disord: Yes (spina bifida) Neurological Disorders: Neuropathy Reproductive System Hx Reproductive Disorders: No 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 Genitourinary History of Genitourinary Disor: No Gastrointestinal History of Gastrointestinal Di: Yes Gastrointestinal Disorders: Gastroesophageal Reflux Musculoskeletal History of Musculoskeletal Dis: Yes (SPINA BIFIDA) Musculoskeletal Disorders: Arthritis, Fibromyalgia, Chronic Back Pain Endocrine History of Endocrine Disorders: Yes Endocrine Disorders: Diabetes, Non-Insulin dep Cancer History of Cancer: No Psychosocial History of Psychiatric Problem: No Suicide Risk Score: 0 Physical Exam Vital Signs Vital Signs - First Documented 03/29/17 18:34 Temp 97.2 Pulse 92 Resp 18 B/P (MAP) 198/105 (136) Pulse Ox 95 Capillary Refill : Less Than 3 Seconds General Appearance: No Apparent Distress, WD/WN HEENT: PERRL/EOMI, Normal ENT Inspection, Pharynx Normal Neck: Normal Inspection Respiratory: Lungs Clear, Normal Breath Sounds, No Accessory Muscle Use, No Respiratory Distress Cardiovascular: Regular Rate, Rhythm, No Edema, No Murmur Extremity: Normal Inspection, No Pedal Edema Neurologic/Psychiatric: Alert, Oriented x3, No Motor/Sensory Deficits, Normal Mood/Affect, campus administrator II-XII Norm as Tested Skin: Normal Color, Warm/Dry Progress/Results/Core Measures Results/Orders Lab Results Laboratory Tests Test 03/29/17 18:47 Range/Units White Blood Count 8.5 4.3-11.0 10^3/uL Red Blood Count 4.59 4.35-5.85 10^6/uL Hemoglobin 12.5 11.5-16.0 G/DL Hematocrit 38 35-52 % Mean Corpuscular Volume 82 80-99 FL Mean Corpuscular Hemoglobin 27 25-34 PG Mean Corpuscular Hemoglobin Concent 33 32-36 G/DL Red Cell Distribution Width 13.9 10.0-14.5 % Platelet Count 349 130-400 10^3/uL Mean Platelet Volume 11.1 H 7.4-10.4 FL Neutrophils (%) (Auto) 61 42-75 % Lymphocytes (%) (Auto) 30 12-44 % Monocytes (%) (Auto) 7 0-12 % Eosinophils (%) (Auto) 2 0-10 % Basophils (%) (Auto) 0 0-10 % Neutrophils # (Auto) 5.2 1.8-7.8 X 10^3 Lymphocytes # (Auto) 2.6 1.0-4.0 X 10^3 Monocytes # (Auto) 0.6 0.0-1.0 X 10^3 Eosinophils # (Auto) 0.2 0.0-0.3 10^3/uL Basophils # (Auto) 0.0 0.0-0.1 10^3/uL Sodium Level 139 135-145 MMOL/L Potassium Level 4.1 3.6-5.0 MMOL/L Chloride Level 98 98-107 MMOL/L Carbon Dioxide Level 26 21-32 MMOL/L Anion Gap 15 H 5-14 MMOL/L Blood Urea Nitrogen 10 7-18 MG/DL Creatinine 0.75 0.60-1.30 MG/DL Estimat Glomerular Filtration Rate > 60 BUN/Creatinine Ratio 13 Glucose Level 217 H 70-105 MG/DL Calcium Level 9.9 8.5-10.1 MG/DL Troponin I < 0.30 <0.30 NG/ML B-Type Natriuretic Peptide 10.7 <100.0 PG/ML TSH [place] Testing 1.43 0.35-4.94 UIU/ML My Orders Orders - SIERRA VACA MD Basic Metabolic Panel (03/29/17 18:47) BNP (03/29/17 18:47) Cbc With Automated Diff (03/29/17 18:47) Thyroid Analyzer (03/29/17 18:47) Saline Lock/Iv-Start (03/29/17 18:47) Ekg Tracing (03/29/17 19:06) Troponin I (03/29/17 19:15) Hydrochlorothiazide Cap/Tablet (Hctz Cap (03/29/17 19:30) Lisinopril Tablet (Zestril Tablet) (03/29/17 19:30) Medications Given in ED Current Medications Medications Dose Ordered Sig/Toney Route Start Time Stop Time Status Last Admin Dose Admin Hydrochlorothiazide 12.5 mg ONCE ONCE PO 03/29/17 19:30 03/29/17 19:31 DC 03/29/17 19:41 12.5 MG Lisinopril 10 mg ONCE ONCE PO 03/29/17 19:30 03/29/17 19:31 DC 03/29/17 19:41 10 MG Vital Signs/I&O Vital Sign - Last 12Hours 03/29/17 03/29/17 18:34 20:16 Temp 97.2 98.2 Pulse 92 83 Resp 18 20 B/P (MAP) 198/105 (136) Pulse Ox 95 98 Blood Pressure Mean: 136 Progress Note : Progress Note Workup was relatively unremarkable. Patient was treated with lisinopril 10 mg and hydrochlorothiazide 12.5 mg. A prescription was provided. I suggested she follow up with her doctor in the next 1-2 weeks for a blood pressure check and medication review. She is aware the dosing of this medication may need to be increased. I also suggested she talk with her doctor about checking labs after she has been on these new meds for a while. We reviewed return precautions. ECG Initial ECG Impression Date: Mar 29, 2017 Initial ECG Impression Time: 19:12 Initial ECG Rate: 83 Initial ECG Rhythm: Normal Sinus Comment Sinus rhythm with no ST elevation or depression. No abnormal intervals. LVH by voltage. Departure Impression Impression: Primary Impression: Hypertensive urgency Disposition: 01 HOME, SELF-CARE Condition: Stable Departure-Patient Inst. Decision time for Depature: 19:50 Referrals: [facility] [place] (PCP/Family) Primary Care Physician Patient Instructions: High Blood Pressure (DC) Add. Discharge Instructions: Continue with your metoprolol as previously prescribed. Add the lisinopril/ HCTZ starting tomorrow. Follow-up with your primary care provider or noc technician in 1-2 weeks for reevaluation. Allow the medicine 2 or 3 days to take effect and lower your blood pressure. This is a fairly low dose and you may need an increased dose depending on how he responds. Return to care promptly if you develop symptoms related to high blood pressure such as changes in vision, significant headache, numbness or tingling in the extremities, or any other unusual symptoms. Avoid things that may increase blood pressure such as stimulants like caffeine and nicotine, decongestant medications, excessive stress, and salt. Drink plenty of water. All discharge instructions reviewed with patient and/or family. Voiced understanding. Scripts Lisinopril/Hydrochlorothiazide (Lisinopril-Hctz 10-12.5 mg Tab) 1 Each Tablet 1 EACH PO DAILY, #30 TAB Prov: SIERRA VACA MD 03/29/17 Copy Copies To 1: PEDRO MARSH MD [facility] CCDS Copies To 2: CAIO MARC JOSHUA T MD Mar 29, 2017 19:15
[2017-03-29] MEDS ORDERED: HYDROCHLOROTHIAZIDE 12.5 MG (HCTZ) CAP PO ONE (19:30)
[2017-03-29] MEDS ORDERED: lisINopril 10 MG (PRINIVIL) TAB PO ONE (19:30)
[2017-03-29 19:33] LABS: TSH (THYROID ANALYZER) 1.43 UIU/ML (0.35-4.94)
[2017-03-29] MEDS ORDERED: LISI1TAB6 PO (20:04)
[2017-03-29 20:16] VITALS: BP 197/95
--- OUTSIDE RECORDS SUMMARY | 2017-04-01 08:11 | XMS REPORT | Continuity of Care Document ---
Author Author Formerly [facility] Address Unknown Phone Unavailable Allergies Active Description Code Type Severity Reaction Onset Reported/Identified Relationship to Patient Clinical Status Yes codeine Drug Allergy N/A N/A 03/06/2008 Yes Percocet Drug Allergy N/A N/A 03/06/2008 Yes Ultracet Drug Allergy N/A N/A 03/06/2008 Yes codeine Drug Allergy 03/06/2008 Yes Percocet Drug Allergy 03/06/2008 Yes Ultracet Drug Allergy 03/06/2008 Yes acetaminophen [id number] Drug Allergy Mild N/A 05/05/2009 Yes codeine [id number] Drug Allergy Mild N/A 05/05/2009 Yes propoxyphene [id number] Drug Allergy Mild N/A 05/05/2009 Yes tramadol [id number] Drug Allergy Mild N/A 05/12/2009 Medications There [...] DO, CAIO K 530.81 GERD 08/24/2007 HELLWIG CONTROL AREA OPERATOR, LON E 278.01 OBESITY MORBID BMI >40 08/24/2007 HELLWIG CONTROL AREA OPERATOR, LON E 356.9 UNSPECIFIED IDIOPATHIC PERIPHERAL NEUROPATHY 08/24/2007 HELLWIG CONTROL AREA OPERATOR, LON E 401.1 HYPERTENSION, BENIGN ESSENTIAL 08/24/2007 HELLWIG CONTROL AREA OPERATOR, LON E 477.9 RHINITIS ALLERGIC 08/24/2007 HELLWIG CONTROL AREA OPERATOR, LON E 530.81 GERD 08/24/2007 MARC DO, CAIO K 278.01 OBESITY MORBID BMI >40 08/24/2007 MARC DO, CAIO K 356.9 UNSPECIFIED IDIOPATHIC PERIPHERAL NEUROPATHY 08/24/2007 MARC DO, CAIO K 401.1 HYPERTENSION, BENIGN ESSENTIAL 08/24/2007 MARC DO, CAIO K 477.9 RHINITIS ALLERGIC 08/24/2007 MARC DO, CAIO K 530.81 GERD 08/24/2007 HELLWIG CONTROL AREA OPERATOR, LON E 278.01 OBESITY MORBID BMI >40 08/24/2007 HELLWIG CONTROL AREA OPERATOR, LON E 356.9 UNSPECIFIED IDIOPATHIC PERIPHERAL NEUROPATHY 08/24/2007 HELLWIG CONTROL AREA OPERATOR, LON E 401.1 HYPERTENSION, BENIGN ESSENTIAL 08/24/2007 HELLWIG CONTROL AREA OPERATOR, LON E 477.9 RHINITIS ALLERGIC 08/24/2007 HELLWIG CONTROL AREA OPERATOR, LON E 530.81 GERD 08/24/2007 MARC [...] DO, CAIO K 530.81 GERD 08/24/2007 HELLWIG CONTROL AREA OPERATOR, LON E 278.01 OBESITY MORBID BMI >40 08/24/2007 HELLWIG CONTROL AREA OPERATOR, LON E 356.9 UNSPECIFIED IDIOPATHIC PERIPHERAL NEUROPATHY 08/24/2007 HELLWIG CONTROL AREA OPERATOR, LON E 401.1 HYPERTENSION, BENIGN ESSENTIAL 08/24/2007 HELLWIG CONTROL AREA OPERATOR, LON E 477.9 RHINITIS ALLERGIC 08/24/2007 HELLWIG CONTROL AREA OPERATOR, LON E 530.81 GERD 08/24/2007 MARC [...] DO, CAIO K 530.81 GERD 08/24/2007 HELLWIG CONTROL AREA OPERATOR LON E 278.01 OBESITY MORBID BMI >40 08/24/2007 HELLWIG CONTROL AREA OPERATOR LON E 356.9 UNSPECIFIED IDIOPATHIC PERIPHERAL NEUROPATHY 08/24/2007 HELLWIG CONTROL AREA OPERATOR LON E 401.1 HYPERTENSION, BENIGN ESSENTIAL 08/24/2007 HELLWIG CONTROL AREA OPERATOR LON E 477.9 RHINITIS ALLERGIC 08/24/2007 HELLWIG CONTROL AREA OPERATOR LON E 530.81 GERD 08/24/2007 MARC DO, CIAO K 278.01 OBESITY MORBID BMI >40 08/24/2007 [...] DO, CAIO K 530.81 GERD 08/24/2007 HELLWIG CONTROL AREA OPERATOR, LON E 278.01 OBESITY MORBID BMI >40 08/24/2007 HELLWIG CONTROL AREA OPERATOR LON E 356.9 UNSPECIFIED IDIOPATHIC PERIPHERAL [...] K 250.02 DIABETES MELLITUS POORLY CONTROLLED 01/03/2008 MACR DO, CAIO K 786.2 COUGH 01/03/2008 MARC DO, CAIO K 250.02 DIABETES MELLITUS POORLY CONTROLLED 01/03/2008 MARC DO, CAIO K 786.2 COUGH 01/03/2008 MARC DO, CAIO K 250.02 DIABETES MELLITUS POORLY CONTROLLED 01/03/2008 MARC DO, CAIO K 786.2 COUGH 01/03/2008 HELCARSON CONTROL AREA OPERATOR, LON E 250.02 DIABETES MELLITUS POORLY CONTROLLED 01/03/2008 HELLMARTIN CONTROL AREA OPERATOR, LON E 786.2 COUGH 01/03/2008 MARC DO, CAIO K 250.02 DIABETES MELLITUS POORLY CONTROLLED 01/03/2008 MARC DO, CAIO K 786.2 COUGH 01/03/2008 HELLMARTIN CONTROL AREA OPERATOR, LON E 250.02 DIABETES MELLITUS POORLY CONTROLLED 01/03/2008 HELLMARTIN CONTROL AREA OPERATOR, LON E 786.2 COUGH 01/03/2008 MARC [...] 250.02 DIABETES MELLITUS POORLY CONTROLLED 01/03/2008 JACLYNMARTIN CONTROL AREA OPERATOR, LON E 786.2 COUGH 01/03/2008 MARC DO, CAIO K 250.02 DIABETES MELLITUS POORLY CONTROLLED 01/03/2008 MARC DO, CAIO K 786.2 COUGH 01/03/2008 MARC DO, CAIO K 250.02 DIABETES MELLITUS POORLY CONTROLLED 01/03/2008 MARC DO, CAIO K 786.2 COUGH 01/03/2008 MARIE REBOLLAR, LON E 250.02 DIABETES MELLITUS POORLY CONTROLLED 01/03/2008 [facility] LON E 786.2 COUGH 03/06/2008 YOVANI [...] K 250.6 NEUROPATHY DIABETIC 03/06/2008 MARC DO, ACIO K 250.6 NEUROPATHY DIABETIC 03/06/2008 MARC DO, [...] APRN E 535.50 GASTRITIS UNSPEC 11/07/2008 JACLYNLMARTIN CONTROL AREA OPERATORRASHAUN BarajasSIE E 780.79 MALAISE AND FATIGUE 11/07/2008 JACLYNLWIG CONTROL AREA OPERATOR, LON E 787.02 NAUSEA ALONE 11/07/2008 [...] CAIO K 787.02 NAUSEA ALONE 11/07/2008 HELLMARTIN CONTROL AREA OPERATORLON Barajas E 535.50 GASTRITIS UNSPEC 11/07/2008 HELLWIG CONTROL AREA OPERATORLON Barajas E 780.79 MALAISE AND FATIGUE [...] APRN E 535.50 GASTRITIS UNSPEC 11/07/2008 JACLYNLMARTIN CONTROL AREA OPERATORLON Barajas E 780.79 MALAISE AND FATIGUE [...] CAIO MARC DO K 721.90 SPONDYLOSIS 12/12/2008 RASHAUN MARC DOA K 724.2 LUMBAGO 12/12/2008 WHITE [...] MARC DO, CAIO K 724.2 LUMBAGO 12/12/2008 [facility] LON E 721.90 SPONDYLOSIS 12/12/2008 [facility] LON E 724.2 LUMBAGO 12/12/2008 MARC DO, CAIO K 721.90 SPONDYLOSIS 12/12/2008 MARC DO, CAIO K 724.2 LUMBAGO 12/12/2008 [facility] LON E 721.90 SPONDYLOSIS 12/12/2008 [facility] LON E 724.2 LUMBAGO 12/12/2008 MARC DO, CAIO K 721.90 SPONDYLOSIS 12/12/2008 MARC DO, CAIO K 724.2 LUMBAGO 12/12/2008 MARC DO, CAIO K 721.90 SPONDYLOSIS 12/12/2008 MARC DO, CAIO K 724.2 LUMBAGO 12/12/2008 MARC DO, CAIO K 721.90 SPONDYLOSIS 12/12/2008 MARC DO, CAIO K 724.2 LUMBAGO 12/12/2008 MARC DO, CAIO K 721.90 SPONDYLOSIS 12/12/2008 MARC DO, CAIO K 724.2 LUMBAGO 12/12/2008 [facility] LON E 721.90 SPONDYLOSIS 12/12/2008 [facility] LON E 724.2 LUMBAGO 12/12/2008 MARC DO, CAIO K 721.90 SPONDYLOSIS 12/12/2008 MARC DO, CAIO K 724.2 LUMBAGO 12/12/2008 MARC DO, CAIO K 721.90 SPONDYLOSIS 12/12/2008 MARC DO, CAIO K 724.2 LUMBAGO 12/12/2008 JACLYNMARTIN REBOLLAR LON E 721.90 SPONDYLOSIS 12/12/2008 [facility] LON E 724.2 LUMBAGO 12/12/2008 MARC DO, CAIO K 721.90 SPONDYLOSIS 12/12/2008 MARC DO, CAIO K 724.2 LUMBAGO 12/12/2008 MARC DO, CAIO K 721.90 SPONDYLOSIS 12/12/2008 MARC DO, CAIO K 724.2 LUMBAGO 12/12/2008 [facility] SAL[facility] APRN 721.90 SPONDYLOSIS 12/12/2008 [facility] APRN 724.2 LUMBAGO 03/18/2009 YOVANI MONTERO [...] MARC DO, CAIO K 278.02 Overweight 03/18/2009 [facility] DO, CAIO K 338.4 CHRONIC PAIN SYNDROME [...] MARC DO, CAIO K 716.90 ARTHROPATHY 03/18/2009 [facility] CONTROL AREA OPERATORLON Barajas E 278.02 Overweight 03/18/2009 [facility] CONTROL AREA OPERATORLON E 338.4 CHRONIC PAIN SYNDROME 03/18/2009 HELWIG CONTROL AREA OPERATORSWEEITE BarajasE E 716.90 ARTHROPATHY 04/21/2009 YOVANI MONTERO [...] RESPIRATORY INFECTIONS OF UNSPECIFIED SITE 04/21/2009 HELLWIG CONTROL AREA OPERATOR, LON E 465.9 ACUTE UPPER RESPIRATORY INFECTIONS OF UNSPECIFIED SITE 04/21/2009 MARC DO, CAIO K 465.9 ACUTE UPPER RESPIRATORY INFECTIONS OF UNSPECIFIED SITE 04/21/2009 HELLWIG CONTROL AREA OPERATOR, LON E 465.9 ACUTE UPPER RESPIRATORY [...] RESPIRATORY INFECTIONS OF UNSPECIFIED SITE 04/21/2009 HELLWIG CONTROL AREA OPERATOR, LON E 465.9 ACUTE UPPER RESPIRATORY INFECTIONS OF UNSPECIFIED SITE 04/21/2009 MARC DO, CAIO K 465.9 ACUTE UPPER RESPIRATORY INFECTIONS OF UNSPECIFIED SITE 04/21/2009 MARC DO, CAIO K 465.9 ACUTE UPPER RESPIRATORY INFECTIONS OF UNSPECIFIED SITE 04/21/2009 HELLWIG CONTROL AREA OPERATOR, LON E 465.9 ACUTE UPPER RESPIRATORY INFECTIONS OF UNSPECIFIED SITE 04/21/2009 MARC DO, CAIO K 465.9 ACUTE UPPER RESPIRATORY INFECTIONS OF UNSPECIFIED SITE 04/21/2009 MARC DO, CAIO K 465.9 ACUTE UPPER RESPIRATORY INFECTIONS OF UNSPECIFIED SITE 04/21/2009 HELLWIG CONTROL AREA OPERATOR, LON E 465.9 ACUTE UPPER RESPIRATORY [...] 07/07/2009 V15.05 multiple environmental allergies 07/07/2009 YOVANI MONTREO MD 461.9 SINUSITIS ACUTE 07/07/2009 YOVANI MONTERO [...] K V15.05 multiple environmental allergies 07/07/2009 HELLWIG CONTROL AREA OPERATOR, LON E 461.9 SINUSITIS ACUTE 07/07/2009 HELLWIG CONTROL AREA OPERATOR, LON E V15.05 multiple environmental allergies 07/07/2009 MARC DO, CAIO K 461.9 SINUSITIS ACUTE 07/07/2009 MARC DO, CAIO K V15.05 multiple environmental allergies 07/07/2009 HELLWIG CONTROL AREA OPERATOR, LON E 461.9 SINUSITIS ACUTE 07/07/2009 HELLWIG CONTROL AREA OPERATOR, LON E V15.05 multiple environmental allergies [...] K V15.05 multiple environmental allergies 07/07/2009 HELLWIG CONTROL AREA OPERATOR, LON E 461.9 SINUSITIS ACUTE 07/07/2009 HELLWIG CONTROL AREA OPERATOR, LON E V15.05 multiple environmental allergies 07/07/2009 MARC DO, CAIO K 461.9 SINUSITIS ACUTE 07/07/2009 MARC DO, CAIO K V15.05 multiple environmental allergies 07/07/2009 MARC DO, CAIO K 461.9 SINUSITIS ACUTE 07/07/2009 MARC DO, CAIO K V15.05 multiple environmental allergies 07/07/2009 HELLWIG CONTROL AREA OPERATOR, LON E 461.9 SINUSITIS ACUTE 07/07/2009 HELLWIG CONTROL AREA OPERATOR, LON E V15.05 multiple environmental allergies [...] CAIO K 427.89 SINUS BRADYCARDIA 09/18/2009 HELLWIG CONTROL AREA OPERATOR, LON E 427.89 SINUS BRADYCARDIA 09/18/2009 MARC DO, CAIO K 427.89 SINUS BRADYCARDIA 09/18/2009 MARC DO, CAIO K 427.89 SINUS BRADYCARDIA 09/18/2009 HELLWIG CONTROL AREA OPERATOR, LON E 427.89 SINUS BRADYCARDIA 09/18/2009 MARC DO, CAIO K 427.89 SINUS BRADYCARDIA 09/18/2009 MARC DO, CAIO K 427.89 SINUS BRADYCARDIA 09/18/2009 [facility] LON E 427.89 SINUS BRADYCARDIA 10/15/2009 [...] CAIO K 511.0 PLEURISY 10/15/2009 MARC DO, ACIO K 511.0 PLEURISY 10/15/2009 MARC DO, CAIO K 511.0 PLEURISY 10/15/2009 MARC DO, CAIO K 511.0 PLEURISY 10/15/2009 MARC DO, CAIO K 511.0 PLEURISY 10/15/2009 [facility] OPER[facility], LON E 511.0 PLEURISY 10/15/2009 MARC DO, CAIO K 511.0 PLEURISY 10/15/2009 HELWIG CONTROL AREA OPERATOR, LON E 511.0 PLEURISY 10/15/2009 MARC DO, CAIO K 511.0 PLEURISY 10/15/2009 MARC DO, CAIO K 511.0 PLEURISY 10/15/2009 MARC DO, CAIO K 511.0 PLEURISY 10/15/2009 MARC DO, CAIO K 511.0 PLEURISY 10/15/2009 HELLWIG CONTROL AREA OPERATOR, LON E 511.0 PLEURISY 10/15/2009 MARC DO, CAIO K 511.0 PLEURISY 10/15/2009 MARC DO, CAIO K 511.0 PLEURISY 10/15/2009 HELLWIG CONTROL AREA OPERATOR, LON E 511.0 PLEURISY 10/15/2009 MARC DO, CAIO K 511.0 PLEURISY 10/15/2009 MARC DO, CAIO K 511.0 PLEURISY 10/15/2009 HELMARTIN CONTROL AREA OPERATOR, LON E 511.0 PLEURISY 11/30/2009 Ot [...] DO, CAIO K 786.50 CHEST PAIN 12/19/2009 [facility] OPER[facility] LON E 786.50 CHEST PAIN 12/19/2009 MARC DO, CAIO K 786.50 CHEST PAIN 12/19/2009 HELMARTIN CONTROL AREA OPERATOR LON E 786.50 CHEST PAIN 12/19/2009 [...] MARC DO, CAIO K 782.3 EDEMA 03/23/2010 LNO SALAZAR APRN 782.3 EDEMA 03/23/2010 MARC DO, CAIO K 782.3 EDEMA 03/23/2010 MARC DO, CAIO K 782.3 EDEMA 03/23/2010 LON SALAZAR APRN 782.3 EDEMA 05/12/2010 KYLAH CALI, YOVANI V72.31 TAPPER HELPER EXAM, ROUTINE 05/12/2010 V72.31 TAPPER HELPER EXAM, ROUTINE 05/12/2010 YOVANI MONTERO MD V72.31 TAPPER HELPER EXAM, ROUTINE 05/12/2010 YOVANI MONTERO MD V72.31 TAPPER HELPER EXAM, ROUTINE 05/12/2010 YOVANI MONTERO MD V72.31 TAPPER HELPER EXAM, ROUTINE 05/12/2010 V72.31 TAPPER HELPER EXAM, ROUTINE 05/12/2010 YOVANI MONTERO MD V72.31 TAPPER HELPER EXAM, ROUTINE 05/12/2010 V72.31 TAPPER HELPER EXAM, ROUTINE 05/12/2010 V72.31 TAPPER HELPER EXAM, ROUTINE 05/12/2010 V72.31 TAPPER HELPER EXAM, ROUTINE 05/12/2010 V72.31 TAPPER HELPER EXAM, ROUTINE 05/12/2010 V72.31 TAPPER HELPER EXAM, ROUTINE 05/12/2010 MARC DO, CAIO K V72.31 TAPPER HELPER EXAM, ROUTINE 05/12/2010 SULEMAN FLOYDSDONTE V72.31 TAPPER HELPER EXAM, ROUTINE 05/12/2010 MARC DO, CAIO K V72.31 TAPPER HELPER EXAM, ROUTINE 05/12/2010 MARC DO, CAIO K V72.31 TAPPER HELPER EXAM, ROUTINE 05/12/2010 MARC DO, CAIO K V72.31 TAPPER HELPER EXAM, ROUTINE 05/12/2010 MARC DO, CAIO K V72.31 TAPPER HELPER EXAM, ROUTINE 05/12/2010 MARC DO, CAIO K V72.31 TAPPER HELPER EXAM, ROUTINE 05/12/2010 LON SALAZAR APRN V72.31 TAPPER HELPER EXAM, ROUTINE 05/12/2010 MARC DO, CAIO K V72.31 TAPPER HELPER EXAM, ROUTINE 05/12/2010 LON SALAZAR APRN V72.31 TAPPER HELPER EXAM, ROUTINE 05/12/2010 MARC DO, CAIO K V72.31 TAPPER HELPER EXAM, ROUTINE 05/12/2010 MARC DO, CAIO K V72.31 TAPPER HELPER EXAM, ROUTINE 05/12/2010 MARC DO, CAIO K V72.31 TAPPER HELPER EXAM, ROUTINE 05/12/2010 MARC DO, CAIO K V72.31 TAPPER HELPER EXAM, ROUTINE 05/12/2010 LON SALAZAR APRN V72.31 TAPPER HELPER EXAM, ROUTINE 05/12/2010 MARC DO, CAIO K V72.31 TAPPER HELPER EXAM, ROUTINE 05/12/2010 MARC DO, CAIO K V72.31 TAPPER HELPER EXAM, ROUTINE 05/12/2010 LON SALAZAR APRN V72.31 TAPPER HELPER EXAM, ROUTINE 05/12/2010 MARC DO, CAIO K V72.31 TAPPER HELPER EXAM, ROUTINE 05/12/2010 MARC DO, CAIO K V72.31 TAPPER HELPER EXAM, ROUTINE 05/12/2010 LON SALAZAR APRN V72.31 TAPPER HELPER EXAM, ROUTINE 07/10/2010 Ot 250.00 07/10/2010 Ot [...] DO, CAIO K 784.42 DYSPHONIA 11/23/2010 HELLWIG CONTROL AREA OPERATOR, LON E 784.42 DYSPHONIA 11/23/2010 MARC [...] MONTERO MD 414.00 CORONARY ARTERY DISEASE 06/02/2011 YOVAIN MONTERO MD 112.3 CANDIDIASIS OF THE SKIN [...] 112.3 CANDIDIASIS OF THE SKIN 06/02/2011 MARIE CONTROL AREA OPERATOR, LON E 401.9 ESSENTIAL HYPERTENSION 06/02/2011 MARIE CONTROL AREA OPERATORRASHAUN BarajasSIE E 414.00 CORONARY ARTERY DISEASE [...] NOS 06/22/2011 Ot 414.01 CORONARY ATHEROSCLEROSIS OF [place] CORON 06/22/2011 Ot 729.1 MYALGIA AND MYOSITIS [...] K V76.2 Cervical Pap Smear 07/02/2011 MARIE CONTROL AREA OPERATORSWEETIE BarajasE E V76.10 visit for: screening [...] K V76.2 Cervical Pap Smear 07/02/2011 JACLYNLMARTIN CONTROL AREA OPERATORRASHAUN BarajasSIE E V76.10 visit for: screening [...] CAIO K V76.2 Cervical Pap Smear 07/02/2011 [facility] SALAZ[facility] APRNE E V76.10 visit for: screening [...] DOA K V76.2 CERVICAL PAP SMEAR 07/02/2011 [facility] APRN E V76.10 VISIT FOR: SCREENING [...] J 726.5 ENTHESOPATHY OF HIP REGION 12/16/2011 MRAC DO, CAIO K 726.5 ENTHESOPATHY OF HIP [...] WOUND OF BUTTOCK WITHOUT COMPLICATION 06/05/2012 HELLWIG CONTROL AREA OPERATOR, LON E 877.0 OPEN WOUND OF BUTTOCK WITHOUT COMPLICATION 06/05/2012 MARC DO, CAIO K 877.0 OPEN WOUND OF BUTTOCK WITHOUT COMPLICATION 06/05/2012 JACLYNLWIG CONTROL AREA OPERATOR, LON E 877.0 OPEN WOUND OF BUTTOCK WITHOUT COMPLICATION 06/05/2012 MARC DO, CAIO K 877.0 OPEN WOUND OF BUTTOCK WITHOUT COMPLICATION 06/05/2012 MARC DO, CAIO K 877.0 OPEN WOUND OF BUTTOCK WITHOUT COMPLICATION 06/05/2012 MARC DO, CAIO K 877.0 OPEN WOUND OF BUTTOCK WITHOUT COMPLICATION 06/05/2012 MARC DO, CAIO K 877.0 OPEN WOUND OF BUTTOCK WITHOUT COMPLICATION 06/05/2012 MARIE CONTROL AREA OPERATOR LON E 877.0 OPEN WOUND OF BUTTOCK WITHOUT COMPLICATION 06/05/2012 MARC DO, CAIO K 877.0 OPEN WOUND OF BUTTOCK WITHOUT COMPLICATION 06/05/2012 MARC DO, CAIO K 877.0 OPEN WOUND OF BUTTOCK WITHOUT COMPLICATION 06/05/2012 JACLYNLWIG CONTROL AREA OPERATOR LON E 877.0 OPEN WOUND OF BUTTOCK WITHOUT COMPLICATION 06/05/2012 MARC DO, CAIO K 877.0 OPEN WOUND OF BUTTOCK WITHOUT COMPLICATION 06/05/2012 MARC DO, CAIO K 877.0 OPEN WOUND OF BUTTOCK WITHOUT COMPLICATION 06/05/2012 JACLYNLWIG CONTROL AREA OPERATOR LON E 877.0 OPEN WOUND OF [...] 799.81 changed sexual interest (libido): decreased 06/20/2012 [facility] DO, CAIO K 799.81 changed sexual interest (libido): decreased 06/20/2012 MARC DO, CAIO K 799.81 changed sexual interest (libido): decreased 06/20/2012 MARC DO, CAIO K 799.81 changed sexual interest (libido): decreased 06/20/2012 MARC DO, CAIO K 799.81 changed sexual interest (libido): decreased 06/20/2012 MARC DO, CAIO K 799.81 changed sexual interest (libido): decreased 06/20/2012 JACLYNLWIG CONTROL AREA OPERATOR LON E 799.81 changed sexual interest (libido): decreased 06/20/2012 MARC DO, CAIO K 799.81 changed sexual interest (libido): decreased 06/20/2012 HELLWIG CONTROL AREA OPERATOR LON E 799.81 changed sexual interest (libido): decreased 06/20/2012 MARC DO, CAIO K 799.81 changed sexual interest (libido): decreased 06/20/2012 MARC DO, CAIO K 799.81 changed sexual interest (libido): decreased 06/20/2012 MARC DO, CAIO K 799.81 changed sexual interest (libido): decreased 06/20/2012 MARC DO, CAIO K 799.81 changed sexual interest (libido): decreased 06/20/2012 HELLWIG CONTROL AREA OPERATOR LON E 799.81 changed sexual interest (libido): decreased 06/20/2012 MARC DO, CAIO K 799.81 changed sexual interest (libido): decreased 06/20/2012 MARC DO, CAIO K 799.81 changed sexual interest (libido): decreased 06/20/2012 HELLWIG CONTROL AREA OPERATOR LON E 799.81 changed sexual interest (libido): decreased 06/20/2012 MARC DO, CAIO K 799.81 changed sexual interest (libido): decreased 06/20/2012 MARC DO, CAIO K 799.81 CHANGED SEXUAL INTEREST (LIBIDO): DECREASED 06/20/2012 HELLMARTIN CONTROL AREA OPERATOR LON E 799.81 CHANGED SEXUAL INTEREST [...] K V65.49 OTHER SPECIFIED COUNSELING 07/25/2012 JACLYNLWIG CONTROL AREA OPERATOR LON E 627.2 SYMPTOMATIC MENOPAUSAL OR FEMALE CLIMACTERIC STATES 07/25/2012 HELLWIG CONTROL AREA OPERATOR LON E V65.49 OTHER SPECIFIED COUNSELING 07/25/2012 MARC DO, CAIO K 627.2 SYMPTOMATIC MENOPAUSAL OR FEMALE CLIMACTERIC STATES 07/25/2012 MARC DO, CAIO K V65.49 OTHER SPECIFIED COUNSELING 07/25/2012 HELLWIG CONTROL AREA OPERATOR, LON E 627.2 SYMPTOMATIC MENOPAUSAL OR FEMALE CLIMACTERIC STATES 07/25/2012 HELLWIG CONTROL AREA OPERATOR, LON E V65.49 OTHER SPECIFIED COUNSELING [...] K V65.49 OTHER SPECIFIED COUNSELING 07/25/2012 HELLWIG CONTROL AREA OPERATOR LON E 627.2 SYMPTOMATIC MENOPAUSAL OR FEMALE CLIMACTERIC STATES 07/25/2012 HELLWIG CONTROL AREA OPERATOR, LON E V65.49 OTHER SPECIFIED COUNSELING 07/25/2012 MARC DO, CAIO K 627.2 SYMPTOMATIC MENOPAUSAL OR FEMALE CLIMACTERIC STATES 07/25/2012 MARC DO, CAIO K V65.49 OTHER SPECIFIED COUNSELING 07/25/2012 MARC DO, CAIO K 627.2 SYMPTOMATIC MENOPAUSAL OR FEMALE CLIMACTERIC STATES 07/25/2012 MARC DO, CAIO K V65.49 OTHER SPECIFIED COUNSELING 07/25/2012 HELLWIG CONTROL AREA OPERATOR LON E 627.2 SYMPTOMATIC MENOPAUSAL OR FEMALE CLIMACTERIC STATES 07/25/2012 HELLWIG CONTROL AREA OPERATOR, LON E V65.49 OTHER SPECIFIED COUNSELING 07/25/2012 MARC DO, CAIO K 627.2 SYMPTOMATIC MENOPAUSAL OR FEMALE CLIMACTERIC STATES 07/25/2012 MARC DO, CAIO K V65.49 OTHER SPECIFIED COUNSELING 07/25/2012 MARC DO, CAIO K 627.2 SYMPTOMATIC MENOPAUSAL OR FEMALE CLIMACTERIC STATES 07/25/2012 MARC DO, CAIO K V65.49 OTHER SPECIFIED COUNSELING 07/25/2012 HELLWIG CONTROL AREA OPERATOR, LON E 627.2 SYMPTOMATIC MENOPAUSAL OR FEMALE CLIMACTERIC STATES 07/25/2012 HELLWIG CONTROL AREA OPERATOR, LON E V65.49 OTHER SPECIFIED COUNSELING 01/16/2013 MARC DO, CAIO K 440.20 ATHEROSCLEROSIS OF [place] ARTERIES OF THE EXTREMITIES UNSPECIFIED 01/16/2013 MARC DO, CAIO K 440.20 ATHEROSCLEROSIS OF [place] ARTERIES OF THE EXTREMITIES UNSPECIFIED 01/16/2013 MARC DO, CAIO K 440.20 ATHEROSCLEROSIS OF [place] ARTERIES OF THE EXTREMITIES UNSPECIFIED 01/16/2013 MARC DO, CAIO K 440.20 ATHEROSCLEROSIS OF [place] ARTERIES OF THE EXTREMITIES UNSPECIFIED 01/16/2013 MARC DO, CAIO K 440.20 ATHEROSCLEROSIS OF [place] ARTERIES OF THE EXTREMITIES UNSPECIFIED 01/16/2013 HELLWIG CONTROL AREA OPERATOR, LON E 440.20 ATHEROSCLEROSIS OF [place] ARTERIES OF THE EXTREMITIES UNSPECIFIED 01/16/2013 MARC DO, CAIO K 440.20 ATHEROSCLEROSIS OF [place] ARTERIES OF THE EXTREMITIES UNSPECIFIED 01/16/2013 HELLWIG CONTROL AREA OPERATOR, LON E 440.20 ATHEROSCLEROSIS OF [place] ARTERIES OF THE EXTREMITIES UNSPECIFIED 01/16/2013 MARC DO, CAIO K 440.20 ATHEROSCLEROSIS OF [place] ARTERIES OF THE EXTREMITIES UNSPECIFIED 01/16/2013 MARC DO, CAIO K 440.20 ATHEROSCLEROSIS OF [place] ARTERIES OF THE EXTREMITIES UNSPECIFIED 01/16/2013 MARC DO, CAIO K 440.20 ATHEROSCLEROSIS OF [place] ARTERIES OF THE EXTREMITIES UNSPECIFIED 01/16/2013 MARC DO, CAIO K 440.20 ATHEROSCLEROSIS OF [place] ARTERIES OF THE EXTREMITIES UNSPECIFIED 01/16/2013 HELLWIG CONTROL ARE[employer] OPERATOR, LON E 440.20 ATHEROSCLEROSIS OF [place] ARTERIES OF THE EXTREMITIES UNSPECIFIED 01/16/2013 MARC DO, CAIO K 440.20 ATHEROSCLEROSIS OF [place] ARTERIES OF THE EXTREMITIES UNSPECIFIED 01/16/2013 MARC DO, CAIO K 440.20 ATHEROSCLEROSIS OF [place] ARTERIES OF THE EXTREMITIES UNSPECIFIED 01/16/2013 HELLWIG CONTROL AREA OPERATOR, LON E 440.20 ATHEROSCLEROSIS OF [place] ARTERIES OF THE EXTREMITIES UNSPECIFIED 01/16/2013 MARC DO, CAIO K 440.20 ATHEROSCLEROSIS OF [place] ARTERIES OF THE EXTREMITIES UNSPECIFIED 01/16/2013 MARC DO, CAIO K 440.20 ATHEROSCLEROSIS OF [place] ARTERIES OF THE EXTREMITIES UNSPECIFIED 01/16/2013 HELLWIG CONTROL AREA OPERATOR, LON E 440.20 ATHEROSCLEROSIS OF [place] ARTERIES OF THE EXTREMITIES UNSPECIFIED 01/25/2013 MARC DO, CAIO K 461.0 ACUTE MAXILLARY SINUSITIS 01/25/2013 MARC DO, CAIO K 461.0 ACUTE MAXILLARY SINUSITIS 01/25/2013 MARC DO, CAIO K 461.0 ACUTE MAXILLARY SINUSITIS 01/25/2013 MARC DO, CAIO K 461.0 ACUTE MAXILLARY SINUSITIS 01/25/2013 HELLWIG CONTROL AREA OPERATOR, LON E 461.0 ACUTE MAXILLARY SINUSITIS 01/25/2013 MARC DO, CAIO K 461.0 ACUTE MAXILLARY SINUSITIS 01/25/2013 HELLWIG CONTROL AREA OPERATOR, LON E 461.0 ACUTE MAXILLARY SINUSITIS 01/25/2013 MARC DO, CAIO K 461.0 ACUTE MAXILLARY SINUSITIS 01/25/2013 MARC DO, CAIO K 461.0 ACUTE MAXILLARY SINUSITIS 01/25/2013 MARC DO, CAIO K 461.0 ACUTE MAXILLARY SINUSITIS 01/25/2013 MARC DO, CAIO K 461.0 ACUTE MAXILLARY SINUSITIS 01/25/2013 HELLWIG CONTROL AREA OPERATOR, LON E 461.0 ACUTE MAXILLARY SINUSITIS 01/25/2013 MARC DO, CAIO K 461.0 ACUTE MAXILLARY SINUSITIS 01/25/2013 MARC DO, CAIO K 461.0 ACUTE MAXILLARY SINUSITIS 01/25/2013 HELLWIG CONTROL AREA OPERATOR, LON E 461.0 ACUTE MAXILLARY SINUSITIS 01/25/2013 MARC DO, CAIO K 461.0 ACUTE MAXILLARY SINUSITIS 01/25/2013 MARC DO, CAIO K 461.0 ACUTE MAXILLARY SINUSITIS 01/25/2013 HELLWIG CONTROL AREA OPERATOR, LON E 461.0 ACUTE MAXILLARY SINUSITIS [...] INVOLVING [place] AND THIGH 02/15/2013 JABARIWIG CONTROL AREA OPERATORRASHAUNLON E 719.45 PAIN IN JOINT INVOLVING [...] INVOLVING [place] AND THIGH 02/15/2013 HELLWIG CONTROL AREA OPERATORSWEETIEE E 719.45 PAIN IN JOINT INVOLVING [place] AND THIGH 02/15/2013 MARC DO, CAIO K 719.45 PAIN IN JOINT INVOLVING [place] [employer] AND THIGH 02/15/2013 MARC DO, CAIO K 719.45 PAIN IN JOINT INVOLVING [place] [employer] AND THIGH 02/15/2013 HELLWIG CONTROL AREA OPERATORSWEETIEE E 719.45 PAIN IN JOINT INVOLVING [place] [employer] AND THIGH 02/15/2013 MARC DO, CAIO K 719.45 PAIN IN JOINT INVOLVING [place] AND THIGH 02/15/2013 MARC DO, CAIO K 719.45 PAIN IN JOINT INVOLVING [place] [employer] AND THIGH 02/15/2013 HELLWIG CONTROL AREA OPERATORSWEETIEE E 719.45 PAIN IN JOINT INVOLVING [place] [employer] AND THIGH 03/12/2013 MARC DO, CAIO K 274.00 GOUTY ARTHROPATHY UNSPECIFIED 03/12/2013 HELLWIG CONTROL AREA OPERATORRASHAUN BarajasSIE E 274.00 GOUTY ARTHROPATHY UNSPECIFIED 03/12/2013 MARC DO, CAIO K 274.00 GOUTY ARTHROPATHY UNSPECIFIED 03/12/2013 HELLWIG CONTROL AREA OPERATOR, LON E 274.00 GOUTY ARTHROPATHY UNSPECIFIED 03/12/2013 MARC DO, CAIO K 274.00 GOUTY ARTHROPATHY UNSPECIFIED 03/12/2013 MARC DO, CAIO K 274.00 GOUTY ARTHROPATHY UNSPECIFIED 03/12/2013 MARC DO, CAIO K 274.00 GOUTY ARTHROPATHY UNSPECIFIED 03/12/2013 MARC DO, CAIO K 274.00 GOUTY ARTHROPATHY UNSPECIFIED 03/12/2013 HELLWIG CONTROL AREA OPERATOR LON E 274.00 GOUTY ARTHROPATHY UNSPECIFIED 03/12/2013 MARC DO, CAIO K 274.00 GOUTY ARTHROPATHY UNSPECIFIED 03/12/2013 MARC DO, CAIO K 274.00 GOUTY ARTHROPATHY UNSPECIFIED 03/12/2013 HELLWIG CONTROL AREA OPERATOR LON E 274.00 GOUTY ARTHROPATHY UNSPECIFIED 03/12/2013 MARC DO, CAIO K 274.00 GOUTY ARTHROPATHY UNSPECIFIED 03/12/2013 MARC DO, CAIO K 274.00 GOUTY ARTHROPATHY UNSPECIFIED 03/12/2013 HELLWIG CONTROL AREA OPERATOR LON E 274.00 GOUTY ARTHROPATHY UNSPECIFIED 05/02/2013 MARIO MOORE MANDARIN CHINESE TEACHER Ot 785.1 PALPITATIONS 05/02/2013 MARIO MOORE MANDARIN CHINESE TEACHER Ot 786.09 RESPIRATORY ABNORM NEC 07/31/2013 MARC [...] DO, CAIO K 787.91 DIARRHEA 07/31/2013 HELLWIG CONTROL AREA OPERATOR, LON E 466.0 BRONCHITIS, ACUTE 07/31/2013 HELLWIG CONTROL AREA OPERATOR LON E 787.91 DIARRHEA 07/31/2013 MARC DO, CAIO K 466.0 BRONCHITIS, ACUTE 07/31/2013 MARC DO, CAIO K 787.91 DIARRHEA 07/31/2013 MARC DO, CAIO K 466.0 BRONCHITIS, ACUTE 07/31/2013 MARC DO, CAIO K 787.91 DIARRHEA 07/31/2013 HELLWIG CONTROL AREA OPERATOR LON E 466.0 BRONCHITIS, ACUTE 07/31/2013 HELLWIG CONTROL AREA OPERATOR, LON E 787.91 DIARRHEA 07/31/2013 MARC DO, CAIO K 466.0 BRONCHITIS, ACUTE 07/31/2013 MARC DO, CAIO K 787.91 DIARRHEA 07/31/2013 MARC DO, CAIO K 466.0 BRONCHITIS, ACUTE 07/31/2013 MARC DO, CAIO K 787.91 DIARRHEA 07/31/2013 HELLWIG CONTROL AREA OPERATOR, LON E 466.0 BRONCHITIS, ACUTE 07/31/2013 HELLWIG CONTROL AREA OPERATOR, LON E 787.91 DIARRHEA 08/14/2013 MARC DO, CAIO K 788.1 DYSURIA 08/14/2013 MARC DO, CAIO K 788.1 DYSURIA 08/14/2013 HELLWIG CONTROL AREA OPERATOR, LON E 788.1 DYSURIA 08/14/2013 MARC [...] 721.2 03/11/2015 Ot 721.3 03/11/2015 BREA MUÑIZ MANDARIN CHINESE TEACHER Ot 786.05 03/11/2015 MAXIMO CALI FACC, ALI [...] SALAZAR APRN Ot K82.4 04/02/2015 LON SALAZAR CONTROL AREA OPERATOR Ot R10.11 04/03/2015 Ot 338.4 04/03/2015 Ot 357.9 04/03/2015 Ot 716.90 04/03/2015 Ot 729.81 04/03/2015 Ot 782.3 04/03/2015 Ot 721.2 04/03/2015 Ot 721.3 04/03/2015 BREA MUÑIZ MANDARIN CHINESE TEACHER Ot 786.05 04/03/2015 MAXIMO MD FACC, ALI [...] FACP CCDS Ot V85.36 04/03/2015 LON SALAZAR CONTROL AREA OPERATOR Ot 719.46 04/03/2015 LON SALAZAR CONTROL AREA OPERATOR Ot K82.4 04/03/2015 RASHAUN SALAZARSIE E CONTROL AREA OPERATOR Ot R10.11 04/03/2015 RASHAUN SALAZARSIE E CONTROL AREA OPERATOR Ot K82.4 04/03/2015 LON SALAZAR CONTROL AREA OPERATOR Ot R10.11 04/18/2015 LON SALAZAR CONTROL AREA OPERATOR Ot R93.2 04/24/2015 RASHAUN SALAZARSIE E CONTROL AREA OPERATOR Ot R93.2 04/27/2015 LUCIAN FERRER DO [...] FERRER DO Ot R06.02 07/17/2015 HELLON BYRD CONTROL AREA OPERATOR Ot R93.2 ABNORMAL FINDINGS ON DX IMAGING OF LIVER 07/17/2015 LUCIAN FERRER DO Ot E66.09 OTHER OBESITY DUE TO EXCESS CALORIES 07/17/2015 LUCIAN FERRER DO Ot I10 ESSENTIAL (PRIMARY) HYPERTENSION 07/17/2015 LUCIAN FERRER DO Ot I47.1 SUPRAVENTRICULAR TACHYCARDIA 07/17/2015 LUCIAN FERRER DO Ot R00.2 PALPITATIONS 07/17/2015 LUCIAN FERRER DO Ot R06.02 SHORTNESS OF BREATH 07/17/2015 HELLMARTIN, LON E CONTROL AREA OPERATOR Ot K82.4 CHOLESTEROLOSIS OF GALLBLADDER 07/17/2015 HELLMARTIN, LON E CONTROL AREA OPERATOR Ot R10.11 RIGHT UPPER QUADRANT PAIN 08/14/2015 HELLMARTIN, LON E CONTROL AREA OPERATOR Ot K82.4 CHOLESTEROLOSIS OF GALLBLADDER 08/14/2015 HELLWIG, LON E CONTROL AREA OPERATOR Ot R10.11 RIGHT UPPER QUADRANT PAIN [...] Ot 721.3 LUMBOSACRAL SPONDYLOSIS 03/06/2016 BREA MUÑIZ MANDARIN CHINESE TEACHER Ot 786.05 SHORTNESS OF BREATH 03/06/2016 MAXIMO [...] CCDS Ot 729.81 SWELLING OF LIMB 03/06/2016 MAXIMO CALI FACC, ALI FACP CCDS Ot 785.1 PALPITATIONS 03/06/2016 MAXIMO CAIL FACC, ALI FACP CCDS Ot 786.05 SHORTNESS OF BREATH 03/06/2016 MAXIMO CALI FACC, ALI FACP CCDS Ot 786.59 CHEST PAIN NEC 03/06/2016 MAXIMO CALI FACC, ALI FACP CCDS Ot V85.36 BODY MASS INDEX 36.0-36.9, ADULT 03/06/2016 LON SALAZAR APRN Ot 719.46 JOINT PAIN-L/LEG 03/06/2016 LON SALAZAR APRN Ot K82.4 CHOLESTEROLOSIS OF GALLBLADDER 03/06/2016 HELLWIG, LON E CONTROL AREA OPERATOR Ot R10.11 RIGHT UPPER QUADRANT PAIN 03/06/2016 CARISSA JIM LUCIAN Alcazar Ot E66.09 OTHER OBESITY DUE TO EXCESS CALORIES 03/06/2016 CARISSA LUCIAN Ot I10 ESSENTIAL (PRIMARY) HYPERTENSION 03/06/2016 CARISSA JIM LUCIAN M Ot I47.1 SUPRAVENTRICULAR TACHYCARDIA 03/06/2016 LUCIAN FERRER DO Ot R00.2 PALPITATIONS 03/06/2016 LUCIAN FERRER DO Ot R06.02 SHORTNESS OF BREATH 03/06/2016 LON SALAZAR CONTROL AREA OPERATOR Ot R93.2 ABNORMAL FINDINGS ON DX IMAGING OF LIVER 03/06/2016 WARREN DO, ELIEZER K Ot E11.9 TYPE 2 DIABETES MELLITUS WITHOUT COMPLIC 03/06/2016 WARREN DO, ELIEZER K Ot F41.9 ANXIETY DISORDER, UNSPECIFIED 03/06/2016 WARREN DO, ELIEZER K Ot I10 ESSENTIAL (PRIMARY) HYPERTENSION 03/06/2016 WARREN DO, ELIEZER K Ot I25.10 ATHSCL HEART DISEASE OF [place] CORONARY 03/06/2016 WARREN DO, ELIEZER K Ot Z79.82 TACKING STITCH REMOVER (CURRENT) USE OF ASPIRIN 03/06/2016 WARREN DO, ELIEZER K Ot Z79.84 HALFWAY (CURRENT) USE OF ORAL HYPOGLYC 03/06/2016 WARREN DO, ELIEZER K Ot Z79.899 OTHER TACKING STITCH REMOVER (CURRENT) DRUG THERAPY 03/09/2016 WARREN DO, ELIEZER K Ot E11.9 TYPE 2 DIABETES MELLITUS WITHOUT COMPLIC 03/09/2016 WARREN DO, ELIEZER K Ot F41.9 ANXIETY DISORDER, UNSPECIFIED 03/09/2016 WARREN DO, ELIEZER K Ot I10 ESSENTIAL (PRIMARY) HYPERTENSION 03/09/2016 WARREN DO, ELIEZER K Ot I25.10 ATHSCL HEART DISEASE OF [place] CORONARY 03/09/2016 WARREN DO, ELIEZER K Ot Z79.82 HALFWAY (CURRENT) USE OF ASPIRIN 03/09/2016 WARREN DO, ELIEZER K Ot Z79.84 HALFWAY (CURRENT) USE OF ORAL HYPOGLYC 03/09/2016 WARREN DO, ELIEZER K Ot Z79.899 OTHER TACKING STITCH REMOVER (CURRENT) DRUG THERAPY 04/20/2016 NEGRO HAAS CONTROL AREA OPERATOR Ot E11.9 TYPE 2 DIABETES MELLITUS WITHOUT COMPLIC 04/20/2016 NEGRO HAAS APRN Ot I10 ESSENTIAL (PRIMARY) HYPERTENSION 04/20/2016 NEGRO HAAS APRN Ot I25.10 ATHSCL HEART DISEASE OF [place] CORONARY 04/20/2016 NEGRO HAAS APRN Ot M17.12 UNILATERAL PRIMARY OSTEOARTHRITIS, LEFT 04/20/2016 NEGRO HAAS APRN Ot M25.462 EFFUSION, LEFT KNEE 04/20/2016 NEGRO HAAS APRN Ot M79.662 PAIN IN LEFT LOWER LEG 04/20/2016 NEGRO HAAS APRN Ot Z79.82 HALFWAY (CURRENT) USE OF ASPIRIN 04/20/2016 NEGRO HAAS APRN Ot Z79.84 HALFWAY (CURRENT) USE OF ORAL HYPOGLYC 04/20/2016 NEGRO HAAS APRN Ot Z79.899 OTHER TACKING STITCH REMOVER (CURRENT) DRUG THERAPY 04/20/2016 NEGRO HAAS APRN Ot Z86.718 PERSONAL HISTORY OF OTHER VENOUS THROMBO 04/21/2016 NEGRO HAAS APRN Ot E11.9 TYPE 2 DIABETES MELLITUS WITHOUT COMPLIC 04/21/2016 NEGRO HAAS APRN Ot I10 ESSENTIAL (PRIMARY) HYPERTENSION 04/21/2016 NEGRO HAAS APRN Ot I25.10 ATHSCL HEART DISEASE OF [place] CORONARY 04/21/2016 NEGRO HAAS APRN Ot M17.12 UNILATERAL PRIMARY OSTEOARTHRITIS, LEFT 04/21/2016 NEGRO HAAS APRN Ot M25.462 EFFUSION, LEFT KNEE 04/21/2016 NEGRO HAAS APRN Ot M79.662 PAIN IN LEFT LOWER LEG 04/21/2016 NEGRO HAAS APRN Ot Z79.82 TACKING STITCH REMOVER (CURRENT) USE OF ASPIRIN 04/21/2016 NEGRO HAAS APRN Ot Z79.84 TACKING STITCH REMOVER (CURRENT) USE OF ORAL HYPOGLYC 04/21/2016 NEGRO HAAS APRN Ot Z79.899 OTHER TACKING STITCH REMOVER (CURRENT) DRUG THERAPY 04/21/2016 NEGRO HAAS APRN Ot Z86.718 PERSONAL HISTORY OF OTHER VENOUS THROMBO 04/26/2016 NEGRO HAAS APRN Ot E11.9 TYPE 2 DIABETES MELLITUS WITHOUT COMPLIC 04/26/2016 NEGRO HAAS APRN Ot I10 ESSENTIAL (PRIMARY) HYPERTENSION 04/26/2016 NEGRO HAAS APRN Ot I25.10 ATHSCL HEART DISEASE OF [place] CORONARY 04/26/2016 NEGRO HAAS APRN Ot M17.12 UNILATERAL PRIMARY OSTEOARTHRITIS, LEFT 04/26/2016 NEGRO HAAS APRN Ot M25.462 EFFUSION, LEFT KNEE 04/26/2016 NEGRO HAAS APRN Ot M79.662 PAIN IN LEFT LOWER LEG 04/26/2016 NEGRO HAAS APRN Ot Z79.82 TACKING STITCH REMOVER (CURRENT) USE OF ASPIRIN 04/26/2016 NEGRO HAAS CONTROL AREA OPERATOR Ot Z79.84 TACKING STITCH REMOVER (CURRENT) USE OF ORAL HYPOGLYC 04/26/2016 NEGRO HAAS APRN Ot Z79.899 OTHER TACKING STITCH REMOVER (CURRENT) DRUG THERAPY 04/26/2016 NEGRO HAAS APRN Ot Z86.718 PERSONAL HISTORY OF OTHER VENOUS THROMBO 04/29/2016 Ot 721.2 THORACIC SPONDYLOSIS 04/29/2016 Ot 721.3 LUMBOSACRAL SPONDYLOSIS 04/29/2016 BREA MUÑIZ MANDARIN CHINESE TEACHER Ot 786.05 SHORTNESS OF BREATH 04/29/2016 MAXIMO [...] CCDS Ot 272.4 HYPERLIPIDEMIA NEC/NOS 04/29/2016 MAXIMO CAIL FACC, ALI FACP CCDS Ot 278.00 OBESITY, [...] MASS INDEX 36.0-36.9, ADULT 04/29/2016 LON SALAZAR CONTROL AREA OPERATOR Ot 719.46 JOINT PAIN-L/LEG 04/29/2016 LON SALAZAR CONTROL AREA OPERATOR Ot K82.4 CHOLESTEROLOSIS OF GALLBLADDER 04/29/2016 LON SALAZAR CONTROL AREA OPERATOR Ot R10.11 RIGHT UPPER QUADRANT PAIN 04/29/2016 LUCIAN FERRER DO Ot E66.09 OTHER OBESITY DUE TO EXCESS CALORIES 04/29/2016 LUCIAN FERRER DO Ot I10 ESSENTIAL (PRIMARY) HYPERTENSION 04/29/2016 LUCIAN FERRER DO Ot I47.1 SUPRAVENTRICULAR TACHYCARDIA 04/29/2016 LUCIAN FERRER DO Ot R00.2 PALPITATIONS 04/29/2016 LUCIAN FERRER DO Ot R06.02 SHORTNESS OF BREATH 04/29/2016 LON SALAZAR CONTROL AREA OPERATOR Ot R93.2 ABNORMAL FINDINGS ON DX [...] Ot 721.3 LUMBOSACRAL SPONDYLOSIS 07/13/2016 BREA MUÑIZ MANDARIN CHINESE TEACHER Ot 786.05 SHORTNESS OF BREATH 07/13/2016 MAXIMO [...] CCDS Ot 427.0 PAROX ATRIAL TACHYCARDIA 07/13/2016 MAXIMO CALI FACC, ALI FACP CCDS [...] MD Ot I25.10 ATHSCL HEART DISEASE OF [place] CORONARY 09/12/2016 RYANN ARGUETA MD, Ot02.9 ACUTE PHARYNGITIS, UNSPECIFIED 09/12/2016 RYANN ARGUETA MD Ot J45.909 UNSPECIFIED ASTHMA, UNCOMPLICATED 09/12/2016 RYANN ARGUETA MD Ot K21.9 GASTRO-ESOPHAGEAL REFLUX DISEASE WITHOUT 09/12/2016 RYANN ARGUETA MD Ot M47.9 SPONDYLOSIS, UNSPECIFIED 09/12/2016 RYANN ARGUETA MD Ot R07.0 PAIN IN THROAT 09/12/2016 RYANN ARGUETA MD Ot R60.9 EDEMA, UNSPECIFIED 09/12/2016 RYANN ARGUETA MD Ot Z79.82 HALFWAY (CURRENT) USE OF ASPIRIN 09/12/2016 RYANN ARGUETA MD Ot Z79.84 HALFWAY (CURRENT) USE OF ORAL HYPOGLYC 09/12/2016 RYANN [...] MD Ot I25.10 ATHSCL HEART DISEASE OF [place] CORONARY 09/14/2016 RYANN ARGUETA MD Ot J02.9 ACUTE PHARYNGITIS, UNSPECIFIED 09/14/2016 RYANN ARGUETA MD Ot J45.909 UNSPECIFIED ASTHMA, UNCOMPLICATED 09/14/2016 RYANN ARGUETA MD Ot K21.9 GASTRO-ESOPHAGEAL REFLUX DISEASE WITHOUT 09/14/2016 RYANN ARGUETA MD Ot M47.9 SPONDYLOSIS, UNSPECIFIED 09/14/2016 RYANN ARGUETA MD Ot R07.0 PAIN IN THROAT 09/14/2016 RYANN ARGUETA MD Ot R60.9 EDEMA, UNSPECIFIED 09/14/2016 RYANN ARGUETA MD Ot Z79.82 HALFWAY (CURRENT) USE OF ASPIRIN 09/14/2016 RYANN ARGUETA MD Ot Z79.84 TACKING STITCH REMOVER (CURRENT) USE OF ORAL HYPOGLYC 09/14/2016 RYANN ARGUETA MD Ot Z86.718 PERSONAL HISTORY OF OTHER VENOUS THROMBO 09/14/2016 RYANN ARGUETA MD Ot Z98.890 OTHER SPECIFIED POSTPROCEDURAL STATES 09/14/2016 RYANN ARGUETA MD Ot Z99.81 DEPENDENCE ON SUPPLEMENTAL OXYGEN 09/22/2016 Ot 721.2 THORACIC SPONDYLOSIS 09/22/2016 Ot 721.3 LUMBOSACRAL SPONDYLOSIS 09/22/2016 BREA MUÑIZ MANDARIN CHINESE TEACHER Ot 786.05 SHORTNESS OF BREATH 09/22/2016 MAXIMO [...] DERANGEMENTS OF LEFT KNEE 09/22/2016 MAXIMO CALI [facility], ALI FACP CCDS Ot E11.9 TYPE 2 DIABETES MELLITUS WITHOUT COMPLIC 09/22/2016 MAXIMO SCHNEIDER, ALI FACP CCDS Ot E78.4 OTHER HYPERLIPIDEMIA 09/22/2016 MAXIMO CALI [facility], ALI FACP CCDS Ot I10 ESSENTIAL (PRIMARY) HYPERTENSION 09/22/2016 MAXIMO SCHNEIDER, ALI FACP CCDS Ot I73.9 PERIPHERAL VASCULAR DISEASE, UNSPECIFIED 09/22/2016 MAXIMO CALI [facility], ALI FACP CCDS Ot R06.02 SHORTNESS OF BREATH 09/23/2016 DEGRAFFENREID-TALAVERA, BRII L Ot E04.2 NONTOXIC MULTINODULAR GOITER 10/13/2016 DEGRAFFENREID-TALAVERA, BRII L Ot E04.2 NONTOXIC MULTINODULAR GOITER 10/28/2016 DEGRAFFENREID-TALAVERA, BRII L Ot E04.2 NONTOXIC MULTINODULAR GOITER 11/08/2016 Ot 721.2 THORACIC SPONDYLOSIS 11/08/2016 Ot 721.3 LUMBOSACRAL SPONDYLOSIS 11/08/2016 BREA MUÑIZ MANDARIN CHINESE TEACHER Ot 786.05 SHORTNESS OF BREATH 11/08/2016 MAXIMO [...] CCDS Ot 401.9 HYPERTENSION NOS 11/08/2016 MAXIMO ACLI FACC, ALI FACP CCDS Ot 427.0 PAROX ATRIAL TACHYCARDIA 11/08/2016 MAXIMO CALI FACC, ALI FACP CCDS Ot 729.81 SWELLING OF LIMB 11/08/2016 MAXIMO CALI FACC, ALI FACP CCDS Ot 785.1 PALPITATIONS 11/08/2016 MAXIMO CALI FAC, ALI FACP CCDS Ot 786.05 SHORTNESS OF BREATH 11/08/2016 MAXIMO SCHNEIDER, ALI FACP CCDS Ot 786.59 CHEST PAIN NEC 11/08/2016 MAXIMO SCHNEIDER, ALI FACP CCDS Ot V85.36 BODY MASS INDEX 36.0-36.9, ADULT 11/08/2016 LON SALAZAR CONTROL AREA OPERATOR Ot 719.46 JOINT PAIN-L/LEG 11/08/2016 LON SALAZAR CONTROL AREA OPERATOR Ot K82.4 CHOLESTEROLOSIS OF GALLBLADDER 11/08/2016 LON SALAZAR CONTROL AREA OPERATOR Ot R10.11 RIGHT UPPER QUADRANT PAIN [...] APRN Ot I25.10 ATHSCL HEART DISEASE OF [place] CORONARY 01/10/2017 NEGRO HAAS CONTROL AREA OPERATOR Ot K21.9 GASTRO-ESOPHAGEAL REFLUX DISEASE WITHOUT 01/10/2017 NEGRO HAAS APRN Ot M17.12 UNILATERAL PRIMARY OSTEOARTHRITIS, LEFT 01/10/2017 NEGRO HAAS APRN Ot M25.562 PAIN IN LEFT KNEE 01/10/2017 NEGRO HAAS APRN Ot Z79.82 HALFWAY (CURRENT) USE OF ASPIRIN 01/10/2017 NEGRO HAAS APRN Ot Z79.84 HALFWAY (CURRENT) USE OF ORAL HYPOGLYC 01/10/2017 NEGRO HAAS APRN Ot Z86.718 PERSONAL HISTORY OF OTHER VENOUS THROMBO 03/13/2017 RYANN ARGUETA MD Ot E11.40 TYPE 2 DIABETES MELLITUS WITH DIABETIC N 03/13/2017 RYANN ARGUETA MD Ot E78.00 PURE HYPERCHOLESTEROLEMIA, UNSPECIFIED 03/13/2017 RYANN ARGUETA MD Ot I10 ESSENTIAL (PRIMARY) HYPERTENSION 03/13/2017 RYANN ARGUETA MD Ot I16.0 HYPERTENSIVE URGENCY 03/13/2017 RYANN ARGUETA MD Ot I25.10 ATHSCL HEART DISEASE OF [place] CORONARY 03/13/2017 RYANN ARGUETA MD Ot J45.909 UNSPECIFIED ASTHMA, UNCOMPLICATED 03/13/2017 RYANN ARGUETA MD Ot K21.9 GASTRO-ESOPHAGEAL REFLUX DISEASE WITHOUT 03/13/2017 RYANN ARGUETA MD Ot Q05.9 SPINA BIFIDA, UNSPECIFIED 03/13/2017 RYANN ARGUETA MD Ot R00.2 PALPITATIONS 03/13/2017 RYANN ARGUETA MD Ot Z77.22 CNTCT W AND EXPSR TO ENVIRON TOBACCO SMO 03/13/2017 RYANN ARGUETA MD Ot Z79.82 TACKING STITCH REMOVER (CURRENT) USE OF ASPIRIN 03/13/2017 RYANN ARGUETA MD Ot Z79.84 TACKING STITCH REMOVER (CURRENT) USE OF ORAL HYPOGLYC 03/15/2017 RYANN ARGUETA MD Ot E11.40 TYPE 2 DIABETES MELLITUS WITH DIABETIC N 03/15/2017 RYANN ARGUETA MD Ot E78.00 PURE HYPERCHOLESTEROLEMIA, UNSPECIFIED 03/15/2017 RYANN ARGUETA MD Ot I10 ESSENTIAL (PRIMARY) HYPERTENSION 03/15/2017 RYANN ARGUETA MD Ot I16.0 HYPERTENSIVE URGENCY 03/15/2017 RYANN ARGUETA MD Ot I25.10 ATHSCL HEART DISEASE OF [place] CORONARY 03/15/2017 RYANN ARGUETA MD Ot J45.909 UNSPECIFIED ASTHMA, UNCOMPLICATED 03/15/2017 RYANN ARGUETA MD Ot K21.9 GASTRO-ESOPHAGEAL REFLUX DISEASE WITHOUT 03/15/2017 RYANN ARGUETA MD Ot Q05.9 SPINA BIFIDA, UNSPECIFIED 03/15/2017 RYANN ARGUETA MD Ot R00.2 PALPITATIONS 03/15/2017 RYANN ARGUETA MD Ot Z77.22 CNTCT W AND EXPSR TO ENVIRON TOBACCO SMO 03/15/2017 KENDALL CALI, RYANN Fay Ot Z79.82 HALFWAY (CURRENT) USE OF ASPIRIN 03/15/2017 KENDALL CALI, RYANN Fay Ot Z79.84 TACKING STITCH REMOVER (CURRENT) USE OF ORAL HYPOGLYC Procedures Code Description Performed By Performed On [facility] 05/27/2011 13956 ROUTINE VENIPUNCTURE 02/09/2012 12759 CBC 02/09/2012 57748 CMP 02/09/2012 03476 LIPID PANEL 02/09/2012 [id number] GFR CALC (RESULT ONLY) 02/09/2012 54960 XRAY LUMBAR SPINE MIN 4 VIEWS 03/02/2012 23801 A1C (IN-HOUSE) 03/17/2012 48733 BIOPSY SKIN (EACH ADD'L) 04/13/2012 31688 A1C (IN-HOUSE) 06/20/2012 09745 MICRO ALBUMIN-IN HOUSE 06/20/2012 48189 ROUTINE VENIPUNCTURE 07/20/2012 99263 LIPID PANEL 07/20/2012 51262 CMP 07/20/2012 [id number] GFR CALC (RESULT ONLY) 07/20/2012 78953 MAMMOGRAM, SCREENING 07/25/2012 18355 ROUTINE VENIPUNCTURE 01/16/2013 [id number] GFR CALC (RESULT ONLY) 01/16/2013 53206 CMP 01/16/2013 64577 LIPID PANEL 01/16/2013 21132 TRIGGER POINT INJ/1-2 MUS 02/15/2013 62956 A1C (IN-HOUSE) 02/26/2013 05872 ROUTINE VENIPUNCTURE 03/12/2013 89252 CBC 03/12/2013 40420 URIC ACID 03/12/2013 41666 ESR/SED RATE 03/12/2013 80995 A1C (IN-HOUSE) 05/28/2013 81483 ROUTINE VENIPUNCTURE 07/31/2013 03110 MYCOPLASMA ANTIBODY 07/31/2013 2094524 STOOL FOR BACTERIAL PATHOGENS 08/03/2013 40060 MAMMOGRAM, SCREENING 08/06/2013 31216 ROUTINE VENIPUNCTURE 08/14/2013 07916 CMP 08/14/2013 44777 LIPID PANEL 08/14/2013 87224 A1C (IN-HOUSE) 08/29/2013 01290 A1C (IN-HOUSE) 11/30/2013 87789 MICRO ALBUMIN-IN HOUSE 11/30/2013 56287 ROUTINE VENIPUNCTURE 02/22/2014 7306032 GFR CALC (RESULT ONLY) 02/22/2014 37335 CMP 02/22/2014 20725 LIPID PANEL 02/22/2014 Results Test Result Range [...] Status Pt. Type Provider Facility Loc./Unit Complaint [id number] 03/07/2014 08:59:00 03/07/2014 23:59:59 [facility] Outpatient CAIO MARC DO [id number] 03/07/2014 08:59:00 03/07/2014 23:59:59 [facility] Outpatient LON SALAZAR APRN [id number] 01/30/2014 09:59:00 01/30/2014 23:59:59 [facility] Outpatient CAIO MARC DO [id number] 11/30/2013 09:08:00 11/30/2013 23:59:59 [facility] Outpatient LON SALAZAR APRN [id number] 11/30/2013 09:08:00 11/30/2013 23:59:59 [facility] Outpatient MARC DOCAIO [id number] 11/01/2013 09:47:00 11/01/2013 23:59:59 [facility] Outpatient MARC DO, CAIO Garcia [id number] 08/29/2013 08:21:00 08/29/2013 23:59:59 [facility] Outpatient MARC DOCAIO [id number] 08/14/2013 08:09:00 08/14/2013 23:59:59 [facility] Outpatient MARC DOCAIO [id number] 08/01/2013 11:52:00 08/01/2013 23:59:59 [facility] Outpatient MARC DO, CAIO Garcia [id number] 07/31/2013 08:45:00 07/31/2013 23:59:59 [facility] Outpatient MARC DO, CAIO Garcia [id number] 05/28/2013 08:03:00 05/28/2013 23:59:59 CLS Outpatient HELLMARTIN CONTROL AREA OPERATORLON Barajas [id number] 05/28/2013 08:03:00 05/28/2013 23:59:59 [facility] Outpatient MARC DO, CAIO Garcia [id number] 03/12/2013 14:52:00 03/12/2013 23:59:59 CLS Outpatient HELLWIG CONTROL AREA OPERATORLON [id number] 03/12/2013 08:03:00 03/12/2013 23:59:59 [facility] Outpatient MARC DO, CAIO Garcia [id number] 02/26/2013 08:22:00 02/26/2013 23:59:59 CLS Outpatient HELLWIG LON REBOLLAR [id number] 02/26/2013 08:22:00 02/26/2013 23:59:59 [facility] Outpatient MARC DO, CAIO Garcia [id number] 02/15/2013 09:10:00 02/15/2013 23:59:59 [facility] Outpatient MARC DOCAIO [id number] 01/25/2013 08:21:00 01/25/2013 23:59:59 [facility] Outpatient MARC DO, CAIO Garcia [id number] 01/16/2013 09:41:00 01/16/2013 23:59:59 C[facility] Outpatient MARC DO, CAIO Garcia [id number] 01/01/2013 17:10:00 01/01/2013 23:59:59 CLS Outpatient WHITE MARIELSDONTE [id number] 11/24/2012 08:44:00 11/24/2012 23:59:59 CLS Outpatient CAIO MARC DO [id number] 04/13/2012 10:49:00 04/13/2012 23:59:59 CLS Outpatient YOVANI MONTERO MD [id number] 03/17/2012 08:36:00 03/17/2012 23:59:59 CLS Outpatient [id number] 03/17/2012 08:36:00 03/17/2012 23:59:59 CLS Outpatient YOVANI MONTERO MD [id number] 03/02/2012 15:38:00 03/02/2012 23:59:59 CLS Outpatient YOVANI MONTERO MD [id number] 02/09/2012 08:57:00 02/09/2012 23:59:59 [place] [id number] 12/08/2011 08:45:00 12/08/2011 23:59:59 CLS Outpatient YOVANI MONTERO MD [id number] 12/08/2011 08:45:00 12/08/2011 23:59:59 CLS Outpatient [id number] 09/22/2012 09:27:00 Document Registration [id number] 07/25/2012 09:05:00 Document Registration [id number] 07/20/2012 08:21:00 Document Registration [id number] 06/20/2012 10:48:00 Document Registration [id number] 06/20/2012 10:48:00 Document Registration [id number] 03/13/2017 03:21:00 03/13/2017 05:03:00 DIS Emergency RYANN ARGUETA MD [facility] ER ELEVATED BP [id number] 01/10/2017 20:42:00 01/10/2017 22:16:00 DIS Emergency NEGRO HAAS CONTROL AREA OPERATOR [facility] ER L KNEE PAIN [id number] 10/28/2016 10:32:00 10/28/2016 23:59:59 CLS Preadmit IGNACIO DONNELLY DO [facility] RAD THYROID NODULE E04.1 [id number] 09/22/2016 10:16:00 09/22/2016 23:59:59 CLS Outpatient JIMENEZFFEBRII MEDINA [facility] RAD THYROID ENLARGED [id number] 09/12/2016 09:41:00 09/12/2016 10:37:00 DIS Emergency RYANN ARGUETA MD [facility] ER THROAT DISCOMFORT [id number] 07/13/2016 10:48:00 07/13/2016 23:59:59 CLS Outpatient PEDRO MARSH MD, FACC, FACP CCDS [facility] RAD E11.9 DIABETES MELLITUS TYPE 2 [id number] 05/07/2016 11:32:00 05/07/2016 23:59:59 CLS Outpatient NAHUN PEREZ DO [facility] RAD MEDIAL MENISCUS TEAR L KNEE [id number] 04/20/2016 10:23:00 04/20/2016 11:32:00 DIS Emergency NEGRO HAAS [employer] OPERATOR [facility] ER LEFT LEG PAIN [id number] 03/06/2016 04:28:00 03/06/2016 05:54:00 DIS Emergency ELIEZER KELLEY DO [facility] ER HIGH BLOOD PRESSURE [id number] 04/26/2015 20:00:00 04/27/2015 07:10:00 DIS Outpatient LUCIAN FERRER DO [facility] SLEEP SNORING EXCESSIVE DAYTIME SLEEPINESS [id number] 04/03/2015 09:27:00 04/03/2015 23:59:59 CLS Outpatient LON SALAZAR [employer] OPERATOR [facility] RAD ABNORMAL GB ULTRASOUND [id number] 04/02/2015 08:19:00 04/02/2015 23:59:59 CLS Outpatient LUCIAN FERRER DO [facility] RT HTN,OBESITY,PALPITATIONS, SOB [id number] 03/11/2015 09:07:00 03/11/2015 23:59:59 CLS Outpatient LON SALAZAR E [employer] OPERATOR [facility] RAD RIGHT UPPER QUAD PAIN [id number] 06/19/2014 13:30:00 06/19/2014 23:59:59 CLS Outpatient LON SALAZAR E [employer]OL ARE[employer] OPERATOR [facility] RAD L KNEE PAIN [id number] 03/12/2014 07:26:00 03/12/2014 23:59:59 CLS Outpatient MAXIMO CALI FACC, PEDRO GARCIA CCDS [facility] CARD CHEST DISCOMFORT,PALPITATIONS, [id number] 03/01/2013 07:22:00 05/02/2013 00:01:00 DIS Outpatient MARIO MOORE [facility] CARD PALPITATIONS, DYSPNEA [id number] 03/06/2013 07:22:00 03/06/2013 23:59:59 CLS Outpatient PEDRO MARSH MD, FACC, FACP CCDS [facility] LAB SOB, HYPERTENSION,DM [id number] 07/19/2012 06:56:00 07/19/2012 23:59:59 CLS Outpatient BREA MUÑIZ [facility] RT SOB [id number] 03/11/2015 09:06:00 Document Registration [id number] 05/03/2013 11:00:00 Document Registration [id number] 03/09/2012 10:31:00 Document Registration [id number] 02/14/2012 12:37:00 Document Registration [id number] 11/12/2011 09:12:00 Document Registration [id number] 06/21/2011 10:56:00 Document Registration [id number] 07/09/2010 22:00:00 Document Registration [id number] 03/23/2010 12:19:00 Document Registration [id number] 11/30/2009 10:47:00 Document Registration
== END 2017-03-29 20:16 | disposition home or self-care (01) ==
LOC: EDUNIT# 18:02 → ER 18:03
DX: I16.0 Hypertensive urgency (principal); J45.909 Unspecified asthma, uncomplicated; I25.10 Atherosclerotic heart disease of native coronary artery without angina pectoris; E78.00 Pure hypercholesterolemia, unspecified; I10 Essential (primary) hypertension; K21.9 Gastro-esophageal reflux disease without esophagitis; E11.40 Type 2 diabetes mellitus with diabetic neuropathy, unspecified; Z88.5 Allergy status to narcotic agent; Z88.8 Allergy status to other drugs, medicaments and biological substances; Z86.718 Personal history of other venous thrombosis and embolism; Z79.82 Long term (current) use of aspirin; Z79.84 Long term (current) use of oral hypoglycemic drugs; Z77.22 Contact with and (suspected) exposure to environmental tobacco smoke (acute) (chronic)
CPT/HCPCS: 36415; 80048; 83880; 84443; 84484; 85025; 93005

== ENCOUNTER 2017-04-05 07:34 | Day surgery (SDC) | payer MEDICARE ==
[2017-04-05] VITALS (10 sets, daily range): BP systolic 113–186; BP diastolic 60–93
[~2017-04-05] VITALS: Ht 154.9 cm; Wt 80.3 kg
[~2017-04-05 07:34] MED LIST changes: +LISI1TAB6 PO
[2017-04-05] MEDS ORDERED: HEParin (CATH LAB) 2,000 ML IV ONE (07:41)
[2017-04-05] MEDS ORDERED: LIDOCAINE 1% INJ 50 ML (XYLOCAINE) VIAL ONE (07:41)
[2017-04-05] MEDS ORDERED: NS IV 1000 ML 1,000 ML ONE (07:41)
[2017-04-05] MEDS ORDERED: NS IV 1000 ML 1,000 ML IV SCH ×2 (08:00→11:29)
[2017-04-05 08:17] LABS: HEMOGLOBIN 12.3 G/DL (11.5-16.0); MEAN PLATELET VOLUME 11.4 FL (7.4-10.4); RED BLOOD COUNT 4.47 10^6/uL (4.35-5.85); RED CELL DISTRIBUTION WIDTH 13.8 % (10.0-14.5); WHITE BLOOD COUNT 7.5 10^3/uL (4.3-11.0)
[2017-04-05] MEDS ORDERED: METO50TA15 PO (08:30)
[2017-04-05] MEDS ORDERED: LISI1TAB6 PO (08:30)
[2017-04-05] MEDS ORDERED: APIX5TAB PO (08:30)
[2017-04-05 08:34] LABS: PROTHROMBIN TIME PATIENT 13.1 SEC (12.2-14.7)
[2017-04-05 08:43] LABS: ALANINE AMINOTRANSFERASE 21 U/L (0-55); ALBUMIN 4.5 GM/DL (3.2-4.5); ALKALINE PHOSPHATASE 63 U/L (40-136); BILIRUBIN,TOTAL 0.3 MG/DL (0.1-1.0); BUN/CREATININE RATIO 16; CALCIUM 10.1 MG/DL (8.5-10.1); CARBON DIOXIDE 25 MMOL/L (21-32); CHLORIDE 98 MMOL/L (98-107); CHOLESTEROL 166 MG/DL (< 200); CREATININE SERUM 0.68 MG/DL (0.60-1.30); GFR ESTIMATED > 60; GLUCOSE 117 MG/DL (70-105); HDL CHOLESTEROL 66 MG/DL (40-60); POTASSIUM 4.3 MMOL/L (3.6-5.0); SODIUM 135 MMOL/L (135-145); TOTAL PROTEIN 7.9 GM/DL (6.4-8.2); TRIGLYCERIDES 78 MG/DL (<150); VLDL CHOLESTEROL 16 MG/DL (5-40)
[2017-04-05] MEDS ORDERED: MIDAZOLAM 5 MG/5 ML (VERSED) VIAL ONE (10:24)
[2017-04-05] MEDS ORDERED: diphenhydrAMINE 50 MG/ML INJ (BENADRYL) ONE (10:24)
[2017-04-05] MEDS ORDERED: fentaNYL INJECTION 100 MCG/2 ML AMP ONE (10:24)
--- NOTE | 2017-04-05 11:03 | Cardiac Procedure Note-CS/ASA ---
Pre-Procedure Note Pre-Op Procedure Note H&P Reviewed The H&P was reviewed, patient examined and no changes noted. Date H&P Reviewed: Apr 05, 2017 Time H&P Reviewed: 11:03 Conscious Sedation Pre-Proced Time Reviewed: 11:03 ASA Class: 3 Airway Mallampati Classification: (eklutna appropriate class) I. II. III, IV Lungs Heart ASA score ASA 1: a normal healthy patient ASA 2: a patient with a mild systemic disease (mid diabetes, controlled hypertension, obesity ASA 3: a patient with a severe systemic disease that limits activity (angina , COPD, prior Myocardial infarction) ASA 4: a patient with an incapacitating disease that is a constant threat to life (CHF, renal failure) ASA 5: a moribund patient not expected to survive 24 hrs. (ruptured aneurysm) ASA 6: a declared brain patient whose organs are being harvested. For emergent operations, add the letter E after the classification Grade 2 Sedation Plan: Analgesia, Amnesia, Plan communicated to team members, Discussed options with patient/fam, Discussed risks with patient/fam Note The patient is an appropriate candidate to undergo the planned procedure, sedation, and anesthesia. The patient immediately re-assessed prior to indication. PEDRO MARSH MD FACP FACC CCDS Apr 05, 2017 11:03
[2017-04-05] MEDS ORDERED: meTOprolol 5 MG/5 ML (LOPRESSOR) VIAL ONE ×2 (11:11→11:27)
[2017-04-05] MEDS ORDERED: ENALAPRILAT 2.5 MG/2 ML (VASOTEC) VIAL IV ONE (11:27)
[2017-04-05] MEDS ORDERED: PATIENT MAY USE OWN MEDS, ALL PO SCH (11:30)
--- NOTE | 2017-04-05 11:34 | Discharge Inst-Post CATH ---
Discharge Inst-CATH Post Cardiac Cath D/C Inst Follow Up/Plan F/u with Dr Winters 1-2 weeks CARDIAC CATH DISCHARGE INSTRUCTIONS *Hold Metformin for 48 hours post heart cath. ACTIVITY * Go Home directly and rest. * Limit activity of the leg (or wrist if it was used) for 7 days including aerobics, swimming, jogging, bicycling, etc. * Restrict stair-climbing for 7 days if possible, if not, climb up with your non -cath leg, then bring together on the same step. * Avoid lifting, pushing, pulling or excessive movement of the affected extremity for 7 days. * Customary sexual activity may be resumed after 2 days-use caution not to use a position that strains or causes pain to the affected extremity. * No driving for 24 hours. * NO SMOKING. * Avoid straining for bowel movements for 7 days. * Gentle walking on level ground is allowed. * Returning to work will depend on the type of procedure and the results. Your doctor will discuss this with you. CALL YOUR DOCTOR FOR ANY OF THE FOLLOWING: *If bleeding from the puncture site occurs- Apply gentle pressure to site with clean cloth and call your doctor or EMS. * If a knot or lump forms under the skin, increases in size, or causes pain. * If bruising appears to be worsening or moving further down your leg instead of disappearing. * Temperature above 101 F. CARE OF YOUR GROIN INCISION; * Bruising or purple discoloration of the skin near the puncture site is common. * You may shower only, no bathtub bathing for 5 days. Be careful to avoid slipping as your leg may feel stiff. * If a closure device was used on your femoral artery, please see the attached guide regarding care of the device and your leg. * REMOVE the dressing from your groin the next day after your procedure in the shower. CARE OF YOUR WRIST INCISION; * Bruising or purple discoloration of the skin near the puncture site is common. * You may shower. * DO NOT submerge wrist. * Remove dressing in 24 hours. PEDRO WINTERS MD FACP [facility] CCDS Apr 05, 2017 11:33
[2017-04-05] MEDS ORDERED: METO100T12 PO (11:37)
--- NOTE | 2017-04-05 11:38 | Discharge Inst-Cardiology ---
Discharge Inst-Cardiac Discharge Medications New Medications: Metoprolol Tartrate (Metoprolol Tartrate) 100 Mg Tablet 100 MG PO BID, #180 TAB 3 Refills Continued Medications: Albuterol (Proventil Inh) 17 Gm Aerosol 1 GM IH 5 x DAILY Apixaban (Eliquis) 5 Mg Tablet 5 MG PO BID, TAB Cetirizine HCl (Cetirizine HCl) 10 Mg Tablet 10 MG PO DAILY, TAB Fluticasone Propionate (Flonase 0.05% Nasal [place]) 16 Gm [place] 2 SPRAYS NS BID Gabapentin (Gabapentin) 300 Mg Tablet 300 MG PO TID Lisinopril/Hydrochlorothiazide (Lisinopril-Hctz 10-12.5 mg Tab) 1 Each Tablet 1 EACH PO DAILY, TAB Lovastatin (Lovastatin) 20 Mg Tablet 20 MG PO DAILY Omeprazole (Omeprazole) 20 Mg Capsule.dr 20 MG PO BID, CAP Discontinued Medications: Aspirin (Aspirin Ec 81 Mg) 81 Mg Tabec 81 MG PO DAILY Metformin Hcl (Metformin 1000 Mg) 1,000 Mg Tablet 1000 MG PO BID WITH MEALS Metoprolol Tartrate (Metoprolol Tartrate) 50 Mg Tablet 50 MG PO BID, TAB PEDRO MRASH MD FACP FACC CCDS Apr 05, 2017 11:38
--- NOTE | 2017-04-05 11:39 | Discharge Inst-Cardiology ---
Discharge Inst-Cardiac Discharge Medications New Medications: Metoprolol Tartrate (Metoprolol Tartrate) 100 Mg Tablet 100 MG PO BID, #180 TAB 3 Refills Continued Medications: Albuterol (Proventil Inh) 17 Gm Aerosol 1 GM IH 5 x DAILY Apixaban (Eliquis) 5 Mg Tablet 5 MG PO BID, TAB Cetirizine HCl (Cetirizine HCl) 10 Mg Tablet 10 MG PO DAILY, TAB Fluticasone Propionate (Flonase 0.05% Nasal [place]) 16 Gm [place] 2 SPRAYS NS BID Gabapentin (Gabapentin) 300 Mg Tablet 300 MG PO TID Lisinopril/Hydrochlorothiazide (Lisinopril-Hctz 10-12.5 mg Tab) 1 Each Tablet 1 EACH PO DAILY, TAB Lovastatin (Lovastatin) 20 Mg Tablet 20 MG PO DAILY Omeprazole (Omeprazole) 20 Mg Capsule.dr 20 MG PO BID, CAP Discontinued Medications: Aspirin (Aspirin Ec 81 Mg) 81 Mg Tabec 81 MG PO DAILY Metformin Hcl (Metformin 1000 Mg) 1,000 Mg Tablet 1000 MG PO BID WITH MEALS Metoprolol Tartrate (Metoprolol Tartrate) 50 Mg Tablet 50 MG PO BID, TAB Patient Instructions Patient Instructions: Hold Metformin until the evening of 04/07/17. Then resume previous dose PEDRO MARSH MD FACP FAC CCDS Apr 05, 2017 11:39
--- NOTE | 2017-04-05 12:32 | CARDIAC CATHETERIZATION ---
DATE OF SERVICE: 04/05/2017 The patient is a 61-year-old lady who has been experiencing palpitations and near syncope and an ambulatory alarm security or surveillance monitor showed one episode of wide complex tachycardia and brief episodes of atrial fibrillation/flutter. Cardiac catheterization was recommended to evaluate for cardiomyopathy and coronary artery disease. Informed consent was obtained. PROCEDURE: She was brought to the cardiac catheterization laboratory in a fasting state. Right groin was prepared and draped in the usual sterile fashion. Lidocaine 1% was used for local anesthesia. Modified Seldinger technique was used to advance a 5-Romanian sheath in the right femoral artery. A 5-Romanian JL4 catheter is used for left coronary angiography. A 5-Romanian JR4 catheter for right coronary angiography. A 5-Romanian JR4 catheter for catheter was used for left heart catheterization and left ventricular angiography. Following removal of the diagnostic catheters, angiography of the right femoral artery was carried out through the sheath and Mynx was used to achieve hemostasis. Overall, she tolerated the procedure well. HEMODYNAMICS: Left ventricular end-diastolic pressure following coronary angiography was 22 mmHg. There was no significant pressure gradient on pullback across the aortic valve. Ascending aortic pressure was 185/96 with mean of 140 mmHg. LEFT VENTRICULAR ANGIOGRAPHY: Left ventricular angiography was carried out in the right anterior oblique projection. Global left ventricular systolic function is normal. Left ventricular ejection fraction is estimated to be 65 to 70%. There did not appear to be significant mitral regurgitation on this view. CORONARY ANGIOGRAPHY: Left main coronary artery, left anterior descending artery, left circumflex artery, right coronary artery do not exhibit angiographically significant disease. CONCLUSIONS: 1. No angiographically significant coronary artery disease. 2. Elevated left ventricular end-diastolic pressure. 3. Normal global left ventricular systolic function noted with ejection fraction of 65 to 70%. DISCUSSION AND RECOMMENDATIONS: Based on results of the study, it appears appropriate to continue a conservative approach. Risk factor modification has been reviewed. Outpatient followup is advised. Beta sonia therapy and oral anticoagulation for stroke prophylaxis is being continued. Job ID: [id number] DocumentID: [id number] Dictated Date: 04/05/2017 11:27:31 Fire Coordinator Date: 04/05/2017 12:32:13 Dictated By: PEDRO MARSH MD, MA, FACP, FACC,
== END 2017-04-05 14:55 | disposition home or self-care (01) ==
LOC: CATH 07:34 → SURG 11:56 → CATH 14:55
PROVIDERS: ATTEND Internal Medicine Cardiovascular Disease
DX: I47.1 Supraventricular tachycardia (principal); I10 Essential (primary) hypertension; E11.9 Type 2 diabetes mellitus without complications; E78.5 Hyperlipidemia, unspecified; M79.89 Other specified soft tissue disorders; G47.33 Obstructive sleep apnea (adult) (pediatric); R42 Dizziness and giddiness; R55 Syncope and collapse; I65.23 Occlusion and stenosis of bilateral carotid arteries; E04.2 Nontoxic multinodular goiter; J45.909 Unspecified asthma, uncomplicated; E66.9 Obesity, unspecified; Z68.33 Body mass index [BMI] 33.0-33.9, adult; Z79.82 Long term (current) use of aspirin; Z79.84 Long term (current) use of oral hypoglycemic drugs; Z79.899 Other long term (current) drug therapy
CPT/HCPCS: 36415; 80053; 80061; 84443; 85027; 85610; 85730; 87081; 93005; 93458

== ENCOUNTER → 2017-04-18 | Outpatient (CLI) | payer MEDICARE ==
[~2017-04-18] MED LIST changes: +APIX5TAB PO; +METO100T12 PO; +METO50TA15 PO
--- NOTE | 2017-04-18 09:25 | Diagnostic Imaging Report ---
PROCEDURE: US Thyroid. TECHNIQUE: Multiple Real-time grayscale images were obtained of the thyroid in various projections. INDICATION: Thyroid nodule. This study is performed for followup. COMPARISON: 09/22/2016. FINDINGS: The right lobe of the thyroid measures 4.2 x 1.6 x 2.1 cm. The left lobe measures 3.8 x 0.9 x 1.2 cm. The isthmus is 3 mm in thickness. The previously noted solid nodules in the isthmus and right lobe of the thyroid appear decreased in size when compared with the prior exam. The dominant nodule measures 1.9 x 1.0 x 1.6 cm compared with 2.5 x 1.4 x 1.9 cm previously. The smaller nodule in the right lobe measures 1.0 x 0.7 x 0.8 cm compared with 1.4 x 1.3 x 1.2 cm previously. No new nodule is identified. The left lobe is unremarkable. IMPRESSION: Mild decrease in the size of the solid right lobe thyroid nodules when compared with the prior examination from 09/22/2016. Dictated by: Dictated on workstation # [id number]
== END ==
LOC: RAD 07:59
PROVIDERS: ATTEND Otolaryngology Otolaryngology/Facial Plastic Surgery
DX: E04.2 Nontoxic multinodular goiter (principal)
CPT/HCPCS: 76536

== ENCOUNTER 2017-09-13 16:09 | Emergency (ER) | payer MEDICARE ==
[~2017-09-13] VITALS: Ht 154.9 cm; Wt 83.0 kg
[2017-09-13] MEDS ORDERED: NS IV 1000 ML 1,000 ML IV ONE (17:17)
--- NOTE | 2017-09-13 17:26 | ED Abdominal Pain ---
General Stated Complaint: ABD PAIN;FEVER Source of Information: Patient Exam Limitations: No Limitations (MARION HERNANDEZ MD) History of Present Illness Date Seen by Provider: Sep 13, 2017 Time Seen by Provider: 17:12 Initial Comments Here with report of upper abdominal pain that she states goes across her abdomen. She reports that it's sharp and goes across the upper abdomen. She has had some nausea and mild fevers without vomiting or diarrhea. She was not able to eat very well overnight for this morning and is only had a very small meal and some sips of fluid with her medicines. Denies blood in her stool. Timing/Duration: 2-3 Days Severity/Quality: Moderate, Severe, Aching, Sharp Location: RUQ, LUQ Radiation: Epigastric Activities at Onset: None Modifying Factors: Worsens With Eating Associated Symptoms: No Back Pain, No Chest Pain; Fever/Chills; No Shortness of Air, No Swelling/Mass in Abdomen, No Weakness (MARION HERNANDEZ MD) Allergies and Home Medications Allergies Coded Allergies: codeine (Unverified Allergy, Mild, 05/05/09) propoxyphene (Unverified Allergy, Mild, 05/05/09) tramadol (Unverified Allergy, Mild, 05/12/09) Home Medications Albuterol 17 Gm Aerosol, 1 GM IH 5 x DAILY, (Reported) Apixaban 5 Mg Tablet, 5 MG PO BID, (Reported) Cetirizine HCl 10 Mg Tablet, 10 MG PO DAILY, (Reported) Fluticasone Propionate 16 Gm [place], 2 SPRAYS NS BID, (Reported) Gabapentin 300 Mg Tablet, 300 MG PO TID, (Reported) Lisinopril/Hydrochlorothiazide 1 Each Tablet, 1 EACH PO DAILY, (Reported) Lovastatin 20 Mg Tablet, 20 MG PO DAILY, (Reported) Metoprolol Tartrate 100 Mg Tablet, 100 MG PO BID Prescribed by: PEDRO MARSH on 04/05/17 1137 Omeprazole 20 Mg Capsule.dr, 20 MG PO BID, (Reported) Patient Home Medication List Home Medication List Reviewed: Yes (MARION HERNANDEZ MD) Review of Systems Constitutional: see HPI, chills, fever EENTM: No Symptoms Reported Respiratory: No Symptoms Reported Cardiovascular: Denies Chest Pain, Denies Palpitations Gastrointestinal: Abdominal Pain; Denies Diarrhea; Nausea; Denies Vomiting Genitourinary: No Symptoms Reported Musculoskeletal: no symptoms reported Skin: no symptoms reported (MARION HERNANDEZ MD) All Other Systems Reviewed Negative Unless Noted: Yes (MARION HERNANDEZ MD) Past Plpkaxi-Vqsrxq-Kbmhdq Hx Past Med/Social Hx: Reviewed Nursing Past Med/Soc Hx (MARION HERNANDEZ MD) Patient Social History Alcohol Use: Denies Use Recreational Drug Use: No Smoking Status: Never a Smoker 2nd Hand Smoke Exposure: Yes Recent Foreign Travel: No Contact w/Someone Who Travel: No Recent Hopitalizations: No (MARION HERNANDEZ MD) Immunizations Up To Date Date of Pneumonia Vaccine: Feb 20, 2011 Date of Influenza Vaccine: Nov 14, 2016 (MARION HERNANDEZ MD) Seasonal Allergies Seasonal Allergies: No (MARION HERNANDEZ MD) Past Medical History Surgeries: Yes (D&C; CARDIAC CATH--NO INTERVENTION) Cardiac, Orthopedic Respiratory: Yes (wears 2L @ night) Asthma Cardiac: Yes ("blood clot in heart" ) Chronic Edema/Swelling, Coronary Artery Disease, Deep Vein Thrombosis, High Cholesterol, Hypertension Neurological: Yes (spina bifida) Neuropathy Reproductive Disorders: No 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 Genitourinary: No Gastrointestinal: Yes Gastroesophageal Reflux Musculoskeletal: Yes (SPINA BIFIDA) Arthritis, Fibromyalgia, Chronic Back Pain Endocrine: Yes Diabetes, Non-Insulin dep Cancer: No Psychosocial: No (MARION HERNANDEZ MD) Family Medical History Reviewed Nursing Family Hx (MARION HERNANDEZ MD) No Pertinent Family Hx (MARION HERNANDEZ MD) Physical Exam Vital Signs Vital Signs - First Documented 09/13/17 17:09 Temp 98.6 Pulse 91 Resp 15 B/P (MAP) 130/110 (117) Pulse Ox 98 O2 Delivery Room Air (WARREN,ELIEZER K DO) Vital Signs Capillary Refill : (MARION HERNANDEZ MD) Height/Weight/BMI Height: 5'1.00" Weight: 177lbs. 0.0oz. 80.011598ff; 33.4 BMI Method:Stated General Appearance: WD/WN, no apparent distress HEENT: PERRL/EOMI, pharynx normal Neck: full range of motion, supple Respiratory: lungs clear, normal breath sounds Cardiovascular: regular rate, rhythm, no murmur Gastrointestinal: normal bowel sounds, soft; No guarding, No rebound; tenderness (mild upper abdominal) Extremities: non-tender, normal inspection Back: normal inspection, no CVA tenderness, no vertebral tenderness Neurologic/Psychiatric: alert, oriented x 3 Skin: normal color, warm/dry (MARION HERNANDEZ MD) Progress/Results/Core Measures Results/Orders Lab Results Laboratory Tests Test 09/13/17 17:35 09/13/17 17:49 09/13/17 18:20 Range/Units Urine Color YELLOW Urine Clarity CLEAR Urine pH 7 5-9 Urine Specific [place] 1.005 L 1.016-1.022 Urine Protein NEGATIVE NEGATIVE Urine Glucose (UA) NEGATIVE NEGATIVE Urine Ketones NEGATIVE NEGATIVE Urine Nitrite NEGATIVE NEGATIVE Urine Bilirubin NEGATIVE NEGATIVE Urine Urobilinogen NORMAL NORMAL MG/DL Urine Leukocyte Esterase NEGATIVE NEGATIVE Urine RBC (Auto) NEGATIVE NEGATIVE Urine RBC 0-2 /HPF Urine WBC RARE /HPF Urine Crystals NONE /LPF Urine Bacteria NEGATIVE /HPF Urine Casts NONE /LPF Urine Mucus NEGATIVE /LPF Urine Culture Indicated NO White Blood Count 9.1 4.3-11.0 10^3/uL Red Blood Count 4.42 4.35-5.85 10^6/uL Hemoglobin 12.3 11.5-16.0 G/DL Hematocrit 37 35-52 % Mean Corpuscular Volume 83 80-99 FL Mean Corpuscular Hemoglobin 28 25-34 PG Mean Corpuscular Hemoglobin Concent 34 32-36 G/DL Red Cell Distribution Width 14.9 H 10.0-14.5 % Platelet Count 292 130-400 10^3/uL Mean Platelet Volume 10.6 H 7.4-10.4 FL Neutrophils (%) (Auto) 85 H 42-75 % Lymphocytes (%) (Auto) 8 L 12-44 % Monocytes (%) (Auto) 7 0-12 % Eosinophils (%) (Auto) 0 0-10 % Basophils (%) (Auto) 0 0-10 % Neutrophils # (Auto) 7.8 1.8-7.8 X 10^3 Lymphocytes # (Auto) 0.7 L 1.0-4.0 X 10^3 Monocytes # (Auto) 0.6 0.0-1.0 X 10^3 Eosinophils # (Auto) 0.0 0.0-0.3 10^3/uL Basophils # (Auto) 0.0 0.0-0.1 10^3/uL Sodium Level 134 L 135-145 MMOL/L Potassium Level 3.8 3.6-5.0 MMOL/L Chloride Level 97 L 98-107 MMOL/L Carbon Dioxide Level 25 21-32 MMOL/L Anion Gap 12 5-14 MMOL/L Blood Urea Nitrogen 6 L 7-18 MG/DL Creatinine 0.64 0.60-1.30 MG/DL Estimat Glomerular Filtration Rate > 60 BUN/Creatinine Ratio 9 Glucose Level 109 H 70-105 MG/DL Calcium Level 9.4 8.5-10.1 MG/DL Magnesium Level 1.7 L 1.8-2.4 MG/DL Total Bilirubin 0.5 0.1-1.0 MG/DL Aspartate Amino Transf (AST/SGOT) 18 5-34 U/L Alanine Aminotransferase (ALT/SGPT) 16 0-55 U/L Alkaline Phosphatase 76 40-136 U/L C-Reactive Protein High Sensitivity 2.96 H 0.00-0.50 MG/DL Total Protein 7.8 6.4-8.2 GM/DL Albumin 4.4 3.2-4.5 GM/DL Amylase Level 46 25-125 U/L Lipase 25 8-78 U/L Troponin I < 0.30 <0.30 NG/ML (WARREN,ELIEZER K DO) My Orders Orders - WARRENELIEZER K DO Acetaminophen Tablet (Tylenol Tablet) (09/13/17 19:30) (WARREN,ELIEZER K DO) Medications Given in ED Current Medications Medications Dose Ordered Sig/Toney Route Start Time Stop Time Status Last Admin Dose Admin Iohexol 100 ml ONCE ONCE IV 09/13/17 18:30 09/13/17 18:35 DC 09/13/17 18:44 100 ML Sodium Chloride 100 ml ONCE ONCE IV 09/13/17 18:30 09/13/17 18:35 DC 09/13/17 18:44 100 ML Sodium Chloride 1,000 ml @ 0 mls/hr Q0M ONCE IV 09/13/17 17:17 09/13/17 17:19 DC 09/13/17 17:38 1,000 MLS/HR (WARREN,ELIEZER K DO) Vital Signs/I&O 09/13/17 17:09 Temp 98.6 Pulse 91 Resp 15 B/P (MAP) 130/110 (117) Pulse Ox 98 O2 Delivery Room Air (ELIEZER BORRERO DO) Progress Progress Note : Progress Note Seen and evaluated. IV, labs, UA, normal saline 1 L bolus. We will check EKG and troponin as well. Anticipate CT abdomen and pelvis. 1819: Labs returned and CT abdomen and pelvis ordered. Care transferred to Dr. Borrero pending results. (MARION HERNANDEZ MD) Progress Note : Progress Note 1819 --ASSUMED CARE FROM DR. HERNANDEZ, PT STATES HER ABDOMINAL PAIN IS ESSENTIALLY GONE. NOW ONLY C/O HEADACHE. STATES TYLENOL IS THE ONLY THING THAT EVER HELPS --PT LAUGHING AND TALKING IN CELL PHONE, DOES NOT APPEAR TO BE IN ANY DISCOMFORT AT THIS TIME DISCUSSED POSSIBLE ETIOLOGIES INCLUDING GASTRITIS/ULCER AND GALLBLADDER ISSUES AND THAT IF HER SYMPTOMS DID NOT IMPROVE, SHE MAY NEED ADDITIONAL OUTPATIENT TESTS AND / OR REFERRAL TO SPECIALIST. (ELIEZER BORRERO DO) Initial ECG Impression Date: Sep 13, 2017 Initial ECG Impression Time: 18:32 Initial ECG Rate: 89 Comment EKG has the appearance of sinus rhythm with artifact as there does appear to be P waves noted especially in the lateral leads but artifact makes determination difficult. Patient has history of atrial fibrillation. Normal axis. No evidence of ST elevation [place]. Interpreted by me. (MARION HERNANDEZ MD) Diagnostic Imaging Comments CT ABDOMEN/PELVIS--FATTY LIVER, DIVERTICULOSIS WITH OUT ACUTE DIVERTICULITIS, NO ACUTE PROCESS, PER RADIOLOGIST REPORT @ 1915 Reviewed: Reviewed by Me (ELIEZER BORRERO DO) Departure Impression Primary Impression: Upper abdominal pain Disposition: 01 HOME, SELF-CARE Condition: Stable Departure-Patient Inst. Referrals: [facility] (PCP/Family) Primary Care Physician Patient Instructions: Acute Abdomen (Belly Pain), Adult (DC) Add. Discharge Instructions: CLEAR LIQUIDS--WATER, BROTH, JELLO, GATORADE TOMORROW IF YOU ARE BETTER, ADD BRATS DIET TO CLEAR LIQUIDS--BANANAS, RICE, APPLESAUCE, TOAST, SALTINES FOLLOW UP WITH [facility] THIS WEEK FOR FURTHER EVALUATION Scripts Hyoscyamine Sulfate (Levsin-Sl) 0.125 Mg Tab.subl 1-2 TAB SL Q4H for Abdominal Pain, #15 TAB Prov: ELIEZER BORRERO DO 09/13/17 Ondansetron (Zofran Odt) 4 Mg Tab.rapdis 4 MG PO Q4H for Nausea/Vomiting, #10 TAB Prov: ELIEZER BORRERO DO 09/13/17 Sucralfate (Carafate) 1 Gm Tablet 1 GM PO QIDACHS, #60 TAB Prov: ELIEZER BORRERO DO 09/13/17 MARION HERNANDEZ MD Sep 13, 2017 17:26 ELIEZER BORRERO DO Sep 13, 2017 19:16
[2017-09-13 17:47] LABS: BILIRUBIN,URINE NEGATIVE (NEGATIVE); CLARITY,URINE CLEAR; COLOR,URINE YELLOW; GLUCOSE, URINE (UA) NEGATIVE (NEGATIVE); KETONES,URINE NEGATIVE (NEGATIVE); NITRITE,URINE NEGATIVE (NEGATIVE); PH,URINE 7 (5-9); PROTEIN,URINE NEGATIVE (NEGATIVE); UROBILINOGEN,URINE NORMAL (NORMAL)
[2017-09-13 17:55] LABS: BACTERIA,URINE NEGATIVE /HPF; LEUKOCYTE ESTERASE ,URINE NEGATIVE (NEGATIVE); RBC,URINE 0-2 /HPF; WBC,URINE RARE /HPF
[2017-09-13 17:56] LABS: BASOPHILS % (AUTO) 0 % (0-10); EOSINOPHILS % (AUTO) 0 % (0-10); HEMATOCRIT 37 % (35-52); HEMOGLOBIN 12.3 G/DL (11.5-16.0); LYMPHOCYTES # (AUTO) 0.7 X 10^3 (1.0-4.0); LYMPHOCYTES % (AUTO) 8 % (12-44); MEAN CORPUSCULAR HEMOGLOBIN 28 PG (25-34); MEAN CORPUSCULAR HGB CONC 34 G/DL (32-36); MEAN CORPUSCULAR VOLUME 83 FL (80-99); MEAN PLATELET VOLUME 10.6 FL (7.4-10.4); MONOCYTES # (AUTO) 0.6 X 10^3 (0.0-1.0); MONOCYTES % (AUTO) 7 % (0-12); NEUTROPHILS # (AUTO) 7.8 X 10^3 (1.8-7.8); NEUTROPHILS % (AUTO) 85 % (42-75); PLATELET COUNT 292 10^3/uL (130-400); RED BLOOD COUNT 4.42 10^6/uL (4.35-5.85); RED CELL DISTRIBUTION WIDTH 14.9 % (10.0-14.5); WHITE BLOOD COUNT 9.1 10^3/uL (4.3-11.0)
[2017-09-13 18:19] LABS: ALANINE AMINOTRANSFERASE 16 U/L (0-55); ALBUMIN 4.4 GM/DL (3.2-4.5); ALKALINE PHOSPHATASE 76 U/L (40-136); AMYLASE 46 U/L (25-125); BILIRUBIN,TOTAL 0.5 MG/DL (0.1-1.0); BUN/CREATININE RATIO 9; CALCIUM 9.4 MG/DL (8.5-10.1); CARBON DIOXIDE 25 MMOL/L (21-32); CHLORIDE 97 MMOL/L (98-107); CREATININE SERUM 0.64 MG/DL (0.60-1.30); GFR ESTIMATED > 60; GLUCOSE 109 MG/DL (70-105); LIPASE 25 U/L (8-78); MAGNESIUM 1.7 MG/DL (1.8-2.4); POTASSIUM 3.8 MMOL/L (3.6-5.0); SODIUM 134 MMOL/L (135-145); TOTAL PROTEIN 7.8 GM/DL (6.4-8.2)
[2017-09-13] MEDS ORDERED: IOHEXOL 350 MG/ML 100 ML (OMNIPAQUE 350) VIAL IV ONE (18:30)
[2017-09-13] MEDS ORDERED: NS 100 ML (IVPB) BAG IV ONE (18:30)
--- NOTE | 2017-09-13 19:06 | Diagnostic Imaging Report ---
PROCEDURE: CT abdomen and pelvis with contrast. TECHNIQUE: Multiple contiguous axial images were obtained through the abdomen and pelvis after administration of intravenous contrast. INDICATION: Upper abdominal pain with nausea. COMPARISON: No prior studies are available for comparison. FINDINGS: Lung bases are clear. The liver demonstrates some mild generalized low density suggestive of hepatic steatosis. No discrete liver mass is identified. The gallbladder is unremarkable. No biliary ductal dilatation is identified. The pancreas and spleen are unremarkable. No adrenal mass is identified. The kidneys are unremarkable. The aorta is nonaneurysmal. The small and large bowel loops are nondilated. The appendix is visualized and unremarkable. There is sigmoid diverticulosis but no evidence of acute diverticulitis. The bladder and uterus are unremarkable. No inflammatory process is seen. There is no ascites. Bony structures are nonacute. IMPRESSION: 1. Hepatic steatosis. 2. Uncomplicated sigmoid diverticulosis. 3. No acute feature in the abdomen or pelvis is identified. Dictated by: Dictated on workstation # [id number]
[2017-09-13] MEDS ORDERED: ONDA4TAB8 PO (19:29)
[2017-09-13] MEDS ORDERED: HYOS0.1283 SL (19:29)
[2017-09-13] MEDS ORDERED: SUCR1TAB36 PO (19:29)
[2017-09-13] MEDS ORDERED: ACETAMINOPHEN 500 MG TAB (TYLENOL) PO ONE (19:30)
[2017-09-13 19:35] VITALS: BP 165/97
== END 2017-09-13 19:35 | disposition home or self-care (01) ==
LOC: EDUNIT# 16:09 → ER 16:10
DX: R10.11 Right upper quadrant pain (principal); R10.12 Left upper quadrant pain; J45.909 Unspecified asthma, uncomplicated; I25.10 Atherosclerotic heart disease of native coronary artery without angina pectoris; K21.9 Gastro-esophageal reflux disease without esophagitis; E11.9 Type 2 diabetes mellitus without complications; E78.00 Pure hypercholesterolemia, unspecified; I10 Essential (primary) hypertension; Z86.718 Personal history of other venous thrombosis and embolism; Z88.5 Allergy status to narcotic agent; Z88.6 Allergy status to analgesic agent; Z88.8 Allergy status to other drugs, medicaments and biological substances; Z79.51 Long term (current) use of inhaled steroids; Z79.01 Long term (current) use of anticoagulants; Z77.22 Contact with and (suspected) exposure to environmental tobacco smoke (acute) (chronic)
CPT/HCPCS: 36415; 74177; 80053; 81000; 82150; 83690; 83735; 84484; 85025; 86141; 93005; 96360; 96361

== ENCOUNTER → 2018-01-30 | Outpatient (CLI) | payer MEDICARE, OTHER ==
[~2018-01-30] MED LIST changes: +HYOS0.1283 SL; +ONDA4TAB8 PO; +SUCR1TAB36 PO
--- NOTE | 2018-01-30 15:27 | Diagnostic Imaging Report ---
PROCEDURE: MRI lumbar spine. INDICATION: Chronic low back problems, pain.. TECHNIQUE: Multiplanar and multisequence noncontrast magnetic resonance imagine was performed of the lumbar spine. CORRELATION STUDY: 09/11/2008 FINDINGS: There is normal alignment and curvature of the lumbar spine. The lumbar vertebral body heights are maintained and without geographic lesion. The conus appears unremarkable. There is noted abnormal likely developmental findings at the posterior elements of L5 and partially at the L4 level. There is transitional anatomy at the lumbosacral level. L5-S1: There does appear to be asymmetric disc bulge with right foraminal narrowing. Left foramina is better preserved and unremarkable. Spinal canal is without significant stenosis. L4-L5: Mild to moderate loss of disc space height. Disc osteophyte is present with resultant asymmetric left foraminal narrowing with some abutting the exiting nerve root. Right foramina and spinal canal fairly well maintained. Asymmetric hypertrophic facet arthropathy greatest on the left. L3-L4: Mild ligamentum hypertrophy. Disc space is maintained. No significant canal or foraminal narrowing. L2-L3: Preservation of disc space height and signal intensity. No significant canal or foraminal stenosis. L1-L2: Very slight loss of disc space height. No significant canal or foraminal narrowing. The visualized portions of the abdominal aorta and kidneys are negative. No pathologically enlarged central retroperitoneal lymph nodes. IMPRESSION: 1. Transitional anatomy at the lumbosacral junction. Careful correlation with numbering is advised as surgical interventions performed. 2. Asymmetric disc, osteophyte formation and right foraminal narrowing at the L5-S1 level. Asymmetric left foraminal narrowing at the L4-L5 level owing to disc bulge/protrusion and asymmetric hypertrophic facet arthropathy. Dictated by: Dictated on workstation # [id number]
--- NOTE | 2018-01-30 16:00 | Diagnostic Imaging Report ---
INDICATION: Lumbar spinal stenosis, chronic problems with lumbar spine. TECHNIQUE: AP, lateral, bilateral oblique, and spot imaging of the lumbar spine. CORRELATION STUDY: None. FINDINGS: Lumbar spinal alignment with trace anterolisthesis of L4 on L5. Lumbar vertebral body heights are maintained. Marked disc space narrowing at the L5-S1 and to a lesser degree at the L4-L5 level. Mild endplate lipping throughout the lumbar spine is noted. There is what appears to be abnormal appearance about the posterior elements with spina bifida defect at the L5 level. There is some deformity and irregularity about the posterior elements at L4. Transitional anatomy with sacralization of the L5 level present. SI joints are unremarkable. No definitive evidence for spondylolysis. Asymmetric hypertrophic facet arthropathy suggested at the L5-S1 and L4-L5 levels. IMPRESSION: No radiographic evidence for acute bony abnormality of the lumbar spine. Advanced degenerative change about the lower lumbar spine. 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 Dictated by: Dictated on workstation # [id number]
== END ==
LOC: RAD 10:54
PROVIDERS: ATTEND Orthopaedic Surgery
DX: M48.07 Spinal stenosis, lumbosacral region (principal); M25.78 Osteophyte, vertebrae; M46.86 Other specified inflammatory spondylopathies, lumbar region; M47.816 Spondylosis without myelopathy or radiculopathy, lumbar region
CPT/HCPCS: 72110; 72148

== ENCOUNTER 2018-03-07 08:47 | Outpatient (RCR) | payer MEDICARE, OTHER | END 2018-03-07 10:08 | disposition home or self-care (01) | PROVIDERS: ATTEND Physician Assistant | DX: M54.16 Radiculopathy, lumbar region (principal) ==

== ENCOUNTER → 2018-04-05 | Outpatient (CLI) | payer MEDICARE ==
--- NOTE | 2018-04-05 13:09 | Diagnostic Imaging Report ---
CLINICAL INDICATION: Followup thyroid nodules. COMPARISONS: Ultrasound of the thyroid gland dated 04/18/2017. FINDINGS: THYROID NODULES: There is a heterogeneous isoechoic/hypoechoic nodule involving the mid portion of the right thyroid gland which measures 1.1 cm x 0.6 cm x 0.9 cm and demonstrates no significant central Doppler flow. This nodule previously measured 0.8 cm x 0.9 cm x 0.7 cm. There is a heterogeneous circumscribed nodule with mixed hypoechoic/isoechoic echogenicity and demonstrates central Doppler flow located in the region of the isthmus. This nodule currently measures 2.5 cm x 1.0 cm x 1.7 cm. Previously this nodule measured 1.9 cm x 1.0 cm x 1.6 cm. CORONAL THYROID GLAND: Besides the thyroid nodules, the thyroid gland has normal size, shape and echogenicity. The right lobe measures 4.4 cm x 2.1 cm x 1.7 cm and the left lobe measures 4.2 cm x 1.5 cm x 1.0 cm in their three dimensions. ISTHMUS: The isthmus is unremarkable and measures 4 mm in thickness. IMPRESSION: 1: Interval slight increased size of the two nodules located in the region of the isthmus and right thyroid gland. The largest nodule now measures 2.5 cm in greatest dimension and is located in the region of the isthmus. Fine-needle aspiration is suggested for better evaluation, if this has not yet been performed. 2: The remainder of the thyroid gland is unremarkable. Dictated by: Dictated on workstation # [id number]
== END ==
LOC: RAD 11:23
PROVIDERS: ATTEND Otolaryngology Otolaryngology/Facial Plastic Surgery
DX: E04.2 Nontoxic multinodular goiter (principal)
CPT/HCPCS: 76536

== ENCOUNTER 2018-11-13 07:22 | Day surgery (SDC) | payer MEDICARE ==
[~2018-11-13 07:22] MED LIST changes: +ALB0.5V INH; +FLUT16SP22 NS; +GABA-488 PO; +METF-399 PO; +MONT10TA24 PO; -OMEP20CA12 PO; +OMEP20CA13 PO; +RT-ALBUINH INH
[2018-11-13] MEDS ORDERED: LACTATED RINGERS 1,000 ML IV STA ×2 (07:37→08:51)
[2018-11-13] MEDS ORDERED: LACTATED RINGERS 1,000 ML IV ONE (07:41)
[2018-11-13] MEDS ORDERED: HURRICAINE EXT TUBE (BENZOCAINE) XX PRN (07:45)
[2018-11-13 08:06] VITALS: BP 166/68
[2018-11-13] MEDS ORDERED: PROPOFOL INJECTION 50 ML IV ONE ×2 (09:41→09:43)
[2018-11-13] MEDS ORDERED: MIDAZOLAM 2 MG/2 ML (VERSED) VIAL ONE (09:42)
[2018-11-13 09:50] VITALS: BP 93/52
--- NOTE | 2018-11-13 09:55 | Progress Note-Post Operative ---
Post-Operative Progess Note Surgeon (s)/Central Office Supervisor (s) Surgeon EDNA WILLSON DO Central Office Supervisor: Maureen Thayer, MS III Pre-Operative Diagnosis Chronic Gastritis, Screening Colonoscopy Post-Operative Diagnosis Gastritis, Hiatal Hernia Diverticula internal hemorrhoids Procedure & Operative Findings Date of Procedure 11/13/18 Procedure Performed/Findings EGD with bx Colonoscopy Anesthesia Type IV sedation by CUT IN WORKER Estimated Blood Loss Estimated blood loss (mL): scant Specimens/Packing Specimens Removed antral bx body of stomach bx GE jxn bx EDNA WILLSON DO Nov 13, 2018 09:55
--- NOTE | 2018-11-13 09:57 | Endoscopy Discharge Instruct ---
Endo Procedure/Findings Findings 1.: Gastritis 2.: Hiatal Hernia 3.: Diverticulosis 4.: Internal Hemorrhoids Discharge Instructions - Activity: You might feel a little sleepy until tomorrow. This is due to the medicine you received to relax you. Until tomorrow, you should: NOT drive a car, operate machinery or power tools. NOT drink any alcoholic beverages. NOT make any important decisions or sign importortant papers. Do not return to work until tomorrow, unless otherwise instructed. Resume previous activities tomorrow. Diet: Start by taking liquids. If you tolerate liquids, advance to solid food. make an appointment for one week. Notify Physician - If you experience excessive bleeding, unusual abdominal pain, fever, or chest pain, contact your doctor immediately. EDNA WILLSON DO Nov 13, 2018 09:57
[2018-11-13 10:20] VITALS: BP 127/57
[2018-11-13 10:30] VITALS: BP 127/57
--- NOTE | 2018-11-13 10:35 | Anesthesia-General Post-Op ---
MAC Patient Condition Mental Status/LOC: Same as Preop Cardiovascular: Satisfactory Nausea/Vomiting: Absent Respiratory: Satisfactory Pain: Controlled Complications: Absent Post Op Complications Complications None Follow Up Care/Instructions Patient Instructions None needed. Anesthesiology Discharge Order Discharge Order Patient is doing well, no complaints, stable vital signs, no apparent adverse anesthesia problems. THONY DONALD DO Nov 13, 2018 10:35
--- NOTE | 2018-11-14 01:46 | OPERATIVE REPORT ---
DATE OF SERVICE: 11/13/2018 PREOPERATIVE DIAGNOSES: 1. Gastritis. 2. Screening colonoscopy. POSTOPERATIVE DIAGNOSES: 1. Gastritis. 2. Hiatal hernia. 3. Diverticula. 4. Internal hemorrhoids. PROCEDURE: 1. EGD with biopsy. 2. Colonoscopy. SURGEON: Denny Rowland DO. SHIPPING COORDINATOR: Maureen Thayer MS3. SPECIMEN: Antrum biopsy of body of stomach, biopsy from GE junction. BLOOD LOSS: Scant. FLUIDS: Per anesthesia. POSTOPERATIVE CONDITION: Stable. INDICATION FOR PROCEDURE: The patient is a 63-year-old female who has some chronic gastritis, needed an EGD for workup and she never had a colonoscopy, need one for screening. FINDINGS: The patient had some gastritis and hiatal hernia. Biopsies taken. In the colon, she has had some diverticula and internal hemorrhoids. No other obvious pathology. PROCEDURE NOTE: After informed consent was obtained, the patient was brought to the endoscopy suite, placed in the bed left lateral decubitus position. She was administered IV sedation by the TIPPING MACHINE OPERATOR AUTOMATIC who then monitored her vitals the entire time, heart rate, blood pressure and pulse ox and the scope was inserted down the mouth through the esophagus into the stomach, noted some gastritis, took a picture of this and then pushing the duodenum. Duodenum looked fine. Pulled back into the antrum, did a biopsy of the antrum. Retroflexed the scope, looked like there was some inflammation in the body of stomach as well and took a biopsy here. I could see a small hiatal hernia, took a picture of this, then pulled the scope up into the GE junction, did a biopsy of the GE junction again could see a small hiatal hernia and then suctioned the stomach out and then pulled the scope up the esophagus and out the mouth, took a picture of cords and arytenoids because the patient states she had nodules, I did not see anything. I pulled the scope out. I then switched gloves, switched scopes, went down below, started the colonoscopy. Pushed all the way about [address] in and noted some diverticula, took a picture of this, and then once in the cecum, took a picture of appendiceal orifice, noted the ileocecal valve, slowly withdrew the scope insufflating to look circumferentially at the juarez looking the cecum, up the ascending colon to the hepatic flexure, then down the transverse colon, splenic flexure, into the descending colon and down into the sigmoid and finally into the rectum, retroflexed in the rectal vault, saw some internal hemorrhoids, took a picture of this and then removed the scope. The patient tolerated the procedure, recovered in endoscopy suite. Job ID: [id number] DocumentID: [id number] Dictated Date: 11/13/2018 15:29:53 Metal Moulder'S Assistant Date: 11/14/2018 01:45:25 Dictated By: DENNY ROWLAND DO
== END 2018-11-13 10:30 | disposition home or self-care (01) ==
LOC: ENDO 07:22
PROVIDERS: ATTEND Surgery
DX: Z12.11 Encounter for screening for malignant neoplasm of colon (principal); K29.50 Unspecified chronic gastritis without bleeding; K57.30 Diverticulosis of large intestine without perforation or abscess without bleeding; K21.9 Gastro-esophageal reflux disease without esophagitis; K44.9 Diaphragmatic hernia without obstruction or gangrene; K64.8 Other hemorrhoids; E78.5 Hyperlipidemia, unspecified; M19.90 Unspecified osteoarthritis, unspecified site; I25.10 Atherosclerotic heart disease of native coronary artery without angina pectoris; J45.909 Unspecified asthma, uncomplicated; I11.0 Hypertensive heart disease with heart failure; I50.9 Heart failure, unspecified; I48.91 Unspecified atrial fibrillation; E11.42 Type 2 diabetes mellitus with diabetic polyneuropathy; Z88.5 Allergy status to narcotic agent; Z88.6 Allergy status to analgesic agent; Z88.8 Allergy status to other drugs, medicaments and biological substances; Z79.01 Long term (current) use of anticoagulants; Z79.52 Long term (current) use of systemic steroids; Z79.899 Other long term (current) drug therapy; Z79.84 Long term (current) use of oral hypoglycemic drugs; Z79.891 Long term (current) use of opiate analgesic; Z86.718 Personal history of other venous thrombosis and embolism; Z99.81 Dependence on supplemental oxygen
CPT/HCPCS: 88305

== ENCOUNTER → 2019-03-30 | Outpatient (CLI) | payer MEDICARE ==
[~2019-03-30] MED LIST changes: +LISI1TAB29 PO; -LISI1TAB6 PO; -METO-387 PO; +MTP25TSR PO; +OMEP-280 PO; -OMEP20CA13 PO
[2019-03-30 12:14] LABS: FREE T4 (FREE THYROXINE) 0.94 NG/DL (0.70-1.48)
--- NOTE | 2019-03-30 14:22 | Diagnostic Imaging Report ---
PROCEDURE: US Thyroid. TECHNIQUE: Multiple real-time grayscale images were obtained of the thyroid in various projections. INDICATION: Thyroid nodule. COMPARISON: Study compared with exam 04/05/2018. FINDINGS: The right thyroid lobe measures 4.5 x 1.7 x 1.7 cm and contains a hypoechoic nodule 1 cm maximal dimension unchanged from the comparison as well as a tiny 5 mm largely anechoic cystic nodule in its lower pole. An isthmic nodule hypoechoic but solid measures 2.3 x 1.7 cm today, previously 2.5 x 1.7 cm. No extrathyroidal extension. No associated calcifications. IMPRESSION: Stable exam. No new mass identified. Dictated by: Dictated on workstation # [id number]
== END ==
LOC: RAD 11:08
PROVIDERS: ATTEND Otolaryngology Otolaryngology/Facial Plastic Surgery
DX: E04.1 Nontoxic single thyroid nodule (principal)
CPT/HCPCS: 36415; 76536; 84439; 84443

== ENCOUNTER → 2019-04-26 | Outpatient (CLI) | payer MEDICARE ==
[~2019-04-26] MED LIST changes: -MONT10TA24 PO; +MONT10TA26 PO; -OMEP-280 PO; +OMEP20CA18 PO
--- NOTE | 2019-04-26 13:30 | Diagnostic Imaging Report ---
PROCEDURE: MR imaging of the brain without contrast. TECHNIQUE: Multiplanar, multisequence MR imaging of the brain was performed without contrast. INDICATION: Memory difficulty. FINDINGS: The ventricles and sulci are within normal limits. There appears to be some very minimal chronic microvascular ischemic disease. There are no areas of diffusion restriction appreciated to suggest an acute CVA. There is no hydrocephalus. There is no midline shift. There is no mass, hemorrhage or extra-axial fluid collection. The frontal, ethmoid, sphenoid and maxillary sinuses are clear. The mastoid air cells are clear. The globes and intraorbital structures are unremarkable. The central arterial and dural venous sinus flow voids are preserved. IMPRESSION: Very minimal chronic microvascular ischemic disease. Otherwise, unremarkable MRI brain. Dictated by: Dictated on workstation # [id number]
== END ==
LOC: RAD 12:18
PROVIDERS: ATTEND Psychiatry & Neurology Neurology
DX: I67.82 Cerebral ischemia (principal)
CPT/HCPCS: 70551

== ENCOUNTER → 2019-10-23 | Outpatient (CLI) | payer MEDICARE | LOC: RAD 15:49 | PROVIDERS: ATTEND Nurse Practitioner Family | DX: Z12.31 Encounter for screening mammogram for malignant neoplasm of breast (principal) | CPT/HCPCS: 77063; 77067 ==

== ENCOUNTER → 2019-12-25 | Outpatient (CLI) | payer MEDICARE ==
[~2019-12-25] MED LIST changes: +RT-ALBUTEROL SULF 2.5 MG/3 ML PRE-MIX VIAL INH ONE
== END ==
LOC: RT 09:48
PROVIDERS: ATTEND Nurse Practitioner Family
DX: N95.1 Menopausal and female climacteric states (principal)
CPT/HCPCS: 94060; 94726; 94729

== ENCOUNTER 2020-04-10 15:26 | Emergency (ER) | payer MEDICARE ==
[~2020-04-10] VITALS: Ht 154.9 cm; Wt 89.0 kg
[~2020-04-10 15:26] MED LIST changes: -MONT10TA26 PO; +MONT10TA32 PO; -RT-ALBUTEROL SULF 2.5 MG/3 ML PRE-MIX VIAL INH ONE
--- NOTE | 2020-04-10 16:03 | ED General ---
General Chief Complaint: Dizziness/Syncope Stated Complaint: DIZZY / NECK PAIN / GENERAL WEAKNESS Nursing Triage Note: AMB TO ROOM WITH FEMALE PATIENT REPORTS THAT SHE HAS BEEN DIZZY SINCE TUE. MECLIZINE NOT HELPING B/P HAS BEEN ELEVATED. ALSO C/O DRAINAGE FROM R EAR. Nursing Sepsis Screen: No Definite Risk Source of Information: Patient Exam Limitations: No Limitations History of Present Illness Date Seen by Provider: Apr 10, 2020 Time Seen by Provider: 15:45 Initial Comments Patient is a 64-year-old female who presents to the emergency room with a chief complaint of dizzy spells and high blood pressure. Patient tells me that she has had off-and-on dizzy episodes since she was [age] years old. Patient states that she has problems with laying flat when she is dizzy. She also states that looking up or looking down will exacerbate her dizziness. Patient states once she stops doing these activities her symptoms improve. Patient has generic meclizine to help with her dizziness. Her last dose was at 2:00 this afternoon. Patient states that she still feels dizzy. What precipitated her prompted her emergency room visit today was the fact that her blood pressure was much higher than normal, systolic over 200 diastolic over 100. Patient denies any chest pain, palpitations, shortness of breath. No abdominal pain, nausea or vomiting. No urinary complaints. Patient states that she did have an episode of diarrhea with the dizziness. Patient states she also took an extra metoprolol tablet at 2:00 when she took her meclizine. Her blood pressure is coming down but her dizziness persists. It seems to be exacerbated when I attempt to lay her flat to examine her. She denies any recent infections such as fevers, chills, cough or congestion. Patient has a history of atrial fibrillation and was concerned with her blood pressure as high as it was that she might be in A. fib. She is in fact not in atrial fibrillation at this time. All other review of systems reviewed and negative except as stated. Timing/Duration: 1-3 Hours Severity: Mild Associated Systoms: Denies Symptoms Allergies and Home Medications Allergies Coded Allergies: codeine (Unverified Allergy, Mild, 05/05/09) propoxyphene (Unverified Allergy, Mild, 05/05/09) tramadol (Unverified Allergy, Mild, 05/12/09) Home Medications Albuterol Sulfate 1 Puff Puff, 2 PUFF INH Q4H PRN for WHEEZING, (Reported) 1 PUFF = 90 MCG Albuterol Sulfate 2.5 Mg/0.5 Ml Vial.neb, 2.5 MG INH Q4H PRN for SHORTNESS OF BREATH, (Reported) Apixaban 5 Mg Tablet, 5 MG PO BID, (Reported) Cetirizine HCl 10 Mg Tablet, 10 MG PO DAILY, (Reported) Fluticasone Propionate 16 Gm [place].susp, 1 SPRAY NS BID, (Reported) Gabapentin 300 Mg Capsule, 300 MG PO TID, (Reported) Lisinopril/Hydrochlorothiazide 1 Each Tablet, 1 EACH PO DAILY, (Reported) Lovastatin 20 Mg Tablet, 20 MG PO HS, (Reported) Metformin HCl 1,000 Mg Tablet, 1,000 MG PO BID WITH MEALS, (Reported) Metoprolol Tartrate 100 Mg Tablet, 100 MG PO BID, (Reported) Montelukast Sodium 10 Mg Tablet, 10 MG PO HS, (Reported) Omeprazole 20 Mg Capsule.dr, 20 MG PO BID, (Reported) Patient Home Medication List Home Medication List Reviewed: Yes Review of Systems Review of Systems Constitutional: see HPI EENTM: no symptoms reported; No ear pain, No blurred vision, No double vision, No vision loss Respiratory: no symptoms reported Cardiovascular: no symptoms reported Gastrointestinal: no symptoms reported Genitourinary: no symptoms reported Musculoskeletal: no symptoms reported Psychiatric/Neurological: Denies Headache, Denies Numbness, Denies Paresthesia; Other (Dizziness) All Other Systems Reviewed Negative Unless Noted: Yes Past Brvqjxu-Ibmxan-Zpjpnf Hx Patient Social History Alcohol Use: Denies Use Smoking Status: Never a Smoker 2nd Hand Smoke Exposure: Yes Recent Infectious Disease Expo: No Recent Hopitalizations: No Immunizations Up To Date Date of Pneumonia Vaccine: Feb 20, 2011 Date of Influenza Vaccine: Nov 14, 2016 Seasonal Allergies Seasonal Allergies: No Past Medical History Surgeries: Yes (D&C; CARDIAC CATH-x4-NO INTERVENTION, bilat foot, R CTR, knee scope) Orthopedic Respiratory: Yes (wears 2L @ night) Asthma Cardiac: Yes ("blood clot in heart" ) Atrial Fibrillation, Chronic Edema/Swelling, Coronary Artery Disease, Deep Vein Thrombosis, High Cholesterol, Hypertension Neurological: Yes (spina bifida) Neuropathy Reproductive Disorders: No 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 0.0oz. 83.901349qw; 37.00 BMI Method:Stated General Appearance: No Apparent Distress, WD/WN Eyes: Bilateral Eye Normal Inspection, Bilateral Eye PERRL, Bilateral Eye EOMI HEENT: PERRL/EOMI, TMs Normal, Normal ENT Inspection Neck: Normal Inspection, Non Tender, Supple Respiratory: Lungs Clear, Normal Breath Sounds, No Accessory Muscle Use, No Re spiratory Distress Cardiovascular: Regular Rate, Rhythm Gastrointestinal: Normal Bowel Sounds Extremity: Normal Inspection, Normal Range of Motion, Non Tender, Pedal Edema (Trace pedal edema bilaterally) Neurologic/Psychiatric: Alert, Oriented x3, No Motor/Sensory Deficits, Normal Mood/Affect, 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 Norm as Tested, Other (With forced gaze deviation to the left patient demonstrates 4-6 beats of nystagmus this seems to fatigue.) Skin: Normal Color, Warm/Dry Progress/Results/Core Measures Suspected Sepsis Recent Fever Within 48 Hours: No Infection Criteria Present: None New/Unexplained Altered Menta: No Sepsis Screen: No Definite Risk SIRS Temperature: Pulse: 75 Respiratory Rate: 18 Laboratory Tests 04/10/20 16:35: White Blood Count 10.4 Blood Pressure 187 /84 Mean: 118 Laboratory Tests 04/10/20 15:40: Creatinine 0.75 04/10/20 16:35: Platelet Count 350 Results/Orders Lab Results Laboratory Tests Test 04/10/20 15:40 04/10/20 16:35 Range/Units Sodium Level 136 135-145 MMOL/L Potassium Level 4.2 3.6-5.0 MMOL/L Chloride Level 98 98-107 MMOL/L Carbon Dioxide Level 23 21-32 MMOL/L Anion Gap 15 H 5-14 MMOL/L Blood Urea Nitrogen 11 7-18 MG/DL Creatinine 0.75 0.60-1.30 MG/DL Estimat Glomerular Filtration Rate > 60 BUN/Creatinine Ratio 15 Glucose Level 140 H 70-105 MG/DL Calcium Level 9.2 8.5-10.1 MG/DL White Blood Count 10.4 4.3-11.0 10^3/uL Red Blood Count 4.12 3.80-5.11 10^6/uL Hemoglobin 9.7 L 11.5-16.0 g/dL Hematocrit 32 L 35-52 % Mean Corpuscular Volume 79 L 80-99 fL Mean Corpuscular Hemoglobin 24 L 25-34 pg Mean Corpuscular Hemoglobin Concent 30 L 32-36 g/dL Red Cell Distribution Width 15.9 H 10.0-14.5 % Platelet Count 350 130-400 10^3/uL Mean Platelet Volume 10.7 9.0-12.2 fL Immature Granulocyte % (Auto) 1 % Neutrophils (%) (Auto) 70 42-75 % Lymphocytes (%) (Auto) 22 12-44 % Monocytes (%) (Auto) 5 0-12 % Eosinophils (%) (Auto) 2 0-10 % Basophils (%) (Auto) 0 0-10 % Neutrophils # (Auto) 7.3 1.8-7.8 10^3/uL Lymphocytes # (Auto) 2.3 1.0-4.0 10^3/uL Monocytes # (Auto) 0.6 0.0-1.0 10^3/uL Eosinophils # (Auto) 0.2 0.0-0.3 10^3/uL Basophils # (Auto) 0.0 0.0-0.1 10^3/uL Immature Granulocyte # (Auto) 0.1 0.0-0.1 10^3/uL My Orders Orders - CHUCHO FRANCIS MD Ed Iv/Invasive Line Start (04/10/20 16:00) Cbc With Automated Diff (04/10/20 16:00) Basic Metabolic Panel (04/10/20 16:00) Ekg Tracing (04/10/20 16:00) Vital Signs/I&O 04/10/20 15:33 Temp 36.2 Pulse 75 Resp 18 B/P (MAP) 187/84 (118) Pulse Ox 98 O2 Delivery Room Air Capillary Refill : Less Than 3 Seconds Blood Pressure Mean: 118 Progress Note : Time: 17:04 Progress Note Patient seen and evaluated, basic laboratories obtained and reviewed. Patient had a BMP and CBC done. Her basic metabolic panel is within normal limits. Her CBC shows a mild anemia with a hemoglobin of 9.8. Most recent laboratory studies in the computer show from 2018 and when she had a hemoglobin of 12. Patient adamantly denies any dark black or tarry stools. She states she has some external hemorrhoids and noted a little bit of blood on the tissue paper when she had bowel movements today that she attributed to the hemorrhoids. She denies any abdominal pain nausea vomiting. She was unaware that she was anemic. I recommended to the patient that she take an kznu-hrl-togowix iron supplement such as Vitron C. I have also advised the patient to continue her meclizine. At this point in time I find no clinical or objective findings to warrant further studies from the emergency department. Patient's vertigo is chronic. Her blood pressure is back down to her normal range. She appears well is sitting up on the bed without too severe of symptoms. She is eager for discharge. She will follow up with her primary care physician and has an appointment with Dr. 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 All questions are sought and answered. Patient is stable for discharge. ECG Initial ECG Impression Date: Apr 10, 2020 Initial ECG Impression Time: 16:15 Initial ECG Rate: 60 Initial ECG Rhythm: Normal Sinus Comment Significant baseline artifact, no obvious ST segment elevation or depression. Rhythm is sinus in nature Departure Impression Primary Impression: Vertigo Additional Impressions: HTN (hypertension) Qualified Codes: I10 - Essential (primary) hypertension Anemia Qualified Codes: D64.9 - Anemia, unspecified Disposition: 01 HOME, SELF-CARE Condition: Stable Departure-Patient Inst. Decision time for Depature: 17:07 Referrals: [facility] (PCP) Primary Care Physician PAMELA GARCIA APRN (Family) Primary Care Physician Patient Instructions: Anemia, Possibly From Low Iron, Adult, Vertigo (a Type of Dizziness) (DC) Add. Discharge Instructions: Take an vqkm-dns-prmplum iron supplement such as Vitron C, daily. Continue to take your dizzy medication 3 times daily. If you have any new, concerning symptoms especially chest pain, shortness of breath, passing blood in your stool, dark tarry stool or any other emergent concerning symptoms please return to the emergency room for reevaluation. CHUCHO FRANCIS MD Apr 10, 2020 16:03
[2020-04-10 16:13] LABS: CHLORIDE 98 MMOL/L (98-107); POTASSIUM 4.2 MMOL/L (3.6-5.0); SODIUM 136 MMOL/L (135-145)
[2020-04-10 16:14] LABS: CALCIUM 9.2 MG/DL (8.5-10.1)
[2020-04-10 16:15] LABS: GLUCOSE 140 MG/DL (70-105)
[2020-04-10 16:16] LABS: CARBON DIOXIDE 23 MMOL/L (21-32)
[2020-04-10 16:19] LABS: CREATININE SERUM 0.75 MG/DL (0.60-1.30); GFR ESTIMATED > 60
[2020-04-10 16:20] LABS: BUN/CREATININE RATIO 15
[2020-04-10 16:49] LABS: BASOPHILS % (AUTO) 0 % (0-10); EOSINOPHILS # (AUTO) 0.2 10^3/uL (0.0-0.3); EOSINOPHILS % (AUTO) 2 % (0-10); HEMATOCRIT 32 % (35-52); HEMOGLOBIN 9.7 g/dL (11.5-16.0); LYMPHOCYTES # (AUTO) 2.3 10^3/uL (1.0-4.0); LYMPHOCYTES % (AUTO) 22 % (12-44); MEAN CORPUSCULAR HEMOGLOBIN 24 pg (25-34); MEAN CORPUSCULAR HGB CONC 30 g/dL (32-36); MEAN CORPUSCULAR VOLUME 79 fL (80-99); MEAN PLATELET VOLUME 10.7 fL (9.0-12.2); MONOCYTES # (AUTO) 0.6 10^3/uL (0.0-1.0); MONOCYTES % (AUTO) 5 % (0-12); NEUTROPHILS # (AUTO) 7.3 10^3/uL (1.8-7.8); NEUTROPHILS % (AUTO) 70 % (42-75); PLATELET COUNT 350 10^3/uL (130-400); WHITE BLOOD COUNT 10.4 10^3/uL (4.3-11.0)
[2020-04-10 17:23] VITALS: BP 168/78
== END 2020-04-10 17:24 | disposition home or self-care (01) ==
LOC: EDUNIT# 15:26 → ER 15:28
DX: I10 Essential (primary) hypertension (principal); D64.9 Anemia, unspecified; K64.4 Residual hemorrhoidal skin tags; E11.40 Type 2 diabetes mellitus with diabetic neuropathy, unspecified; M79.7 Fibromyalgia; E78.00 Pure hypercholesterolemia, unspecified; I48.91 Unspecified atrial fibrillation; K21.9 Gastro-esophageal reflux disease without esophagitis; I25.10 Atherosclerotic heart disease of native coronary artery without angina pectoris; J45.909 Unspecified asthma, uncomplicated; Z77.22 Contact with and (suspected) exposure to environmental tobacco smoke (acute) (chronic); Z99.81 Dependence on supplemental oxygen; Z87.19 Personal history of other diseases of the digestive system; Z86.718 Personal history of other venous thrombosis and embolism; Z95.9 Presence of cardiac and vascular implant and graft, unspecified; Z88.5 Allergy status to narcotic agent; Z88.8 Allergy status to other drugs, medicaments and biological substances; Z79.51 Long term (current) use of inhaled steroids; Z79.01 Long term (current) use of anticoagulants; Z79.84 Long term (current) use of oral hypoglycemic drugs
CPT/HCPCS: 36415; 80048; 85025; 93005

== ENCOUNTER → 2020-04-21 | Outpatient (CLI) | payer MEDICARE ==
[2020-04-21 08:50] LABS: FREE T4 (FREE THYROXINE) 0.93 NG/DL (0.70-1.48)
--- NOTE | 2020-04-21 10:52 | Diagnostic Imaging Report ---
PROCEDURE: US Thyroid. TECHNIQUE: Multiple Real-time grayscale images were obtained of the thyroid in various projections. INDICATION: Thyroid nodule. COMPARISON: Thyroid ultrasound from 03/30/2019. FINDINGS: The right lobe of the thyroid measures 5.0 x 1.6 x 1.9 cm and the left lobe measures 4.1 x 1.5 x 1.4 cm. The isthmus is 4 mm in thickness. The dominant nodule in the lower pole of the right lobe is unchanged at 2.3 x 1.2 x 1.8 cm. No microcalcifications are seen. A nodule just cephalad to this in the right lobe measures 1.1 x 0.9 x 0.8 cm compared with 1.0 x 0.6 x 0.9 cm. There is an approximately 5 mm nodule in the mid right lobe, stable. An upper pole nodule is noted on today's study measuring approximately 7 mm x 5 mm. This was not definitely seen on the prior exam. The left lobe is unremarkable. IMPRESSION: Right lobe thyroid nodules, as described. The dominant nodule is stable. A smaller nodule may be 1 mm larger. There is a new subcentimeter nodule in the upper pole. Continued followup in 6 months is recommended to show continued stability. Dictated by: Dictated on workstation # [id number]
== END ==
LOC: RAD 09:00
PROVIDERS: ATTEND Otolaryngology Otolaryngology/Facial Plastic Surgery
DX: E04.2 Nontoxic multinodular goiter (principal)
CPT/HCPCS: 36415; 76536; 84439; 84443

== ENCOUNTER 2020-07-01 11:08 | Emergency (ER) | payer MEDICARE ==
[~2020-07-01] VITALS: Ht 154.9 cm; Wt 91.2 kg
--- NOTE | 2020-07-01 11:40 | ED Lower Extremity ---
General Chief Complaint: Lower Extremity Stated Complaint: R LEG POSSIBLE BLOOD CLOT Nursing Triage Note: PT AMB TO [facility] 6 WITH COMPLAINT OF RIGHT LEG PAIN. WAS SENT BY [facility] FOR FURTHER WORK UP FOR POSSIBLE BLOOD CLOT. STATES SHE HAD A BLOOD CLOT IN LEFT LEG IN 2002. TAKES ELIQUIS DAILY FOR AFIB. Nursing Sepsis Screen: No Definite Risk Source: patient Exam Limitations: no limitations History of Present Illness Date Seen by Provider: July 01, 2020 Time Seen by Provider: 11:16 Initial Comments This is a well appearing 65 yo female who presented to the ER with c/o pain behind her right knee x3 days. Denies any trauma or injury. States that she followed up with her primary care provider today for the pain and she was referred to the emergency department to rule out DVT. States that she has prior history of DVTs and is currently taking Eliquis p.o. twice daily. Reports that she does take Eliquis daily as directed. She reports that her primary care provider thought she might have mild swelling and warmth behind her knee. No fever, chills, cough, shortness of breath, chest pain. No rashes or redness noted on her lower extremities. Allergies and Home Medications Allergies Coded Allergies: codeine (Unverified Allergy, Mild, 05/05/09) propoxyphene (Unverified Allergy, Mild, 05/05/09) tramadol (Unverified Allergy, Mild, 05/12/09) Home Medications Albuterol Sulfate 1 Puff Puff, 2 PUFF INH Q4H PRN for WHEEZING, (Reported) 1 PUFF = 90 MCG Albuterol Sulfate 2.5 Mg/0.5 Ml Vial.neb, 2.5 MG INH Q4H PRN for SHORTNESS OF BREATH, (Reported) Apixaban 5 Mg Tablet, 5 MG PO BID, (Reported) Cetirizine HCl 10 Mg Tablet, 10 MG PO DAILY, (Reported) Fluticasone Propionate 16 Gm [place].susp, 1 SPRAY NS BID, (Reported) Gabapentin 300 Mg Capsule, 300 MG PO TID, (Reported) Lisinopril/Hydrochlorothiazide 1 Each Tablet, 1 EACH PO DAILY, (Reported) Lovastatin 20 Mg Tablet, 20 MG PO HS, (Reported) Metformin HCl 1,000 Mg Tablet, 1,000 MG PO BID WITH MEALS, (Reported) Metoprolol Tartrate 100 Mg Tablet, 100 MG PO BID, (Reported) Montelukast Sodium 10 Mg Tablet, 10 MG PO HS, (Reported) Omeprazole 20 Mg Capsule.dr, 20 MG PO BID, (Reported) Patient Home Medication List Home Medication List Reviewed: Yes Review of Systems Constitutional: no symptoms reported EENTM: no symptoms reported Respiratory: no symptoms reported Cardiovascular: no symptoms reported Gastrointestinal: no symptoms reported Genitourinary: no symptoms reported Musculoskeletal: see HPI Skin: see HPI Psychiatric/Neurological: No Symptoms Reported Past Zvfgyum-Yeobes-Kttmdy Hx Patient Social History Alcohol Use: Denies Use Smoking Status: Never a Smoker 2nd Hand Smoke Exposure: Yes Recent Infectious Disease Expo: No Recent Hopitalizations: No Immunizations Up To Date Tetanus Booster (TDap): Unknown Date of Pneumonia Vaccine: Feb 20, 2011 Date of Influenza Vaccine: Nov 14, 2016 Seasonal Allergies Seasonal Allergies: No Past Medical History Surgeries: Yes (D&C; CARDIAC CATH-x4-NO INTERVENTION, bilat foot, R CTR, knee scope) Orthopedic Respiratory: Yes (wears 2L @ night) Asthma Cardiac: Yes ("blood clot in heart" ) Atrial Fibrillation, Chronic Edema/Swelling, Coronary Artery Disease, Deep Vein Thrombosis, High Cholesterol, Hypertension Neurological: Yes (spina bifida) Neuropathy 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 0.0oz. [id number]; 38.00 BMI Method:Stated General Appearance: WD/WN, no apparent distress HEENT: PERRL/EOMI, pharynx normal Neck: full range of motion, normal inspection Cardiovascular: normal peripheral pulses, no edema, no murmur, irregularly irregular Respiratory: lungs clear, normal breath sounds Gastrointestinal: normal bowel sounds, non tender, soft Knees: left knee non-tender; bilateral knee normal inspection, bilateral knee normal range of motion, bilateral knee no evidence of injury; right knee soft tissue tenderness (posterior knee ) Ankles: bilateral ankle non-tender, bilateral ankle normal inspection, bilateral ankle normal range of motion Neurologic/Tendon: normal sensation, normal motor functions, normal tendon functions Neurologic/Psychiatric: no motor/sensory deficits, alert, normal mood/affect, oriented x 3 Skin: normal color, warm/dry Progress/Results/Core Measures Results/Orders My Orders Orders - GORGE CANALES APRN Us Venous Lower Ext Rt (07/01/20 11:31) Vital Signs/I&O 07/01/20 07/01/20 11:14 12:58 Temp 35.8 Pulse 84 86 Resp 16 17 B/P (MAP) 180/104 (129) 160/120 Pulse Ox 96 98 O2 Delivery Room Air Room Air Blood Pressure Mean: 129 Diagnostic Imaging Diagonstic Imaging: Ultrasound Plain Films/CT/US/NM/MRI: knee Comments [facility] [place] NAME: SAAD HANEY [facility] REC#: [id number] PT STATUS: DEP ER : [id number] PHYSICIAN: GORGE CANALES APRN ADMIT DATE: 07/01/20/ER Signed Date of Exam:07/01/20 US VENOUS LOWER EXT RT PROCEDURE: US right lower extremity venous. TECHNIQUE: Multiple real-time grayscale images were obtained over the right lower extremity in various projections. Additional spectral analysis and color Doppler duplex images were also obtained. INDICATION: Patient complaining of right lower extremity pain and swelling behind the knee. FINDINGS: The femoropopliteal deep venous system widely patent. Normal color Doppler flow. Vascular compressibility and normal waveforms present. No solid or cystic mass was identified. In particular, no fluid collection in the popliteal fossa is found. IMPRESSION: Normal negative right lower extremity venous Doppler and ultrasound exam. Dictated by: Dictated on workstation # [id number] Dict: 07/01/20 1234 Trans: 07/01/20 1645 [id number] Interpreted by: ASHU WOODALL Electronically signed by: ASHU WOODALL 07/01/20 9116 Reviewed: Reviewed by Me Departure Impression Primary Impression: Right knee pain Disposition: 01 HOME, SELF-CARE Condition: Improved Departure-Patient Inst. Decision time for Depature: 12:50 Referrals: [facility]/CHRISTIE (PCP) Primary Care Physician ADITYA HAYNES APRN (Family) Primary Care Physician Patient Instructions: Knee Pain (DC) Add. Discharge Instructions: Plan: 1. May use ice 20 minutes at a time 4-6x per day for swelling/discomfort. 2. May take Tylenol as directed per package for pain. 3. Use anthony wrap for comfort. May remove if you experience discomfort. 4. Follow up with your doctor if your symptoms persist. 5. Return for any new or worsening symptoms. All discharge instructions reviewed with patient and/or family. Voiced understanding. GORGE CANALES APRN July 01, 2020 11:40
--- NOTE | 2020-07-01 12:37 | Diagnostic Imaging Report ---
PROCEDURE: US right lower extremity venous. TECHNIQUE: Multiple real-time grayscale images were obtained over the right lower extremity in various projections. Additional spectral analysis and color Doppler duplex images were also obtained. INDICATION: Patient complaining of right lower extremity pain and swelling behind the knee. FINDINGS: The femoropopliteal deep venous system widely patent. Normal color Doppler flow. Vascular compressibility and normal waveforms present. No solid or cystic mass was identified. In particular, no fluid collection in the popliteal fossa is found. IMPRESSION: Normal negative right lower extremity venous Doppler and ultrasound exam. Dictated by: Dictated on workstation # [id number]
[2020-07-01 12:58] VITALS: BP 160/120
== END 2020-07-01 12:58 | disposition home or self-care (01) ==
LOC: EDUNIT# 11:08 → ER 11:09
DX: M25.561 Pain in right knee (principal); I10 Essential (primary) hypertension; J45.909 Unspecified asthma, uncomplicated; E78.00 Pure hypercholesterolemia, unspecified; I25.10 Atherosclerotic heart disease of native coronary artery without angina pectoris; I48.91 Unspecified atrial fibrillation; E11.40 Type 2 diabetes mellitus with diabetic neuropathy, unspecified; K21.9 Gastro-esophageal reflux disease without esophagitis; M79.7 Fibromyalgia; Z77.22 Contact with and (suspected) exposure to environmental tobacco smoke (acute) (chronic); Z95.9 Presence of cardiac and vascular implant and graft, unspecified; Z86.718 Personal history of other venous thrombosis and embolism; Z99.81 Dependence on supplemental oxygen; Z79.01 Long term (current) use of anticoagulants; Z79.51 Long term (current) use of inhaled steroids; Z79.84 Long term (current) use of oral hypoglycemic drugs; Z79.899 Other long term (current) drug therapy

== ENCOUNTER 2020-07-18 12:30 | Outpatient (RCR) | payer MEDICARE, OTHER | END 2020-08-29 11:03 | disposition home or self-care (01) | LOC: ONC 12:30 | PROVIDERS: ATTEND Internal Medicine Hematology & Oncology | DX: D50.9 Iron deficiency anemia, unspecified (principal); I10 Essential (primary) hypertension; E11.9 Type 2 diabetes mellitus without complications; E78.5 Hyperlipidemia, unspecified; Z83.3 Family history of diabetes mellitus; Z98.890 Other specified postprocedural states | CPT/HCPCS: 99213; 99214 ==

== ENCOUNTER → 2020-10-30 | Outpatient (CLI) | payer MEDICARE, OTHER | LOC: ONC 12:50 | PROVIDERS: ATTEND Internal Medicine Hematology & Oncology | DX: D50.9 Iron deficiency anemia, unspecified (principal); K21.9 Gastro-esophageal reflux disease without esophagitis; K44.9 Diaphragmatic hernia without obstruction or gangrene; E11.9 Type 2 diabetes mellitus without complications; E78.5 Hyperlipidemia, unspecified; F32.9 Major depressive disorder, single episode, unspecified; J45.909 Unspecified asthma, uncomplicated; I10 Essential (primary) hypertension | CPT/HCPCS: 99213 ==

== ENCOUNTER → 2021-05-07 | Outpatient (CLI) | payer MEDICARE, OTHER ==
[~2021-05-07] MED LIST changes: -LISI1TAB29 PO; +LISI1TAB44 PO; +MONT-40 PO; -MONT10TA32 PO
== END ==
LOC: ONC 10:59
PROVIDERS: ATTEND Internal Medicine Hematology & Oncology
DX: D50.9 Iron deficiency anemia, unspecified (principal); K44.9 Diaphragmatic hernia without obstruction or gangrene; K21.9 Gastro-esophageal reflux disease without esophagitis; I10 Essential (primary) hypertension; E78.5 Hyperlipidemia, unspecified; E11.9 Type 2 diabetes mellitus without complications; E66.9 Obesity, unspecified
CPT/HCPCS: 99213

== ENCOUNTER → 2021-11-20 | Outpatient (CLI) | payer MEDICARE, OTHER | LOC: CARD 10:03 | PROVIDERS: ATTEND Nurse Practitioner Family | DX: R06.09 Other forms of dyspnea (principal) | CPT/HCPCS: 93306 ==

== ENCOUNTER → 2021-12-22 | Outpatient (CLI) | payer MEDICARE, OTHER ==
--- NOTE | 2021-12-22 11:47 | Diagnostic Imaging Report ---
INDICATION: Postmenopausal state COMPARISON: None available FINDINGS: AP Spine L1-L4: [BMD (g/cm2): 1.125] [T-Score: -0.6] [Z-Score: 0.4] [BMD Previous: NA] [BMD % Change: NA] LT Hip Neck: [BMD (g/cm2): 0.748] [T-Score: -2.1] [Z-Score: -1.0] LT Hip Total: [BMD (g/cm2):0.915] [T-Score:-0.7] [Z-Score: 0.1] [BMD Previous: NA] [BMD % Change: NA] RT Hip Neck: [BMD (g/cm2):0.787] [T-Score:-1.8] [Z-Score:-0.7] RT Hip Total: [BMD (g/cm2):0.916] [T-score:-0.7] [Z-Score:0.1] [BMD Previous:NA] [BMD % Change:NA] *Indicates significant change from prior examination based on 95% confidence level. World Health Organization criteria for BMD interpretation classify patients as Normal (T-score at or above -1.0), Osteopenic (T-score between -1.0 and -2.5) or Osteoporotic (T-score at or below -2.5). LIMITATIONS AND MODIFICATION: None. FRACTURE RISK (FRAX SCORE): The ten year probability of (%): Major Osteoporotic Fracture: [18] Hip Fracture: [1.8] IMPRESSION: 1. Osteopenia (Low bone mass). 2. Baseline examination. 3. See below National Osteoporosis Foundation guidelines on when to potentially initiate pharmacologic therapy. Based on the National Osteoporosis Foundation Guidelines, pharmacologic treatment should be initiated in any of the following, unless clinical conditions suggest otherwise: * Any patient with prior fragility fracture of the hip or vertebrae. A spine fracture indicates 5X risk for subsequent spine fracture and 2X risk for subsequent hip fracture. * Osteoporosis (T-score <-2.5). * Postmenopausal women and men age 50 and older with low bone mass/osteopenia (T-score between -1.0 and -2.5) by DXA and 10-year major osteoporotic fracture greater than 20% or a 10-year probability of hip fracture greater than 3%. These fracture risks are supplied above in the FRAX score, if applicable. * Clinician judgement and/or patient preferences may indicate treatment for people with 10-year fracture probabilities above or below these levels. Dictated by: Dictated on workstation # [id number]
== END ==
LOC: RAD 11:00
PROVIDERS: ATTEND Nurse Practitioner Family
DX: Z00.00 Encounter for general adult medical examination without abnormal findings (principal); M85.89 Other specified disorders of bone density and structure, multiple sites; Z78.0 Asymptomatic menopausal state
CPT/HCPCS: 77080

== ENCOUNTER → 2022-09-14 | Outpatient (CLI) | payer MEDICARE, OTHER ==
[~2022-09-14] MED LIST changes: +CATHETER FLUSH 10 ML SYR IVP PRN; +REGADENOSON 0.4 MG/5 ML SYR (LEXISCAN) IV ONE
[2022-09-14 08:55] VITALS: BP 185/81
--- NOTE | 2022-09-15 15:21 | STRESS TEST ---
DATE OF SERVICE: 09/14/2022 RESTING AND POST REGADENOSON TECHNETIUM-99M TETROFOSMIN SPECT CT IMAGING ORDERING PHYSICIAN: Lauryn Flores APRN. PRIMARY PHYSICIAN: [facility]. CLINICAL DIAGNOSIS: Chest discomfort. Baseline images were carried out after injection of 10.97 mCi technetium-99m tetrofosmin. This was followed by 0.4 mg regadenoson and 32.3 mCi of technetium-99m tetrofosmin for stress imaging. The electrocardiogram showed sinus rhythm at baseline. It did not change significantly with regadenoson infusion. The patient tolerated the procedure well. Review of images at rest and following stress does not indicate any distinct perfusion defect consistent with significant myocardial ischemia or infarction. Gated images show normal global left ventricular systolic function with normal regional wall motion. Left ventricular ejection fraction is calculated to be 68%. CONCLUSIONS: 1. No evidence of significant myocardial ischemia or infarction. 2. Normal regional wall motion. 3. Normal global left ventricular systolic function with a calculated ejection fraction of 68%. Job ID: [id number] DocumentID: [id number] Dictated Date: 09/15/2022 13:11:19 Rate Examiner Date: 09/15/2022 15:19:00 Dictated By: PEDRO MARSH MD; MA; FACP; FACC;
== END ==
LOC: CARD 07:13
PROVIDERS: ATTEND Nurse Practitioner Family
DX: R07.89 Other chest pain (principal)
CPT/HCPCS: 78452; 93017; A9502